=== PATIENT | female | born 1945 | race African-American/Black ===

== ENCOUNTER 2019-06-15 08:09 | Inpatient (IN) | payer OTHER, MEDICARE, MEDICAID ==
[~2019-06-15] VITALS: Ht 165.1 cm; Wt 87.6 kg
[2019-06-15] VITALS (27 sets, daily range): BP systolic 70–144; BP diastolic 47–104
[2019-06-15] MEDS ORDERED: Cefepime HCl 2 GM in NS 110 ML IV ONE (08:15)
[2019-06-15] MEDS ORDERED: LISINOPRIL20 MG ORAL (08:17)
[2019-06-15] MEDS ORDERED: ACETAMINOPHEN325 M1 ORAL (08:22)
--- NOTE | 2019-06-15 08:43 | Emergency Room Report ---
History of Present Illness General Chief Complaint: Upper Respiratory Illness Source: Patient, Medical Record, EMS Present Illness HPI Patient is a 73-year-old female who presents after decreased oxygen saturation at nursing facility. Prior history of interstitial lung disease as well as CHF. Had noticed increased patient had been sent in from facility due to decreased oxygen level. She was noted to have some increased work of breathing. Patient was brought in by EMS. No recent fever was noted. She was noted to be somewhat low temperature by EMS. COVID-19 risk:Contact w/high r: No COVID-19 risk:Travel to affect: No Has patient experienced liu: No Allergies: Coded Allergies: MORPHINE (Unverified Allergy, Unknown, 06/15/19) Patient History Past Medical History: see triage record Now: No Reviewed Nursing Documentation: PMH: Agreed; PSxH: Agreed Nursing Documentation-PMH Past Medical History: No History, Except For Hx Cardiac Problems: Yes - cellulitis Hx Diabetes: Yes History Of Psychiatric Problem: Yes - anxiety Review of Systems All Other Systems: limited - Review of systems: Review systems is limited by patient's being a poor historian Physical Exam Vital Signs Date Time Temp Pulse Resp B/P (MAP) Pulse Ox O2 Delivery O2 Flow Rate FiO2 06/15/19 08:05 96.1 62 16 145/93 (110) 95 Nasal Cannula 2.0 Sp02 EP Interpretation: reviewed, normal General Appearance: normal inspection, alert, Chronically Ill Head: atraumatic ENT: normal ENT inspection, hearing grossly normal, normal voice Neck: normal inspection, full range of motion, supple, no bony tend Respiratory: normal inspection, lungs clear, normal breath sounds, no respiratory distress, no retraction, no wheezing Cardiovascular #1: regular rate, rhythm, no edema Gastrointestinal: normal inspection, normal bowel sounds, non tender, soft, no guarding, no hernia Genitourinary: normal inspection, no CVA tenderness Musculoskeletal: normal inspection, back normal, normal range of motion Neurologic: alert, motor strength/tone normal, dean of graduate studies III-XII nml as tested, responsive, speech normal, normal inspection Psychiatric: normal inspection, judgement/insight normal, mood/affect normal Medical Decision Making Diagnostic Impression: Primary Impression: Pneumonia Additional Impressions: Leukopenia Hypoglycemia ER Course Patient presented for shortness of breath. Differential included but was not limited to anemia, pneumonia, pneumothorax, myocardial infarction, pericardial effusion, congestive heart failure, acidosis. Because of complexity of patient' s case laboratory tests and imaging studies were ordered. Chest x-ray 1 view showed bilateral infiltrates with normal cardiac size. Patient started on IV fluids as well as IV antibiotics.Patient was given breathing treatments. Blood cultures were obtained. Dr. Jayjay Cuenca was contacted for inpatient management Labs Test 06/15/19 08:43 White Blood Count 3.7 K/UL (4.8-10.8) Red Blood Count 4.18 M/UL (4.20-5.40) Hemoglobin 12.5 G/DL (12.0-16.0) Hematocrit 37.6 % (37.0-47.0) Mean Corpuscular Volume 90 FL (80-99) Mean Corpuscular Hemoglobin 29.9 PG (27.0-31.0) Mean Corpuscular Hemoglobin Concent 33.3 G/DL (32.0-36.0) Red Cell Distribution Width 14.3 % (11.6-14.8) Platelet Count 62 K/UL (150-450) Mean Platelet Volume 11.3 FL (6.5-10.1) Neutrophils (%) (Auto) % (45.0-75.0) Lymphocytes (%) (Auto) % (20.0-45.0) Monocytes (%) (Auto) % (1.0-10.0) Eosinophils (%) (Auto) % (0.0-3.0) Basophils (%) (Auto) % (0.0-2.0) EKG Diagnostic Results Rate: normal Rhythm: NSR ST Segments: no acute changes Last Vital Signs Date Time Temp Pulse Resp B/P (MAP) Pulse Ox O2 Delivery O2 Flow Rate FiO2 06/15/19 08:05 96.1 62 16 145/93 (110) 95 Nasal Cannula 2.0 Status: unchanged Disposition: ADMITTED INPATIENT Condition: Stable Referrals: Jayjay Chandler MD (PCP) Jayce Kamara MD Jun 15, 2019 08:43
[2019-06-15] MEDS ORDERED: Albuterol/Ipratropium 3ml neb HHN ONE ×3 (09:00→12:45)
[2019-06-15] MEDS ORDERED: D5 1/2NS 1,000 ML IV SCH (09:00)
[2019-06-15 09:03] LABS: HEMATOCRIT 37.6 % (37.0-47.0); HEMOGLOBIN 12.5 G/DL (12.0-16.0); MEAN CORPUSCULAR VOLUME 90 FL (80-99); PLATELET COUNT 62 K/UL (150-450); RED BLOOD COUNT 4.18 M/UL (4.20-5.40); RED CELL DISTRIBUTION WIDTH 14.3 % (11.6-14.8); WHITE BLOOD COUNT 3.7 K/UL (4.8-10.8)
[2019-06-15 09:28] LABS: ALANINE AMINOTRANSFERASE 55 U/L (12-78); ALBUMIN 2.4 G/DL (3.4-5.0); ALBUMIN/GLOBULIN RATIO 0.5 (1.0-2.7); ALKALINE PHOSPHATASE 120 U/L (46-116); ANION GAP 11 mmol/L (5-15); ASPARTATE AMINO TRANSFERASE 61 U/L (15-37); BILIRUBIN,TOTAL 0.7 MG/DL (0.2-1.0); CALCIUM 9.2 MG/DL (8.5-10.1); CARBON DIOXIDE 20 MMOL/L (21-32); CHLORIDE 106 MMOL/L (98-107); CKMB 21.7 NG/ML (0.0-3.6); CREATINE KINASE 193 U/L (26-308); CREATININE 0.5 MG/DL (0.55-1.30); POTASSIUM 4.8 MMOL/L (3.5-5.1); SODIUM 137 MMOL/L (136-145)
[2019-06-15 09:40] LABS: BLOOD UREA NITROGEN 10 mg/dL (7-18)
--- NOTE | 2019-06-15 10:04 | Diagnostic Imaging Report ---
Indication: Dyspnea Comparison: None A single view chest radiograph was obtained. Findings: Patchy areas of airspace consolidation demonstrated an fairly extensive within both lungs. Heart size is borderline. Pulmonary vascularity appears mildly prominent. There are no pleural effusions. Bones are osteopenic. IMPRESSION: Fairly extensive patchy airspace disease demonstrated bilaterally. Findings could be due to pneumonia. Differential includes CHF.
[2019-06-15 10:57] LABS: APPEARANCE,URINE CLEAR; BILIRUBIN, URINE NEGATIVE (NEGATIVE); COLOR,URINE PALE YELLOW; GLUCOSE, URINE (UA) NEGATIVE (NEGATIVE); KETONES,URINE NEGATIVE (NEGATIVE); LEUKOCYTE ESTERASE ,URINE NEGATIVE (NEGATIVE); NITRITE,URINE NEGATIVE (NEGATIVE); PH,URINE 6 (4.5-8.0); PROTEIN,URINE NEGATIVE (NEGATIVE); UROBILINOGEN,URINE NORMAL MG/DL (0.0-1.0)
[2019-06-15] MEDS ORDERED: Azithromycin 500 MG in NS 275 ML IV SCH ×2 (12:51→15:00)
--- NOTE | 2019-06-15 14:12 | Cardiac Electrophysiology PN ---
Subjective Subjective [id number] Objective Last 24 Hour Vital Signs Date Time Temp Pulse Resp B/P (MAP) Pulse Ox O2 Delivery O2 Flow Rate FiO2 06/15/19 13:30 78 29 126/87 96 Nasal Cannula 3.0 06/15/19 12:47 62 22 100 Nasal Cannula 3.0 32 57 24 98 06/15/19 12:40 89.9 61 28 130/82 94 Nasal Cannula 3.0 06/15/19 10:30 89.9 60 27 126/81 96 Nasal Cannula 3.0 06/15/19 09:18 59 26 Nasal Cannula 3.0 32 06/15/19 09:17 62 22 100 Nasal Cannula 3.0 32 59 26 99 06/15/19 08:25 89.9 62 25 135/84 98 Nasal Cannula 3.0 06/15/19 08:05 96.1 62 16 145/93 (110) 95 Nasal Cannula 2.0 Laboratory Tests Test 06/15/19 08:43 06/15/19 10:10 White Blood Count 3.7 K/UL (4.8-10.8) L Red Blood Count 4.18 M/UL (4.20-5.40) L Hemoglobin 12.5 G/DL (12.0-16.0) Hematocrit 37.6 % (37.0-47.0) Mean Corpuscular Volume 90 FL (80-99) Mean Corpuscular Hemoglobin 29.9 PG (27.0-31.0) Mean Corpuscular Hemoglobin Concent 33.3 G/DL (32.0-36.0) Red Cell Distribution Width 14.3 % (11.6-14.8) Platelet Count 62 K/UL (150-450) L Mean Platelet Volume 11.3 FL (6.5-10.1) H Neutrophils (%) (Auto) % (45.0-75.0) Lymphocytes (%) (Auto) % (20.0-45.0) Monocytes (%) (Auto) % (1.0-10.0) Eosinophils (%) (Auto) % (0.0-3.0) Basophils (%) (Auto) % (0.0-2.0) Differential Total Cells Counted 100 Neutrophils % (Manual) 78 % (45-75) H Lymphocytes % (Manual) 15 % (20-45) L Monocytes % (Manual) 6 % (1-10) Eosinophils % (Manual) 0 % (0-3) Basophils % (Manual) 1 % (0-2) Band Neutrophils 0 % (0-8) Platelet Estimate Decreased L Platelet Morphology Normal Red Blood Cell Morphology Normal Sodium Level 137 MMOL/L (136-145) Potassium Level 4.8 MMOL/L (3.5-5.1) Chloride Level 106 MMOL/L (98-107) Carbon Dioxide Level 20 MMOL/L (21-32) L Anion Gap 11 mmol/L (5-15) Blood Urea Nitrogen 10 mg/dL (7-18) Creatinine 0.5 MG/DL (0.55-1.30) L Estimat Glomerular Filtration Rate > 60 mL/min (>60) Glucose Level 85 MG/DL (74-106) Lactic Acid Level 1.10 mmol/L (0.4-2.0) Calcium Level 9.2 MG/DL (8.5-10.1) Total Bilirubin 0.7 MG/DL (0.2-1.0) Aspartate Amino Transf (AST/SGOT) 61 U/L (15-37) H Alanine Aminotransferase (ALT/SGPT) 55 U/L (12-78) Alkaline Phosphatase 120 U/L (46-116) H Total Creatine Kinase 193 U/L (26-308) Creatine Kinase MB 21.7 NG/ML (0.0-3.6) H Creatine Kinase MB Relative Index 11.2 Troponin I 0.012 ng/mL (0.000-0.056) Pro-B-Type Natriuretic Peptide 788 pg/mL (0-125) H Total Protein 7.7 G/DL (6.4-8.2) Albumin 2.4 G/DL (3.4-5.0) L Globulin 5.3 g/dL Albumin/Globulin Ratio 0.5 (1.0-2.7) L Urine Color Pale yellow Urine Appearance Clear Urine pH 6 (4.5-8.0) Urine Specific [place] 1.015 (1.005-1.035) Urine Protein Negative (NEGATIVE) Urine Glucose (UA) Negative (NEGATIVE) Urine Ketones Negative (NEGATIVE) Urine Blood Negative (NEGATIVE) Urine Nitrite Negative (NEGATIVE) Urine Bilirubin Negative (NEGATIVE) Urine Urobilinogen Normal MG/DL (0.0-1.0) Urine Leukocyte Esterase Negative (NEGATIVE) Microbiology Date/Time Source Procedure Growth Status 06/15/19 08:55 Nasal Nares - Final Complete 06/15/19 08:55 Nasal Nares - Final Complete Ruben Grissom MD Jun 15, 2019 14:12
--- NOTE | 2019-06-15 16:15 | Consultation ---
DATE OF CONSULTATION: 06/15/2019 CARDIOLOGY CONSULTATION CONSULTING PHYSICIAN: Ruben Grissom M.D. REFERRING PHYSICIAN: Jayjay Chandler M.D. REASON FOR CONSULTATION: Shortness of breath, decreased oxygen saturation, and atrial fibrillation. HISTORY OF PRESENT ILLNESS: The patient is a 73-year-old lady with history of psychiatric disorder and dementia who was brought in from long term for decreased oxygen saturation. The patient has apparent history of lung disease as well as congestive heart failure. The patient was evaluated in the ER and chest x-ray showed bilateral infiltrate. Blood pressure was 145/93, history of atrial fibrillation, rate of 62. The patient was admitted to step-down unit. However, here the heart rate went down as low as 30s. Cardiology consultation was obtained for further evaluation. REVIEW OF SYSTEMS: Limited to her mental status. PAST MEDICAL HISTORY: As mentioned above. FAMILY HISTORY: Noncontributory. SOCIAL HISTORY: detention resident. Does not smoke or drink alcohol. PHYSICAL EXAMINATION: VITAL SIGNS: Blood pressure 126/87, pulse is between 30s to 70s, respirations 29, temperature is 89.9. HEAD AND NECK: Showed no JVD. LUNGS: Bilateral rhonchi. CARDIOVASCULAR: Irregular. S1 and S2 with no gallop. ABDOMEN: Soft. EXTREMITIES: No pitting edema. LABORATORY AND DIAGNOSTIC DATA: Labs show white count of 3.7, hemoglobin 12.5, hematocrit 37.6, and platelet count of 62. Sodium 137, potassium 4.8, BUN of 10, creatinine 0.7, and glucose of 85. First troponin is negative. ASSESSMENT AND PLAN: 1. Shortness of breath, likely due to bilateral pneumonia, but also could be some component of congestive heart failure as well as the BNP is 788. First troponin is negative. Completely rule out [place] protocol. Get an echocardiogram for evaluation of ejection fraction and wall motion abnormality. I will start the patient on Lasix 40 mg IV daily as well. 2. Bilateral lung infiltrate and leukopenia. The patient was already started on Plaquenil 600 b.i.d. as well as azithromycin. Further evaluation by Dr. Pinto and Dr. Blue. 3. History of psychiatric history. 4. History of . 5. History of cellulitis. Thank you very much for allowing me to participate in the care of this patient. Please do not hesitate to contact me for any questions regarding my evaluation. Ruben Grissom M.D. DR: KEVIN JOB#: [id number] CC:
--- NOTE | 2019-06-15 16:30 | Consultation ---
DATE OF CONSULTATION: 06/15/2019 INFECTIOUS DISEASE CONSULTATION CONSULTING PHYSICIAN: Edin Blue M.D. PRIMARY ATTENDING PHYSICIAN: Jayjay Chandler M.D. REASON FOR CONSULT: Sepsis and pneumonia. HISTORY OF PRESENT ILLNESS: This is a 73-year-old female admitted today from a alf complaining of shortness of breath, decrease in O2 saturation. She has hypothermia with temperature of 89.9, tachypnea with respiratory rate of 26. The patient also has pneumonia, that seems to be bilateral. PAST MEDICAL HISTORY: Significant for dementia with behavioral problem, hyperglycemia, diabetes mellitus, hypertension, interstitial lung disease, and CHF. SOCIAL HISTORY: Single, alf resident. No other information can be obtained by the patient. PHYSICAL EXAMINATION: VITAL SIGNS: Temperature 89.9, pulse 62, blood pressure 135/84. GENERAL APPEARANCE: Seems to be well developed. HEAD AND NECK: Getting oxygen by nasal cannula. Slightly dry tongue. HEART: Normal rate. LUNGS: Bilateral rales. ABDOMEN: Soft and nontender. EXTREMITIES: Has some edema in the lower extremity, likely 1+. LABORATORY AND DIAGNOSTIC DATA: WBC 3.7, hemoglobin 12.5, hematocrit 37.6, and platelets 62,000. Sodium 137, potassium 4.8, chloride 106, bicarb 20, BUN 10, creatinine 0.5, glucose 85. Troponin was 0.012. BNP is 388. UA was negative. Chest x-ray showed bilateral patchy airspace disease likely pneumonia. Differential diagnosis include CHF. IMPRESSION: Sepsis with hypothermia, tachypnea, and decrease in white count. The patient has bilateral pneumonia that seems to be atypical. We will try to rule out COVID-19. She has interstitial lung disease, thrombocytopenia, and congestive heart failure. RECOMMENDATION: We will follow up the cultures. We will ask for sputum culture. We will follow up the COVID-19 test. The patient is started on Zithromax and hydroxychloroquine. We will continue with cefepime. At the end of my exam, I thank Dr. Chandler for involving me in the care of this patient. Edin Blue M.D. DR: BEV JOB#: [id number] CC:
--- NOTE | 2019-06-15 16:30 | Consultation ---
DATE OF CONSULTATION: 06/15/2019 PULMONARY CONSULTATION HISTORY OF PRESENT ILLNESS: This is a 73-year-old jail resident, was brought to the hospital with hypoxemia. The patient has a history of interstitial lung disease as well as congestive heart failure. She was found to be desaturating and was transferred to this hospital. There was no cough or fever. The patient was admitted to the hospital for subsequent management and care. PAST MEDICAL HISTORY: Notable for cellulitis, CHF, interstitial lung disease. ALLERGIES: To morphine. HOME MEDICATIONS: Reviewed and reconciled in the chart. SOCIAL HISTORY: halfway resident. REVIEW OF SYSTEMS: Unreliable. PHYSICAL EXAMINATION: GENERAL: Reveals elderly female. VITAL SIGNS: Blood pressure is 120/80, heart rate 74, respirations 24, afebrile, O2 saturation 93% on room air and 96% . HEENT: Unremarkable. CHEST: Decreased breath sounds bilaterally with few basilar crackles. HEART: Normal heart sounds. ABDOMEN: Soft. EXTREMITIES: There is 1+ edema. LABORATORY AND DIAGNOSTIC DATA: White count 3.7. Chemistries normal, alkaline phosphatase 120, otherwise normal CBC and BMP. Urinalysis negative. X-ray chest shows extensive bilateral airspace disease. IMPRESSION: 1. Bilateral pneumonia, high suspicion for COVID-19. 2. History of CHF. DISCUSSION: The patient presents from nursing facility with hypoxemia, abnormal chest x-ray, and . I suspect that she may have COVID-19. It is prudent to isolate her and obtain testing for COVID-19. We will initiate empiric antibiotics. Her influenza A and B are negative. We will follow carefully. Aly Pinto M.D. DR: Fabian JOB#: [id number] CC:
[2019-06-15] MEDS: Eliquis 5mg tablet ORAL SCH (17:34)
[2019-06-15] MEDS: DOPamine 400mg/250ml 250 ML IV SCH (21:43)
[2019-06-15] MEDS: Cefepime HCl 1 GM in D5W 55 ML IVPB SCH (21:51)
--- NOTE | 2019-06-15 23:45 | History and Physical Report ---
DATE OF ADMISSION: 06/15/2019 HISTORY OF PRESENT ILLNESS: The patient was admitted to step-down status. The patient is a poor historian. The patient came in with hypoxia. Chest x-ray showed bilateral infiltrates and pulmonary congestion, afebrile, hypothermic, and admitted to step-down status. The patient reports shortness of breath. Denies cough. Denies wheezing. Denies headache. Denies myalgia. However, the patient's is a very poor historian. PAST MEDICAL HISTORY: Organic brain syndrome, hypertension, NIDDM, anxiety, history of cellulitis in the past. MEDICATIONS: Lisinopril 20 mg daily. PAST SURGICAL HISTORY: None. ALLERGIES: To morphine. FAMILY HISTORY: Noncontributory. SOCIAL HISTORY: Denies history of smoking. Denies history of alcohol or illicit drugs. Comes from a detention. REVIEW OF SYSTEMS: HEENT: Denies headaches. RESPIRATORY: Reports shortness of breath. Denies cough. Denies wheezing. CARDIOVASCULAR: Denies chest pain. GASTROINTESTINAL: Denies nausea, vomiting, or diarrhea. EXTREMITIES: Denies pain. CENTRAL NERVOUS SYSTEM: Denies changes in speech pattern, feels weak. PHYSICAL EXAMINATION: VITAL SIGNS: Temperature not recorded, pulse is 68, blood pressure 92/57. HEENT: PERRLA. NECK: Supple. No lymphadenopathy. CHEST: Clear to auscultation. CARDIOVASCULAR: Regular rate and rhythm. No murmurs or extra sounds. GASTROINTESTINAL: Soft, nontender, nondistended. No organomegaly. EXTREMITIES: He moves all four extremities. NEUROLOGIC: Oriented x1. Has generalized weakness. Dorsalis pedis pulses present. LABORATORY DATA: WBC of 2.7, hemoglobin 12.5, and platelets of 62. Sodium of 137, potassium 4.8, BUN of 10, creatinine of 0.5, glucose of 65. Chest x-ray bilateral infiltrate. EKG shows atrial fibrillation. ASSESSMENT/PLAN: Bilateral pneumonia, hypoxia, hypothermia, , atrial fibrillation rate controlled, thrombocytopenia. I have asked Dr. Sanchez, Dr. Aly Pinto, and Dr. Edin Blue, Dr. Grissom see the patient to help with the management of this complex patient with the above mentioned abnormalities and diagnoses from the laboratory abnormalities as well as imaging abnormalities as well as aforementioned diagnoses. Antibiotics per Dr. Edin Blue. Jayjay Chandler M.D. DR: Ivelisse JOB#: [id number] CC:
[2019-06-16] VITALS (59 sets, daily range): BP systolic 47–146; BP diastolic 32–93
--- NOTE | 2019-06-16 01:59 | Diagnostic Imaging Report ---
Indication: Dyspnea Comparison: 06/15/2019 A single view chest radiograph was obtained. Findings: Patchy airspace opacities are noted within the lungs bilaterally. The heart is mildly enlarged but stable. Endotracheal tube is oriented toward the right mainstem bronchus and may be pulled up slightly. A right jugular central line and NG tube are in good position. IMPRESSION: Endotracheal tube is low and should be pulled up. Bilateral airspace opacities. Preliminary results conveyed to the ICU by statrad 01:58 06/16/2019
--- NOTE | 2019-06-16 02:01 | Diagnostic Imaging Report ---
Indication: Abdominal pain Comparison: None Single view of the abdomen obtained Findings: Bowel gas pattern is nonspecific. Surgical clips noted in the abdomen. There is a curvilinear calcification projected over the left-sided abdomen consistent with a tortuous and calcified aorta. No mass, ectopic calcifications, or abnormal gas collections are identified. The bones are osteopenic. There are multiple endplate osteophytes in the lumbar spine. Impression: No acute findings
--- NOTE | 2019-06-16 02:34 | Emergency Room Report ---
Physical Exam Vital Signs Date Time Temp Pulse Resp B/P (MAP) Pulse Ox O2 Delivery O2 Flow Rate FiO2 06/15/19 08:05 96.1 62 16 145/93 (110) 95 Nasal Cannula 2.0 06/15/19 09:17 32 Medical Decision Making Diagnostic Impression: Primary Impression: Pneumonia Additional Impressions: Hypoglycemia Leukopenia ER Course Called to the ICU for emergency intubation and central line placement. Patient admitted for respiratory failure with bilateral infiltrates. A right internal jugular triple-lumen was placed under ultrasound guidance without complications. Chest x-ray shows appropriate position without a pneumothorax. Patient was intubated under glide scope first attempt without complications. Chest x-ray showed endotracheal tube was at the tip of the nolan. Instructed ICU staff to retract 2 cm. Remainder of care per ICU team. Recall as needed. Last Vital Signs Date Time Temp Pulse Resp B/P (MAP) Pulse Ox O2 Delivery O2 Flow Rate FiO2 06/16/19 00:47 142 16 97 Mechanical Ventilator 100 06/16/19 00:00 111/61 (78) 06/15/19 20:00 3.0 06/15/19 20:00 97.2 Disposition: ADMITTED INPATIENT Condition: Stable Referrals: Jayjay Chandler MD (PCP) Procedures Central Line Central Line : Consent: Emergent Central Line Lumen: triple Maximal Sterile Barrier Tech: yes cap, yes mask, yes sterile gown, yes sterile gloves, yes large sterile sheet, yes hand hygiene, yes chlorhexidine prep No Max Barrier Tech Because: emergency insertion Central Line Postion: internal jugular (R) Complications: none Central Line Post Position: sutured, good blood return, position confirmed w / CXR Attempts: One Patient Tolerated: Well Complications: None Intubation Intubation : Consent: Emergent Intubation Method: orotracheal Tube Size (cm): 7.5 Medications: Etomidate - 20 mg, Ketamine - 100 mg Breath Sounds after Intubation: equal Intubation Complications: no complications Post Intubation Xray: Yes Progress/Xray Impression: Endotracheal tube tip at the nolan Attempts: One Patient Tolerated: Well Complications: None Rodrigo Lopez MD Jun 16, 2019 02:34
[2019-06-16] MEDS: Cefepime HCl 1 GM in D5W 55 ML IVPB SCH ×2 (05:41→18:16)
--- NOTE | 2019-06-16 06:57 | Consultation ---
History of Present Illness General Chief Complaint: Upper Respiratory Illness Present Illness Allergies: Coded Allergies: MORPHINE (Unverified Allergy, Unknown, 06/15/19) Medication History Scheduled Lisinopril (Lisinopril*), 20 MG ORAL DAILY, (Reported) Scheduled PRN Acetaminophen* (Acetaminophen 325MG Tablet*), 650 MG ORAL Q4H PRN for , ( Reported) Patient History Healthcare decision maker Patient is self responsible Resuscitation status Full Code Advanced Directive on File Physical Exam Last 24 Hour Vital Signs Date Time Temp Pulse Resp B/P (MAP) Pulse Ox O2 Delivery O2 Flow Rate FiO2 06/16/19 06:30 97 16 111/59 (76) 98 06/16/19 06:15 96 16 110/60 (77) 98 06/16/19 06:00 98 16 111/59 (76) 98 06/16/19 06:00 111/59 06/16/19 06:00 111/59 06/16/19 05:45 106 16 122/56 (78) 97 06/16/19 05:32 103 19 128/81 (97) 97 06/16/19 05:15 88 17 90/60 (70) 97 06/16/19 05:00 100 16 100 06/16/19 05:00 86 16 81/52 (62) 97 06/16/19 04:45 91 16 98/56 (70) 97 06/16/19 04:30 92 16 94/46 (62) 95 06/16/19 04:15 89 16 96/40 (58) 96 06/16/19 04:15 92 16 90/47 (61) 06/16/19 04:00 85 06/16/19 04:00 100 06/16/19 04:00 Mechanical Ventilator 100.0 06/16/19 04:00 86/56 06/16/19 04:00 86/45 06/16/19 04:00 97.6 92 16 86/47 (60) 06/16/19 04:00 92 16 86/47 (60) 06/16/19 03:45 87 16 06/16/19 03:35 93 14 87/54 (65) 06/16/19 03:30 93 16 06/16/19 03:15 89 15 06/16/19 03:00 92 11 83/55 (64) 100 3/24/20 02:59 104/79 06/16/19 02:45 95 16 100 06/16/19 02:45 95 10 112/70 (84) 100 06/16/19 02:30 97 1 109/55 (73) 100 06/16/19 02:15 104 20 110/60 (77) 99 06/16/19 02:00 132 10 104/79 (87) 93 06/16/19 02:00 114/80 06/16/19 01:45 139 6 111/60 (77) 94 06/16/19 01:30 134 10 112/70 (84) 96 06/16/19 01:15 130 11 106/60 (75) 98 06/16/19 01:00 138 17 110/93 (99) 97 06/16/19 01:00 110/56 06/16/19 00:47 142 16 97 Mechanical Ventilator 100 06/16/19 00:47 142 16 100 06/16/19 00:39 140 11 96/67 (77) 96 06/16/19 00:15 97.8 128 30 98/65 (76) 89 06/16/19 00:00 137 27 111/61 (78) 93 06/16/19 00:00 98/60 06/16/19 00:00 100 06/16/19 00:00 137 06/16/19 00:00 Venturi Mask 15.0 06/15/19 23:45 140 28 139/104 (116) 91 06/15/19 23:30 143 30 132/67 (88) 92 06/15/19 23:15 137 33 137/64 (88) 06/15/19 23:00 134 28 142/94 (110) 06/15/19 23:00 96/50 06/15/19 22:45 100 31 80/47 (58) 94 06/15/19 22:30 95 28 70/47 (55) 94 06/15/19 22:15 101 30 92/53 (66) 94 06/15/19 22:00 106 20 134/79 (97) 93 06/15/19 22:00 86/40 06/15/19 21:45 118 26 122/75 (91) 98 06/15/19 21:30 93 25 93/50 (64) 100 06/15/19 21:15 92 26 89/56 (67) 100 06/15/19 21:00 89 26 89/57 (68) 100 06/15/19 20:00 Nasal Cannula 3.0 06/15/19 20:00 97.2 79 27 95/61 (72) 100 06/15/19 20:00 15.0 06/15/19 20:00 87 06/15/19 19:45 81 25 106/62 (77) 100 06/15/19 19:30 72 26 102/58 (73) 100 06/15/19 19:15 75 30 86/54 (65) 97 06/15/19 19:00 58 21 75/53 (60) 98 06/15/19 17:51 68 27 92/57 (69) 95 06/15/19 17:48 74 23 97/61 (73) 91 06/15/19 17:00 93.8 65 29 89/51 (64) 92 06/15/19 16:00 Nasal Cannula 3.0 06/15/19 16:00 3.0 06/15/19 16:00 98.8 53 19 94/54 (67) 97 06/15/19 15:35 63 06/15/19 15:00 63 28 95/61 (72) 97 06/15/19 14:00 64 31 118/62 (80) 100 06/15/19 13:54 Nasal Cannula 3.0 06/15/19 13:46 88.9 67 24 144/78 (100) 96 06/15/19 13:32 69 06/15/19 13:30 78 29 126/87 96 Nasal Cannula 3.0 06/15/19 12:47 62 22 100 Nasal Cannula 3.0 32 57 24 98 06/15/19 12:40 89.9 61 28 130/82 94 Nasal Cannula 3.0 06/15/19 10:30 89.9 60 27 126/81 96 Nasal Cannula 3.0 06/15/19 09:18 59 26 Nasal Cannula 3.0 32 06/15/19 09:17 62 22 100 Nasal Cannula 3.0 32 59 26 99 06/15/19 08:25 89.9 62 25 135/84 98 Nasal Cannula 3.0 06/15/19 08:05 96.1 62 16 145/93 (110) 95 Nasal Cannula 2.0 Intake and Output 06/15/19 06/16/19 19:00 07:00 Intake Total 1500 ml 248.573 ml Output Total 830 ml Balance 1500 ml -581.427 ml Intake IV Total 1500 ml 248.573 ml Output Urine Total 830 ml # Voids 2 200 # Bowel Movements 5 4 Laboratory Tests Test 06/15/19 08:43 06/15/19 10:10 06/15/19 17:00 06/15/19 23:15 White Blood Count 3.7 K/UL (4.8-10.8) L Red Blood Count 4.18 M/UL (4.20-5.40) L Hemoglobin 12.5 G/DL (12.0-16.0) Hematocrit 37.6 % (37.0-47.0) Mean Corpuscular Volume 90 FL (80-99) Mean Corpuscular Hemoglobin 29.9 PG (27.0-31.0) Mean Corpuscular Hemoglobin Concent 33.3 G/DL (32.0-36.0) Red Cell Distribution Width 14.3 % (11.6-14.8) Platelet Count 62 K/UL (150-450) L Mean Platelet Volume 11.3 FL (6.5-10.1) H Neutrophils (%) (Auto) % (45.0-75.0) Lymphocytes (%) (Auto) % (20.0-45.0) Monocytes (%) (Auto) % (1.0-10.0) Eosinophils (%) (Auto) % (0.0-3.0) Basophils (%) (Auto) % (0.0-2.0) Differential Total Cells Counted 100 Neutrophils % (Manual) 78 % (45-75) H Lymphocytes % (Manual) 15 % (20-45) L Monocytes % (Manual) 6 % (1-10) Eosinophils % (Manual) 0 % (0-3) Basophils % (Manual) 1 % (0-2) Band Neutrophils 0 % (0-8) Platelet Estimate Decreased L Platelet Morphology Normal Red Blood Cell Morphology Normal Sodium Level 137 MMOL/L (136-145) Potassium Level 4.8 MMOL/L (3.5-5.1) Chloride Level 106 MMOL/L (98-107) Carbon Dioxide Level 20 MMOL/L (21-32) L Anion Gap 11 mmol/L (5-15) Blood Urea Nitrogen 10 mg/dL (7-18) Creatinine 0.5 MG/DL (0.55-1.30) L Estimat Glomerular Filtration Rate > 60 mL/min (>60) Glucose Level 85 MG/DL (74-106) Lactic Acid Level 1.10 mmol/L (0.4-2.0) Calcium Level 9.2 MG/DL (8.5-10.1) Total Bilirubin 0.7 MG/DL (0.2-1.0) Aspartate Amino Transf (AST/SGOT) 61 U/L (15-37) H Alanine Aminotransferase (ALT/SGPT) 55 U/L (12-78) Alkaline Phosphatase 120 U/L (46-116) H Total Creatine Kinase 193 U/L (26-308) Creatine Kinase MB 21.7 NG/ML (0.0-3.6) H Creatine Kinase MB Relative Index 11.2 Troponin I 0.012 ng/mL (0.000-0.056) 0.039 ng/mL (0.000-0.056) Pro-B-Type Natriuretic Peptide 788 pg/mL (0-125) H Total Protein 7.7 G/DL (6.4-8.2) Albumin 2.4 G/DL (3.4-5.0) L Globulin 5.3 g/dL Albumin/Globulin Ratio 0.5 (1.0-2.7) L Urine Color Pale yellow Urine Appearance Clear Urine pH 6 (4.5-8.0) Urine Specific [place] 1.015 (1.005-1.035) Urine Protein Negative (NEGATIVE) Urine Glucose (UA) Negative (NEGATIVE) Urine Ketones Negative (NEGATIVE) Urine Blood Negative (NEGATIVE) Urine Nitrite Negative (NEGATIVE) Urine Bilirubin Negative (NEGATIVE) Urine Urobilinogen Normal MG/DL (0.0-1.0) Urine Leukocyte Esterase Negative (NEGATIVE) Arterial Blood pH 7.360 (7.350-7.450) Arterial Blood Partial Pressure CO2 40.7 mmHg (35.0-45.0) Arterial Blood Partial Pressure O2 49.2 mmHg (75.0-100.0) Arterial Blood HCO3 22.5 mmol/L (22.0-26.0) Arterial Blood Oxygen Saturation 82.7 % (95-100) *L Arterial Blood Base Excess -2.8 (-2-2) L Julius Test Positive Test 06/16/19 05:30 White Blood Count Pending Red Blood Count Pending Hemoglobin Pending Hematocrit Pending Mean Corpuscular Volume Pending Mean Corpuscular Hemoglobin Pending Mean Corpuscular Hemoglobin Concent Pending Red Cell Distribution Width Pending Platelet Count Pending Mean Platelet Volume Pending Neutrophils (%) (Auto) Pending Lymphocytes (%) (Auto) Pending Monocytes (%) (Auto) Pending Eosinophils (%) (Auto) Pending Basophils (%) (Auto) Pending Sodium Level Pending Potassium Level Pending Chloride Level Pending Carbon Dioxide Level Pending Blood Urea Nitrogen Pending Creatinine Pending Estimat Glomerular Filtration Rate Pending Glucose Level Pending Calcium Level Pending Total Bilirubin Pending Aspartate Amino Transf (AST/SGOT) Pending Alanine Aminotransferase (ALT/SGPT) Pending Alkaline Phosphatase Pending Troponin I 0.181 ng/mL (0.000-0.056) Pro-B-Type Natriuretic Peptide 2741 pg/mL (0-125) H Total Protein Pending Albumin Pending Globulin Pending Thyroid Stimulating Hormone (TSH) 1.272 uiU/mL (0.358-3.740) Free Thyroxine 0.86 NG/DL (0.76-1.46) Digoxin Level < 0.2 NG/ML (0.9-2.0) L Microbiology Date/Time Source Procedure Growth Status 06/15/19 08:55 Nasal Nares - Final Complete 06/15/19 08:55 Nasal Nares - Final Complete 06/15/19 11:15 Rectum Received Height (Feet): 5 Height (Inches): 5.00 Weight (Pounds): 180 Medications Current Medications Medications (Trade) Dose Ordered Sig/Emil Route PRN Reason Start Time Stop Time Status Last Admin Dose Admin Acetaminophen (Tylenol) 650 mg Q4H PRN ORAL Mild Pain/Temp > 100.5 06/15/19 14:30 07/15/19 14:29 Apixaban (Eliquis) 5 mg BID ORAL 06/15/19 18:00 09/13/19 17:59 Cefepime HCl 1 gm/ Dextrose 55 ml @ 110 mls/hr Q8H IVPB 06/15/19 22:00 06/22/19 21:59 06/16/19 05:41 Dextrose (Dextrose 50%) 50 ml Q30M PRN IV Hypoglycemia 06/15/19 14:45 09/13/19 14:44 Dopamine HCl/ Dextrose 250 ml @ 0 mls/hr Q24H IV 06/15/19 20:45 09/13/19 20:44 06/15/19 21:43 Furosemide (Lasix) 40 mg EVERY 12 HOURS IV 06/15/19 21:00 07/15/19 20:59 06/15/19 21:44 Hydroxychloroquine Sulfate (Plaquenil) 200 mg BID ORAL 06/16/19 18:00 06/20/19 09:01 Hydroxychloroquine Sulfate (Plaquenil) 400 mg BID ORAL 06/15/19 18:00 06/16/19 09:01 Norepinephrine Bitartrate 4 mg/ Dextrose 250 ml @ 0 mls/hr Q24H IV 06/16/19 00:00 07/16/19 00:00 06/16/19 02:59 Pantoprazole (Protonix) 40 mg DAILY IVP 06/16/19 09:00 07/16/19 08:59 Assessment/Plan Assessment/Plan: Hematology Consultation REQ MD: Jayjay Cuenca RFC: pancytopenia DOS: 06/16/2019 HPI Patient is a 73-year-old female who presents after decreased oxygen saturation at nursing facility. Prior history of interstitial lung disease as well as CHF. Had noticed increased patient had been sent in from facility due to decreased oxygen level. She was noted to have some increased work of breathing. Patient was brought in by EMS. No recent fever was noted. She was noted to be somewhat low temperature by EMS. Now is intubated in the icu, intubated yesterday, highly suspicious for covid and heme was consulted. COVID-19 risk:Contact w/high r: No COVID-19 risk:Travel to affect: No Has patient experienced liu: No Allergies: Coded Allergies: MORPHINE (Unverified Allergy, Unknown, 06/15/19) Patient History Past Medical History: see triage record Now: No Reviewed Nursing Documentation: PMH: Agreed; PSxH: Agreed Nursing Documentation-PMH Past Medical History: No History, Except For Hx Cardiac Problems: Yes - cellulitis Hx Diabetes: Yes History Of Psychiatric Problem: Yes - anxiety ROS intubated PE General: normal inspection, alert, Chronically Ill HEENT: nc, at Respiratory: normal inspection, lungs clear, intubated ++ on vent Cardiovascular: regular rate, rhythm, no edema Gastrointestinal: normal inspection, normal bowel sounds, non tender, soft, no guarding, no hernia Genitourinary: normal inspection, no CVA tenderness Musculoskeletal: normal inspection, back normal Neurologic: alert, motor strength/tone normal, naturopathic physician III-XII nml as tested Psychiatric: normal inspection, judgement/insight normal Labs: noted Imaging: reviewed Assessment and Recs: # Pancytopenia with a decreased wbc and plt, likely related to pna v other cause , meds ntoed --> hepatitis and hiv ordered --> smear ordered at this time --> us of the abdomen --> transfuse on prn basis --> neupogen if anc drops to below 1500 # Pneumonia on admission --> now intubated --> on abx --> per id and pulm # Hypoglycemia --> d5w given earlier --> now improved # Shortness of breath, likely due to bilateral pneumonia --> echo per cards --> may need diuresis # Respiratory failure with Bilateral lung infiltrate and leukopenia. The patient was already started on Plaquenil 600 b.i.d. as well as azithromycin. F --> dr. Pinto on board --> NOW INTUBATED # History of psychiatric history. # History of cellulitis. Thank you very, appreciate consultation and dw James Dean MD Jun 16, 2019 06:57
[2019-06-16 07:08] LABS: ALANINE AMINOTRANSFERASE 40 U/L (12-78); ALBUMIN/GLOBULIN RATIO 0.4 (1.0-2.7); ALKALINE PHOSPHATASE 103 U/L (46-116); ANION GAP 7 mmol/L (5-15); ASPARTATE AMINO TRANSFERASE 36 U/L (15-37); BILIRUBIN,TOTAL 0.8 MG/DL (0.2-1.0); BLOOD UREA NITROGEN 12 mg/dL (7-18); CALCIUM 8.4 MG/DL (8.5-10.1); CARBON DIOXIDE 25 MMOL/L (21-32); CHLORIDE 107 MMOL/L (98-107); CREATININE 0.9 MG/DL (0.55-1.30); POTASSIUM 3.4 MMOL/L (3.5-5.1); SODIUM 139 MMOL/L (136-145)
[2019-06-16 07:28] LABS: HEMOGLOBIN 11.3 G/DL (12.0-16.0); MEAN CORPUSCULAR VOLUME 90 FL (80-99); PLATELET COUNT 63 K/UL (150-450); RED BLOOD COUNT 3.69 M/UL (4.20-5.40); RED CELL DISTRIBUTION WIDTH 14.2 % (11.6-14.8); WHITE BLOOD COUNT 19.2 K/UL (4.8-10.8)
[2019-06-16] MEDS ORDERED: Levophed 4mg/4mL Inj IV ONE (07:30)
[2019-06-16] MEDS: Eliquis 5mg tablet ORAL SCH ×2 (09:00→17:54)
--- NOTE | 2019-06-16 09:13 | Pulmonology Progress Note ---
Assessment/Plan Assessment/Plan IMPRESSION: 1. Bilateral pneumonia, high suspicion for COVID-19. 2. History of CHF. DISCUSSION: Intubated overnight On pressors The patient presents from nursing facility with hypoxemia and abnormal chest x- ray, and leukopenia. I suspect that she may have COVID-19. It is prudent to isolate her and obtain testing for COVID-19. I will initiate empiric antibiotics. Her influenza A and B are negative. I will follow carefully. Aly Pinto M.D. Subjective Interval Events: Intubated overnight; now on pressors Constitutional: Reports: no symptoms HEENT: Repors: no symptoms Respiratory: Reports: no symptoms Cardiovascular: Reports: no symptoms Gastrointestinal/Abdominal: Reports: no symptoms Allergies: Coded Allergies: MORPHINE (Unverified Allergy, Unknown, 06/15/19) Objective Last 24 Hour Vital Signs Date Time Temp Pulse Resp B/P (MAP) Pulse Ox O2 Delivery O2 Flow Rate FiO2 06/16/19 08:30 102 15 83/51 (62) 100 06/16/19 08:00 100 06/16/19 08:00 Mechanical Ventilator 100.0 06/16/19 08:00 101 16 117/67 (84) 100 06/16/19 07:30 97.1 67 21 47/32 (37) 99 06/16/19 07:00 93 17 72/44 (53) 100 06/16/19 07:00 97 16 100 06/16/19 06:30 97 16 111/59 (76) 98 06/16/19 06:15 96 16 110/60 (77) 98 06/16/19 06:00 98 16 111/59 (76) 98 06/16/19 06:00 111/59 06/16/19 06:00 111/59 06/16/19 05:45 106 16 122/56 (78) 97 06/16/19 05:32 103 19 128/81 (97) 97 06/16/19 05:15 88 17 90/60 (70) 97 06/16/19 05:00 100 16 100 06/16/19 05:00 86 16 81/52 (62) 97 06/16/19 04:45 91 16 98/56 (70) 97 06/16/19 04:30 92 16 94/46 (62) 95 06/16/19 04:15 89 16 96/40 (58) 96 06/16/19 04:15 92 16 90/47 (61) 06/16/19 04:00 85 06/16/19 04:00 100 06/16/19 04:00 Mechanical Ventilator 100.0 06/16/19 04:00 86/56 06/16/19 04:00 86/45 06/16/19 04:00 97.6 92 16 86/47 (60) 06/16/19 04:00 92 16 86/47 (60) 06/16/19 03:45 87 16 06/16/19 03:35 93 14 87/54 (65) 06/16/19 03:30 93 16 06/16/19 03:15 89 15 06/16/19 03:00 92 11 83/55 (64) 100 06/16/19 02:59 104/79 06/16/19 02:45 95 16 100 06/16/19 02:45 95 10 112/70 (84) 100 06/16/19 02:30 97 1 109/55 (73) 100 06/16/19 02:15 104 20 110/60 (77) 99 06/16/19 02:00 132 10 104/79 (87) 93 06/16/19 02:00 114/80 06/16/19 01:45 139 6 111/60 (77) 94 06/16/19 01:30 134 10 112/70 (84) 96 06/16/19 01:15 130 11 106/60 (75) 98 06/16/19 01:00 138 17 110/93 (99) 97 06/16/19 01:00 110/56 06/16/19 00:47 142 16 97 Mechanical Ventilator 100 06/16/19 00:47 142 16 100 06/16/19 00:39 140 11 96/67 (77) 96 06/16/19 00:15 97.8 128 30 98/65 (76) 89 06/16/19 00:00 137 27 111/61 (78) 93 06/16/19 00:00 98/60 06/16/19 00:00 100 06/16/19 00:00 137 06/16/19 00:00 Venturi Mask 15.0 06/15/19 23:45 140 28 139/104 (116) 91 06/15/19 23:30 143 30 132/67 (88) 92 06/15/19 23:15 137 33 137/64 (88) 06/15/19 23:00 134 28 142/94 (110) 06/15/19 23:00 96/50 06/15/19 22:45 100 31 80/47 (58) 94 06/15/19 22:30 95 28 70/47 (55) 94 06/15/19 22:15 101 30 92/53 (66) 94 06/15/19 22:00 106 20 134/79 (97) 93 06/15/19 22:00 86/40 06/15/19 21:45 118 26 122/75 (91) 98 06/15/19 21:30 93 25 93/50 (64) 100 06/15/19 21:15 92 26 89/56 (67) 100 06/15/19 21:00 89 26 89/57 (68) 100 06/15/19 20:00 Nasal Cannula 3.0 06/15/19 20:00 97.2 79 27 95/61 (72) 100 06/15/19 20:00 15.0 06/15/19 20:00 87 06/15/19 19:45 81 25 106/62 (77) 100 06/15/19 19:30 72 26 102/58 (73) 100 06/15/19 19:15 75 30 86/54 (65) 97 06/15/19 19:00 58 21 75/53 (60) 98 06/15/19 17:51 68 27 92/57 (69) 95 06/15/19 17:48 74 23 97/61 (73) 91 06/15/19 17:00 93.8 65 29 89/51 (64) 92 06/15/19 16:00 Nasal Cannula 3.0 06/15/19 16:00 3.0 06/15/19 16:00 98.8 53 19 94/54 (67) 97 06/15/19 15:35 63 06/15/19 15:00 63 28 95/61 (72) 97 06/15/19 14:00 64 31 118/62 (80) 100 06/15/19 13:54 Nasal Cannula 3.0 06/15/19 13:46 88.9 67 24 144/78 (100) 96 06/15/19 13:32 69 06/15/19 13:30 78 29 126/87 96 Nasal Cannula 3.0 06/15/19 12:47 62 22 100 Nasal Cannula 3.0 32 57 24 98 06/15/19 12:40 89.9 61 28 130/82 94 Nasal Cannula 3.0 06/15/19 10:30 89.9 60 27 126/81 96 Nasal Cannula 3.0 06/15/19 09:18 59 26 Nasal Cannula 3.0 32 06/15/19 09:17 62 22 100 Nasal Cannula 3.0 32 59 26 99 Intake and Output 06/15/19 06/16/19 19:00 07:00 Intake Total 1500 ml 248.573 ml Output Total 860 ml Balance 1500 ml -611.427 ml Intake IV Total 1500 ml 248.573 ml Output Urine Total 860 ml # Voids 2 200 # Bowel Movements 5 4 General Appearance: no acute distress HEENT: normocephalic Respiratory/Chest: chest wall non-tender, normal breath sounds Microbiology Date/Time Source Procedure Growth Status 06/15/19 08:55 Nasal Nares - Final Complete 06/15/19 08:55 Nasal Nares - Final Complete 06/15/19 11:15 Rectum Received Laboratory Tests 06/15/19 10:10: Urine Color Pale yellow, Urine Appearance Clear, Urine pH 6, Urine Specific [place] 1.015, Urine Protein Negative, Urine Glucose (UA) Negative, Urine Ketones Negative, Urine Blood Negative, Urine Nitrite Negative, Urine Bilirubin Negative, Urine Urobilinogen Normal, Urine Leukocyte Esterase Negative 06/15/19 17:00: Troponin I 0.039 06/15/19 23:15: Arterial Blood pH 7.360, Arterial Blood Partial Pressure CO2 40.7, Arterial Blood Partial Pressure O2 49.2*L, Arterial Blood HCO3 22.5, Arterial Blood Oxygen Saturation 82.7*L, Arterial Blood Base Excess -2.8L, Julius Test Positive 06/16/19 05:30: Troponin I 0.181H, White Blood Count 19.2#H, Red Blood Count 3.69L, Hemoglobin 11.3L, Hematocrit 33.0L, Mean Corpuscular Volume 90, Mean Corpuscular Hemoglobin 30.7, Mean Corpuscular Hemoglobin Concent 34.3, Red Cell Distribution Width 14.2, Platelet Count 63L, Mean Platelet Volume 12.2H, Neutrophils (%) (Auto) , Lymphocytes (%) (Auto) , Monocytes (%) (Auto) , Eosinophils (%) (Auto) , Basophils (%) (Auto) , Differential Total Cells Counted 100, Neutrophils % (Manual) 94H, Lymphocytes % (Manual) 3L, Monocytes % (Manual) 2, Eosinophils % (Manual) 1, Basophils % (Manual) 0, Band Neutrophils 0 , Platelet Estimate DecreasedL, Platelet Morphology Normal, Hypochromasia 1+, Sodium Level 139, Potassium Level 3.4L, Chloride Level 107, Carbon Dioxide Level 25, Anion Gap 7, Blood Urea Nitrogen 12, Creatinine 0.9#, Estimat Glomerular Filtration Rate > 60, Glucose Level 97, Calcium Level 8.4L, Total Bilirubin 0.8, Aspartate Amino Transf (AST/SGOT) 36, Alanine Aminotransferase ( ALT/SGPT) 40, Alkaline Phosphatase 103, Pro-B-Type Natriuretic Peptide 2741H, Total Protein 6.5, Albumin 2.0L, Globulin 4.5, Albumin/Globulin Ratio 0.4L, Thyroid Stimulating Hormone (TSH) 1.272, Free Thyroxine 0.86, Digoxin Level < 0.2L Current Medications Medications (Trade) Dose Ordered Sig/Emil Route PRN Reason Start Time Stop Time Status Last Admin Dose Admin Acetaminophen (Tylenol) 650 mg Q4H PRN ORAL Mild Pain/Temp > 100.5 06/15/19 14:30 07/15/19 14:29 Apixaban (Eliquis) 5 mg BID ORAL 06/15/19 18:00 09/13/19 17:59 Cefepime HCl 1 gm/ Dextrose 55 ml @ 110 mls/hr Q8H IVPB 06/15/19 22:00 06/22/19 21:59 06/16/19 05:41 Dextrose (Dextrose 50%) 50 ml Q30M PRN IV Hypoglycemia 06/15/19 14:45 09/13/19 14:44 Dopamine HCl/ Dextrose 250 ml @ 0 mls/hr Q24H IV 06/15/19 20:45 09/13/19 20:44 06/15/19 21:43 Furosemide (Lasix) 40 mg EVERY 12 HOURS IV 06/15/19 21:00 07/15/19 20:59 06/15/19 21:44 Hydroxychloroquine Sulfate (Plaquenil) 200 mg BID ORAL 06/16/19 18:00 06/20/19 09:01 Norepinephrine Bitartrate 8 mg/ Dextrose 558 ml @ 0 mls/hr Q24H IV 06/16/19 09:00 07/16/19 08:59 Pantoprazole (Protonix) 40 mg DAILY IVP 06/16/19 09:00 07/16/19 08:59 Aly Pinto MD Jun 16, 2019 09:13
--- NOTE | 2019-06-16 10:04 | Infectious Diseases Prog Note ---
Assessment/Plan Assessment/Plan IMPRESSION: Sepsis with Septic shock Bilateral pneumonia, try to rule out COVID-19. Hypoxic respiratory failure Interstitial lung disease, Thrombocytopenia, Congestive heart failure. RECOMMENDATION: We will follow up the cultures. We will follow up the COVID-19 test. Continue Zithromax ,hydroxychloroquine &cefepime. Poor prognosis Subjective ROS Limited/Unobtainable: Yes Constitutional: Reports: other - in critical condition in ICU Respiratory: Reports: other - intubated Cardiovascular: Reports: other - on Levophed, had IJ line placemet Allergies: Coded Allergies: MORPHINE (Unverified Allergy, Unknown, 06/15/19) Objective Vital Signs Last 24 Hour Vital Signs Date Time Temp Pulse Resp B/P (MAP) Pulse Ox O2 Delivery O2 Flow Rate FiO2 06/16/19 09:30 103 17 102/60 (74) 06/16/19 09:00 99 15 89/50 (63) 100 06/16/19 08:30 102 15 83/51 (62) 100 06/16/19 08:00 100 06/16/19 08:00 Mechanical Ventilator 100.0 06/16/19 08:00 101 06/16/19 08:00 101 16 117/67 (84) 100 06/16/19 07:30 97.1 67 21 47/32 (37) 99 06/16/19 07:00 93 17 72/44 (53) 100 06/16/19 07:00 97 16 100 06/16/19 06:30 97 16 111/59 (76) 98 06/16/19 06:15 96 16 110/60 (77) 98 06/16/19 06:00 98 16 111/59 (76) 98 06/16/19 06:00 111/59 06/16/19 06:00 111/59 06/16/19 05:45 106 16 122/56 (78) 97 06/16/19 05:32 103 19 128/81 (97) 97 06/16/19 05:15 88 17 90/60 (70) 97 06/16/19 05:00 100 16 100 06/16/19 05:00 86 16 81/52 (62) 97 06/16/19 04:45 91 16 98/56 (70) 97 06/16/19 04:30 92 16 94/46 (62) 95 06/16/19 04:15 89 16 96/40 (58) 96 06/16/19 04:15 92 16 90/47 (61) 06/16/19 04:00 85 06/16/19 04:00 100 06/16/19 04:00 Mechanical Ventilator 100.0 06/16/19 04:00 86/56 06/16/19 04:00 86/45 06/16/19 04:00 97.6 92 16 86/47 (60) 06/16/19 04:00 92 16 86/47 (60) 06/16/19 03:45 87 16 06/16/19 03:35 93 14 87/54 (65) 06/16/19 03:30 93 16 06/16/19 03:15 89 15 06/16/19 03:00 92 11 83/55 (64) 100 06/16/19 02:59 104/79 06/16/19 02:45 95 16 100 06/16/19 02:45 95 10 112/70 (84) 100 06/16/19 02:30 97 1 109/55 (73) 100 06/16/19 02:15 104 20 110/60 (77) 99 06/16/19 02:00 132 10 104/79 (87) 93 06/16/19 02:00 114/80 06/16/19 01:45 139 6 111/60 (77) 94 06/16/19 01:30 134 10 112/70 (84) 96 06/16/19 01:15 130 11 106/60 (75) 98 06/16/19 01:00 138 17 110/93 (99) 97 06/16/19 01:00 110/56 06/16/19 00:47 142 16 97 Mechanical Ventilator 100 06/16/19 00:47 142 16 100 06/16/19 00:39 140 11 96/67 (77) 96 06/16/19 00:15 97.8 128 30 98/65 (76) 89 06/16/19 00:00 137 27 111/61 (78) 93 06/16/19 00:00 98/60 06/16/19 00:00 100 06/16/19 00:00 137 06/16/19 00:00 Venturi Mask 15.0 06/15/19 23:45 140 28 139/104 (116) 91 06/15/19 23:30 143 30 132/67 (88) 92 06/15/19 23:15 137 33 137/64 (88) 06/15/19 23:00 134 28 142/94 (110) 06/15/19 23:00 96/50 06/15/19 22:45 100 31 80/47 (58) 94 06/15/19 22:30 95 28 70/47 (55) 94 06/15/19 22:15 101 30 92/53 (66) 94 06/15/19 22:00 106 20 134/79 (97) 93 06/15/19 22:00 86/40 06/15/19 21:45 118 26 122/75 (91) 98 06/15/19 21:30 93 25 93/50 (64) 100 06/15/19 21:15 92 26 89/56 (67) 100 06/15/19 21:00 89 26 89/57 (68) 100 06/15/19 20:00 Nasal Cannula 3.0 06/15/19 20:00 97.2 79 27 95/61 (72) 100 06/15/19 20:00 15.0 06/15/19 20:00 87 06/15/19 19:45 81 25 106/62 (77) 100 06/15/19 19:30 72 26 102/58 (73) 100 06/15/19 19:15 75 30 86/54 (65) 97 06/15/19 19:00 58 21 75/53 (60) 98 06/15/19 17:51 68 27 92/57 (69) 95 06/15/19 17:48 74 23 97/61 (73) 91 06/15/19 17:00 93.8 65 29 89/51 (64) 92 06/15/19 16:00 Nasal Cannula 3.0 06/15/19 16:00 3.0 06/15/19 16:00 98.8 53 19 94/54 (67) 97 06/15/19 15:35 63 06/15/19 15:00 63 28 95/61 (72) 97 06/15/19 14:00 64 31 118/62 (80) 100 06/15/19 13:54 Nasal Cannula 3.0 06/15/19 13:46 88.9 67 24 144/78 (100) 96 06/15/19 13:32 69 06/15/19 13:30 78 29 126/87 96 Nasal Cannula 3.0 06/15/19 12:47 62 22 100 Nasal Cannula 3.0 32 57 24 98 06/15/19 12:40 89.9 61 28 130/82 94 Nasal Cannula 3.0 06/15/19 10:30 89.9 60 27 126/81 96 Nasal Cannula 3.0 Height (Feet): 5 Height (Inches): 5.00 Weight (Pounds): 180 HEENT: mucous membranes moist, other - orally intubated Respiratory/Chest: decreased breath sounds, other - on ventilator Cardiovascular: tachycardia, other - RIJ central line Abdomen: soft, non tender, other - GT in place Extremities: no edema Neurologic/Psychiatric: unresponsiveness Microbiology Date/Time Source Procedure Growth Status 06/15/19 08:55 Nasal Nares - Final Complete 06/15/19 08:55 Nasal Nares - Final Complete 06/15/19 11:15 Rectum Received Laboratory Tests Test 06/15/19 10:10 06/15/19 17:00 06/15/19 23:15 06/16/19 05:30 Urine Color Pale yellow Urine Appearance Clear Urine pH 6 (4.5-8.0) Urine Specific [place] 1.015 (1.005-1.035) Urine Protein Negative (NEGATIVE) Urine Glucose (UA) Negative (NEGATIVE) Urine Ketones Negative (NEGATIVE) Urine Blood Negative (NEGATIVE) Urine Nitrite Negative (NEGATIVE) Urine Bilirubin Negative (NEGATIVE) Urine Urobilinogen Normal MG/DL (0.0-1.0) Urine Leukocyte Esterase Negative (NEGATIVE) Troponin I 0.039 ng/mL (0.000-0.056) 0.181 ng/mL (0.000-0.056) Arterial Blood pH 7.360 (7.350-7.450) Arterial Blood Partial Pressure CO2 40.7 mmHg (35.0-45.0) Arterial Blood Partial Pressure O2 49.2 mmHg (75.0-100.0) Arterial Blood HCO3 22.5 mmol/L (22.0-26.0) Arterial Blood Oxygen Saturation 82.7 % (95-100) *L Arterial Blood Base Excess -2.8 (-2-2) L Julius Test Positive White Blood Count 19.2 K/UL (4.8-10.8) #H Red Blood Count 3.69 M/UL (4.20-5.40) L Hemoglobin 11.3 G/DL (12.0-16.0) L Hematocrit 33.0 % (37.0-47.0) L Mean Corpuscular Volume 90 FL (80-99) Mean Corpuscular Hemoglobin 30.7 PG (27.0-31.0) Mean Corpuscular Hemoglobin Concent 34.3 G/DL (32.0-36.0) Red Cell Distribution Width 14.2 % (11.6-14.8) Platelet Count 63 K/UL (150-450) L Mean Platelet Volume 12.2 FL (6.5-10.1) H Neutrophils (%) (Auto) % (45.0-75.0) Lymphocytes (%) (Auto) % (20.0-45.0) Monocytes (%) (Auto) % (1.0-10.0) Eosinophils (%) (Auto) % (0.0-3.0) Basophils (%) (Auto) % (0.0-2.0) Differential Total Cells Counted 100 Neutrophils % (Manual) 94 % (45-75) H Lymphocytes % (Manual) 3 % (20-45) L Monocytes % (Manual) 2 % (1-10) Eosinophils % (Manual) 1 % (0-3) Basophils % (Manual) 0 % (0-2) Band Neutrophils 0 % (0-8) Platelet Estimate Decreased L Platelet Morphology Normal Hypochromasia 1+ Sodium Level 139 MMOL/L (136-145) Potassium Level 3.4 MMOL/L (3.5-5.1) L Chloride Level 107 MMOL/L (98-107) Carbon Dioxide Level 25 MMOL/L (21-32) Anion Gap 7 mmol/L (5-15) Blood Urea Nitrogen 12 mg/dL (7-18) Creatinine 0.9 MG/DL (0.55-1.30) # Estimat Glomerular Filtration Rate > 60 mL/min (>60) Glucose Level 97 MG/DL (74-106) Calcium Level 8.4 MG/DL (8.5-10.1) L Total Bilirubin 0.8 MG/DL (0.2-1.0) Aspartate Amino Transf (AST/SGOT) 36 U/L (15-37) Alanine Aminotransferase (ALT/SGPT) 40 U/L (12-78) Alkaline Phosphatase 103 U/L (46-116) Pro-B-Type Natriuretic Peptide 2741 pg/mL (0-125) H Total Protein 6.5 G/DL (6.4-8.2) Albumin 2.0 G/DL (3.4-5.0) L Globulin 4.5 g/dL Albumin/Globulin Ratio 0.4 (1.0-2.7) L Thyroid Stimulating Hormone (TSH) 1.272 uiU/mL (0.358-3.740) Free Thyroxine 0.86 NG/DL (0.76-1.46) Digoxin Level < 0.2 NG/ML (0.9-2.0) L Test 06/16/19 09:04 Arterial Blood pH 7.382 (7.350-7.450) Arterial Blood Partial Pressure CO2 37.4 mmHg (35.0-45.0) Arterial Blood Partial Pressure O2 183.2 mmHg (75.0-100.0) H Arterial Blood HCO3 21.7 mmol/L (22.0-26.0) L Arterial Blood Oxygen Saturation 97.4 % (95-100) Arterial Blood Base Excess -2.9 (-2-2) L Julius Test Positive Current Medications Medications (Trade) Dose Ordered Sig/Emil Route PRN Reason Start Time Stop Time Status Last Admin Dose Admin Acetaminophen (Tylenol) 650 mg Q4H PRN ORAL Mild Pain/Temp > 100.5 06/15/19 14:30 07/15/19 14:29 Apixaban (Eliquis) 5 mg BID ORAL 06/15/19 18:00 09/13/19 17:59 Cefepime HCl 1 gm/ Dextrose 55 ml @ 110 mls/hr Q12H IVPB 06/16/19 18:00 06/23/19 17:59 Dextrose (Dextrose 50%) 50 ml Q30M PRN IV Hypoglycemia 06/15/19 14:45 09/13/19 14:44 Dopamine HCl/ Dextrose 250 ml @ 0 mls/hr Q24H IV 06/15/19 20:45 09/13/19 20:44 06/15/19 21:43 Furosemide (Lasix) 40 mg EVERY 12 HOURS IV 06/15/19 21:00 07/15/19 20:59 06/15/19 21:44 Hydroxychloroquine Sulfate (Plaquenil) 200 mg BID ORAL 06/16/19 18:00 06/20/19 09:01 Norepinephrine Bitartrate 8 mg/ Dextrose 558 ml @ 0 mls/hr Q24H IV 06/16/19 09:00 07/16/19 08:59 Pantoprazole (Protonix) 40 mg DAILY IVP 06/16/19 09:00 07/16/19 08:59 Edin Blue MD Jun 16, 2019 10:04
[2019-06-16] MEDS: Norepinephrine Bitartrate 8 MG in D5W 500ml 550 ML IV SCH ×3 (10:36→21:39)
[2019-06-16] MEDS: Azithromycin 250mg tab ORAL SCH (10:37)
[2019-06-16] MEDS: Pantoprazole Inj IVP SCH (10:38)
--- NOTE | 2019-06-16 12:18 | Cardiac Electrophysiology PN ---
Assessment/Plan Assessment/Plan 1. Respiratory failure due to bilateral pneumonia and CHF as well as the BNP is 788. Echocardiogram EF 60%. Intubated on the Vent Off Lasix for hypotension. 2. Troponin leak. No acute ECG findings. Likely due to septic shock and demand ischemia 3. Atrial fib off anticoagulation for Severe thrombocytopenia. Off AVN violette for hypotension. If develops atrial fib with RVR will load with digoxin. 4. Bilateral lung infiltrate and sepsis. The patient was already started on Plaquenil 400 b.i.d. as well as cefepime and azithromycin. Further evaluation by Dr. Pinto and Dr. Blue.In isolation for COVID 19. 5. History of psychiatric history. 6. History of cellulitis. RYANN RN Subjective Subjective Intubated at 2 am in ICU on the Vent and Dopamine 2 and Levophed 18. In atrial fib with rate 100s Objective Last 24 Hour Vital Signs Date Time Temp Pulse Resp B/P (MAP) Pulse Ox O2 Delivery O2 Flow Rate FiO2 06/16/19 12:00 97.5 99 15 96/51 (66) 100 06/16/19 12:00 Mechanical Ventilator 70.0 06/16/19 12:00 70 06/16/19 11:30 102 18 138/50 (79) 100 06/16/19 11:00 100 16 100 06/16/19 11:00 102 15 100 06/16/19 10:36 100/49 06/16/19 10:30 106 11 101/58 (72) 100 06/16/19 10:00 102 12 100/49 (66) 100 06/16/19 10:00 100/49 06/16/19 10:00 100/49 06/16/19 09:30 103 17 102/60 (74) 100 06/16/19 09:00 99 15 89/50 (63) 100 06/16/19 09:00 102/60 06/16/19 09:00 102/60 06/16/19 09:00 102 17 100 06/16/19 08:30 102 15 83/51 (62) 100 06/16/19 08:00 100 06/16/19 08:00 Mechanical Ventilator 100.0 06/16/19 08:00 83/51 06/16/19 08:00 83/51 06/16/19 08:00 101 06/16/19 08:00 101 16 117/67 (84) 100 06/16/19 07:30 97.1 67 21 47/32 (37) 99 06/16/19 07:00 93 17 72/44 (53) 100 06/16/19 07:00 52/33 06/16/19 07:00 52/33 06/16/19 07:00 97 16 100 06/16/19 06:30 97 16 111/59 (76) 98 06/16/19 06:15 96 16 110/60 (77) 98 06/16/19 06:00 98 16 111/59 (76) 98 06/16/19 06:00 111/59 06/16/19 06:00 111/59 06/16/19 05:45 106 16 122/56 (78) 97 06/16/19 05:32 103 19 128/81 (97) 97 06/16/19 05:15 88 17 90/60 (70) 97 06/16/19 05:00 100 16 100 06/16/19 05:00 86 16 81/52 (62) 97 06/16/19 04:45 91 16 98/56 (70) 97 06/16/19 04:30 92 16 94/46 (62) 95 06/16/19 04:15 89 16 96/40 (58) 96 06/16/19 04:15 92 16 90/47 (61) 06/16/19 04:00 85 06/16/19 04:00 100 06/16/19 04:00 Mechanical Ventilator 100.0 06/16/19 04:00 86/56 06/16/19 04:00 86/45 06/16/19 04:00 97.6 92 16 86/47 (60) 06/16/19 04:00 92 16 86/47 (60) 06/16/19 03:45 87 16 06/16/19 03:35 93 14 87/54 (65) 06/16/19 03:30 93 16 06/16/19 03:15 89 15 06/16/19 03:00 92 11 83/55 (64) 100 06/16/19 02:59 104/79 06/16/19 02:45 95 16 100 06/16/19 02:45 95 10 112/70 (84) 100 3/24/20 02:30 97 1 109/55 (73) 100 06/16/19 02:15 104 20 110/60 (77) 99 06/16/19 02:00 132 10 104/79 (87) 93 06/16/19 02:00 114/80 06/16/19 01:45 139 6 111/60 (77) 94 06/16/19 01:30 134 10 112/70 (84) 96 06/16/19 01:15 130 11 106/60 (75) 98 06/16/19 01:00 138 17 110/93 (99) 97 06/16/19 01:00 110/56 06/16/19 00:47 142 16 97 Mechanical Ventilator 100 06/16/19 00:47 142 16 100 06/16/19 00:39 140 11 96/67 (77) 96 06/16/19 00:15 97.8 128 30 98/65 (76) 89 06/16/19 00:00 137 27 111/61 (78) 93 06/16/19 00:00 98/60 06/16/19 00:00 100 06/16/19 00:00 137 06/16/19 00:00 Venturi Mask 15.0 06/15/19 23:45 140 28 139/104 (116) 91 06/15/19 23:30 143 30 132/67 (88) 92 06/15/19 23:15 137 33 137/64 (88) 06/15/19 23:00 134 28 142/94 (110) 06/15/19 23:00 96/50 06/15/19 22:45 100 31 80/47 (58) 94 06/15/19 22:30 95 28 70/47 (55) 94 06/15/19 22:15 101 30 92/53 (66) 94 06/15/19 22:00 106 20 134/79 (97) 93 06/15/19 22:00 86/40 06/15/19 21:45 118 26 122/75 (91) 98 06/15/19 21:30 93 25 93/50 (64) 100 06/15/19 21:15 92 26 89/56 (67) 100 06/15/19 21:00 89 26 89/57 (68) 100 06/15/19 20:00 Nasal Cannula 3.0 3/23/20 20:00 97.2 79 27 95/61 (72) 100 06/15/19 20:00 15.0 06/15/19 20:00 87 06/15/19 19:45 81 25 106/62 (77) 100 06/15/19 19:30 72 26 102/58 (73) 100 06/15/19 19:15 75 30 86/54 (65) 97 06/15/19 19:00 58 21 75/53 (60) 98 06/15/19 17:51 68 27 92/57 (69) 95 06/15/19 17:48 74 23 97/61 (73) 91 06/15/19 17:00 93.8 65 29 89/51 (64) 92 06/15/19 16:00 Nasal Cannula 3.0 06/15/19 16:00 3.0 06/15/19 16:00 98.8 53 19 94/54 (67) 97 06/15/19 15:35 63 06/15/19 15:00 63 28 95/61 (72) 97 06/15/19 14:00 64 31 118/62 (80) 100 06/15/19 13:54 Nasal Cannula 3.0 06/15/19 13:46 88.9 67 24 144/78 (100) 96 06/15/19 13:32 69 06/15/19 13:30 78 29 126/87 96 Nasal Cannula 3.0 06/15/19 12:47 62 22 100 Nasal Cannula 3.0 32 57 24 98 06/15/19 12:40 89.9 61 28 130/82 94 Nasal Cannula 3.0 Intake and Output 06/15/19 06/16/19 19:00 07:00 Intake Total 1500 ml 314.697 ml Output Total 860 ml Balance 1500 ml -545.303 ml Intake IV Total 1500 ml 314.697 ml Output Urine Total 860 ml # Voids 2 200 # Bowel Movements 5 4 Laboratory Tests Test 06/15/19 17:00 06/15/19 23:15 06/16/19 05:30 06/16/19 09:04 Troponin I 0.039 ng/mL (0.000-0.056) 0.181 ng/mL (0.000-0.056) Arterial Blood pH 7.360 (7.350-7.450) 7.382 (7.350-7.450) Arterial Blood Partial Pressure CO2 40.7 mmHg (35.0-45.0) 37.4 mmHg (35.0-45.0) Arterial Blood Partial Pressure O2 49.2 mmHg (75.0-100.0) 183.2 mmHg (75.0-100.0) H Arterial Blood HCO3 22.5 mmol/L (22.0-26.0) 21.7 mmol/L (22.0-26.0) L Arterial Blood Oxygen Saturation 82.7 % (95-100) *L 97.4 % (95-100) Arterial Blood Base Excess -2.8 (-2-2) L -2.9 (-2-2) L Julius Test Positive Positive White Blood Count 19.2 K/UL (4.8-10.8) #H Red Blood Count 3.69 M/UL (4.20-5.40) L Hemoglobin 11.3 G/DL (12.0-16.0) L Hematocrit 33.0 % (37.0-47.0) L Mean Corpuscular Volume 90 FL (80-99) Mean Corpuscular Hemoglobin 30.7 PG (27.0-31.0) Mean Corpuscular Hemoglobin Concent 34.3 G/DL (32.0-36.0) Red Cell Distribution Width 14.2 % (11.6-14.8) Platelet Count 63 K/UL (150-450) L Mean Platelet Volume 12.2 FL (6.5-10.1) H Neutrophils (%) (Auto) % (45.0-75.0) Lymphocytes (%) (Auto) % (20.0-45.0) Monocytes (%) (Auto) % (1.0-10.0) Eosinophils (%) (Auto) % (0.0-3.0) Basophils (%) (Auto) % (0.0-2.0) Differential Total Cells Counted 100 Neutrophils % (Manual) 94 % (45-75) H Lymphocytes % (Manual) 3 % (20-45) L Monocytes % (Manual) 2 % (1-10) Eosinophils % (Manual) 1 % (0-3) Basophils % (Manual) 0 % (0-2) Band Neutrophils 0 % (0-8) Platelet Estimate Decreased L Platelet Morphology Normal Hypochromasia 1+ Sodium Level 139 MMOL/L (136-145) Potassium Level 3.4 MMOL/L (3.5-5.1) L Chloride Level 107 MMOL/L (98-107) Carbon Dioxide Level 25 MMOL/L (21-32) Anion Gap 7 mmol/L (5-15) Blood Urea Nitrogen 12 mg/dL (7-18) Creatinine 0.9 MG/DL (0.55-1.30) # Estimat Glomerular Filtration Rate > 60 mL/min (>60) Glucose Level 97 MG/DL (74-106) Calcium Level 8.4 MG/DL (8.5-10.1) L Total Bilirubin 0.8 MG/DL (0.2-1.0) Aspartate Amino Transf (AST/SGOT) 36 U/L (15-37) Alanine Aminotransferase (ALT/SGPT) 40 U/L (12-78) Alkaline Phosphatase 103 U/L (46-116) Pro-B-Type Natriuretic Peptide 2741 pg/mL (0-125) H Total Protein 6.5 G/DL (6.4-8.2) Albumin 2.0 G/DL (3.4-5.0) L Globulin 4.5 g/dL Albumin/Globulin Ratio 0.4 (1.0-2.7) L Thyroid Stimulating Hormone (TSH) 1.272 uiU/mL (0.358-3.740) Free Thyroxine 0.86 NG/DL (0.76-1.46) Digoxin Level < 0.2 NG/ML (0.9-2.0) L HIV (1&2) Antibody Rapid Pending Microbiology Date/Time Source Procedure Growth Status 06/15/19 08:55 Nasal Nares - Final Complete 06/15/19 08:55 Nasal Nares - Final Complete 06/15/19 11:15 Rectum Received Objective HEAD AND NECK: No JVD. Orally intubated with NG tube in LUNGS: Bilateral rhonchi. CARDIOVASCULAR: Tachy S1 and S2 with no gallop. ABDOMEN: Soft. EXTREMITIES: No pitting edema. Ruben Grissom MD Jun 16, 2019 12:18
[2019-06-16 12:44] LABS: INR 1.5 (0.9-1.1)
[2019-06-16] MEDS ORDERED: Etomidate 40mg/20ml Inj IV ONE (14:15)
[2019-06-16] MEDS ORDERED: Rocuronium Bromide 50mg/5ml Inj IV ONE (14:15)
[2019-06-16] MEDS: DOPamine 400mg/250ml 250 ML IV SCH (20:45)
[2019-06-16] MEDS: Dyna-Hex 2% Top Sol 2oz TOPIC SCH (20:52)
--- NOTE | 2019-06-16 21:08 | General Progress Note ---
Assessment/Plan Problem List: (1) Hypoglycemia ICD Codes: E16.2 - Hypoglycemia, unspecified SNOMED: 135450278 (2) Leukopenia ICD Codes: D72.819 - Decreased white blood cell count, unspecified SNOMED: 07412030, 232419356 (3) Pneumonia ICD Codes: J18.9 - Pneumonia, unspecified organism SNOMED: 657932857, 796508458 Status: deteriorating Assessment/Plan: resp failure intubated dpoa wanted everything to be done abx per id swabs sent critical condition pna poor prognosis Subjective Allergies: Coded Allergies: MORPHINE (Unverified Allergy, Unknown, 06/15/19) Objective Last 24 Hour Vital Signs Date Time Temp Pulse Resp B/P (MAP) Pulse Ox O2 Delivery O2 Flow Rate FiO2 06/16/19 20:45 89/52 06/16/19 20:00 99.7 100 18 89/52 (64) 100 06/16/19 20:00 60 06/16/19 19:30 99 18 95/54 (68) 100 06/16/19 19:25 100 17 100 06/16/19 19:03 99 16 88/53 (65) 100 06/16/19 19:00 88/53 06/16/19 19:00 99 15 88/50 (63) 100 06/16/19 18:30 99.3 108 18 88/56 (67) 100 06/16/19 18:00 88/56 06/16/19 18:00 104 19 90/50 (63) 100 06/16/19 17:18 102 18 100 06/16/19 17:00 103 19 90/49 (63) 100 06/16/19 17:00 90/49 06/16/19 16:30 102 18 92/52 (65) 100 06/16/19 16:00 97.3 101 18 88/53 (65) 100 06/16/19 16:00 Mechanical Ventilator 70.0 06/16/19 16:00 104 06/16/19 16:00 83/53 06/16/19 16:00 70 06/16/19 15:30 101 17 90/54 (66) 100 06/16/19 15:28 100 18 100 06/16/19 15:00 100 16 92/52 (65) 100 06/16/19 15:00 92/52 06/16/19 15:00 92/52 06/16/19 14:43 80/42 06/16/19 14:30 101 22 52/33 (39) 100 06/16/19 14:00 103 18 104/54 (71) 100 06/16/19 14:00 104/54 06/16/19 14:00 104/54 06/16/19 13:30 101 18 103/54 (70) 100 06/16/19 13:05 103 16 100 06/16/19 13:00 100 18 99/47 (64) 100 06/16/19 13:00 99/47 06/16/19 13:00 99/47 06/16/19 12:30 100 18 97/56 (70) 100 06/16/19 12:00 97.5 99 15 96/51 (66) 100 06/16/19 12:00 Mechanical Ventilator 70.0 06/16/19 12:00 70 06/16/19 12:00 96/51 06/16/19 12:00 96/51 06/16/19 12:00 102 06/16/19 11:30 102 18 138/50 (79) 100 06/16/19 11:00 100 16 100 06/16/19 11:00 101/58 06/16/19 11:00 101/58 06/16/19 11:00 102 15 100 06/16/19 10:36 100/49 06/16/19 10:30 106 11 101/58 (72) 100 06/16/19 10:00 102 12 100/49 (66) 100 06/16/19 10:00 100/49 06/16/19 10:00 100/49 06/16/19 09:30 103 17 102/60 (74) 100 06/16/19 09:00 99 15 89/50 (63) 100 06/16/19 09:00 102/60 06/16/19 09:00 102/60 06/16/19 09:00 102 17 100 06/16/19 08:30 102 15 83/51 (62) 100 06/16/19 08:00 100 06/16/19 08:00 Mechanical Ventilator 100.0 06/16/19 08:00 83/51 06/16/19 08:00 83/51 06/16/19 08:00 101 06/16/19 08:00 101 16 117/67 (84) 100 06/16/19 07:30 97.1 67 21 47/32 (37) 99 06/16/19 07:00 93 17 72/44 (53) 100 06/16/19 07:00 52/33 06/16/19 07:00 52/33 06/16/19 07:00 97 16 100 06/16/19 06:30 97 16 111/59 (76) 98 06/16/19 06:15 96 16 110/60 (77) 98 06/16/19 06:00 98 16 111/59 (76) 98 06/16/19 06:00 111/59 06/16/19 06:00 111/59 06/16/19 05:45 106 16 122/56 (78) 97 06/16/19 05:32 103 19 128/81 (97) 97 06/16/19 05:15 88 17 90/60 (70) 97 06/16/19 05:00 100 16 100 06/16/19 05:00 86 16 81/52 (62) 97 06/16/19 04:45 91 16 98/56 (70) 97 06/16/19 04:30 92 16 94/46 (62) 95 06/16/19 04:15 89 16 96/40 (58) 96 06/16/19 04:15 92 16 90/47 (61) 06/16/19 04:00 85 06/16/19 04:00 100 06/16/19 04:00 Mechanical Ventilator 100.0 06/16/19 04:00 86/56 06/16/19 04:00 86/45 06/16/19 04:00 97.6 92 16 86/47 (60) 06/16/19 04:00 92 16 86/47 (60) 06/16/19 03:45 87 16 06/16/19 03:35 93 14 87/54 (65) 06/16/19 03:30 93 16 06/16/19 03:15 89 15 06/16/19 03:00 92 11 83/55 (64) 100 06/16/19 02:59 104/79 06/16/19 02:45 95 16 100 06/16/19 02:45 95 10 112/70 (84) 100 06/16/19 02:30 97 1 109/55 (73) 100 06/16/19 02:15 104 20 110/60 (77) 99 06/16/19 02:00 132 10 104/79 (87) 93 06/16/19 02:00 114/80 06/16/19 01:45 139 6 111/60 (77) 94 06/16/19 01:30 134 10 112/70 (84) 96 06/16/19 01:15 130 11 106/60 (75) 98 06/16/19 01:00 138 17 110/93 (99) 97 06/16/19 01:00 110/56 06/16/19 00:47 142 16 97 Mechanical Ventilator 100 06/16/19 00:47 142 16 100 06/16/19 00:39 140 11 96/67 (77) 96 06/16/19 00:15 97.8 128 30 98/65 (76) 89 06/16/19 00:00 137 27 111/61 (78) 93 06/16/19 00:00 98/60 06/16/19 00:00 100 06/16/19 00:00 137 06/16/19 00:00 Venturi Mask 15.0 06/15/19 23:45 140 28 139/104 (116) 91 06/15/19 23:30 143 30 132/67 (88) 92 06/15/19 23:15 137 33 137/64 (88) 06/15/19 23:00 134 28 142/94 (110) 06/15/19 23:00 96/50 06/15/19 22:45 100 31 80/47 (58) 94 06/15/19 22:30 95 28 70/47 (55) 94 06/15/19 22:15 101 30 92/53 (66) 94 06/15/19 22:00 106 20 134/79 (97) 93 06/15/19 22:00 86/40 06/15/19 21:45 118 26 122/75 (91) 98 06/15/19 21:30 93 25 93/50 (64) 100 06/15/19 21:15 92 26 89/56 (67) 100 Intake and Output 06/15/19 06/16/19 19:00 07:00 Intake Total 1500 ml 314.697 ml Output Total 860 ml Balance 1500 ml -545.303 ml Intake IV Total 1500 ml 314.697 ml Output Urine Total 860 ml # Voids 2 200 # Bowel Movements 5 4 Laboratory Tests 06/15/19 23:15: Arterial Blood pH 7.360, Arterial Blood Partial Pressure CO2 40.7, Arterial Blood Partial Pressure O2 49.2*L, Arterial Blood HCO3 22.5, Arterial Blood Oxygen Saturation 82.7*L, Arterial Blood Base Excess -2.8L, Julius Test Positive 06/16/19 05:30: White Blood Count 19.2#H, Red Blood Count 3.69L, Hemoglobin 11.3L, Hematocrit 33.0L, Mean Corpuscular Volume 90, Mean Corpuscular Hemoglobin 30.7, Mean Corpuscular Hemoglobin Concent 34.3, Red Cell Distribution Width 14.2, Platelet Count 63L, Mean Platelet Volume 12.2H, Neutrophils (%) (Auto) , Lymphocytes (%) (Auto) , Monocytes (%) (Auto) , Eosinophils (%) (Auto) , Basophils (%) (Auto) , Differential Total Cells Counted 100, Neutrophils % (Manual) 94H, Lymphocytes % (Manual) 3L, Monocytes % (Manual) 2, Eosinophils % (Manual) 1, Basophils % ( Manual) 0, Band Neutrophils 0, Platelet Estimate DecreasedL, Platelet Morphology Normal, Hypochromasia 1+, Sodium Level 139, Potassium Level 3.4L, Chloride Level 107, Carbon Dioxide Level 25, Anion Gap 7, Blood Urea Nitrogen 12 , Creatinine 0.9#, Estimat Glomerular Filtration Rate > 60, Glucose Level 97, Calcium Level 8.4L, Total Bilirubin 0.8, Aspartate Amino Transf (AST/SGOT) 36, Alanine Aminotransferase (ALT/SGPT) 40, Alkaline Phosphatase 103, Troponin I 0.181H, Pro-B-Type Natriuretic Peptide 2741H, Total Protein 6.5, Albumin 2.0L, Globulin 4.5, Albumin/Globulin Ratio 0.4L, Thyroid Stimulating Hormone (TSH) 1.272, Free Thyroxine 0.86, Digoxin Level < 0.2L, HIV (1&2) Antibody Rapid Negative 06/16/19 09:04: Arterial Blood pH 7.382, Arterial Blood Partial Pressure CO2 37.4, Arterial Blood Partial Pressure O2 183.2H, Arterial Blood HCO3 21.7L, Arterial Blood Oxygen Saturation 97.4, Arterial Blood Base Excess -2.9L, Julius Test Positive 06/16/19 10:30: Prothrombin Time 15.8H, Prothromb Time International Ratio 1.5H, Hepatitis A IgM Antibody [Pending], Hepatitis B Surface Antigen [Pending], Hepatitis B Core IgM Antibody [Pending], Hepatitis C Antibody [Pending] Height (Feet): 5 Height (Inches): 5.00 Weight (Pounds): 180 General Appearance: lethargic Jayjay Chandler MD Jun 16, 2019 21:08
[2019-06-17] VITALS (51 sets, daily range): BP systolic 77–177; BP diastolic 35–88
[2019-06-17] MEDS: Norepinephrine Bitartrate 8 MG in D5W 500ml 550 ML IV SCH ×4 (02:01→16:56)
[2019-06-17 05:17] LABS: HEMATOCRIT 33.9 % (37.0-47.0); HEMOGLOBIN 11.5 G/DL (12.0-16.0); MEAN CORPUSCULAR VOLUME 90 FL (80-99); PLATELET COUNT 57 K/UL (150-450); RED BLOOD COUNT 3.77 M/UL (4.20-5.40); RED CELL DISTRIBUTION WIDTH 14.2 % (11.6-14.8); WHITE BLOOD COUNT 12.8 K/UL (4.8-10.8)
[2019-06-17] MEDS: Cefepime HCl 1 GM in D5W 55 ML IVPB SCH ×2 (05:54→17:28)
--- NOTE | 2019-06-17 08:37 | Hematology/Onc Progress Note ---
Assessment/Plan Assessment/Plan Assessment and Recs: # Pancytopenia with a decreased wbc and plt, likely related to pna v other cause , meds ntoed --> hepatitis and hiv NEgative --> smear ordered at this time --> us of the abdomen--> pending after covid rule out --> plt 62-->57k --> transfuse on prn basis --> neupogen if anc drops to below 1500 # Hypercoagulable disorder with afib --> HOLDING off anticoag --> per cards # Pneumonia on admission --> now intubated --> on abx --> per id and pulm # Hypoglycemia --> d5w given earlier --> now improved # Shortness of breath, likely due to bilateral pneumonia --> echo per cards --> may need diuresis # Respiratory failure with Bilateral lung infiltrate and leukopenia. The patient was already started on Plaquenil 600, azithromycin. --> dr. Pinto on board --> NOW INTUBATED --> covid rule out # History of psychiatric history. # History of cellulitis. Thank you very, appreciate consultation and dw Rn Subjective Cardiovascular: Denies: no symptoms, chest pain, edema, irregular heart rate, lightheadedness, palpitations, syncope, other Respiratory: Denies: no symptoms, cough, shortness of breath, SOB with excertion, SOB at rest, sputum, wheezing, other Gastrointestinal/Abdominal: Denies: no symptoms, abdomen distended, abdominal pain, black stools, tarry stools, blood in stool, constipated, diarrhea, difficulty swallowing, nausea, poor appetite, poor fluid intake, rectal bleeding , vomiting, other Genitourinary: Denies: no symptoms, burning, discharge, frequency, flank pain, hematuria, incontinence, pain, urgency, other Neurologic/Psychiatric: Denies: no symptoms, anxiety, depressed, emotional problems, headache, numbness, paresthesia, pre-existing deficit, seizure, tingling, tremors, weakness, other Endocrine: Denies: no symptoms, excessive sweating, flushing, intolerance to cold, intolerance to heat, increased hunger, increased thirst, increased urine, unexplained weight gain, unexplained weight loss, other Hematologic/Lymphatic: Denies: no symptoms, anemia, easy bleeding, easy bruising, adenopathy, other Allergies: Coded Allergies: MORPHINE (Unverified Allergy, Unknown, 06/15/19) Subjective 06/16 remains intubated on a vent, on lveophed, with ng, draining, covid rule out , dw nurse discharge 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 Objective Objective Current Medications Medications (Trade) Dose Ordered Sig/Emil Route PRN Reason Start Time Stop Time Status Last Admin Dose Admin Acetaminophen (Tylenol) 650 mg Q4H PRN ORAL Mild Pain/Temp > 100.5 06/15/19 14:30 07/15/19 14:29 Apixaban (Eliquis) 5 mg BID ORAL 06/15/19 18:00 09/13/19 17:59 Azithromycin (Zithromax) 500 mg DAILY ORAL 06/16/19 11:00 06/23/19 10:59 06/16/19 10:37 Cefepime HCl 1 gm/ Dextrose 55 ml @ 110 mls/hr Q12H IVPB 06/16/19 18:00 06/23/19 17:59 06/17/19 05:54 Chlorhexidine Gluconate (Susie-Hex 2%) 1 applic DAILY@2000 TOPIC 06/16/19 20:00 09/14/19 19:59 06/16/19 20:52 Dextrose (Dextrose 50%) 50 ml Q30M PRN IV Hypoglycemia 06/15/19 14:45 09/13/19 14:44 Dopamine HCl/ Dextrose 250 ml @ 0 mls/hr Q24H IV 06/15/19 20:45 09/13/19 20:44 06/15/19 21:43 Hydroxychloroquine Sulfate (Plaquenil) 200 mg BID ORAL 06/17/19 09:00 06/20/19 18:01 Norepinephrine Bitartrate 8 mg/ Dextrose 558 ml @ 0 mls/hr Q24H IV 06/16/19 09:00 07/16/19 08:59 06/17/19 07:21 Pantoprazole (Protonix) 40 mg DAILY IVP 06/16/19 09:00 07/16/19 08:59 06/16/19 10:38 Last 24 Hour Vital Signs Date Time Temp Pulse Resp B/P (MAP) Pulse Ox O2 Delivery O2 Flow Rate FiO2 06/17/19 08:00 60 06/17/19 08:00 98.5 89 18 120/65 (83) 100 06/17/19 08:00 91/53 06/17/19 08:00 Mechanical Ventilator 06/17/19 07:21 125/54 06/17/19 07:02 96 17 60 06/17/19 07:00 94 18 125/54 (77) 100 06/17/19 07:00 125/54 06/17/19 06:30 99 19 118/71 (87) 100 06/17/19 06:00 96 17 118/63 (81) 100 06/17/19 06:00 118/63 06/17/19 05:30 93 20 124/65 (84) 100 06/17/19 05:03 98 17 60 06/17/19 05:00 92 19 129/60 (83) 100 06/17/19 05:00 129/60 06/17/19 04:30 101 18 116/67 (83) 100 06/17/19 04:00 105 06/17/19 04:00 60 06/17/19 04:00 97.3 103 18 119/76 (90) 100 06/17/19 04:00 Mechanical Ventilator 60.0 06/17/19 04:00 116/67 06/17/19 03:30 95 20 113/62 (79) 100 06/17/19 03:00 100 22 128/70 (89) 100 06/17/19 03:00 113/62 06/17/19 02:46 100 19 125/68 (87) 100 06/17/19 02:38 102 18 60 06/17/19 02:07 91 21 161/79 (106) 100 06/17/19 02:01 122/67 06/17/19 02:00 101 19 77/35 (49) 100 06/17/19 02:00 77/35 06/17/19 01:30 104 19 132/59 (83) 100 06/17/19 01:00 105 18 126/62 (83) 100 06/17/19 01:00 132/59 06/17/19 00:43 99 18 60 06/17/19 00:30 99 18 130/62 (84) 100 06/17/19 00:00 Mechanical Ventilator 60.0 06/17/19 00:00 122/67 06/17/19 00:00 100 18 122/67 (85) 100 06/17/19 00:00 98 06/16/19 23:30 101 16 121/72 (88) 100 06/16/19 23:04 101 20 100 06/16/19 23:00 99 19 120/69 (86) 100 06/16/19 23:00 121/72 06/16/19 22:30 102 18 121/65 (83) 100 06/16/19 22:00 103 18 120/64 (82) 100 06/16/19 22:00 121/65 06/16/19 21:48 113 18 146/66 (92) 100 06/16/19 21:39 54/35 06/16/19 21:38 54/35 06/16/19 21:35 102 29 54/35 (41) 100 06/16/19 21:30 98 18 61/36 (44) 100 06/16/19 21:10 100 19 100 06/16/19 21:00 95/67 06/16/19 21:00 99 19 95/67 (76) 100 06/16/19 20:45 89/52 06/16/19 20:30 99 19 105/56 (72) 100 06/16/19 20:00 99.7 100 18 89/52 (64) 100 06/16/19 20:00 99 06/16/19 20:00 60 06/16/19 20:00 89/52 06/16/19 20:00 Mechanical Ventilator 60.0 06/16/19 19:30 99 18 95/54 (68) 100 06/16/19 19:25 100 17 100 06/16/19 19:03 99 16 88/53 (65) 100 06/16/19 19:00 88/53 06/16/19 19:00 99 15 88/50 (63) 100 06/16/19 18:30 99.3 108 18 88/56 (67) 100 06/16/19 18:00 88/56 06/16/19 18:00 104 19 90/50 (63) 100 06/16/19 17:18 102 18 100 06/16/19 17:00 103 19 90/49 (63) 100 06/16/19 17:00 90/49 06/16/19 16:30 102 18 92/52 (65) 100 06/16/19 16:00 97.3 101 18 88/53 (65) 100 06/16/19 16:00 Mechanical Ventilator 70.0 06/16/19 16:00 104 06/16/19 16:00 83/53 06/16/19 16:00 70 06/16/19 15:30 101 17 90/54 (66) 100 06/16/19 15:28 100 18 100 06/16/19 15:00 100 16 92/52 (65) 100 06/16/19 15:00 92/52 06/16/19 15:00 92/52 06/16/19 14:43 80/42 06/16/19 14:30 101 22 52/33 (39) 100 06/16/19 14:00 103 18 104/54 (71) 100 06/16/19 14:00 104/54 06/16/19 14:00 104/54 06/16/19 13:30 101 18 103/54 (70) 100 06/16/19 13:05 103 16 100 06/16/19 13:00 100 18 99/47 (64) 100 06/16/19 13:00 99/47 06/16/19 13:00 99/47 06/16/19 12:30 100 18 97/56 (70) 100 06/16/19 12:00 97.5 99 15 96/51 (66) 100 06/16/19 12:00 Mechanical Ventilator 70.0 06/16/19 12:00 70 06/16/19 12:00 96/51 06/16/19 12:00 96/51 06/16/19 12:00 102 06/16/19 11:30 102 18 138/50 (79) 100 06/16/19 11:00 100 16 100 06/16/19 11:00 101/58 06/16/19 11:00 101/58 06/16/19 11:00 102 15 100 06/16/19 10:36 100/49 06/16/19 10:30 106 11 101/58 (72) 100 06/16/19 10:00 102 12 100/49 (66) 100 06/16/19 10:00 100/49 06/16/19 10:00 100/49 06/16/19 09:30 103 17 102/60 (74) 100 06/16/19 09:00 99 15 89/50 (63) 100 06/16/19 09:00 102/60 06/16/19 09:00 102/60 06/16/19 09:00 102 17 100 06/16/19 08:30 102 15 83/51 (62) 100 06/16/19 08:00 100 06/16/19 08:00 Mechanical Ventilator 100.0 06/16/19 08:00 83/51 20 08:00 83/51 06/16/19 08:00 101 06/16/19 08:00 101 16 117/67 (84) 100 06/16/19 07:30 97.1 67 21 47/32 (37) 99 06/16/19 07:00 93 17 72/44 (53) 100 06/16/19 07:00 52/33 06/16/19 07:00 52/33 06/16/19 07:00 97 16 100 06/16/19 06:30 97 16 111/59 (76) 98 06/16/19 06:15 96 16 110/60 (77) 98 06/16/19 06:00 98 16 111/59 (76) 98 06/16/19 06:00 111/59 06/16/19 06:00 111/59 06/16/19 05:45 106 16 122/56 (78) 97 06/16/19 05:32 103 19 128/81 (97) 97 06/16/19 05:15 88 17 90/60 (70) 97 06/16/19 05:00 100 16 100 06/16/19 05:00 86 16 81/52 (62) 97 06/16/19 04:45 91 16 98/56 (70) 97 06/16/19 04:30 92 16 94/46 (62) 95 06/16/19 04:15 89 16 96/40 (58) 96 06/16/19 04:15 92 16 90/47 (61) 06/16/19 04:00 85 06/16/19 04:00 100 06/16/19 04:00 Mechanical Ventilator 100.0 06/16/19 04:00 86/56 06/16/19 04:00 86/45 06/16/19 04:00 97.6 92 16 86/47 (60) 06/16/19 04:00 92 16 86/47 (60) 06/16/19 03:45 87 16 3/24/20 03:35 93 14 87/54 (65) 06/16/19 03:30 93 16 06/16/19 03:15 89 15 06/16/19 03:00 92 11 83/55 (64) 100 06/16/19 02:59 104/79 06/16/19 02:45 95 16 100 06/16/19 02:45 95 10 112/70 (84) 100 06/16/19 02:30 97 1 109/55 (73) 100 06/16/19 02:15 104 20 110/60 (77) 99 06/16/19 02:00 132 10 104/79 (87) 93 06/16/19 02:00 114/80 06/16/19 01:45 139 6 111/60 (77) 94 06/16/19 01:30 134 10 112/70 (84) 96 06/16/19 01:15 130 11 106/60 (75) 98 06/16/19 01:00 138 17 110/93 (99) 97 06/16/19 01:00 110/56 06/16/19 00:47 142 16 97 Mechanical Ventilator 100 06/16/19 00:47 142 16 100 06/16/19 00:39 140 11 96/67 (77) 96 06/16/19 00:15 97.8 128 30 98/65 (76) 89 06/16/19 00:00 137 27 111/61 (78) 93 06/16/19 00:00 98/60 06/16/19 00:00 100 06/16/19 00:00 137 06/16/19 00:00 Venturi Mask 15.0 06/15/19 23:45 140 28 139/104 (116) 91 06/15/19 23:30 143 30 132/67 (88) 92 06/15/19 23:15 137 33 137/64 (88) 06/15/19 23:00 134 28 142/94 (110) 06/15/19 23:00 96/50 06/15/19 22:45 100 31 80/47 (58) 94 06/15/19 22:30 95 28 70/47 (55) 94 06/15/19 22:15 101 30 92/53 (66) 94 06/15/19 22:00 106 20 134/79 (97) 93 3/23/20 22:00 86/40 06/15/19 21:45 118 26 122/75 (91) 98 06/15/19 21:30 93 25 93/50 (64) 100 06/15/19 21:15 92 26 89/56 (67) 100 06/15/19 21:00 89 26 89/57 (68) 100 06/15/19 20:00 Nasal Cannula 3.0 06/15/19 20:00 97.2 79 27 95/61 (72) 100 06/15/19 20:00 15.0 06/15/19 20:00 87 06/15/19 19:45 81 25 106/62 (77) 100 06/15/19 19:30 72 26 102/58 (73) 100 06/15/19 19:15 75 30 86/54 (65) 97 06/15/19 19:00 58 21 75/53 (60) 98 06/15/19 17:51 68 27 92/57 (69) 95 06/15/19 17:48 74 23 97/61 (73) 91 06/15/19 17:00 93.8 65 29 89/51 (64) 92 06/15/19 16:00 Nasal Cannula 3.0 06/15/19 16:00 3.0 06/15/19 16:00 98.8 53 19 94/54 (67) 97 06/15/19 15:35 63 06/15/19 15:00 63 28 95/61 (72) 97 06/15/19 14:00 64 31 118/62 (80) 100 06/15/19 13:54 Nasal Cannula 3.0 06/15/19 13:46 88.9 67 24 144/78 (100) 96 06/15/19 13:32 69 06/15/19 13:30 78 29 126/87 96 Nasal Cannula 3.0 06/15/19 12:47 62 22 100 Nasal Cannula 3.0 32 57 24 98 06/15/19 12:40 89.9 61 28 130/82 94 Nasal Cannula 3.0 06/15/19 10:30 89.9 60 27 126/81 96 Nasal Cannula 3.0 06/15/19 09:18 59 26 Nasal Cannula 3.0 32 06/15/19 09:17 62 22 100 Nasal Cannula 3.0 32 59 26 99 Intake and Output 06/16/19 06/17/19 19:00 07:00 Intake Total 980.244 ml 1319.77 ml Output Total 230 ml 590 ml Balance 750.244 ml 729.77 ml Intake IV Total 980.244 ml 1319.77 ml Output Urine Total 230 ml 390 ml Gastric Drainage Total 200 ml Labs Test 06/15/19 08:43 06/15/19 10:10 06/15/19 17:00 06/15/19 23:15 White Blood Count 3.7 K/UL (4.8-10.8) Red Blood Count 4.18 M/UL (4.20-5.40) Hemoglobin 12.5 G/DL (12.0-16.0) Hematocrit 37.6 % (37.0-47.0) Mean Corpuscular Volume 90 FL (80-99) Mean Corpuscular Hemoglobin 29.9 PG (27.0-31.0) Mean Corpuscular Hemoglobin Concent 33.3 G/DL (32.0-36.0) Red Cell Distribution Width 14.3 % (11.6-14.8) Platelet Count 62 K/UL (150-450) Mean Platelet Volume 11.3 FL (6.5-10.1) Neutrophils (%) (Auto) % (45.0-75.0) Lymphocytes (%) (Auto) % (20.0-45.0) Monocytes (%) (Auto) % (1.0-10.0) Eosinophils (%) (Auto) % (0.0-3.0) Basophils (%) (Auto) % (0.0-2.0) Differential Total Cells Counted 100 Neutrophils % (Manual) 78 % (45-75) Lymphocytes % (Manual) 15 % (20-45) Monocytes % (Manual) 6 % (1-10) Eosinophils % (Manual) 0 % (0-3) Basophils % (Manual) 1 % (0-2) Band Neutrophils 0 % (0-8) Platelet Estimate Decreased Platelet Morphology Normal Red Blood Cell Morphology Normal Sodium Level 137 MMOL/L (136-145) Potassium Level 4.8 MMOL/L (3.5-5.1) Chloride Level 106 MMOL/L (98-107) Carbon Dioxide Level 20 MMOL/L (21-32) Anion Gap 11 mmol/L (5-15) Blood Urea Nitrogen 10 mg/dL (7-18) Creatinine 0.5 MG/DL (0.55-1.30) Estimat Glomerular Filtration Rate > 60 mL/min (>60) Glucose Level 85 MG/DL (74-106) Lactic Acid Level 1.10 mmol/L (0.4-2.0) Calcium Level 9.2 MG/DL (8.5-10.1) Total Bilirubin 0.7 MG/DL (0.2-1.0) Aspartate Amino Transf (AST/SGOT) 61 U/L (15-37) Alanine Aminotransferase (ALT/SGPT) 55 U/L (12-78) Alkaline Phosphatase 120 U/L (46-116) Total Creatine Kinase 193 U/L (26-308) Creatine Kinase MB 21.7 NG/ML (0.0-3.6) Creatine Kinase MB Relative Index 11.2 Troponin I 0.012 ng/mL (0.000-0.056) 0.039 ng/mL (0.000-0.056) Pro-B-Type Natriuretic Peptide 788 pg/mL (0-125) Total Protein 7.7 G/DL (6.4-8.2) Albumin 2.4 G/DL (3.4-5.0) Globulin 5.3 g/dL Albumin/Globulin Ratio 0.5 (1.0-2.7) Urine Color Pale yellow Urine Appearance Clear Urine pH 6 (4.5-8.0) Urine Specific [place] 1.015 (1.005-1.035) Urine Protein Negative (NEGATIVE) Urine Glucose (UA) Negative (NEGATIVE) Urine Ketones Negative (NEGATIVE) Urine Blood Negative (NEGATIVE) Urine Nitrite Negative (NEGATIVE) Urine Bilirubin Negative (NEGATIVE) Urine Urobilinogen Normal MG/DL (0.0-1.0) Urine Leukocyte Esterase Negative (NEGATIVE) Arterial Blood pH 7.360 (7.350-7.450) Arterial Blood Partial Pressure CO2 40.7 mmHg (35.0-45.0) Arterial Blood Partial Pressure O2 49.2 mmHg (75.0-100.0) Arterial Blood HCO3 22.5 mmol/L (22.0-26.0) Arterial Blood Oxygen Saturation 82.7 % (95-100) Arterial Blood Base Excess -2.8 (-2-2) Julius Test Positive Test 06/16/19 05:30 06/16/19 09:04 06/16/19 10:30 06/17/19 04:00 White Blood Count 19.2 K/UL (4.8-10.8) 12.8 K/UL (4.8-10.8) Red Blood Count 3.69 M/UL (4.20-5.40) 3.77 M/UL (4.20-5.40) Hemoglobin 11.3 G/DL (12.0-16.0) 11.5 G/DL (12.0-16.0) Hematocrit 33.0 % (37.0-47.0) 33.9 % (37.0-47.0) Mean Corpuscular Volume 90 FL (80-99) 90 FL (80-99) Mean Corpuscular Hemoglobin 30.7 PG (27.0-31.0) 30.5 PG (27.0-31.0) Mean Corpuscular Hemoglobin Concent 34.3 G/DL (32.0-36.0) 34.0 G/DL (32.0-36.0) Red Cell Distribution Width 14.2 % (11.6-14.8) 14.2 % (11.6-14.8) Platelet Count 63 K/UL (150-450) 57 K/UL (150-450) Mean Platelet Volume 12.2 FL (6.5-10.1) 9.5 FL (6.5-10.1) Neutrophils (%) (Auto) % (45.0-75.0) % (45.0-75.0) Lymphocytes (%) (Auto) % (20.0-45.0) % (20.0-45.0) Monocytes (%) (Auto) % (1.0-10.0) % (1.0-10.0) Eosinophils (%) (Auto) % (0.0-3.0) % (0.0-3.0) Basophils (%) (Auto) % (0.0-2.0) % (0.0-2.0) Differential Total Cells Counted 100 100 Neutrophils % (Manual) 94 % (45-75) 78 % (45-75) Lymphocytes % (Manual) 3 % (20-45) 16 % (20-45) Monocytes % (Manual) 2 % (1-10) 6 % (1-10) Eosinophils % (Manual) 1 % (0-3) 0 % (0-3) Basophils % (Manual) 0 % (0-2) 0 % (0-2) Band Neutrophils 0 % (0-8) 0 % (0-8) Platelet Estimate Decreased Decreased Platelet Morphology Normal Normal Hypochromasia 1+ Sodium Level 139 MMOL/L (136-145) Potassium Level 3.4 MMOL/L (3.5-5.1) Chloride Level 107 MMOL/L (98-107) Carbon Dioxide Level 25 MMOL/L (21-32) Anion Gap 7 mmol/L (5-15) Blood Urea Nitrogen 12 mg/dL (7-18) Creatinine 0.9 MG/DL (0.55-1.30) Estimat Glomerular Filtration Rate > 60 mL/min (>60) Glucose Level 97 MG/DL (74-106) Calcium Level 8.4 MG/DL (8.5-10.1) Total Bilirubin 0.8 MG/DL (0.2-1.0) Aspartate Amino Transf (AST/SGOT) 36 U/L (15-37) Alanine Aminotransferase (ALT/SGPT) 40 U/L (12-78) Alkaline Phosphatase 103 U/L (46-116) Troponin I 0.181 ng/mL (0.000-0.056) Pro-B-Type Natriuretic Peptide 2741 pg/mL (0-125) Total Protein 6.5 G/DL (6.4-8.2) Albumin 2.0 G/DL (3.4-5.0) Globulin 4.5 g/dL Albumin/Globulin Ratio 0.4 (1.0-2.7) Thyroid Stimulating Hormone (TSH) 1.272 uiU/mL (0.358-3.740) Free Thyroxine 0.86 NG/DL (0.76-1.46) Digoxin Level < 0.2 NG/ML (0.9-2.0) HIV (1&2) Antibody Rapid Negative (NEGATIVE) Arterial Blood pH 7.382 (7.350-7.450) Arterial Blood Partial Pressure CO2 37.4 mmHg (35.0-45.0) Arterial Blood Partial Pressure O2 183.2 mmHg (75.0-100.0) Arterial Blood HCO3 21.7 mmol/L (22.0-26.0) Arterial Blood Oxygen Saturation 97.4 % (95-100) Arterial Blood Base Excess -2.9 (-2-2) Julius Test Positive Prothrombin Time 15.8 SEC (9.30-11.50) Prothromb Time International Ratio 1.5 (0.9-1.1) Hepatitis A IgM Antibody Negative (Negative) Hepatitis B Surface Antigen Negative (Negative) Hepatitis B Core IgM Antibody Negative (Negative) Hepatitis C Antibody <0.1 s/co ratio Red Blood Cell Morphology Normal Height (Feet): 5 Height (Inches): 5.00 Weight (Pounds): 180 Objective PE General: normal inspection, alert, Chronically Ill HEENT: nc, at ++ ng Respiratory: normal inspection, lungs clear, intubated ++ on vent Cardiovascular: regular rate, rhythm, no edema Gastrointestinal: normal inspection, normal bowel sounds, non tender, soft, no guarding, no hernia Genitourinary: normal inspection, no CVA tenderness Musculoskeletal: normal inspection, back normal Neurologic: alert, motor strength/tone normal, gyro compass tester III-XII nml as tested Psychiatric: normal inspection, judgement/insight normal James Sanchez MD Jun 17, 2019 08:37
[2019-06-17] MEDS: Pantoprazole Inj IVP SCH (08:54)
[2019-06-17] MEDS: Azithromycin 250mg tab ORAL SCH (08:54)
[2019-06-17] MEDS: Eliquis 5mg tablet ORAL SCH ×2 (08:55→17:29)
[2019-06-17] MEDS ORDERED: Phytonadione 10 mg/mL 1ml amp SUBQ SCH (09:00)
--- NOTE | 2019-06-17 10:22 | Pulmonology Progress Note ---
Assessment/Plan Assessment/Plan IMPRESSION: 1. Bilateral pneumonia, high suspicion for COVID-19. 2. History of CHF. 3. shock DISCUSSION: Intubated remains on assist-control mechanical ventilation. FiO2 now 50% On pressors The patient presents from nursing facility with hypoxemia and abnormal chest x- ray, and leukopenia. I suspect that she may have COVID-19. It is prudent to isolate her and obtain testing for COVID-19. I will continue empiric antibiotics. Her influenza A and B are negative. I will follow carefully. Aly Pinto M.D. Subjective Interval Events: remains intubated, off dopamine Constitutional: Reports: no symptoms HEENT: Repors: no symptoms Respiratory: Reports: no symptoms Cardiovascular: Reports: no symptoms Allergies: Coded Allergies: MORPHINE (Unverified Allergy, Unknown, 06/15/19) Objective Last 24 Hour Vital Signs Date Time Temp Pulse Resp B/P (MAP) Pulse Ox O2 Delivery O2 Flow Rate FiO2 06/17/19 10:00 96 18 129/73 (91) 100 06/17/19 10:00 129/73 06/17/19 09:25 40 06/17/19 09:15 91 18 40 06/17/19 09:00 135/70 06/17/19 09:00 94 18 135/70 (91) 100 06/17/19 08:41 92 06/17/19 08:00 60 06/17/19 08:00 98.5 89 18 120/65 (83) 100 06/17/19 08:00 91/53 06/17/19 08:00 Mechanical Ventilator 06/17/19 07:21 125/54 06/17/19 07:02 96 17 60 06/17/19 07:00 94 18 125/54 (77) 100 06/17/19 07:00 125/54 06/17/19 06:30 99 19 118/71 (87) 100 06/17/19 06:00 96 17 118/63 (81) 100 06/17/19 06:00 118/63 06/17/19 05:30 93 20 124/65 (84) 100 06/17/19 05:03 98 17 60 06/17/19 05:00 92 19 129/60 (83) 100 06/17/19 05:00 129/60 06/17/19 04:30 101 18 116/67 (83) 100 06/17/19 04:00 105 06/17/19 04:00 60 06/17/19 04:00 97.3 103 18 119/76 (90) 100 06/17/19 04:00 Mechanical Ventilator 60.0 06/17/19 04:00 116/67 06/17/19 03:30 95 20 113/62 (79) 100 06/17/19 03:00 100 22 128/70 (89) 100 06/17/19 03:00 113/62 06/17/19 02:46 100 19 125/68 (87) 100 06/17/19 02:38 102 18 60 06/17/19 02:07 91 21 161/79 (106) 100 06/17/19 02:01 122/67 06/17/19 02:00 101 19 77/35 (49) 100 06/17/19 02:00 77/35 06/17/19 01:30 104 19 132/59 (83) 100 06/17/19 01:00 105 18 126/62 (83) 100 06/17/19 01:00 132/59 06/17/19 00:43 99 18 60 06/17/19 00:30 99 18 130/62 (84) 100 06/17/19 00:00 Mechanical Ventilator 60.0 06/17/19 00:00 122/67 06/17/19 00:00 100 18 122/67 (85) 100 06/17/19 00:00 98 06/16/19 23:30 101 16 121/72 (88) 100 06/16/19 23:04 101 20 100 06/16/19 23:00 99 19 120/69 (86) 100 06/16/19 23:00 121/72 06/16/19 22:30 102 18 121/65 (83) 100 06/16/19 22:00 103 18 120/64 (82) 100 06/16/19 22:00 121/65 06/16/19 21:48 113 18 146/66 (92) 100 06/16/19 21:39 54/35 06/16/19 21:38 54/35 06/16/19 21:35 102 29 54/35 (41) 100 06/16/19 21:30 98 18 61/36 (44) 100 06/16/19 21:10 100 19 100 06/16/19 21:00 95/67 06/16/19 21:00 99 19 95/67 (76) 100 06/16/19 20:45 89/52 06/16/19 20:30 99 19 105/56 (72) 100 06/16/19 20:00 99.7 100 18 89/52 (64) 100 06/16/19 20:00 99 06/16/19 20:00 60 06/16/19 20:00 89/52 06/16/19 20:00 Mechanical Ventilator 60.0 06/16/19 19:30 99 18 95/54 (68) 100 06/16/19 19:25 100 17 100 06/16/19 19:03 99 16 88/53 (65) 100 06/16/19 19:00 88/53 06/16/19 19:00 99 15 88/50 (63) 100 06/16/19 18:30 99.3 108 18 88/56 (67) 100 06/16/19 18:00 88/56 06/16/19 18:00 104 19 90/50 (63) 100 06/16/19 17:18 102 18 100 06/16/19 17:00 103 19 90/49 (63) 100 06/16/19 17:00 90/49 06/16/19 16:30 102 18 92/52 (65) 100 06/16/19 16:00 97.3 101 18 88/53 (65) 100 06/16/19 16:00 Mechanical Ventilator 70.0 06/16/19 16:00 104 06/16/19 16:00 83/53 06/16/19 16:00 70 06/16/19 15:30 101 17 90/54 (66) 100 06/16/19 15:28 100 18 100 06/16/19 15:00 100 16 92/52 (65) 100 06/16/19 15:00 92/52 06/16/19 15:00 92/52 06/16/19 14:43 80/42 06/16/19 14:30 101 22 52/33 (39) 100 06/16/19 14:00 103 18 104/54 (71) 100 06/16/19 14:00 104/54 06/16/19 14:00 104/54 06/16/19 13:30 101 18 103/54 (70) 100 06/16/19 13:05 103 16 100 06/16/19 13:00 100 18 99/47 (64) 100 06/16/19 13:00 99/47 06/16/19 13:00 99/47 06/16/19 12:30 100 18 97/56 (70) 100 06/16/19 12:00 97.5 99 15 96/51 (66) 100 06/16/19 12:00 Mechanical Ventilator 70.0 06/16/19 12:00 70 06/16/19 12:00 96/51 06/16/19 12:00 96/51 06/16/19 12:00 102 06/16/19 11:30 102 18 138/50 (79) 100 06/16/19 11:00 100 16 100 06/16/19 11:00 101/58 06/16/19 11:00 101/58 06/16/19 11:00 102 15 100 06/16/19 10:36 100/49 06/16/19 10:30 106 11 101/58 (72) 100 Intake and Output 06/16/19 06/17/19 19:00 07:00 Intake Total 980.244 ml 1319.77 ml Output Total 230 ml 590 ml Balance 750.244 ml 729.77 ml Intake IV Total 980.244 ml 1319.77 ml Output Urine Total 230 ml 390 ml Gastric Drainage Total 200 ml General Appearance: no acute distress HEENT: normocephalic Respiratory/Chest: chest wall non-tender Cardiovascular: normal peripheral pulses Abdomen: normal bowel sounds Microbiology Date/Time Source Procedure Growth Status 06/15/19 08:43 Blood Blood Culture - Preliminary NO GROWTH AFTER 24 HOURS Resulted 06/15/19 08:43 Blood Blood Culture - Preliminary NO GROWTH AFTER 24 HOURS Resulted 06/15/19 21:00 Sputum Gram Stain - Final Resulted 06/15/19 21:00 Sputum Culture - Preliminary Staphylococcus Aureus Resulted 06/15/19 11:15 Nasal Nares MRSA Culture - Final Staphylococcus Aureus - Mrsa Complete 06/15/19 08:55 Nasal Nares - Final Complete 06/15/19 08:55 Nasal Nares - Final Complete 06/15/19 12:18 Rectum VRE Culture - Final NO VANCOMYCIN RESISTANT ENTEROCOCCUS ... Complete 06/15/19 11:15 Rectum - Final NO CARBAPENEM-RESISTANT ENTEROBACTERI... Complete Laboratory Tests 06/16/19 10:30: Prothrombin Time 15.8H, Prothromb Time International Ratio 1.5H, Hepatitis A IgM Antibody Negative, Hepatitis B Surface Antigen Negative, Hepatitis B Core IgM Antibody Negative, Hepatitis C Antibody <0.1 06/17/19 04:00: White Blood Count 12.8H, Red Blood Count 3.77L, Hemoglobin 11.5L, Hematocrit 33.9L, Mean Corpuscular Volume 90, Mean Corpuscular Hemoglobin 30.5, Mean Corpuscular Hemoglobin Concent 34.0, Red Cell Distribution Width 14.2, Platelet Count 57L, Mean Platelet Volume 9.5, Neutrophils (%) (Auto) , Lymphocytes (%) ( Auto) , Monocytes (%) (Auto) , Eosinophils (%) (Auto) , Basophils (%) (Auto) , Differential Total Cells Counted 100, Neutrophils % (Manual) 78H, Lymphocytes % (Manual) 16L, Monocytes % (Manual) 6, Eosinophils % (Manual) 0, Basophils % ( Manual) 0, Band Neutrophils 0, Platelet Estimate DecreasedL, Platelet Morphology Normal, Red Blood Cell Morphology Normal Current Medications Medications (Trade) Dose Ordered Sig/Emil Route PRN Reason Start Time Stop Time Status Last Admin Dose Admin Acetaminophen (Tylenol) 650 mg Q4H PRN ORAL Mild Pain/Temp > 100.5 06/15/19 14:30 07/15/19 14:29 Apixaban (Eliquis) 5 mg BID ORAL 06/15/19 18:00 09/13/19 17:59 Azithromycin (Zithromax) 500 mg DAILY ORAL 06/16/19 11:00 06/23/19 10:59 06/17/19 08:54 Cefepime HCl 1 gm/ Dextrose 55 ml @ 110 mls/hr Q12H IVPB 06/16/19 18:00 06/23/19 17:59 06/17/19 05:54 Chlorhexidine Gluconate (Susie-Hex 2%) 1 applic DAILY@2000 TOPIC 06/16/19 20:00 09/14/19 19:59 06/16/19 20:52 Dextrose (Dextrose 50%) 50 ml Q30M PRN IV Hypoglycemia 06/15/19 14:45 09/13/19 14:44 Dopamine HCl/ Dextrose 250 ml @ 0 mls/hr Q24H IV 06/15/19 20:45 09/13/19 20:44 06/15/19 21:43 Hydroxychloroquine Sulfate (Plaquenil) 200 mg BID ORAL 06/17/19 09:00 06/20/19 18:01 06/17/19 08:54 Norepinephrine Bitartrate 8 mg/ Dextrose 558 ml @ 0 mls/hr Q24H IV 06/16/19 09:00 07/16/19 08:59 06/17/19 07:21 Pantoprazole (Protonix) 40 mg DAILY IVP 06/16/19 09:00 07/16/19 08:59 06/17/19 08:54 Phytonadione 1 mg/ Dextrose 55.5 ml @ 222 mls/hr ONCE ONCE IVPB 06/17/19 11:00 06/17/19 11:14 Aly Pinto MD Jun 17, 2019 10:22
--- NOTE | 2019-06-17 10:30 | Consultation ---
DATE OF CONSULTATION: 06/17/2019 CONSULTING PHYSICIAN: Aman Wheat M.D. REFERRING PHYSICIAN: Jayjay Chandler M.D. CHIEF COMPLAINT: Dysphagia. HISTORY OF PRESENT ILLNESS: Most of history is per chart. This is a unfortunate 73-year-old female, long term patient with psychiatric disorder, dementia, and multiple other medical problems, which I will dictate in a second. The patient was admitted with shortness of breath from a long term. The patient actually went to respiratory failure, requiring intubation, now currently in ICU, on Levophed. The patient also has seen by scalping machine operator, Dr. Grissom because the patient become bradycardic, heart rate went down to 30s and GI consultation was evaluated for possible nutrition and feeding. Also, there was a concern about possible GI bleeding, given the patient had some blood-tinged oral discharges. PAST MEDICAL HISTORY: Significant for: 1. History of psychiatric disorder. 2. Dementia. 3. Congestive heart failure. 4. Atrial fibrillation. 5. Hypertension. 6. COPD. 7. Diabetes. 8. Anxiety. PAST SURGICAL HISTORY: Unknown. ALLERGIES: To morphine. MEDICATIONS: Please see medication reconciliation list. FAMILY HISTORY: Unknown. SOCIAL HISTORY: Currently lives in a long term. No recent history of tobacco, alcohol, or drug abuse. PHYSICAL EXAMINATION: VITAL SIGNS: The patient in ICU, intubated on pressors. Temperature is 98.5, pulse is 91, respirations 18, blood pressure 135/70. HEENT: Normocephalic, atraumatic. Mild pale conjunctivae. NECK: Supple. No evidence of obvious lymphadenopathy. CARDIOVASCULAR: Irregular. Plus S1, S2. LUNGS: Decreased breath sounds bilaterally and diffuse. ABDOMEN: Soft. Mildly distended. Mildly tympanic. Hypoactive bowel sounds. No rebound. No guarding. No peritoneal sign. EXTREMITIES: No cyanosis. No clubbing. No edema. LABORATORY DATA: White count is 12.8, hemoglobin 11.5, hematocrit 33, and platelet count is 57,000. Chem-7, sodium 139, potassium 3.4, BUN is 12, creatinine is 0.9. Troponin mildly elevated at 0.18. ASSESSMENT AND PLAN: Problem list: 1. Mild anemia. 2. Thrombocytopenia. 3. Coagulopathy, mild. 4. Elevated troponins. 5. Hypoalbuminemia. 6. Respiratory failure. 7. Diabetes per chart. PLAN: Keep the patient NPO at this time. Put the NG-tube to low intermittent suction. Hold of tube feeding given the patient is on pressors and not stable. Repeat labs for tomorrow including CBC, CMP, amylase, lipase, INR, lactic acid. Follow Cardiology recommendation. I agree with holding Eliquis for now. A dose of vitamin K 1.1 mg IV, Protonix daily. We will re-evaluate the patient tomorrow and start tube feeding if the patient is stable. I want to thank, Dr. Jayjay Chandler, for this kind referral. Aman Wheat M.D. DR: NICOLAS JOB#: [id number] CC: Jayjay Chandler M.D.; Fax#: [phone]
[2019-06-17] MEDS ORDERED: Phytonadione 1 MG in D5W 55 ML IVPB ONE (11:00)
--- NOTE | 2019-06-17 11:18 | Infectious Diseases Prog Note ---
Assessment/Plan Assessment/Plan IMPRESSION: Sepsis with Septic shock Staph aureus pneumonia Bilateral pneumonia, try to rule out COVID-19. Hypoxic respiratory failure Interstitial lung disease, Thrombocytopenia, Congestive heart failure. MRSA carrier RECOMMENDATION: We will follow up the cultures. We will follow up the COVID-19 test. Continue Zithromax ,hydroxychloroquine &cefepime. Add IV Vancomycin Poor prognosis Subjective ROS Limited/Unobtainable: Yes Cardiovascular: Reports: other - on Levophed Allergies: Coded Allergies: MORPHINE (Unverified Allergy, Unknown, 06/15/19) Objective Vital Signs Last 24 Hour Vital Signs Date Time Temp Pulse Resp B/P (MAP) Pulse Ox O2 Delivery O2 Flow Rate FiO2 06/17/19 11:00 103 19 124/69 (87) 100 06/17/19 11:00 129/73 06/17/19 10:00 96 18 129/73 (91) 100 06/17/19 10:00 129/73 06/17/19 09:25 40 06/17/19 09:15 91 18 40 06/17/19 09:00 135/70 06/17/19 09:00 94 18 135/70 (91) 100 06/17/19 08:41 92 06/17/19 08:00 60 06/17/19 08:00 98.5 89 18 120/65 (83) 100 06/17/19 08:00 91/53 06/17/19 08:00 Mechanical Ventilator 06/17/19 07:21 125/54 06/17/19 07:02 96 17 60 06/17/19 07:00 94 18 125/54 (77) 100 06/17/19 07:00 125/54 06/17/19 06:30 99 19 118/71 (87) 100 06/17/19 06:00 96 17 118/63 (81) 100 06/17/19 06:00 118/63 06/17/19 05:30 93 20 124/65 (84) 100 06/17/19 05:03 98 17 60 06/17/19 05:00 92 19 129/60 (83) 100 06/17/19 05:00 129/60 06/17/19 04:30 101 18 116/67 (83) 100 06/17/19 04:00 105 06/17/19 04:00 60 06/17/19 04:00 97.3 103 18 119/76 (90) 100 06/17/19 04:00 Mechanical Ventilator 60.0 06/17/19 04:00 116/67 06/17/19 03:30 95 20 113/62 (79) 100 06/17/19 03:00 100 22 128/70 (89) 100 06/17/19 03:00 113/62 06/17/19 02:46 100 19 125/68 (87) 100 06/17/19 02:38 102 18 60 06/17/19 02:07 91 21 161/79 (106) 100 06/17/19 02:01 122/67 06/17/19 02:00 101 19 77/35 (49) 100 06/17/19 02:00 77/35 06/17/19 01:30 104 19 132/59 (83) 100 06/17/19 01:00 105 18 126/62 (83) 100 06/17/19 01:00 132/59 06/17/19 00:43 99 18 60 06/17/19 00:30 99 18 130/62 (84) 100 06/17/19 00:00 Mechanical Ventilator 60.0 06/17/19 00:00 122/67 06/17/19 00:00 100 18 122/67 (85) 100 06/17/19 00:00 98 06/16/19 23:30 101 16 121/72 (88) 100 06/16/19 23:04 101 20 100 06/16/19 23:00 99 19 120/69 (86) 100 06/16/19 23:00 121/72 06/16/19 22:30 102 18 121/65 (83) 100 06/16/19 22:00 103 18 120/64 (82) 100 06/16/19 22:00 121/65 06/16/19 21:48 113 18 146/66 (92) 100 06/16/19 21:39 54/35 06/16/19 21:38 54/35 06/16/19 21:35 102 29 54/35 (41) 100 06/16/19 21:30 98 18 61/36 (44) 100 06/16/19 21:10 100 19 100 06/16/19 21:00 95/67 06/16/19 21:00 99 19 95/67 (76) 100 3/24/20 20:45 89/52 06/16/19 20:30 99 19 105/56 (72) 100 06/16/19 20:00 99.7 100 18 89/52 (64) 100 06/16/19 20:00 99 06/16/19 20:00 60 06/16/19 20:00 89/52 06/16/19 20:00 Mechanical Ventilator 60.0 06/16/19 19:30 99 18 95/54 (68) 100 06/16/19 19:25 100 17 100 06/16/19 19:03 99 16 88/53 (65) 100 06/16/19 19:00 88/53 06/16/19 19:00 99 15 88/50 (63) 100 06/16/19 18:30 99.3 108 18 88/56 (67) 100 06/16/19 18:00 88/56 06/16/19 18:00 104 19 90/50 (63) 100 06/16/19 17:18 102 18 100 06/16/19 17:00 103 19 90/49 (63) 100 06/16/19 17:00 90/49 06/16/19 16:30 102 18 92/52 (65) 100 06/16/19 16:00 97.3 101 18 88/53 (65) 100 06/16/19 16:00 Mechanical Ventilator 70.0 06/16/19 16:00 104 06/16/19 16:00 83/53 06/16/19 16:00 70 06/16/19 15:30 101 17 90/54 (66) 100 06/16/19 15:28 100 18 100 06/16/19 15:00 100 16 92/52 (65) 100 06/16/19 15:00 92/52 06/16/19 15:00 92/52 06/16/19 14:43 80/42 06/16/19 14:30 101 22 52/33 (39) 100 06/16/19 14:00 103 18 104/54 (71) 100 06/16/19 14:00 104/54 06/16/19 14:00 104/54 06/16/19 13:30 101 18 103/54 (70) 100 06/16/19 13:05 103 16 100 06/16/19 13:00 100 18 99/47 (64) 100 06/16/19 13:00 99/47 06/16/19 13:00 99/47 06/16/19 12:30 100 18 97/56 (70) 100 06/16/19 12:00 97.5 99 15 96/51 (66) 100 06/16/19 12:00 Mechanical Ventilator 70.0 06/16/19 12:00 70 06/16/19 12:00 96/51 06/16/19 12:00 96/51 06/16/19 12:00 102 06/16/19 11:30 102 18 138/50 (79) 100 Height (Feet): 5 Height (Inches): 5.00 Weight (Pounds): 180 HEENT: other - orally intubated Respiratory/Chest: other - on ventilator Cardiovascular: tachycardia, other - RIJ central line Abdomen: soft, non tender Extremities: other - legs edema Neurologic/Psychiatric: unresponsiveness Microbiology Date/Time Source Procedure Growth Status 06/15/19 08:43 Blood Blood Culture - Preliminary NO GROWTH AFTER 24 HOURS Resulted 06/15/19 08:43 Blood Blood Culture - Preliminary NO GROWTH AFTER 24 HOURS Resulted 06/15/19 21:00 Sputum Gram Stain - Final Resulted 06/15/19 21:00 Sputum Culture - Preliminary Staphylococcus Aureus Resulted 06/15/19 11:15 Nasal Nares MRSA Culture - Final Staphylococcus Aureus - Mrsa Complete 06/15/19 08:55 Nasal Nares - Final Complete 06/15/19 08:55 Nasal Nares - Final Complete 06/15/19 12:18 Rectum VRE Culture - Final NO VANCOMYCIN RESISTANT ENTEROCOCCUS ... Complete 06/15/19 11:15 Rectum - Final NO CARBAPENEM-RESISTANT ENTEROBACTERI... Complete Laboratory Tests Test 06/17/19 04:00 White Blood Count 12.8 K/UL (4.8-10.8) H Red Blood Count 3.77 M/UL (4.20-5.40) L Hemoglobin 11.5 G/DL (12.0-16.0) L Hematocrit 33.9 % (37.0-47.0) L Mean Corpuscular Volume 90 FL (80-99) Mean Corpuscular Hemoglobin 30.5 PG (27.0-31.0) Mean Corpuscular Hemoglobin Concent 34.0 G/DL (32.0-36.0) Red Cell Distribution Width 14.2 % (11.6-14.8) Platelet Count 57 K/UL (150-450) L Mean Platelet Volume 9.5 FL (6.5-10.1) Neutrophils (%) (Auto) % (45.0-75.0) Lymphocytes (%) (Auto) % (20.0-45.0) Monocytes (%) (Auto) % (1.0-10.0) Eosinophils (%) (Auto) % (0.0-3.0) Basophils (%) (Auto) % (0.0-2.0) Differential Total Cells Counted 100 Neutrophils % (Manual) 78 % (45-75) H Lymphocytes % (Manual) 16 % (20-45) L Monocytes % (Manual) 6 % (1-10) Eosinophils % (Manual) 0 % (0-3) Basophils % (Manual) 0 % (0-2) Band Neutrophils 0 % (0-8) Platelet Estimate Decreased L Platelet Morphology Normal Red Blood Cell Morphology Normal Current Medications Medications (Trade) Dose Ordered Sig/Emil Route PRN Reason Start Time Stop Time Status Last Admin Dose Admin Acetaminophen (Tylenol) 650 mg Q4H PRN ORAL Mild Pain/Temp > 100.5 06/15/19 14:30 07/15/19 14:29 Apixaban (Eliquis) 5 mg BID ORAL 06/15/19 18:00 09/13/19 17:59 Azithromycin (Zithromax) 500 mg DAILY ORAL 06/16/19 11:00 06/23/19 10:59 06/17/19 08:54 Cefepime HCl 1 gm/ Dextrose 55 ml @ 110 mls/hr Q12H IVPB 06/16/19 18:00 06/23/19 17:59 06/17/19 05:54 Chlorhexidine Gluconate (Susie-Hex 2%) 1 applic DAILY@2000 TOPIC 06/16/19 20:00 09/14/19 19:59 06/16/19 20:52 Dextrose (Dextrose 50%) 50 ml Q30M PRN IV Hypoglycemia 06/15/19 14:45 09/13/19 14:44 Dopamine HCl/ Dextrose 250 ml @ 0 mls/hr Q24H IV 06/15/19 20:45 09/13/19 20:44 06/15/19 21:43 Hydroxychloroquine Sulfate (Plaquenil) 200 mg BID ORAL 06/17/19 09:00 06/20/19 18:01 06/17/19 08:54 Norepinephrine Bitartrate 8 mg/ Dextrose 558 ml @ 0 mls/hr Q24H IV 06/16/19 09:00 07/16/19 08:59 06/17/19 07:21 Pantoprazole (Protonix) 40 mg DAILY IVP 06/16/19 09:00 07/16/19 08:59 06/17/19 08:54 Vancomycin HCl (Vanco rx to dose) 1 ea DAILY PRN MISC Per rx protocol 06/17/19 11:15 07/17/19 11:14 Edin Fierro MD Jun 17, 2019 11:18
--- NOTE | 2019-06-17 12:59 | Cardiac Electrophysiology PN ---
Assessment/Plan Assessment/Plan 1. Respiratory failure due to bilateral pneumonia and CHF as well as the BNP is 788. Echocardiogram EF 60%. Intubated on the Vent. COVID 19 results pending Off Lasix for hypotension. 2. Troponin leak. No acute ECG findings. Likely due to septic shock and demand ischemia 3. Atrial fib off anticoagulation for Severe thrombocytopenia. Off AVN violette for hypotension. If develops atrial fib with RVR will load with digoxin. 4. Septic shock on Levophed and off Dopamine, Plaquenil 400 b.i.d. cefepime and azithromycin. Further evaluation by Dr. Pinto and Dr. Blue. In isolation for COVID 19. 5. History of psychiatric history. 6. History of cellulitis. RYANN RN Subjective Subjective Intubated in ICU on the Vent and Levophed 30Mc/mi.. In atrial fib with rate 100s Objective Last 24 Hour Vital Signs Date Time Temp Pulse Resp B/P (MAP) Pulse Ox O2 Delivery O2 Flow Rate FiO2 06/17/19 12:38 101 17 40 06/17/19 12:00 99.2 103 19 123/75 (91) 100 06/17/19 12:00 133/69 06/17/19 12:00 Mechanical Ventilator 06/17/19 11:35 129/73 06/17/19 11:19 98 17 40 06/17/19 11:19 102 06/17/19 11:00 103 19 124/69 (87) 100 06/17/19 11:00 129/73 06/17/19 10:00 96 18 129/73 (91) 100 06/17/19 10:00 129/73 06/17/19 09:25 40 06/17/19 09:15 91 18 40 06/17/19 09:00 135/70 06/17/19 09:00 94 18 135/70 (91) 100 06/17/19 08:41 92 06/17/19 08:00 60 06/17/19 08:00 98.5 89 18 120/65 (83) 100 06/17/19 08:00 91/53 06/17/19 08:00 Mechanical Ventilator 06/17/19 07:21 125/54 06/17/19 07:02 96 17 60 06/17/19 07:00 94 18 125/54 (77) 100 06/17/19 07:00 125/54 06/17/19 06:30 99 19 118/71 (87) 100 06/17/19 06:00 96 17 118/63 (81) 100 06/17/19 06:00 118/63 06/17/19 05:30 93 20 124/65 (84) 100 06/17/19 05:03 98 17 60 06/17/19 05:00 92 19 129/60 (83) 100 06/17/19 05:00 129/60 06/17/19 04:30 101 18 116/67 (83) 100 06/17/19 04:00 105 06/17/19 04:00 60 06/17/19 04:00 97.3 103 18 119/76 (90) 100 06/17/19 04:00 Mechanical Ventilator 60.0 06/17/19 04:00 116/67 06/17/19 03:30 95 20 113/62 (79) 100 06/17/19 03:00 100 22 128/70 (89) 100 06/17/19 03:00 113/62 06/17/19 02:46 100 19 125/68 (87) 100 06/17/19 02:38 102 18 60 06/17/19 02:07 91 21 161/79 (106) 100 06/17/19 02:01 122/67 06/17/19 02:00 101 19 77/35 (49) 100 06/17/19 02:00 77/35 06/17/19 01:30 104 19 132/59 (83) 100 06/17/19 01:00 105 18 126/62 (83) 100 06/17/19 01:00 132/59 06/17/19 00:43 99 18 60 06/17/19 00:30 99 18 130/62 (84) 100 06/17/19 00:00 Mechanical Ventilator 60.0 06/17/19 00:00 122/67 06/17/19 00:00 100 18 122/67 (85) 100 06/17/19 00:00 98 06/16/19 23:30 101 16 121/72 (88) 100 06/16/19 23:04 101 20 100 06/16/19 23:00 99 19 120/69 (86) 100 06/16/19 23:00 121/72 06/16/19 22:30 102 18 121/65 (83) 100 06/16/19 22:00 103 18 120/64 (82) 100 06/16/19 22:00 121/65 06/16/19 21:48 113 18 146/66 (92) 100 06/16/19 21:39 54/35 06/16/19 21:38 54/35 06/16/19 21:35 102 29 54/35 (41) 100 06/16/19 21:30 98 18 61/36 (44) 100 06/16/19 21:10 100 19 100 06/16/19 21:00 95/67 06/16/19 21:00 99 19 95/67 (76) 100 06/16/19 20:45 89/52 06/16/19 20:30 99 19 105/56 (72) 100 06/16/19 20:00 99.7 100 18 89/52 (64) 100 06/16/19 20:00 99 06/16/19 20:00 60 06/16/19 20:00 89/52 06/16/19 20:00 Mechanical Ventilator 60.0 06/16/19 19:30 99 18 95/54 (68) 100 06/16/19 19:25 100 17 100 06/16/19 19:03 99 16 88/53 (65) 100 06/16/19 19:00 88/53 06/16/19 19:00 99 15 88/50 (63) 100 06/16/19 18:30 99.3 108 18 88/56 (67) 100 06/16/19 18:00 88/56 06/16/19 18:00 104 19 90/50 (63) 100 06/16/19 17:18 102 18 100 06/16/19 17:00 103 19 90/49 (63) 100 06/16/19 17:00 90/49 06/16/19 16:30 102 18 92/52 (65) 100 06/16/19 16:00 97.3 101 18 88/53 (65) 100 06/16/19 16:00 Mechanical Ventilator 70.0 06/16/19 16:00 104 06/16/19 16:00 83/53 06/16/19 16:00 70 06/16/19 15:30 101 17 90/54 (66) 100 06/16/19 15:28 100 18 100 06/16/19 15:00 100 16 92/52 (65) 100 06/16/19 15:00 92/52 06/16/19 15:00 92/52 06/16/19 14:43 80/42 06/16/19 14:30 101 22 52/33 (39) 100 06/16/19 14:00 103 18 104/54 (71) 100 06/16/19 14:00 104/54 06/16/19 14:00 104/54 06/16/19 13:30 101 18 103/54 (70) 100 06/16/19 13:05 103 16 100 06/16/19 13:00 100 18 99/47 (64) 100 06/16/19 13:00 99/47 06/16/19 13:00 99/47 Intake and Output 06/16/19 06/17/19 19:00 07:00 Intake Total 980.244 ml 1319.77 ml Output Total 230 ml 590 ml Balance 750.244 ml 729.77 ml Intake IV Total 980.244 ml 1319.77 ml Output Urine Total 230 ml 390 ml Gastric Drainage Total 200 ml Laboratory Tests Test 06/17/19 04:00 White Blood Count 12.8 K/UL (4.8-10.8) H Red Blood Count 3.77 M/UL (4.20-5.40) L Hemoglobin 11.5 G/DL (12.0-16.0) L Hematocrit 33.9 % (37.0-47.0) L Mean Corpuscular Volume 90 FL (80-99) Mean Corpuscular Hemoglobin 30.5 PG (27.0-31.0) Mean Corpuscular Hemoglobin Concent 34.0 G/DL (32.0-36.0) Red Cell Distribution Width 14.2 % (11.6-14.8) Platelet Count 57 K/UL (150-450) L Mean Platelet Volume 9.5 FL (6.5-10.1) Neutrophils (%) (Auto) % (45.0-75.0) Lymphocytes (%) (Auto) % (20.0-45.0) Monocytes (%) (Auto) % (1.0-10.0) Eosinophils (%) (Auto) % (0.0-3.0) Basophils (%) (Auto) % (0.0-2.0) Differential Total Cells Counted 100 Neutrophils % (Manual) 78 % (45-75) H Lymphocytes % (Manual) 16 % (20-45) L Monocytes % (Manual) 6 % (1-10) Eosinophils % (Manual) 0 % (0-3) Basophils % (Manual) 0 % (0-2) Band Neutrophils 0 % (0-8) Platelet Estimate Decreased L Platelet Morphology Normal Red Blood Cell Morphology Normal Microbiology Date/Time Source Procedure Growth Status 06/15/19 08:43 Blood Blood Culture - Preliminary NO GROWTH AFTER 24 HOURS Resulted 06/15/19 08:43 Blood Blood Culture - Preliminary NO GROWTH AFTER 24 HOURS Resulted 06/15/19 21:00 Sputum Gram Stain - Final Resulted 06/15/19 21:00 Sputum Culture - Preliminary Staphylococcus Aureus Resulted 06/15/19 11:15 Nasal Nares MRSA Culture - Final Staphylococcus Aureus - Mrsa Complete 06/15/19 08:55 Nasal Nares - Final Complete 06/15/19 08:55 Nasal Nares - Final Complete 06/15/19 12:18 Rectum VRE Culture - Final NO VANCOMYCIN RESISTANT ENTEROCOCCUS ... Complete 06/15/19 11:15 Rectum - Final NO CARBAPENEM-RESISTANT ENTEROBACTERI... Complete Objective HEAD AND NECK: No JVD. Orally intubated with NG tube in LUNGS: Bilateral rhonchi. CARDIOVASCULAR: Tachy S1 and S2 with no gallop. ABDOMEN: Soft. EXTREMITIES: No pitting edema. Ruben Grissom MD Jun 17, 2019 12:59
[2019-06-17] MEDS ORDERED: Vancomycin 1750mg/D5W 550ml IVPB SCH ×2 (17:00)
[2019-06-17] MEDS: Dyna-Hex 2% Top Sol 2oz TOPIC SCH (20:08)
[2019-06-17] MEDS: DOPamine 400mg/250ml 250 ML IV SCH (20:22)
[2019-06-18] VITALS (38 sets, daily range): BP systolic 95–128; BP diastolic 37–98
--- NOTE | 2019-06-18 00:30 | Progress Note ---
DATE: 06/17/2019 SUBJECTIVE: The patient is in critical condition, respiratory failure, status post intubation, septic shock, status post Staph aureus pneumonia, bilateral pneumonia, we are trying to rule out COVID-19, hypoxic interstitial lung disease, thrombocytopenia, congestive heart failure, to continue the antibiotics. The patient has a very poor prognosis everything at this point. We will monitor the vent settings per Dr. Pinto. The patient's vital signs are stable at this point. Status post septic shock. We will monitor the patient very closely, very poor prognosis. Jayjay Chandler M.D. DR: AROLDO JOB#: [id number] CC:
[2019-06-18] MEDS: Norepinephrine Bitartrate 8 MG in D5W 500ml 550 ML IV SCH ×2 (01:50→12:22)
[2019-06-18 04:36] LABS: HEMATOCRIT 30.8 % (37.0-47.0); HEMOGLOBIN 10.5 G/DL (12.0-16.0); MEAN CORPUSCULAR VOLUME 89 FL (80-99); PLATELET COUNT 50 K/UL (150-450); RED BLOOD COUNT 3.47 M/UL (4.20-5.40); RED CELL DISTRIBUTION WIDTH 14.2 % (11.6-14.8); WHITE BLOOD COUNT 11.3 K/UL (4.8-10.8)
[2019-06-18 04:38] LABS: INR 1.4 (0.9-1.1)
[2019-06-18 05:19] LABS: ALANINE AMINOTRANSFERASE 23 U/L (12-78); ALBUMIN 1.5 G/DL (3.4-5.0); ALBUMIN/GLOBULIN RATIO 0.3 (1.0-2.7); ALKALINE PHOSPHATASE 87 U/L (46-116); AMYLASE 30 U/L (25-115); ANION GAP 8 mmol/L (5-15); ASPARTATE AMINO TRANSFERASE 25 U/L (15-37); BILIRUBIN,TOTAL 1.3 MG/DL (0.2-1.0); BLOOD UREA NITROGEN 18 mg/dL (7-18); CALCIUM 8.8 MG/DL (8.5-10.1); CARBON DIOXIDE 25 MMOL/L (21-32); CHLORIDE 103 MMOL/L (98-107); CREATININE 1.1 MG/DL (0.55-1.30); POTASSIUM 3.4 MMOL/L (3.5-5.1); SODIUM 136 MMOL/L (136-145)
[2019-06-18 05:26] LABS: BILIRUBIN,DIRECT 0.3 MG/DL (0.0-0.3)
[2019-06-18] MEDS: Cefepime HCl 1 GM in D5W 55 ML IVPB SCH ×2 (05:38→17:58)
[2019-06-18 05:44] LABS: % IRON SATURATION 28 % (15-50); IRON 40 ug/dL (50-175); TOTAL IRON BINDING CAPACITY 145 ug/dL (250-450)
[2019-06-18] MEDS: Azithromycin 250mg tab ORAL SCH (08:21)
[2019-06-18] MEDS: Pantoprazole Inj IVP SCH (08:21)
[2019-06-18] MEDS: Eliquis 5mg tablet ORAL SCH ×2 (08:22→18:00)
--- NOTE | 2019-06-18 09:49 | Infectious Diseases Prog Note ---
Assessment/Plan Assessment/Plan IMPRESSION: Sepsis with Septic shock Staph aureus pneumonia, MRSA Bilateral pneumonia, try to rule out COVID-19. Hypoxic respiratory failure Interstitial lung disease, Thrombocytopenia, Congestive heart failure. MRSA carrier RECOMMENDATION: COVID-19 test: Negative Discontinue Zithromax ,hydroxychloroquine Continue cefepime & IV Vancomycin Discontinue Droplet isolation Subjective ROS Limited/Unobtainable: Yes Constitutional: Denies: fever Allergies: Coded Allergies: MORPHINE (Unverified Allergy, Unknown, 06/15/19) Objective Vital Signs Last 24 Hour Vital Signs Date Time Temp Pulse Resp B/P (MAP) Pulse Ox O2 Delivery O2 Flow Rate FiO2 06/18/19 09:30 75 16 120/71 (87) 98 06/18/19 09:00 75 16 124/64 (84) 99 06/18/19 08:53 88 22 40 06/18/19 08:00 40 06/18/19 08:00 Mechanical Ventilator 06/18/19 08:00 127/76 06/18/19 08:00 98.9 74 16 127/76 (93) 99 06/18/19 07:30 74 16 123/73 (90) 99 06/18/19 07:21 77 18 40 06/18/19 07:00 74 16 120/63 (82) 98 06/18/19 07:00 120/63 06/18/19 06:00 71 16 127/64 (85) 100 06/18/19 06:00 127/68 06/18/19 05:20 73 16 40 06/18/19 05:00 74 16 120/68 (85) 98 06/18/19 05:00 121/64 06/18/19 04:30 75 17 105/61 (76) 98 06/18/19 04:00 40 06/18/19 04:00 85 06/18/19 04:00 122/60 06/18/19 04:00 98.0 79 25 122/65 (84) 97 06/18/19 04:00 Mechanical Ventilator 06/18/19 03:30 79 16 128/68 (88) 100 06/18/19 03:20 78 16 40 06/18/19 03:00 108/58 06/18/19 03:00 84 16 110/59 (76) 100 06/18/19 02:30 75 16 106/54 (71) 100 06/18/19 02:00 81 16 103/60 (74) 100 06/18/19 01:50 85/39 06/18/19 01:00 100/50 06/18/19 01:00 74 16 98/50 (66) 99 06/18/19 00:30 77 16 95/53 (67) 100 06/18/19 00:29 82 23 40 06/18/19 00:00 40 06/18/19 00:00 97.8 76 16 116/61 (79) 99 06/18/19 00:00 Mechanical Ventilator 06/18/19 00:00 91 06/18/19 00:00 129/63 06/17/19 23:30 75 16 116/67 (83) 100 06/17/19 23:23 75 16 40 06/17/19 23:00 71 16 112/70 (84) 99 06/17/19 23:00 122/66 06/17/19 22:30 79 13 112/63 (79) 99 06/17/19 22:00 78 16 108/61 (77) 98 06/17/19 22:00 109/61 06/17/19 21:30 83 19 121/56 (77) 100 06/17/19 21:28 97 17 40 06/17/19 21:00 89 19 135/76 (95) 100 06/17/19 21:00 149/80 06/17/19 20:30 80 18 122/55 (77) 100 06/17/19 20:22 137/58 06/17/19 20:00 82 06/17/19 20:00 Mechanical Ventilator 06/17/19 20:00 137/58 06/17/19 20:00 40 06/17/19 20:00 98.0 82 20 122/82 (95) 100 06/17/19 19:30 80 17 128/61 (83) 100 06/17/19 19:16 96 16 40 06/17/19 19:00 123/68 06/17/19 19:00 79 16 123/68 (86) 99 06/17/19 18:30 88 16 130/72 (91) 100 06/17/19 18:00 92 17 105/63 (77) 100 06/17/19 18:00 103/65 3/25/20 17:30 90 17 108/55 (72) 99 06/17/19 17:25 94 22 40 06/17/19 17:00 103 18 114/51 (72) 99 06/17/19 17:00 117/72 06/17/19 16:56 115/88 06/17/19 16:30 103 18 115/88 (97) 99 06/17/19 16:24 115 19 132/71 (91) 99 06/17/19 16:15 140 18 177/80 (112) 99 06/17/19 16:00 Mechanical Ventilator 06/17/19 16:00 40 06/17/19 16:00 142/88 06/17/19 16:00 99.0 94 17 142/88 (106) 100 06/17/19 15:32 98 06/17/19 15:30 98 18 115/61 (79) 99 06/17/19 15:21 102 19 40 06/17/19 15:15 103 19 147/74 (98) 100 06/17/19 15:00 98 18 132/67 (88) 100 06/17/19 15:00 132/67 06/17/19 14:30 97 18 130/72 (91) 100 06/17/19 14:00 120/75 06/17/19 14:00 96 16 131/66 (87) 100 06/17/19 13:45 97 19 120/75 (90) 100 06/17/19 13:30 96 17 123/66 (85) 100 06/17/19 13:15 99 18 141/68 (92) 100 06/17/19 13:00 99 19 134/67 (89) 100 06/17/19 13:00 123/66 06/17/19 12:45 104 20 127/65 (85) 100 06/17/19 12:38 101 17 40 06/17/19 12:30 98 17 120/63 (82) 100 06/17/19 12:15 102 17 133/69 (90) 99 06/17/19 12:00 99.2 103 19 123/75 (91) 100 06/17/19 12:00 133/69 06/17/19 12:00 Mechanical Ventilator 06/17/19 11:35 129/73 06/17/19 11:19 98 17 40 06/17/19 11:19 102 06/17/19 11:00 103 19 124/69 (87) 100 06/17/19 11:00 129/73 06/17/19 10:00 96 18 129/73 (91) 100 06/17/19 10:00 129/73 Height (Feet): 5 Height (Inches): 5.00 Weight (Pounds): 180 HEENT: other - orally intubated Respiratory/Chest: rhonchi - bilaterally, other - on ventilator Cardiovascular: normal rate, other - RIJ central line Abdomen: soft, non tender, other - orogastric tube Extremities: other - generalized edema Neurologic/Psychiatric: unresponsiveness Microbiology Date/Time Source Procedure Growth Status 06/15/19 21:00 Sputum Gram Stain - Final Complete 06/15/19 21:00 Sputum Culture - Final Staphylococcus Aureus - Mrsa Usual Respiratory Luli Complete 06/15/19 11:15 Nasal Nares MRSA Culture - Final Staphylococcus Aureus - Mrsa Complete 06/15/19 12:18 Rectum VRE Culture - Final NO VANCOMYCIN RESISTANT ENTEROCOCCUS ... Complete 06/15/19 11:15 Rectum - Final NO CARBAPENEM-RESISTANT ENTEROBACTERI... Complete Laboratory Tests Test 06/18/19 03:40 White Blood Count 11.3 K/UL (4.8-10.8) H Red Blood Count 3.47 M/UL (4.20-5.40) L Hemoglobin 10.5 G/DL (12.0-16.0) L Hematocrit 30.8 % (37.0-47.0) L Mean Corpuscular Volume 89 FL (80-99) Mean Corpuscular Hemoglobin 30.3 PG (27.0-31.0) Mean Corpuscular Hemoglobin Concent 34.1 G/DL (32.0-36.0) Red Cell Distribution Width 14.2 % (11.6-14.8) Platelet Count 50 K/UL (150-450) L Mean Platelet Volume 9.6 FL (6.5-10.1) Neutrophils (%) (Auto) % (45.0-75.0) Lymphocytes (%) (Auto) % (20.0-45.0) Monocytes (%) (Auto) % (1.0-10.0) Eosinophils (%) (Auto) % (0.0-3.0) Basophils (%) (Auto) % (0.0-2.0) Differential Total Cells Counted 100 Neutrophils % (Manual) 87 % (45-75) H Lymphocytes % (Manual) 10 % (20-45) L Monocytes % (Manual) 2 % (1-10) Eosinophils % (Manual) 1 % (0-3) Basophils % (Manual) 0 % (0-2) Band Neutrophils 0 % (0-8) Platelet Estimate Decreased L Platelet Morphology Normal Red Blood Cell Morphology Normal Prothrombin Time 14.4 SEC (9.30-11.50) H Prothromb Time International Ratio 1.4 (0.9-1.1) H Sodium Level 136 MMOL/L (136-145) Potassium Level 3.4 MMOL/L (3.5-5.1) L Chloride Level 103 MMOL/L (98-107) Carbon Dioxide Level 25 MMOL/L (21-32) Anion Gap 8 mmol/L (5-15) Blood Urea Nitrogen 18 mg/dL (7-18) Creatinine 1.1 MG/DL (0.55-1.30) Estimat Glomerular Filtration Rate 58.8 mL/min (>60) Glucose Level 163 MG/DL (74-106) H Lactic Acid Level 1.30 mmol/L (0.4-2.0) Calcium Level 8.8 MG/DL (8.5-10.1) Magnesium Level 1.4 MG/DL (1.8-2.4) L Iron Level 40 ug/dL (50-175) L Total Iron Binding Capacity 145 ug/dL (250-450) L Percent Iron Saturation 28 % (15-50) Unsaturated Iron Binding 105 ug/dL (112-346) L Total Bilirubin 1.3 MG/DL (0.2-1.0) H Direct Bilirubin 0.3 MG/DL (0.0-0.3) Aspartate Amino Transf (AST/SGOT) 25 U/L (15-37) Alanine Aminotransferase (ALT/SGPT) 23 U/L (12-78) Alkaline Phosphatase 87 U/L (46-116) Total Protein 6.1 G/DL (6.4-8.2) L Albumin 1.5 G/DL (3.4-5.0) L Globulin 4.6 g/dL Albumin/Globulin Ratio 0.3 (1.0-2.7) L Amylase Level 30 U/L (25-115) Lipase 36 U/L (73-393) L Folate 8.2 NG/ML (8.6-58.9) L Current Medications Medications (Trade) Dose Ordered Sig/Emil Route PRN Reason Start Time Stop Time Status Last Admin Dose Admin Acetaminophen (Tylenol) 650 mg Q4H PRN ORAL Mild Pain/Temp > 100.5 06/15/19 14:30 07/15/19 14:29 Apixaban (Eliquis) 5 mg BID ORAL 06/17/19 18:00 09/15/19 17:59 Azithromycin (Zithromax) 500 mg DAILY ORAL 06/16/19 11:00 06/23/19 10:59 06/18/19 08:21 Cefepime HCl 1 gm/ Dextrose 55 ml @ 110 mls/hr Q12H IVPB 06/16/19 18:00 06/23/19 17:59 06/18/19 05:38 Chlorhexidine Gluconate (Susie-Hex 2%) 1 applic DAILY@2000 TOPIC 06/16/19 20:00 09/14/19 19:59 06/17/19 20:08 Dextrose (Dextrose 50%) 50 ml Q30M PRN IV Hypoglycemia 06/15/19 14:45 09/13/19 14:44 Dopamine HCl/ Dextrose 250 ml @ 0 mls/hr Q24H IV 06/15/19 20:45 09/13/19 20:44 06/15/19 21:43 Hydroxychloroquine Sulfate (Plaquenil) 200 mg BID ORAL 06/17/19 09:00 06/20/19 18:01 06/18/19 08:22 Norepinephrine Bitartrate 8 mg/ Dextrose 558 ml @ 0 mls/hr Q24H IV 06/16/19 09:00 07/16/19 08:59 06/18/19 01:50 Pantoprazole (Protonix) 40 mg DAILY IVP 06/16/19 09:00 07/16/19 08:59 06/18/19 08:21 Vancomycin HCl (Vanco rx to dose) 1 ea DAILY PRN MISC Per rx protocol 06/17/19 11:15 07/17/19 11:14 Vancomycin HCl 1 gm/Dextrose 275 ml @ 183.708 mls/hr Q24H IVPB 06/18/19 17:00 06/23/19 16:59 Edin Blue MD Jun 18, 2019 09:49
--- NOTE | 2019-06-18 10:03 | Pulmonology Progress Note ---
Assessment/Plan Assessment/Plan IMPRESSION: 1. Bilateral pneumonia, high suspicion for COVID-19 but results negative. 2. History of CHF. 3. Shock; on 14mch Levophed DISCUSSION: Intubated remains on assist-control mechanical ventilation. FiO2 now 50% On pressors The patient presents from nursing facility with hypoxemia and abnormal chest x- ray, and leukopenia. I suspect that she may have COVID-19 however results are negative Will obtain CXR Decrease AC to 10 I will continue empiric antibiotics. Her influenza A and B are negative. I will follow carefully. Aly Pinto M.D. Subjective Interval Events: None new; failed wean Constitutional: Reports: no symptoms HEENT: Repors: no symptoms Respiratory: Reports: no symptoms Cardiovascular: Reports: no symptoms Gastrointestinal/Abdominal: Reports: no symptoms Allergies: Coded Allergies: MORPHINE (Unverified Allergy, Unknown, 06/15/19) Objective Last 24 Hour Vital Signs Date Time Temp Pulse Resp B/P (MAP) Pulse Ox O2 Delivery O2 Flow Rate FiO2 06/18/19 09:30 75 16 120/71 (87) 98 06/18/19 09:00 75 16 124/64 (84) 99 06/18/19 08:53 88 22 40 06/18/19 08:00 40 06/18/19 08:00 Mechanical Ventilator 06/18/19 08:00 127/76 06/18/19 08:00 98.9 74 16 127/76 (93) 99 06/18/19 07:30 74 16 123/73 (90) 99 06/18/19 07:21 77 18 40 06/18/19 07:00 74 16 120/63 (82) 98 06/18/19 07:00 120/63 06/18/19 06:00 71 16 127/64 (85) 100 06/18/19 06:00 127/68 06/18/19 05:20 73 16 40 06/18/19 05:00 74 16 120/68 (85) 98 06/18/19 05:00 121/64 06/18/19 04:30 75 17 105/61 (76) 98 06/18/19 04:00 40 06/18/19 04:00 85 06/18/19 04:00 122/60 06/18/19 04:00 98.0 79 25 122/65 (84) 97 06/18/19 04:00 Mechanical Ventilator 06/18/19 03:30 79 16 128/68 (88) 100 06/18/19 03:20 78 16 40 06/18/19 03:00 108/58 06/18/19 03:00 84 16 110/59 (76) 100 06/18/19 02:30 75 16 106/54 (71) 100 06/18/19 02:00 81 16 103/60 (74) 100 06/18/19 01:50 85/39 06/18/19 01:00 100/50 06/18/19 01:00 74 16 98/50 (66) 99 06/18/19 00:30 77 16 95/53 (67) 100 06/18/19 00:29 82 23 40 06/18/19 00:00 40 06/18/19 00:00 97.8 76 16 116/61 (79) 99 06/18/19 00:00 Mechanical Ventilator 06/18/19 00:00 91 06/18/19 00:00 129/63 06/17/19 23:30 75 16 116/67 (83) 100 06/17/19 23:23 75 16 40 06/17/19 23:00 71 16 112/70 (84) 99 06/17/19 23:00 122/66 06/17/19 22:30 79 13 112/63 (79) 99 06/17/19 22:00 78 16 108/61 (77) 98 06/17/19 22:00 109/61 06/17/19 21:30 83 19 121/56 (77) 100 06/17/19 21:28 97 17 40 06/17/19 21:00 89 19 135/76 (95) 100 06/17/19 21:00 149/80 06/17/19 20:30 80 18 122/55 (77) 100 06/17/19 20:22 137/58 06/17/19 20:00 82 06/17/19 20:00 Mechanical Ventilator 06/17/19 20:00 137/58 06/17/19 20:00 40 06/17/19 20:00 98.0 82 20 122/82 (95) 100 06/17/19 19:30 80 17 128/61 (83) 100 06/17/19 19:16 96 16 40 06/17/19 19:00 123/68 06/17/19 19:00 79 16 123/68 (86) 99 06/17/19 18:30 88 16 130/72 (91) 100 06/17/19 18:00 92 17 105/63 (77) 100 06/17/19 18:00 103/65 06/17/19 17:30 90 17 108/55 (72) 99 06/17/19 17:25 94 22 40 06/17/19 17:00 103 18 114/51 (72) 99 06/17/19 17:00 117/72 06/17/19 16:56 115/88 06/17/19 16:30 103 18 115/88 (97) 99 06/17/19 16:24 115 19 132/71 (91) 99 06/17/19 16:15 140 18 177/80 (112) 99 06/17/19 16:00 Mechanical Ventilator 06/17/19 16:00 40 06/17/19 16:00 142/88 06/17/19 16:00 99.0 94 17 142/88 (106) 100 06/17/19 15:32 98 06/17/19 15:30 98 18 115/61 (79) 99 06/17/19 15:21 102 19 40 06/17/19 15:15 103 19 147/74 (98) 100 06/17/19 15:00 98 18 132/67 (88) 100 06/17/19 15:00 132/67 06/17/19 14:30 97 18 130/72 (91) 100 06/17/19 14:00 120/75 06/17/19 14:00 96 16 131/66 (87) 100 06/17/19 13:45 97 19 120/75 (90) 100 06/17/19 13:30 96 17 123/66 (85) 100 06/17/19 13:15 99 18 141/68 (92) 100 06/17/19 13:00 99 19 134/67 (89) 100 06/17/19 13:00 123/66 06/17/19 12:45 104 20 127/65 (85) 100 06/17/19 12:38 101 17 40 06/17/19 12:30 98 17 120/63 (82) 100 06/17/19 12:15 102 17 133/69 (90) 99 06/17/19 12:00 99.2 103 19 123/75 (91) 100 06/17/19 12:00 133/69 06/17/19 12:00 Mechanical Ventilator 06/17/19 11:35 129/73 06/17/19 11:19 98 17 40 06/17/19 11:19 102 06/17/19 11:00 103 19 124/69 (87) 100 06/17/19 11:00 129/73 Intake and Output 06/17/19 06/18/19 19:00 07:00 Intake Total 2041.11 ml 649.25 ml Output Total 1190 ml 1660 ml Balance 851.11 ml -1010.75 ml Intake IV Total 1941.11 ml 649.25 ml Other 100 ml Output Urine Total 1170 ml 1600 ml Gastric Drainage Total 60 ml Emesis 20 ml General Appearance: no acute distress HEENT: normocephalic Respiratory/Chest: chest wall non-tender, lungs clear Cardiovascular: normal rate Microbiology Date/Time Source Procedure Growth Status 06/15/19 21:00 Sputum Gram Stain - Final Complete 06/15/19 21:00 Sputum Culture - Final Staphylococcus Aureus - Mrsa Usual Respiratory Luli Complete 06/15/19 11:15 Nasal Nares MRSA Culture - Final Staphylococcus Aureus - Mrsa Complete 06/15/19 12:18 Rectum VRE Culture - Final NO VANCOMYCIN RESISTANT ENTEROCOCCUS ... Complete 06/15/19 11:15 Rectum - Final NO CARBAPENEM-RESISTANT ENTEROBACTERI... Complete Laboratory Tests 06/18/19 03:40: White Blood Count 11.3H, Red Blood Count 3.47L, Hemoglobin 10.5L, Hematocrit 30.8L, Mean Corpuscular Volume 89, Mean Corpuscular Hemoglobin 30.3, Mean Corpuscular Hemoglobin Concent 34.1, Red Cell Distribution Width 14.2, Platelet Count 50L, Mean Platelet Volume 9.6, Neutrophils (%) (Auto) , Lymphocytes (%) ( Auto) , Monocytes (%) (Auto) , Eosinophils (%) (Auto) , Basophils (%) (Auto) , Differential Total Cells Counted 100, Neutrophils % (Manual) 87H, Lymphocytes % (Manual) 10L, Monocytes % (Manual) 2, Eosinophils % (Manual) 1, Basophils % ( Manual) 0, Band Neutrophils 0, Platelet Estimate DecreasedL, Platelet Morphology Normal, Red Blood Cell Morphology Normal, Prothrombin Time 14.4H, Prothromb Time International Ratio 1.4H, Sodium Level 136, Potassium Level 3.4L , Chloride Level 103, Carbon Dioxide Level 25, Anion Gap 8, Blood Urea Nitrogen 18, Creatinine 1.1, Estimat Glomerular Filtration Rate 58.8, Glucose Level 163H , Lactic Acid Level 1.30, Calcium Level 8.8, Magnesium Level 1.4L, Iron Level 40L, Total Iron Binding Capacity 145L, Percent Iron Saturation 28, Unsaturated Iron Binding 105L, Total Bilirubin 1.3H, Direct Bilirubin 0.3, Aspartate Amino Transf (AST/SGOT) 25, Alanine Aminotransferase (ALT/SGPT) 23, Alkaline Phosphatase 87, Total Protein 6.1L, Albumin 1.5L, Globulin 4.6, Albumin/ Globulin Ratio 0.3L, Amylase Level 30, Lipase 36L, Folate 8.2L Current Medications Medications (Trade) Dose Ordered Sig/Emil Route PRN Reason Start Time Stop Time Status Last Admin Dose Admin Acetaminophen (Tylenol) 650 mg Q4H PRN ORAL Mild Pain/Temp > 100.5 06/15/19 14:30 07/15/19 14:29 Apixaban (Eliquis) 5 mg BID ORAL 06/17/19 18:00 09/15/19 17:59 Cefepime HCl 1 gm/ Dextrose 55 ml @ 110 mls/hr Q12H IVPB 06/16/19 18:00 06/23/19 17:59 06/18/19 05:38 Chlorhexidine Gluconate (Susie-Hex 2%) 1 applic DAILY@2000 TOPIC 06/16/19 20:00 09/14/19 19:59 06/17/19 20:08 Dextrose (Dextrose 50%) 50 ml Q30M PRN IV Hypoglycemia 06/15/19 14:45 09/13/19 14:44 Dopamine HCl/ Dextrose 250 ml @ 0 mls/hr Q24H IV 06/15/19 20:45 09/13/19 20:44 06/15/19 21:43 Norepinephrine Bitartrate 8 mg/ Dextrose 558 ml @ 0 mls/hr Q24H IV 06/16/19 09:00 07/16/19 08:59 06/18/19 01:50 Pantoprazole (Protonix) 40 mg DAILY IVP 06/16/19 09:00 07/16/19 08:59 06/18/19 08:21 Vancomycin HCl (Vanco rx to dose) 1 ea DAILY PRN MISC Per rx protocol 06/17/19 11:15 07/17/19 11:14 Vancomycin HCl 1 gm/Dextrose 275 ml @ 183.708 mls/hr Q24H IVPB 06/18/19 17:00 06/23/19 16:59 Aly Pinto MD Jun 18, 2019 10:03
--- NOTE | 2019-06-18 12:01 | Diagnostic Imaging Report ---
Indication: Dyspnea Comparison: 06/16/2019 A single view chest radiograph was obtained. Findings: There are patchy airspace opacities present bilaterally. The focus in the right perihilar/upper lobe appears largely resolved. The focus in the left perihilar region persists. Basilar infiltrates/edema persist. Heart size is stable. Tubes and lines are stable. IMPRESSION: Improved right upper lobe/perihilar consolidation. Given the improvement, the focus is likely edema. Left perihilar consolidation persists and could be edema or inflammatory/infectious infiltrate. No change otherwise.
--- NOTE | 2019-06-18 12:32 | General Progress Note ---
Assessment/Plan Problem List: (1) Hypoglycemia ICD Codes: E16.2 - Hypoglycemia, unspecified SNOMED: 993337529 (2) Leukopenia ICD Codes: D72.819 - Decreased white blood cell count, unspecified SNOMED: 33084082, 358849263 (3) Pneumonia ICD Codes: J18.9 - Pneumonia, unspecified organism SNOMED: 498509088, 763905807 Status: deteriorating Assessment/Plan: resp failure intubated dpoa wanted everything to be done abx per id pna low k.consulted renal s/p pressor septic shock platlet is going down will discuss w dr fu Subjective ROS Limited/Unobtainable: Yes Allergies: Coded Allergies: MORPHINE (Unverified Allergy, Unknown, 06/15/19) Objective Last 24 Hour Vital Signs Date Time Temp Pulse Resp B/P (MAP) Pulse Ox O2 Delivery O2 Flow Rate FiO2 06/18/19 12:00 40 06/18/19 12:00 Mechanical Ventilator 06/18/19 11:26 71 06/18/19 11:07 75 14 40 06/18/19 11:00 111/78 06/18/19 11:00 75 16 111/78 (89) 98 06/18/19 10:30 77 16 125/98 (107) 99 06/18/19 10:06 99 06/18/19 10:00 129/62 06/18/19 10:00 76 16 117/65 (82) 99 06/18/19 09:30 75 16 120/71 (87) 98 06/18/19 09:00 124/64 06/18/19 09:00 75 16 124/64 (84) 99 06/18/19 08:53 88 22 40 06/18/19 08:27 74 06/18/19 08:00 40 06/18/19 08:00 Mechanical Ventilator 06/18/19 08:00 127/76 06/18/19 08:00 98.9 74 16 127/76 (93) 99 06/18/19 07:30 74 16 123/73 (90) 99 06/18/19 07:21 77 18 40 06/18/19 07:00 74 16 120/63 (82) 98 06/18/19 07:00 120/63 06/18/19 06:00 71 16 127/64 (85) 100 06/18/19 06:00 127/68 06/18/19 05:20 73 16 40 06/18/19 05:00 74 16 120/68 (85) 98 06/18/19 05:00 121/64 06/18/19 04:30 75 17 105/61 (76) 98 06/18/19 04:00 40 06/18/19 04:00 85 06/18/19 04:00 122/60 06/18/19 04:00 98.0 79 25 122/65 (84) 97 06/18/19 04:00 Mechanical Ventilator 06/18/19 03:30 79 16 128/68 (88) 100 06/18/19 03:20 78 16 40 06/18/19 03:00 108/58 06/18/19 03:00 84 16 110/59 (76) 100 06/18/19 02:30 75 16 106/54 (71) 100 06/18/19 02:00 81 16 103/60 (74) 100 06/18/19 01:50 85/39 06/18/19 01:00 100/50 06/18/19 01:00 74 16 98/50 (66) 99 06/18/19 00:30 77 16 95/53 (67) 100 06/18/19 00:29 82 23 40 06/18/19 00:00 40 06/18/19 00:00 97.8 76 16 116/61 (79) 99 06/18/19 00:00 Mechanical Ventilator 06/18/19 00:00 91 06/18/19 00:00 129/63 06/17/19 23:30 75 16 116/67 (83) 100 06/17/19 23:23 75 16 40 06/17/19 23:00 71 16 112/70 (84) 99 06/17/19 23:00 122/66 06/17/19 22:30 79 13 112/63 (79) 99 06/17/19 22:00 78 16 108/61 (77) 98 06/17/19 22:00 109/61 06/17/19 21:30 83 19 121/56 (77) 100 06/17/19 21:28 97 17 40 06/17/19 21:00 89 19 135/76 (95) 100 06/17/19 21:00 149/80 06/17/19 20:30 80 18 122/55 (77) 100 06/17/19 20:22 137/58 06/17/19 20:00 82 06/17/19 20:00 Mechanical Ventilator 06/17/19 20:00 137/58 06/17/19 20:00 40 06/17/19 20:00 98.0 82 20 122/82 (95) 100 06/17/19 19:30 80 17 128/61 (83) 100 06/17/19 19:16 96 16 40 06/17/19 19:00 123/68 06/17/19 19:00 79 16 123/68 (86) 99 06/17/19 18:30 88 16 130/72 (91) 100 06/17/19 18:00 92 17 105/63 (77) 100 06/17/19 18:00 103/65 06/17/19 17:30 90 17 108/55 (72) 99 06/17/19 17:25 94 22 40 06/17/19 17:00 103 18 114/51 (72) 99 06/17/19 17:00 117/72 06/17/19 16:56 115/88 06/17/19 16:30 103 18 115/88 (97) 99 06/17/19 16:24 115 19 132/71 (91) 99 06/17/19 16:15 140 18 177/80 (112) 99 06/17/19 16:00 Mechanical Ventilator 06/17/19 16:00 40 06/17/19 16:00 142/88 06/17/19 16:00 99.0 94 17 142/88 (106) 100 06/17/19 15:32 98 06/17/19 15:30 98 18 115/61 (79) 99 06/17/19 15:21 102 19 40 06/17/19 15:15 103 19 147/74 (98) 100 06/17/19 15:00 98 18 132/67 (88) 100 06/17/19 15:00 132/67 06/17/19 14:30 97 18 130/72 (91) 100 06/17/19 14:00 120/75 06/17/19 14:00 96 16 131/66 (87) 100 06/17/19 13:45 97 19 120/75 (90) 100 06/17/19 13:30 96 17 123/66 (85) 100 06/17/19 13:15 99 18 141/68 (92) 100 06/17/19 13:00 99 19 134/67 (89) 100 06/17/19 13:00 123/66 06/17/19 12:45 104 20 127/65 (85) 100 06/17/19 12:38 101 17 40 06/17/19 12:30 98 17 120/63 (82) 100 Intake and Output 06/17/19 06/18/19 19:00 07:00 Intake Total 2041.11 ml 649.25 ml Output Total 1190 ml 1660 ml Balance 851.11 ml -1010.75 ml Intake IV Total 1941.11 ml 649.25 ml Other 100 ml Output Urine Total 1170 ml 1600 ml Gastric Drainage Total 60 ml Emesis 20 ml Laboratory Tests 06/18/19 03:40: White Blood Count 11.3H, Red Blood Count 3.47L, Hemoglobin 10.5L, Hematocrit 30.8L, Mean Corpuscular Volume 89, Mean Corpuscular Hemoglobin 30.3, Mean Corpuscular Hemoglobin Concent 34.1, Red Cell Distribution Width 14.2, Platelet Count 50L, Mean Platelet Volume 9.6, Neutrophils (%) (Auto) , Lymphocytes (%) ( Auto) , Monocytes (%) (Auto) , Eosinophils (%) (Auto) , Basophils (%) (Auto) , Differential Total Cells Counted 100, Neutrophils % (Manual) 87H, Lymphocytes % (Manual) 10L, Monocytes % (Manual) 2, Eosinophils % (Manual) 1, Basophils % ( Manual) 0, Band Neutrophils 0, Platelet Estimate DecreasedL, Platelet Morphology Normal, Red Blood Cell Morphology Normal, Prothrombin Time 14.4H, Prothromb Time International Ratio 1.4H, Sodium Level 136, Potassium Level 3.4L , Chloride Level 103, Carbon Dioxide Level 25, Anion Gap 8, Blood Urea Nitrogen 18, Creatinine 1.1, Estimat Glomerular Filtration Rate 58.8, Glucose Level 163H , Lactic Acid Level 1.30, Calcium Level 8.8, Magnesium Level 1.4L, Iron Level 40L, Total Iron Binding Capacity 145L, Percent Iron Saturation 28, Unsaturated Iron Binding 105L, Total Bilirubin 1.3H, Direct Bilirubin 0.3, Aspartate Amino Transf (AST/SGOT) 25, Alanine Aminotransferase (ALT/SGPT) 23, Alkaline Phosphatase 87, Total Protein 6.1L, Albumin 1.5L, Globulin 4.6, Albumin/ Globulin Ratio 0.3L, Amylase Level 30, Lipase 36L, Folate 8.2L Height (Feet): 5 Height (Inches): 5.00 Weight (Pounds): 180 General Appearance: lethargic, confused Jayjay Chandler MD Jun 18, 2019 12:32
--- NOTE | 2019-06-18 12:33 | Hematology/Onc Progress Note ---
Assessment/Plan Assessment/Plan Assessment and Recs: # Pancytopenia with a decreased wbc and plt, likely related to pna v other cause , meds ntoed --> hepatitis and hiv NEgative --> smear ordered at this time, no blasts noted, wbc are stable --> us of the abdomen--> pending after covid rule out --> plt 62-->57k-->50k --> transfuse on prn basis --> neupogen if anc drops to below 1500 # Hypercoagulable disorder with afib --> HOLDING off anticoag --> per cards # Pneumonia on admission --> now intubated --> on abx, cefepime and vanc --> per id and pulm # Hypoglycemia --> d5w given earlier --> now improved # Shortness of breath, likely due to bilateral pneumonia --> echo per cards --> may need diuresis # Respiratory failure with Bilateral lung infiltrate and leukopenia. The patient was already started on Plaquenil 600, azithromycin. --> dr. Pinto on board --> NOW INTUBATED --> covid rule out # History of psychiatric history. # History of cellulitis. # Dvt ppx apixaban Thank you very, appreciate consultation and abhishek Rn Subjective Constitutional: Denies: no symptoms, chills, fever, malaise, weakness, other HEENT: Denies: no symptoms, eye pain, blurred vision, tearing, double vision, ear pain, ear discharge, nose pain, nose congestion, throat pain, throat swelling, mouth pain, mouth swelling, other Cardiovascular: Denies: no symptoms, chest pain, edema, irregular heart rate, lightheadedness, palpitations, syncope, other Respiratory: Denies: no symptoms, cough, shortness of breath, SOB with excertion, SOB at rest, sputum, wheezing, other Gastrointestinal/Abdominal: Denies: no symptoms, abdomen distended, abdominal pain, black stools, tarry stools, blood in stool, constipated, diarrhea, difficulty swallowing, nausea, poor appetite, poor fluid intake, rectal bleeding , vomiting, other Genitourinary: Denies: no symptoms, burning, discharge, frequency, flank pain, hematuria, incontinence, pain, urgency, other Neurologic/Psychiatric: Denies: no symptoms, anxiety, depressed, emotional problems, headache, numbness, paresthesia, pre-existing deficit, seizure, tingling, tremors, weakness, other Endocrine: Denies: no symptoms, excessive sweating, flushing, intolerance to cold, intolerance to heat, increased hunger, increased thirst, increased urine, unexplained weight gain, unexplained weight loss, other Hematologic/Lymphatic: Denies: no symptoms, anemia, easy bleeding, easy bruising, adenopathy, other Allergies: Coded Allergies: MORPHINE (Unverified Allergy, Unknown, 06/15/19) Subjective 06/16 remains intubated on a vent, on lveophed, with ng, draining, covid rule out , 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 06/17 labs reviewed, no bleeding or night sweats, no major meds noted Objective Objective Current Medications Medications (Trade) Dose Ordered Sig/Emil Route PRN Reason Start Time Stop Time Status Last Admin Dose Admin Acetaminophen (Tylenol) 650 mg Q4H PRN ORAL Mild Pain/Temp > 100.5 06/15/19 14:30 07/15/19 14:29 Apixaban (Eliquis) 5 mg BID ORAL 06/17/19 18:00 09/15/19 17:59 Cefepime HCl 1 gm/ Dextrose 55 ml @ 110 mls/hr Q12H IVPB 06/16/19 18:00 06/23/19 17:59 06/18/19 05:38 Chlorhexidine Gluconate (Susie-Hex 2%) 1 applic DAILY@2000 TOPIC 06/16/19 20:00 09/14/19 19:59 06/17/19 20:08 Dextrose (Dextrose 50%) 50 ml Q30M PRN IV Hypoglycemia 06/15/19 14:45 09/13/19 14:44 Dopamine HCl/ Dextrose 250 ml @ 0 mls/hr Q24H IV 06/15/19 20:45 09/13/19 20:44 06/15/19 21:43 Norepinephrine Bitartrate 8 mg/ Dextrose 558 ml @ 0 mls/hr Q24H IV 06/16/19 09:00 07/16/19 08:59 06/18/19 12:22 Pantoprazole (Protonix) 40 mg DAILY IVP 06/16/19 09:00 07/16/19 08:59 06/18/19 08:21 Vancomycin HCl (Vanco rx to dose) 1 ea DAILY PRN MISC Per rx protocol 06/17/19 11:15 07/17/19 11:14 Vancomycin HCl 1 gm/Dextrose 275 ml @ 183.708 mls/hr Q24H IVPB 06/18/19 17:00 06/23/19 16:59 Last 24 Hour Vital Signs Date Time Temp Pulse Resp B/P (MAP) Pulse Ox O2 Delivery O2 Flow Rate FiO2 06/18/19 12:22 103/56 06/18/19 12:00 98.9 75 16 98/50 (66) 100 06/18/19 12:00 40 06/18/19 12:00 98/50 06/18/19 12:00 Mechanical Ventilator 06/18/19 11:30 72 15 107/65 (79) 99 06/18/19 11:26 71 06/18/19 11:07 75 14 40 06/18/19 11:00 111/78 06/18/19 11:00 75 16 111/78 (89) 98 06/18/19 10:30 77 16 125/98 (107) 99 06/18/19 10:06 99 06/18/19 10:00 129/62 06/18/19 10:00 76 16 117/65 (82) 99 06/18/19 09:30 75 16 120/71 (87) 98 06/18/19 09:00 124/64 06/18/19 09:00 75 16 124/64 (84) 99 06/18/19 08:53 88 22 40 06/18/19 08:27 74 06/18/19 08:00 40 06/18/19 08:00 Mechanical Ventilator 06/18/19 08:00 127/76 06/18/19 08:00 98.9 74 16 127/76 (93) 99 06/18/19 07:30 74 16 123/73 (90) 99 06/18/19 07:21 77 18 40 06/18/19 07:00 74 16 120/63 (82) 98 06/18/19 07:00 120/63 06/18/19 06:00 71 16 127/64 (85) 100 06/18/19 06:00 127/68 06/18/19 05:20 73 16 40 06/18/19 05:00 74 16 120/68 (85) 98 06/18/19 05:00 121/64 06/18/19 04:30 75 17 105/61 (76) 98 06/18/19 04:00 40 06/18/19 04:00 85 06/18/19 04:00 122/60 06/18/19 04:00 98.0 79 25 122/65 (84) 97 06/18/19 04:00 Mechanical Ventilator 06/18/19 03:30 79 16 128/68 (88) 100 06/18/19 03:20 78 16 40 06/18/19 03:00 108/58 06/18/19 03:00 84 16 110/59 (76) 100 06/18/19 02:30 75 16 106/54 (71) 100 06/18/19 02:00 81 16 103/60 (74) 100 06/18/19 01:50 85/39 06/18/19 01:00 100/50 06/18/19 01:00 74 16 98/50 (66) 99 06/18/19 00:30 77 16 95/53 (67) 100 06/18/19 00:29 82 23 40 06/18/19 00:00 40 06/18/19 00:00 97.8 76 16 116/61 (79) 99 06/18/19 00:00 Mechanical Ventilator 06/18/19 00:00 91 06/18/19 00:00 129/63 06/17/19 23:30 75 16 116/67 (83) 100 06/17/19 23:23 75 16 40 06/17/19 23:00 71 16 112/70 (84) 99 06/17/19 23:00 122/66 06/17/19 22:30 79 13 112/63 (79) 99 06/17/19 22:00 78 16 108/61 (77) 98 06/17/19 22:00 109/61 06/17/19 21:30 83 19 121/56 (77) 100 06/17/19 21:28 97 17 40 06/17/19 21:00 89 19 135/76 (95) 100 06/17/19 21:00 149/80 06/17/19 20:30 80 18 122/55 (77) 100 06/17/19 20:22 137/58 06/17/19 20:00 82 06/17/19 20:00 Mechanical Ventilator 06/17/19 20:00 137/58 06/17/19 20:00 40 06/17/19 20:00 98.0 82 20 122/82 (95) 100 06/17/19 19:30 80 17 128/61 (83) 100 06/17/19 19:16 96 16 40 06/17/19 19:00 123/68 06/17/19 19:00 79 16 123/68 (86) 99 06/17/19 18:30 88 16 130/72 (91) 100 06/17/19 18:00 92 17 105/63 (77) 100 06/17/19 18:00 103/65 06/17/19 17:30 90 17 108/55 (72) 99 06/17/19 17:25 94 22 40 06/17/19 17:00 103 18 114/51 (72) 99 06/17/19 17:00 117/72 06/17/19 16:56 115/88 06/17/19 16:30 103 18 115/88 (97) 99 06/17/19 16:24 115 19 132/71 (91) 99 06/17/19 16:15 140 18 177/80 (112) 99 06/17/19 16:00 Mechanical Ventilator 06/17/19 16:00 40 06/17/19 16:00 142/88 06/17/19 16:00 99.0 94 17 142/88 (106) 100 06/17/19 15:32 98 06/17/19 15:30 98 18 115/61 (79) 99 06/17/19 15:21 102 19 40 06/17/19 15:15 103 19 147/74 (98) 100 06/17/19 15:00 98 18 132/67 (88) 100 06/17/19 15:00 132/67 06/17/19 14:30 97 18 130/72 (91) 100 06/17/19 14:00 120/75 06/17/19 14:00 96 16 131/66 (87) 100 06/17/19 13:45 97 19 120/75 (90) 100 06/17/19 13:30 96 17 123/66 (85) 100 06/17/19 13:15 99 18 141/68 (92) 100 06/17/19 13:00 99 19 134/67 (89) 100 06/17/19 13:00 123/66 06/17/19 12:45 104 20 127/65 (85) 100 06/17/19 12:38 101 17 40 06/17/19 12:30 98 17 120/63 (82) 100 06/17/19 12:15 102 17 133/69 (90) 99 06/17/19 12:00 99.2 103 19 123/75 (91) 100 06/17/19 12:00 133/69 06/17/19 12:00 Mechanical Ventilator 06/17/19 11:35 129/73 06/17/19 11:19 98 17 40 06/17/19 11:19 102 06/17/19 11:00 103 19 124/69 (87) 100 06/17/19 11:00 129/73 06/17/19 10:00 96 18 129/73 (91) 100 06/17/19 10:00 129/73 06/17/19 09:25 40 06/17/19 09:15 91 18 40 06/17/19 09:00 135/70 06/17/19 09:00 94 18 135/70 (91) 100 06/17/19 08:41 92 06/17/19 08:00 60 06/17/19 08:00 98.5 89 18 120/65 (83) 100 06/17/19 08:00 91/53 06/17/19 08:00 Mechanical Ventilator 06/17/19 07:21 125/54 06/17/19 07:02 96 17 60 06/17/19 07:00 94 18 125/54 (77) 100 06/17/19 07:00 125/54 06/17/19 06:30 99 19 118/71 (87) 100 06/17/19 06:00 96 17 118/63 (81) 100 06/17/19 06:00 118/63 06/17/19 05:30 93 20 124/65 (84) 100 06/17/19 05:03 98 17 60 06/17/19 05:00 92 19 129/60 (83) 100 06/17/19 05:00 129/60 06/17/19 04:30 101 18 116/67 (83) 100 06/17/19 04:00 105 06/17/19 04:00 60 06/17/19 04:00 97.3 103 18 119/76 (90) 100 06/17/19 04:00 Mechanical Ventilator 60.0 06/17/19 04:00 116/67 06/17/19 03:30 95 20 113/62 (79) 100 06/17/19 03:00 100 22 128/70 (89) 100 06/17/19 03:00 113/62 06/17/19 02:46 100 19 125/68 (87) 100 06/17/19 02:38 102 18 60 06/17/19 02:07 91 21 161/79 (106) 100 06/17/19 02:01 122/67 06/17/19 02:00 101 19 77/35 (49) 100 06/17/19 02:00 77/35 06/17/19 01:30 104 19 132/59 (83) 100 06/17/19 01:00 105 18 126/62 (83) 100 06/17/19 01:00 132/59 06/17/19 00:43 99 18 60 06/17/19 00:30 99 18 130/62 (84) 100 06/17/19 00:00 Mechanical Ventilator 60.0 06/17/19 00:00 122/67 06/17/19 00:00 100 18 122/67 (85) 100 06/17/19 00:00 98 06/16/19 23:30 101 16 121/72 (88) 100 06/16/19 23:04 101 20 100 06/16/19 23:00 99 19 120/69 (86) 100 06/16/19 23:00 121/72 06/16/19 22:30 102 18 121/65 (83) 100 06/16/19 22:00 103 18 120/64 (82) 100 06/16/19 22:00 121/65 06/16/19 21:48 113 18 146/66 (92) 100 06/16/19 21:39 54/35 06/16/19 21:38 54/35 06/16/19 21:35 102 29 54/35 (41) 100 06/16/19 21:30 98 18 61/36 (44) 100 06/16/19 21:10 100 19 100 06/16/19 21:00 95/67 06/16/19 21:00 99 19 95/67 (76) 100 06/16/19 20:45 89/52 06/16/19 20:30 99 19 105/56 (72) 100 06/16/19 20:00 99.7 100 18 89/52 (64) 100 06/16/19 20:00 99 06/16/19 20:00 60 06/16/19 20:00 89/52 06/16/19 20:00 Mechanical Ventilator 60.0 06/16/19 19:30 99 18 95/54 (68) 100 06/16/19 19:25 100 17 100 06/16/19 19:03 99 16 88/53 (65) 100 06/16/19 19:00 88/53 06/16/19 19:00 99 15 88/50 (63) 100 06/16/19 18:30 99.3 108 18 88/56 (67) 100 06/16/19 18:00 88/56 06/16/19 18:00 104 19 90/50 (63) 100 06/16/19 17:18 102 18 100 06/16/19 17:00 103 19 90/49 (63) 100 06/16/19 17:00 90/49 06/16/19 16:30 102 18 92/52 (65) 100 06/16/19 16:00 97.3 101 18 88/53 (65) 100 06/16/19 16:00 Mechanical Ventilator 70.0 06/16/19 16:00 104 06/16/19 16:00 83/53 06/16/19 16:00 70 06/16/19 15:30 101 17 90/54 (66) 100 06/16/19 15:28 100 18 100 06/16/19 15:00 100 16 92/52 (65) 100 06/16/19 15:00 92/52 06/16/19 15:00 92/52 06/16/19 14:43 80/42 06/16/19 14:30 101 22 52/33 (39) 100 06/16/19 14:00 103 18 104/54 (71) 100 06/16/19 14:00 104/54 06/16/19 14:00 104/54 06/16/19 13:30 101 18 103/54 (70) 100 06/16/19 13:05 103 16 100 06/16/19 13:00 100 18 99/47 (64) 100 06/16/19 13:00 99/47 06/16/19 13:00 9947 Intake and Output 06/17/19 06/18/19 19:00 07:00 Intake Total 2041.11 ml 649.25 ml Output Total 1190 ml 1660 ml Balance 851.11 ml -1010.75 ml Intake IV Total 1941.11 ml 649.25 ml Other 100 ml Output Urine Total 1170 ml 1600 ml Gastric Drainage Total 60 ml Emesis 20 ml Labs Test 06/15/19 17:00 06/15/19 23:15 06/16/19 05:30 06/16/19 09:04 Troponin I 0.039 ng/mL (0.000-0.056) 0.181 ng/mL (0.000-0.056) Arterial Blood pH 7.360 (7.350-7.450) 7.382 (7.350-7.450) Arterial Blood Partial Pressure CO2 40.7 mmHg (35.0-45.0) 37.4 mmHg (35.0-45.0) Arterial Blood Partial Pressure O2 49.2 mmHg (75.0-100.0) 183.2 mmHg (75.0-100.0) Arterial Blood HCO3 22.5 mmol/L (22.0-26.0) 21.7 mmol/L (22.0-26.0) Arterial Blood Oxygen Saturation 82.7 % (95-100) 97.4 % (95-100) Arterial Blood Base Excess -2.8 (-2-2) -2.9 (-2-2) Julius Test Positive Positive White Blood Count 19.2 K/UL (4.8-10.8) Red Blood Count 3.69 M/UL (4.20-5.40) Hemoglobin 11.3 G/DL (12.0-16.0) Hematocrit 33.0 % (37.0-47.0) Mean Corpuscular Volume 90 FL (80-99) Mean Corpuscular Hemoglobin 30.7 PG (27.0-31.0) Mean Corpuscular Hemoglobin Concent 34.3 G/DL (32.0-36.0) Red Cell Distribution Width 14.2 % (11.6-14.8) Platelet Count 63 K/UL (150-450) Mean Platelet Volume 12.2 FL (6.5-10.1) Neutrophils (%) (Auto) % (45.0-75.0) Lymphocytes (%) (Auto) % (20.0-45.0) Monocytes (%) (Auto) % (1.0-10.0) Eosinophils (%) (Auto) % (0.0-3.0) Basophils (%) (Auto) % (0.0-2.0) Differential Total Cells Counted 100 Neutrophils % (Manual) 94 % (45-75) Lymphocytes % (Manual) 3 % (20-45) Monocytes % (Manual) 2 % (1-10) Eosinophils % (Manual) 1 % (0-3) Basophils % (Manual) 0 % (0-2) Band Neutrophils 0 % (0-8) Platelet Estimate Decreased Platelet Morphology Normal Hypochromasia 1+ Sodium Level 139 MMOL/L (136-145) Potassium Level 3.4 MMOL/L (3.5-5.1) Chloride Level 107 MMOL/L (98-107) Carbon Dioxide Level 25 MMOL/L (21-32) Anion Gap 7 mmol/L (5-15) Blood Urea Nitrogen 12 mg/dL (7-18) Creatinine 0.9 MG/DL (0.55-1.30) Estimat Glomerular Filtration Rate > 60 mL/min (>60) Glucose Level 97 MG/DL (74-106) Calcium Level 8.4 MG/DL (8.5-10.1) Total Bilirubin 0.8 MG/DL (0.2-1.0) Aspartate Amino Transf (AST/SGOT) 36 U/L (15-37) Alanine Aminotransferase (ALT/SGPT) 40 U/L (12-78) Alkaline Phosphatase 103 U/L (46-116) Pro-B-Type Natriuretic Peptide 2741 pg/mL (0-125) Total Protein 6.5 G/DL (6.4-8.2) Albumin 2.0 G/DL (3.4-5.0) Globulin 4.5 g/dL Albumin/Globulin Ratio 0.4 (1.0-2.7) Thyroid Stimulating Hormone (TSH) 1.272 uiU/mL (0.358-3.740) Free Thyroxine 0.86 NG/DL (0.76-1.46) Digoxin Level < 0.2 NG/ML (0.9-2.0) HIV (1&2) Antibody Rapid Negative (NEGATIVE) Test 06/16/19 10:30 06/17/19 04:00 06/18/19 03:40 Prothrombin Time 15.8 SEC (9.30-11.50) 14.4 SEC (9.30-11.50) Prothromb Time International Ratio 1.5 (0.9-1.1) 1.4 (0.9-1.1) Hepatitis A IgM Antibody Negative (Negative) Hepatitis B Surface Antigen Negative (Negative) Hepatitis B Core IgM Antibody Negative (Negative) Hepatitis C Antibody <0.1 s/co ratio White Blood Count 12.8 K/UL (4.8-10.8) 11.3 K/UL (4.8-10.8) Red Blood Count 3.77 M/UL (4.20-5.40) 3.47 M/UL (4.20-5.40) Hemoglobin 11.5 G/DL (12.0-16.0) 10.5 G/DL (12.0-16.0) Hematocrit 33.9 % (37.0-47.0) 30.8 % (37.0-47.0) Mean Corpuscular Volume 90 FL (80-99) 89 FL (80-99) Mean Corpuscular Hemoglobin 30.5 PG (27.0-31.0) 30.3 PG (27.0-31.0) Mean Corpuscular Hemoglobin Concent 34.0 G/DL (32.0-36.0) 34.1 G/DL (32.0-36.0) Red Cell Distribution Width 14.2 % (11.6-14.8) 14.2 % (11.6-14.8) Platelet Count 57 K/UL (150-450) 50 K/UL (150-450) Mean Platelet Volume 9.5 FL (6.5-10.1) 9.6 FL (6.5-10.1) Neutrophils (%) (Auto) % (45.0-75.0) % (45.0-75.0) Lymphocytes (%) (Auto) % (20.0-45.0) % (20.0-45.0) Monocytes (%) (Auto) % (1.0-10.0) % (1.0-10.0) Eosinophils (%) (Auto) % (0.0-3.0) % (0.0-3.0) Basophils (%) (Auto) % (0.0-2.0) % (0.0-2.0) Differential Total Cells Counted 100 100 Neutrophils % (Manual) 78 % (45-75) 87 % (45-75) Lymphocytes % (Manual) 16 % (20-45) 10 % (20-45) Monocytes % (Manual) 6 % (1-10) 2 % (1-10) Eosinophils % (Manual) 0 % (0-3) 1 % (0-3) Basophils % (Manual) 0 % (0-2) 0 % (0-2) Band Neutrophils 0 % (0-8) 0 % (0-8) Platelet Estimate Decreased Decreased Platelet Morphology Normal Normal Red Blood Cell Morphology Normal Normal Sodium Level 136 MMOL/L (136-145) Potassium Level 3.4 MMOL/L (3.5-5.1) Chloride Level 103 MMOL/L (98-107) Carbon Dioxide Level 25 MMOL/L (21-32) Anion Gap 8 mmol/L (5-15) Blood Urea Nitrogen 18 mg/dL (7-18) Creatinine 1.1 MG/DL (0.55-1.30) Estimat Glomerular Filtration Rate 58.8 mL/min (>60) Glucose Level 163 MG/DL (74-106) Lactic Acid Level 1.30 mmol/L (0.4-2.0) Calcium Level 8.8 MG/DL (8.5-10.1) Magnesium Level 1.4 MG/DL (1.8-2.4) Iron Level 40 ug/dL (50-175) Total Iron Binding Capacity 145 ug/dL (250-450) Percent Iron Saturation 28 % (15-50) Unsaturated Iron Binding 105 ug/dL (112-346) Total Bilirubin 1.3 MG/DL (0.2-1.0) Direct Bilirubin 0.3 MG/DL (0.0-0.3) Aspartate Amino Transf (AST/SGOT) 25 U/L (15-37) Alanine Aminotransferase (ALT/SGPT) 23 U/L (12-78) Alkaline Phosphatase 87 U/L (46-116) Total Protein 6.1 G/DL (6.4-8.2) Albumin 1.5 G/DL (3.4-5.0) Globulin 4.6 g/dL Albumin/Globulin Ratio 0.3 (1.0-2.7) Amylase Level 30 U/L (25-115) Lipase 36 U/L (73-393) Folate 8.2 NG/ML (8.6-58.9) Height (Feet): 5 Height (Inches): 5.00 Weight (Pounds): 180 Objective PE General: normal inspection, alert, Chronically Ill HEENT: nc, at ++ ng Respiratory: normal inspection, lungs clear, intubated ++ on vent Cardiovascular: regular rate, rhythm, no edema Gastrointestinal: normal inspection, normal bowel sounds, non tender, soft, no guarding, no hernia Genitourinary: normal inspection, no CVA tenderness Musculoskeletal: normal inspection, back normal Neurologic: alert, motor strength/tone normal, compliance and control analyst III-XII nml as tested Psychiatric: normal inspection, judgement/insight normal James Sanchez MD Jun 18, 2019 12:33
--- NOTE | 2019-06-18 12:33 | Cardiac Electrophysiology PN ---
Assessment/Plan Assessment/Plan 1. Respiratory failure due to bilateral MRSA pneumonia and CHF as well as the BNP is 788. Echocardiogram EF 60%. Intubated on the Vent. COVID 19 result negative 2. Troponin leak. No acute ECG findings. Likely due to septic shock and demand ischemia 3. Atrial fib off anticoagulation for Severe thrombocytopenia. Off AVN violette for hypotension. If develops atrial fib with RVR will load with digoxin. 4. Septic shock on Levophed, cefepime and azithromycin by Dr. Pinto and Dr. Blue. 5. History of psychiatric history. 6. History of cellulitis. DW RN Subjective Subjective Intubated in ICU on the Vent 40% fio2 and Levophed now decreased to 10Mc/mi. In atrial fib with rate 100s. COVID 19 test is negative Objective Last 24 Hour Vital Signs Date Time Temp Pulse Resp B/P (MAP) Pulse Ox O2 Delivery O2 Flow Rate FiO2 06/18/19 12:22 103/56 06/18/19 12:00 98.9 75 16 98/50 (66) 100 06/18/19 12:00 40 06/18/19 12:00 Mechanical Ventilator 06/18/19 11:30 72 15 107/65 (79) 99 06/18/19 11:26 71 06/18/19 11:07 75 14 40 06/18/19 11:00 111/78 06/18/19 11:00 75 16 111/78 (89) 98 06/18/19 10:30 77 16 125/98 (107) 99 06/18/19 10:06 99 06/18/19 10:00 129/62 06/18/19 10:00 76 16 117/65 (82) 99 06/18/19 09:30 75 16 120/71 (87) 98 06/18/19 09:00 124/64 06/18/19 09:00 75 16 124/64 (84) 99 06/18/19 08:53 88 22 40 06/18/19 08:27 74 06/18/19 08:00 40 06/18/19 08:00 Mechanical Ventilator 06/18/19 08:00 127/76 06/18/19 08:00 98.9 74 16 127/76 (93) 99 06/18/19 07:30 74 16 123/73 (90) 99 06/18/19 07:21 77 18 40 06/18/19 07:00 74 16 120/63 (82) 98 06/18/19 07:00 120/63 06/18/19 06:00 71 16 127/64 (85) 100 06/18/19 06:00 127/68 06/18/19 05:20 73 16 40 06/18/19 05:00 74 16 120/68 (85) 98 06/18/19 05:00 121/64 06/18/19 04:30 75 17 105/61 (76) 98 06/18/19 04:00 40 06/18/19 04:00 85 06/18/19 04:00 122/60 06/18/19 04:00 98.0 79 25 122/65 (84) 97 06/18/19 04:00 Mechanical Ventilator 06/18/19 03:30 79 16 128/68 (88) 100 06/18/19 03:20 78 16 40 06/18/19 03:00 108/58 06/18/19 03:00 84 16 110/59 (76) 100 06/18/19 02:30 75 16 106/54 (71) 100 06/18/19 02:00 81 16 103/60 (74) 100 06/18/19 01:50 85/39 06/18/19 01:00 100/50 06/18/19 01:00 74 16 98/50 (66) 99 06/18/19 00:30 77 16 95/53 (67) 100 06/18/19 00:29 82 23 40 06/18/19 00:00 40 06/18/19 00:00 97.8 76 16 116/61 (79) 99 06/18/19 00:00 Mechanical Ventilator 06/18/19 00:00 91 06/18/19 00:00 129/63 06/17/19 23:30 75 16 116/67 (83) 100 06/17/19 23:23 75 16 40 06/17/19 23:00 71 16 112/70 (84) 99 06/17/19 23:00 122/66 06/17/19 22:30 79 13 112/63 (79) 99 06/17/19 22:00 78 16 108/61 (77) 98 06/17/19 22:00 109/61 06/17/19 21:30 83 19 121/56 (77) 100 06/17/19 21:28 97 17 40 06/17/19 21:00 89 19 135/76 (95) 100 06/17/19 21:00 149/80 06/17/19 20:30 80 18 122/55 (77) 100 06/17/19 20:22 137/58 06/17/19 20:00 82 06/17/19 20:00 Mechanical Ventilator 06/17/19 20:00 137/58 06/17/19 20:00 40 06/17/19 20:00 98.0 82 20 122/82 (95) 100 06/17/19 19:30 80 17 128/61 (83) 100 06/17/19 19:16 96 16 40 06/17/19 19:00 123/68 06/17/19 19:00 79 16 123/68 (86) 99 06/17/19 18:30 88 16 130/72 (91) 100 06/17/19 18:00 92 17 105/63 (77) 100 06/17/19 18:00 103/65 06/17/19 17:30 90 17 108/55 (72) 99 06/17/19 17:25 94 22 40 06/17/19 17:00 103 18 114/51 (72) 99 06/17/19 17:00 117/72 06/17/19 16:56 115/88 06/17/19 16:30 103 18 115/88 (97) 99 06/17/19 16:24 115 19 132/71 (91) 99 06/17/19 16:15 140 18 177/80 (112) 99 06/17/19 16:00 Mechanical Ventilator 06/17/19 16:00 40 06/17/19 16:00 142/88 06/17/19 16:00 99.0 94 17 142/88 (106) 100 06/17/19 15:32 98 06/17/19 15:30 98 18 115/61 (79) 99 06/17/19 15:21 102 19 40 06/17/19 15:15 103 19 147/74 (98) 100 06/17/19 15:00 98 18 132/67 (88) 100 06/17/19 15:00 132/67 06/17/19 14:30 97 18 130/72 (91) 100 3/25/20 14:00 120/75 06/17/19 14:00 96 16 131/66 (87) 100 06/17/19 13:45 97 19 120/75 (90) 100 06/17/19 13:30 96 17 123/66 (85) 100 06/17/19 13:15 99 18 141/68 (92) 100 06/17/19 13:00 99 19 134/67 (89) 100 06/17/19 13:00 123/66 06/17/19 12:45 104 20 127/65 (85) 100 06/17/19 12:38 101 17 40 06/17/19 12:30 98 17 120/63 (82) 100 Intake and Output 06/17/19 06/18/19 19:00 07:00 Intake Total 2041.11 ml 649.25 ml Output Total 1190 ml 1660 ml Balance 851.11 ml -1010.75 ml Intake IV Total 1941.11 ml 649.25 ml Other 100 ml Output Urine Total 1170 ml 1600 ml Gastric Drainage Total 60 ml Emesis 20 ml Laboratory Tests Test 06/18/19 03:40 White Blood Count 11.3 K/UL (4.8-10.8) H Red Blood Count 3.47 M/UL (4.20-5.40) L Hemoglobin 10.5 G/DL (12.0-16.0) L Hematocrit 30.8 % (37.0-47.0) L Mean Corpuscular Volume 89 FL (80-99) Mean Corpuscular Hemoglobin 30.3 PG (27.0-31.0) Mean Corpuscular Hemoglobin Concent 34.1 G/DL (32.0-36.0) Red Cell Distribution Width 14.2 % (11.6-14.8) Platelet Count 50 K/UL (150-450) L Mean Platelet Volume 9.6 FL (6.5-10.1) Neutrophils (%) (Auto) % (45.0-75.0) Lymphocytes (%) (Auto) % (20.0-45.0) Monocytes (%) (Auto) % (1.0-10.0) Eosinophils (%) (Auto) % (0.0-3.0) Basophils (%) (Auto) % (0.0-2.0) Differential Total Cells Counted 100 Neutrophils % (Manual) 87 % (45-75) H Lymphocytes % (Manual) 10 % (20-45) L Monocytes % (Manual) 2 % (1-10) Eosinophils % (Manual) 1 % (0-3) Basophils % (Manual) 0 % (0-2) Band Neutrophils 0 % (0-8) Platelet Estimate Decreased L Platelet Morphology Normal Red Blood Cell Morphology Normal Prothrombin Time 14.4 SEC (9.30-11.50) H Prothromb Time International Ratio 1.4 (0.9-1.1) H Sodium Level 136 MMOL/L (136-145) Potassium Level 3.4 MMOL/L (3.5-5.1) L Chloride Level 103 MMOL/L (98-107) Carbon Dioxide Level 25 MMOL/L (21-32) Anion Gap 8 mmol/L (5-15) Blood Urea Nitrogen 18 mg/dL (7-18) Creatinine 1.1 MG/DL (0.55-1.30) Estimat Glomerular Filtration Rate 58.8 mL/min (>60) Glucose Level 163 MG/DL (74-106) H Lactic Acid Level 1.30 mmol/L (0.4-2.0) Calcium Level 8.8 MG/DL (8.5-10.1) Magnesium Level 1.4 MG/DL (1.8-2.4) L Iron Level 40 ug/dL (50-175) L Total Iron Binding Capacity 145 ug/dL (250-450) L Percent Iron Saturation 28 % (15-50) Unsaturated Iron Binding 105 ug/dL (112-346) L Total Bilirubin 1.3 MG/DL (0.2-1.0) H Direct Bilirubin 0.3 MG/DL (0.0-0.3) Aspartate Amino Transf (AST/SGOT) 25 U/L (15-37) Alanine Aminotransferase (ALT/SGPT) 23 U/L (12-78) Alkaline Phosphatase 87 U/L (46-116) Total Protein 6.1 G/DL (6.4-8.2) L Albumin 1.5 G/DL (3.4-5.0) L Globulin 4.6 g/dL Albumin/Globulin Ratio 0.3 (1.0-2.7) L Amylase Level 30 U/L (25-115) Lipase 36 U/L (73-393) L Folate 8.2 NG/ML (8.6-58.9) L Microbiology Date/Time Source Procedure Growth Status 06/15/19 21:00 Sputum Gram Stain - Final Complete 06/15/19 21:00 Sputum Culture - Final Staphylococcus Aureus - Mrsa Usual Respiratory Luli Complete Objective HEAD AND NECK: No JVD. Orally intubated with NG tube in LUNGS: Bilateral rhonchi. CARDIOVASCULAR: Tachy S1 and S2 with no gallop. ABDOMEN: Soft. EXTREMITIES: No pitting edema. Ruben Grissom MD Jun 18, 2019 12:33
[2019-06-18] MEDS ORDERED: Vancomycin 1gm/D5W 275ml IVPB SCH ×2 (17:00)
[2019-06-18] MEDS: Dyna-Hex 2% Top Sol 2oz TOPIC SCH (19:53)
[2019-06-18] MEDS ORDERED: NS 275ml ONE (20:43)
[2019-06-18] MEDS ORDERED: Tubing IV Secondary IV ONE (20:43)
[2019-06-18] MEDS ORDERED: Sterile Water Irrig 1000ml IRRIG ONE (20:43)
[2019-06-18] MEDS ORDERED: D5W 275ml ONE (20:43)
[2019-06-18] MEDS: DOPamine 400mg/250ml 250 ML IV SCH (20:45)
[2019-06-19] VITALS (48 sets, daily range): BP systolic 82–132; BP diastolic 45–95
[2019-06-19] MEDS: Cefepime HCl 1 GM in D5W 55 ML IVPB SCH ×2 (06:11→18:09)
[2019-06-19] MEDS: Norepinephrine Bitartrate 8 MG in D5W 500ml 550 ML IV SCH ×2 (06:23→20:16)
[2019-06-19 06:33] LABS: HEMATOCRIT 28.9 % (37.0-47.0); HEMOGLOBIN 9.7 G/DL (12.0-16.0); MEAN CORPUSCULAR VOLUME 90 FL (80-99); PLATELET COUNT 51 K/UL (150-450); RED BLOOD COUNT 3.22 M/UL (4.20-5.40); RED CELL DISTRIBUTION WIDTH 14.2 % (11.6-14.8); WHITE BLOOD COUNT 9.9 K/UL (4.8-10.8)
[2019-06-19 06:51] LABS: ANION GAP 5 mmol/L (5-15); BLOOD UREA NITROGEN 18 mg/dL (7-18); CALCIUM 8.2 MG/DL (8.5-10.1); CARBON DIOXIDE 27 MMOL/L (21-32); CHLORIDE 103 MMOL/L (98-107); PHOSPHORUS 1.9 MG/DL (2.5-4.9); POTASSIUM 3.4 MMOL/L (3.5-5.1); SODIUM 135 MMOL/L (136-145)
--- NOTE | 2019-06-19 06:55 | Hematology/Onc Progress Note ---
Assessment/Plan Assessment/Plan Assessment and Recs: # Pancytopenia with a decreased wbc and plt, likely related to pna v other cause , meds ntoed --> hepatitis and hiv NEgative --> smear ordered at this time, no blasts noted, wbc are stable --> us of the abdomen--> pending after covid rule out --> plt 62-->57k-->50k-->51k --> transfuse on prn basis --> neupogen if anc drops to below 1500 # Hypercoagulable disorder with afib --> HOLDING off anticoag --> per cards # Pneumonia on admission --> now intubated --> on abx, cefepime and vanc --> per id and pulm # Hypoglycemia --> d5w given earlier --> now improved # Shortness of breath, likely due to bilateral pneumonia --> echo per cards --> may need diuresis # Respiratory failure with Bilateral lung infiltrate and leukopenia. The patient was already started on Plaquenil 600, azithromycin. --> dr. Pinto on board --> NOW INTUBATED --> covid ruled out # History of psychiatric history. # History of cellulitis. # Dvt ppx apixaban Thank you very, appreciate consultation and abhishek Rn Subjective Constitutional: Denies: no symptoms, chills, fever, malaise, weakness, other HEENT: Denies: no symptoms, eye pain, blurred vision, tearing, double vision, ear pain, ear discharge, nose pain, nose congestion, throat pain, throat swelling, mouth pain, mouth swelling, other Cardiovascular: Denies: no symptoms, chest pain, edema, irregular heart rate, lightheadedness, palpitations, syncope, other Respiratory: Denies: no symptoms, cough, shortness of breath, SOB with excertion, SOB at rest, sputum, wheezing, other Genitourinary: Denies: no symptoms, burning, discharge, frequency, flank pain, hematuria, incontinence, pain, urgency, other Neurologic/Psychiatric: Denies: no symptoms, anxiety, depressed, emotional problems, headache, numbness, paresthesia, pre-existing deficit, seizure, tingling, tremors, weakness, other Endocrine: Denies: no symptoms, excessive sweating, flushing, intolerance to cold, intolerance to heat, increased hunger, increased thirst, increased urine, unexplained weight gain, unexplained weight loss, other Hematologic/Lymphatic: Denies: no symptoms, anemia, easy bleeding, easy bruising, adenopathy, other Allergies: Coded Allergies: MORPHINE (Unverified Allergy, Unknown, 06/15/19) Subjective 06/16 remains intubated on a vent, on lveophed, with ng, draining, covid rule out , 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 06/17 labs reviewed, no bleeding or night sweats, no major meds noted 06/18 remains on levo gtt, with tube feeds, plt 51k.no overt bleeding Objective Objective Current Medications Medications (Trade) Dose Ordered Sig/Emil Route PRN Reason Start Time Stop Time Status Last Admin Dose Admin Acetaminophen (Tylenol) 650 mg Q4H PRN ORAL Mild Pain/Temp > 100.5 06/15/19 14:30 07/15/19 14:29 Apixaban (Eliquis) 5 mg BID ORAL 06/17/19 18:00 09/15/19 17:59 Cefepime HCl 1 gm/ Dextrose 55 ml @ 110 mls/hr Q12H IVPB 06/16/19 18:00 06/23/19 17:59 06/19/19 06:11 Chlorhexidine Gluconate (Susie-Hex 2%) 1 applic DAILY@2000 TOPIC 06/16/19 20:00 09/14/19 19:59 06/18/19 19:53 Dextrose (Dextrose 50%) 50 ml Q30M PRN IV Hypoglycemia 06/15/19 14:45 09/13/19 14:44 Dopamine HCl/ Dextrose 250 ml @ 0 mls/hr Q24H IV 06/15/19 20:45 09/13/19 20:44 06/15/19 21:43 Norepinephrine Bitartrate 8 mg/ Dextrose 558 ml @ 0 mls/hr Q24H IV 06/16/19 09:00 07/16/19 08:59 06/19/19 06:23 Pantoprazole (Protonix) 40 mg DAILY IVP 06/16/19 09:00 07/16/19 08:59 06/18/19 08:21 Vancomycin HCl (Vanco rx to dose) 1 ea DAILY PRN MISC Per rx protocol 06/17/19 11:15 4/24/20 11:14 Vancomycin HCl 1 gm/Dextrose 275 ml @ 183.708 mls/hr Q24H IVPB 06/18/19 17:00 06/23/19 16:59 06/18/19 16:19 Last 24 Hour Vital Signs Date Time Temp Pulse Resp B/P (MAP) Pulse Ox O2 Delivery O2 Flow Rate FiO2 06/19/19 06:30 68 19 120/56 (77) 100 06/19/19 06:23 123/56 06/19/19 06:00 65 19 123/56 (78) 100 06/19/19 05:30 67 19 100/50 (67) 100 06/19/19 05:13 67 18 40 06/19/19 05:00 66 19 85/45 (58) 100 06/19/19 04:30 72 19 92/45 (61) 100 06/19/19 04:00 Mechanical Ventilator 06/19/19 04:00 69 06/19/19 04:00 40 06/19/19 04:00 40 06/19/19 04:00 98.2 74 19 88/50 (63) 100 06/19/19 03:30 70 15 120/71 (87) 100 06/19/19 03:20 73 20 40 06/19/19 03:00 68 20 132/71 (91) 100 06/19/19 02:30 74 20 82/60 (67) 100 06/19/19 02:00 75 20 130/62 (84) 100 06/19/19 01:30 72 20 121/60 (80) 100 06/19/19 01:00 73 20 127/62 (83) 100 06/19/19 00:40 76 21 40 06/19/19 00:30 70 20 113/60 (77) 100 06/19/19 00:00 40 06/19/19 00:00 98.0 72 20 114/57 (76) 100 06/19/19 00:00 70 06/19/19 00:00 Mechanical Ventilator 06/18/19 23:30 76 22 101/37 (58) 99 06/18/19 23:19 71 18 40 06/18/19 23:00 73 16 113/63 (80) 100 06/18/19 22:00 121/64 06/18/19 22:00 72 23 121/84 (96) 97 06/18/19 21:52 73 18 40 06/18/19 21:30 82 23 115/66 (82) 97 06/18/19 21:00 74 21 113/60 (77) 98 06/18/19 21:00 100/49 06/18/19 20:45 115/68 06/18/19 20:30 75 18 119/72 (88) 99 06/18/19 20:00 98.2 72 16 119/63 (81) 100 06/18/19 20:00 121/56 06/18/19 20:00 69 06/18/19 20:00 40 06/18/19 20:00 Mechanical Ventilator 06/18/19 19:32 68 17 40 06/18/19 19:30 70 16 121/57 (78) 100 06/18/19 19:00 70 17 119/56 (77) 100 06/18/19 19:00 119/56 06/18/19 18:00 118/70 06/18/19 18:00 73 17 116/54 (74) 100 06/18/19 17:30 73 15 119/56 (77) 100 06/18/19 17:00 82 17 40 06/18/19 17:00 74 17 119/54 (75) 100 06/18/19 17:00 118/58 06/18/19 16:30 75 15 122/56 (78) 100 06/18/19 16:00 Mechanical Ventilator 06/18/19 16:00 109/51 06/18/19 16:00 72 06/18/19 16:00 98.2 74 18 109/51 (70) 99 06/18/19 16:00 40 06/18/19 15:15 73 22 40 06/18/19 15:00 114/54 06/18/19 15:00 76 17 114/54 (74) 100 06/18/19 14:00 72 15 119/60 (79) 99 06/18/19 14:00 119/60 06/18/19 13:20 72 18 40 06/18/19 13:00 79 15 120/57 (78) 99 06/18/19 13:00 120/57 06/18/19 12:22 103/56 06/18/19 12:00 98.9 75 16 98/50 (66) 100 06/18/19 12:00 40 06/18/19 12:00 98/50 06/18/19 12:00 Mechanical Ventilator 06/18/19 11:30 72 15 107/65 (79) 99 06/18/19 11:26 71 06/18/19 11:07 75 14 40 06/18/19 11:00 111/78 06/18/19 11:00 75 16 111/78 (89) 98 06/18/19 10:30 77 16 125/98 (107) 99 06/18/19 10:06 99 06/18/19 10:00 129/62 06/18/19 10:00 76 16 117/65 (82) 99 06/18/19 09:30 75 16 120/71 (87) 98 06/18/19 09:00 124/64 06/18/19 09:00 75 16 124/64 (84) 99 06/18/19 08:53 88 22 40 06/18/19 08:27 74 06/18/19 08:00 40 06/18/19 08:00 Mechanical Ventilator 06/18/19 08:00 127/76 06/18/19 08:00 98.9 74 16 127/76 (93) 99 06/18/19 07:30 74 16 123/73 (90) 99 06/18/19 07:21 77 18 40 06/18/19 07:00 74 16 120/63 (82) 98 06/18/19 07:00 120/63 06/18/19 06:00 71 16 127/64 (85) 100 06/18/19 06:00 127/68 06/18/19 05:20 73 16 40 06/18/19 05:00 74 16 120/68 (85) 98 06/18/19 05:00 121/64 06/18/19 04:30 75 17 105/61 (76) 98 06/18/19 04:00 40 06/18/19 04:00 85 06/18/19 04:00 122/60 06/18/19 04:00 98.0 79 25 122/65 (84) 97 06/18/19 04:00 Mechanical Ventilator 06/18/19 03:30 79 16 128/68 (88) 100 06/18/19 03:20 78 16 40 06/18/19 03:00 108/58 06/18/19 03:00 84 16 110/59 (76) 100 06/18/19 02:30 75 16 106/54 (71) 100 06/18/19 02:00 81 16 103/60 (74) 100 06/18/19 01:50 85/39 06/18/19 01:00 100/50 06/18/19 01:00 74 16 98/50 (66) 99 06/18/19 00:30 77 16 95/53 (67) 100 06/18/19 00:29 82 23 40 06/18/19 00:00 40 06/18/19 00:00 97.8 76 16 116/61 (79) 99 06/18/19 00:00 Mechanical Ventilator 06/18/19 00:00 91 06/18/19 00:00 129/63 06/17/19 23:30 75 16 116/67 (83) 100 06/17/19 23:23 75 16 40 06/17/19 23:00 71 16 112/70 (84) 99 06/17/19 23:00 122/66 06/17/19 22:30 79 13 112/63 (79) 99 06/17/19 22:00 78 16 108/61 (77) 98 06/17/19 22:00 109/61 06/17/19 21:30 83 19 121/56 (77) 100 06/17/19 21:28 97 17 40 06/17/19 21:00 89 19 135/76 (95) 100 06/17/19 21:00 149/80 06/17/19 20:30 80 18 122/55 (77) 100 06/17/19 20:22 137/58 06/17/19 20:00 82 06/17/19 20:00 Mechanical Ventilator 06/17/19 20:00 137/58 06/17/19 20:00 40 06/17/19 20:00 98.0 82 20 122/82 (95) 100 06/17/19 19:30 80 17 128/61 (83) 100 06/17/19 19:16 96 16 40 06/17/19 19:00 123/68 06/17/19 19:00 79 16 123/68 (86) 99 06/17/19 18:30 88 16 130/72 (91) 100 06/17/19 18:00 92 17 105/63 (77) 100 06/17/19 18:00 103/65 06/17/19 17:30 90 17 108/55 (72) 99 06/17/19 17:25 94 22 40 06/17/19 17:00 103 18 114/51 (72) 99 06/17/19 17:00 117/72 06/17/19 16:56 115/88 06/17/19 16:30 103 18 115/88 (97) 99 06/17/19 16:24 115 19 132/71 (91) 99 06/17/19 16:15 140 18 177/80 (112) 99 06/17/19 16:00 Mechanical Ventilator 06/17/19 16:00 40 06/17/19 16:00 142/88 06/17/19 16:00 99.0 94 17 142/88 (106) 100 06/17/19 15:32 98 06/17/19 15:30 98 18 115/61 (79) 99 06/17/19 15:21 102 19 40 06/17/19 15:15 103 19 147/74 (98) 100 06/17/19 15:00 98 18 132/67 (88) 100 06/17/19 15:00 132/67 06/17/19 14:30 97 18 130/72 (91) 100 06/17/19 14:00 120/75 06/17/19 14:00 96 16 131/66 (87) 100 06/17/19 13:45 97 19 120/75 (90) 100 06/17/19 13:30 96 17 123/66 (85) 100 06/17/19 13:15 99 18 141/68 (92) 100 06/17/19 13:00 99 19 134/67 (89) 100 06/17/19 13:00 123/66 06/17/19 12:45 104 20 127/65 (85) 100 06/17/19 12:38 101 17 40 06/17/19 12:30 98 17 120/63 (82) 100 06/17/19 12:15 102 17 133/69 (90) 99 06/17/19 12:00 99.2 103 19 123/75 (91) 100 06/17/19 12:00 133/69 06/17/19 12:00 Mechanical Ventilator 06/17/19 11:35 129/73 3/25/20 11:19 98 17 40 06/17/19 11:19 102 06/17/19 11:00 103 19 124/69 (87) 100 06/17/19 11:00 129/73 06/17/19 10:00 96 18 129/73 (91) 100 06/17/19 10:00 129/73 06/17/19 09:25 40 06/17/19 09:15 91 18 40 06/17/19 09:00 135/70 06/17/19 09:00 94 18 135/70 (91) 100 06/17/19 08:41 92 06/17/19 08:00 60 06/17/19 08:00 98.5 89 18 120/65 (83) 100 06/17/19 08:00 91/53 06/17/19 08:00 Mechanical Ventilator 06/17/19 07:21 125/54 06/17/19 07:02 96 17 60 06/17/19 07:00 94 18 125/54 (77) 100 06/17/19 07:00 125/54 Intake and Output 06/18/19 06/19/19 19:02 07:02 Intake Total 1161.965 ml 168.81 ml Output Total 385 ml 350 ml Balance 776.965 ml -181.19 ml Intake IV Total 841.965 ml 108.81 ml Tube Feeding 260 ml 60 ml Other 60 ml Output Urine Total 385 ml 350 ml # Bowel Movements 1 3 Labs Test 06/16/19 09:04 06/16/19 10:30 06/17/19 04:00 06/18/19 03:40 Arterial Blood pH 7.382 (7.350-7.450) Arterial Blood Partial Pressure CO2 37.4 mmHg (35.0-45.0) Arterial Blood Partial Pressure O2 183.2 mmHg (75.0-100.0) Arterial Blood HCO3 21.7 mmol/L (22.0-26.0) Arterial Blood Oxygen Saturation 97.4 % (95-100) Arterial Blood Base Excess -2.9 (-2-2) Julius Test Positive Prothrombin Time 15.8 SEC (9.30-11.50) 14.4 SEC (9.30-11.50) Prothromb Time International Ratio 1.5 (0.9-1.1) 1.4 (0.9-1.1) Hepatitis A IgM Antibody Negative (Negative) Hepatitis B Surface Antigen Negative (Negative) Hepatitis B Core IgM Antibody Negative (Negative) Hepatitis C Antibody <0.1 s/co ratio White Blood Count 12.8 K/UL (4.8-10.8) 11.3 K/UL (4.8-10.8) Red Blood Count 3.77 M/UL (4.20-5.40) 3.47 M/UL (4.20-5.40) Hemoglobin 11.5 G/DL (12.0-16.0) 10.5 G/DL (12.0-16.0) Hematocrit 33.9 % (37.0-47.0) 30.8 % (37.0-47.0) Mean Corpuscular Volume 90 FL (80-99) 89 FL (80-99) Mean Corpuscular Hemoglobin 30.5 PG (27.0-31.0) 30.3 PG (27.0-31.0) Mean Corpuscular Hemoglobin Concent 34.0 G/DL (32.0-36.0) 34.1 G/DL (32.0-36.0) Red Cell Distribution Width 14.2 % (11.6-14.8) 14.2 % (11.6-14.8) Platelet Count 57 K/UL (150-450) 50 K/UL (150-450) Mean Platelet Volume 9.5 FL (6.5-10.1) 9.6 FL (6.5-10.1) Neutrophils (%) (Auto) % (45.0-75.0) % (45.0-75.0) Lymphocytes (%) (Auto) % (20.0-45.0) % (20.0-45.0) Monocytes (%) (Auto) % (1.0-10.0) % (1.0-10.0) Eosinophils (%) (Auto) % (0.0-3.0) % (0.0-3.0) Basophils (%) (Auto) % (0.0-2.0) % (0.0-2.0) Differential Total Cells Counted 100 100 Neutrophils % (Manual) 78 % (45-75) 87 % (45-75) Lymphocytes % (Manual) 16 % (20-45) 10 % (20-45) Monocytes % (Manual) 6 % (1-10) 2 % (1-10) Eosinophils % (Manual) 0 % (0-3) 1 % (0-3) Basophils % (Manual) 0 % (0-2) 0 % (0-2) Band Neutrophils 0 % (0-8) 0 % (0-8) Platelet Estimate Decreased Decreased Platelet Morphology Normal Normal Red Blood Cell Morphology Normal Normal Sodium Level 136 MMOL/L (136-145) Potassium Level 3.4 MMOL/L (3.5-5.1) Chloride Level 103 MMOL/L (98-107) Carbon Dioxide Level 25 MMOL/L (21-32) Anion Gap 8 mmol/L (5-15) Blood Urea Nitrogen 18 mg/dL (7-18) Creatinine 1.1 MG/DL (0.55-1.30) Estimat Glomerular Filtration Rate 58.8 mL/min (>60) Glucose Level 163 MG/DL (74-106) Lactic Acid Level 1.30 mmol/L (0.4-2.0) Calcium Level 8.8 MG/DL (8.5-10.1) Magnesium Level 1.4 MG/DL (1.8-2.4) Iron Level 40 ug/dL (50-175) Total Iron Binding Capacity 145 ug/dL (250-450) Percent Iron Saturation 28 % (15-50) Unsaturated Iron Binding 105 ug/dL (112-346) Total Bilirubin 1.3 MG/DL (0.2-1.0) Direct Bilirubin 0.3 MG/DL (0.0-0.3) Aspartate Amino Transf (AST/SGOT) 25 U/L (15-37) Alanine Aminotransferase (ALT/SGPT) 23 U/L (12-78) Alkaline Phosphatase 87 U/L (46-116) Total Protein 6.1 G/DL (6.4-8.2) Albumin 1.5 G/DL (3.4-5.0) Globulin 4.6 g/dL Albumin/Globulin Ratio 0.3 (1.0-2.7) Amylase Level 30 U/L (25-115) Lipase 36 U/L (73-393) Folate 8.2 NG/ML (8.6-58.9) Test 06/18/19 17:50 06/19/19 04:00 White Blood Count 9.9 K/UL (4.8-10.8) Red Blood Count 3.22 M/UL (4.20-5.40) Hemoglobin 9.7 G/DL (12.0-16.0) Hematocrit 28.9 % (37.0-47.0) Mean Corpuscular Volume 90 FL (80-99) Mean Corpuscular Hemoglobin 30.2 PG (27.0-31.0) Mean Corpuscular Hemoglobin Concent 33.6 G/DL (32.0-36.0) Red Cell Distribution Width 14.2 % (11.6-14.8) Platelet Count 51 K/UL (150-450) Mean Platelet Volume 9.9 FL (6.5-10.1) Neutrophils (%) (Auto) % (45.0-75.0) Lymphocytes (%) (Auto) % (20.0-45.0) Monocytes (%) (Auto) % (1.0-10.0) Eosinophils (%) (Auto) % (0.0-3.0) Basophils (%) (Auto) % (0.0-2.0) Sodium Level 135 MMOL/L (136-145) Potassium Level 3.4 MMOL/L (3.5-5.1) Chloride Level 103 MMOL/L (98-107) Carbon Dioxide Level 27 MMOL/L (21-32) Anion Gap 5 mmol/L (5-15) Blood Urea Nitrogen 18 mg/dL (7-18) Creatinine 1.0 MG/DL (0.55-1.30) Estimat Glomerular Filtration Rate > 60 mL/min (>60) Glucose Level 182 MG/DL (74-106) Calcium Level 8.2 MG/DL (8.5-10.1) Phosphorus Level 1.9 MG/DL (2.5-4.9) Magnesium Level 1.4 MG/DL (1.8-2.4) Height (Feet): 5 Height (Inches): 5.00 Weight (Pounds): 180 Objective PE General: normal inspection, alert, Chronically Ill HEENT: nc, at ++ ng Respiratory: normal inspection, lungs clear, intubated ++ on vent Cardiovascular: regular rate, rhythm, no edema Gastrointestinal: normal inspection, normal bowel sounds, non tender, soft, no guarding, no hernia Genitourinary: normal inspection, no CVA tenderness Musculoskeletal: normal inspection, back normal Neurologic: alert, motor strength/tone normal, 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
[2019-06-19] MEDS: Pantoprazole Inj IVP SCH (08:38)
[2019-06-19] MEDS: Eliquis 5mg tablet ORAL SCH ×2 (08:39→18:00)
--- NOTE | 2019-06-19 09:26 | General Progress Note ---
Assessment/Plan Status: deteriorating Assessment/Plan: 1. Mild anemia. 2. Thrombocytopenia. 3. Coagulopathy, mild. 4. Elevated troponin. 5. Hypoalbuminemia. 6. Respiratory failure. 7. Diabetes per chart. start low dose reglan for elevated residuals replace mag, phos and K fu abd us fu stool ob fu labs pulm care repeat labs in am Subjective ROS Limited/Unobtainable: No Allergies: Coded Allergies: MORPHINE (Unverified Allergy, Unknown, 06/15/19) Objective Last 24 Hour Vital Signs Date Time Temp Pulse Resp B/P (MAP) Pulse Ox O2 Delivery O2 Flow Rate FiO2 06/19/19 08:00 Mechanical Ventilator 06/19/19 08:00 98.0 69 21 111/62 (78) 100 06/19/19 08:00 40 06/19/19 08:00 73 06/19/19 07:30 70 19 107/69 (82) 100 06/19/19 07:00 67 18 107/51 (69) 100 06/19/19 06:30 68 19 120/56 (77) 100 06/19/19 06:30 74 25 40 06/19/19 06:23 123/56 06/19/19 06:00 65 19 123/56 (78) 100 06/19/19 06:00 123/55 06/19/19 05:30 67 19 100/50 (67) 100 06/19/19 05:13 67 18 40 06/19/19 05:00 66 19 85/45 (58) 100 06/19/19 05:00 85/45 06/19/19 04:30 72 19 92/45 (61) 100 06/19/19 04:00 Mechanical Ventilator 06/19/19 04:00 69 06/19/19 04:00 40 06/19/19 04:00 40 06/19/19 04:00 88/50 06/19/19 04:00 98.2 74 19 88/50 (63) 100 06/19/19 03:30 70 15 120/71 (87) 100 06/19/19 03:20 73 20 40 06/19/19 03:00 132/71 06/19/19 03:00 68 20 132/71 (91) 100 06/19/19 02:30 74 20 82/60 (67) 100 06/19/19 02:00 75 20 130/62 (84) 100 06/19/19 02:00 130/62 06/19/19 01:30 72 20 121/60 (80) 100 06/19/19 01:00 127/62 06/19/19 01:00 73 20 127/62 (83) 100 06/19/19 00:40 76 21 40 06/19/19 00:30 70 20 113/60 (77) 100 06/19/19 00:00 40 06/19/19 00:00 98.0 72 20 114/57 (76) 100 06/19/19 00:00 114/57 06/19/19 00:00 70 06/19/19 00:00 Mechanical Ventilator 06/18/19 23:30 76 22 101/37 (58) 99 06/18/19 23:19 71 18 40 06/18/19 23:00 113/63 06/18/19 23:00 73 16 113/63 (80) 100 06/18/19 22:00 121/64 06/18/19 22:00 72 23 121/84 (96) 97 06/18/19 21:52 73 18 40 06/18/19 21:30 82 23 115/66 (82) 97 06/18/19 21:00 74 21 113/60 (77) 98 06/18/19 21:00 100/49 06/18/19 20:45 115/68 06/18/19 20:30 75 18 119/72 (88) 99 06/18/19 20:00 98.2 72 16 119/63 (81) 100 06/18/19 20:00 121/56 06/18/19 20:00 69 06/18/19 20:00 40 06/18/19 20:00 Mechanical Ventilator 06/18/19 19:32 68 17 40 06/18/19 19:30 70 16 121/57 (78) 100 06/18/19 19:00 70 17 119/56 (77) 100 06/18/19 19:00 119/56 06/18/19 18:00 118/70 06/18/19 18:00 73 17 116/54 (74) 100 06/18/19 17:30 73 15 119/56 (77) 100 06/18/19 17:00 82 17 40 06/18/19 17:00 74 17 119/54 (75) 100 06/18/19 17:00 118/58 06/18/19 16:30 75 15 122/56 (78) 100 06/18/19 16:00 Mechanical Ventilator 06/18/19 16:00 109/51 06/18/19 16:00 72 06/18/19 16:00 98.2 74 18 109/51 (70) 99 06/18/19 16:00 40 06/18/19 15:15 73 22 40 06/18/19 15:00 114/54 06/18/19 15:00 76 17 114/54 (74) 100 06/18/19 14:00 72 15 119/60 (79) 99 06/18/19 14:00 119/60 06/18/19 13:20 72 18 40 06/18/19 13:00 79 15 120/57 (78) 99 06/18/19 13:00 120/57 06/18/19 12:22 103/56 06/18/19 12:00 98.9 75 16 98/50 (66) 100 06/18/19 12:00 40 06/18/19 12:00 98/50 06/18/19 12:00 Mechanical Ventilator 06/18/19 11:30 72 15 107/65 (79) 99 06/18/19 11:26 71 06/18/19 11:07 75 14 40 06/18/19 11:00 111/78 06/18/19 11:00 75 16 111/78 (89) 98 06/18/19 10:30 77 16 125/98 (107) 99 06/18/19 10:06 99 06/18/19 10:00 129/62 06/18/19 10:00 76 16 117/65 (82) 99 06/18/19 09:30 75 16 120/71 (87) 98 Intake and Output 06/18/19 06/19/19 19:00 07:00 Intake Total 1161.965 ml 441.43 ml Output Total 385 ml 390 ml Balance 776.965 ml 51.43 ml Intake IV Total 841.965 ml 381.43 ml Tube Feeding 260 ml 60 ml Other 60 ml Output Urine Total 385 ml 390 ml # Bowel Movements 1 4 Laboratory Tests 06/18/19 17:50: Stool Occult Blood [Pending] 06/19/19 04:00: White Blood Count 9.9, Red Blood Count 3.22L, Hemoglobin 9.7L, Hematocrit 28.9L , Mean Corpuscular Volume 90, Mean Corpuscular Hemoglobin 30.2, Mean Corpuscular Hemoglobin Concent 33.6, Red Cell Distribution Width 14.2, Platelet Count 51L, Mean Platelet Volume 9.9, Neutrophils (%) (Auto) , Lymphocytes (%) ( Auto) , Monocytes (%) (Auto) , Eosinophils (%) (Auto) , Basophils (%) (Auto) , Neutrophils % (Manual) [Pending], Lymphocytes % (Manual) [Pending], Platelet Estimate [Pending], Platelet Morphology [Pending], Sodium Level 135L, Potassium Level 3.4L, Chloride Level 103, Carbon Dioxide Level 27, Anion Gap 5, Blood Urea Nitrogen 18, Creatinine 1.0, Estimat Glomerular Filtration Rate > 60, Glucose Level 182H, Calcium Level 8.2L, Phosphorus Level 1.9L, Magnesium Level 1.4L Height (Feet): 5 Height (Inches): 5.00 Weight (Pounds): 180 General Appearance: lethargic EENT: normal ENT inspection Neck: supple Cardiovascular: normal rate Respiratory/Chest: decreased breath sounds Abdomen: normal bowel sounds, non tender, soft Extremities: non-tender Aman Wheat MD Jun 19, 2019 09:26
[2019-06-19] MEDS ORDERED: Metoclopramide 10mg/2ml Inj IVP PRN (09:30)
--- NOTE | 2019-06-19 10:14 | Infectious Diseases Prog Note ---
Assessment/Plan Assessment/Plan IMPRESSION: Sepsis with Septic shock improving Staph aureus pneumonia, MRSA Bilateral pneumonia,CXR improving Hypoxic respiratory failure Interstitial lung disease, Thrombocytopenia, Congestive heart failure. 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 Subjective ROS Limited/Unobtainable: Yes Respiratory: Reports: other - thick respiratory secretions Cardiovascular: Reports: other - dose of levohed is decreasing Neurologic: Reports: confusion, other - on restraint Allergies: Coded Allergies: MORPHINE (Unverified Allergy, Unknown, 06/15/19) Objective Vital Signs Last 24 Hour Vital Signs Date Time Temp Pulse Resp B/P (MAP) Pulse Ox O2 Delivery O2 Flow Rate FiO2 06/19/19 09:30 74 18 111/54 (73) 100 06/19/19 09:17 100 06/19/19 09:17 71 22 40 40 06/19/19 09:00 68 20 114/67 (83) 100 06/19/19 08:30 67 26 114/67 (83) 100 06/19/19 08:00 Mechanical Ventilator 06/19/19 08:00 98.0 69 21 111/62 (78) 100 06/19/19 08:00 40 06/19/19 08:00 73 06/19/19 07:30 70 19 107/69 (82) 100 06/19/19 07:00 67 18 107/51 (69) 100 06/19/19 06:30 68 19 120/56 (77) 100 06/19/19 06:30 74 25 40 06/19/19 06:23 123/56 06/19/19 06:00 65 19 123/56 (78) 100 06/19/19 06:00 123/55 06/19/19 05:30 67 19 100/50 (67) 100 06/19/19 05:13 67 18 40 06/19/19 05:00 66 19 85/45 (58) 100 06/19/19 05:00 85/45 06/19/19 04:30 72 19 92/45 (61) 100 06/19/19 04:00 Mechanical Ventilator 06/19/19 04:00 69 06/19/19 04:00 40 06/19/19 04:00 40 06/19/19 04:00 88/50 06/19/19 04:00 98.2 74 19 88/50 (63) 100 06/19/19 03:30 70 15 120/71 (87) 100 06/19/19 03:20 73 20 40 06/19/19 03:00 132/71 06/19/19 03:00 68 20 132/71 (91) 100 06/19/19 02:30 74 20 82/60 (67) 100 06/19/19 02:00 75 20 130/62 (84) 100 06/19/19 02:00 130/62 06/19/19 01:30 72 20 121/60 (80) 100 06/19/19 01:00 127/62 06/19/19 01:00 73 20 127/62 (83) 100 06/19/19 00:40 76 21 40 06/19/19 00:30 70 20 113/60 (77) 100 06/19/19 00:00 40 06/19/19 00:00 98.0 72 20 114/57 (76) 100 06/19/19 00:00 114/57 06/19/19 00:00 70 06/19/19 00:00 Mechanical Ventilator 06/18/19 23:30 76 22 101/37 (58) 99 06/18/19 23:19 71 18 40 06/18/19 23:00 113/63 06/18/19 23:00 73 16 113/63 (80) 100 06/18/19 22:00 121/64 06/18/19 22:00 72 23 121/84 (96) 97 06/18/19 21:52 73 18 40 06/18/19 21:30 82 23 115/66 (82) 97 06/18/19 21:00 74 21 113/60 (77) 98 06/18/19 21:00 100/49 06/18/19 20:45 115/68 06/18/19 20:30 75 18 119/72 (88) 99 06/18/19 20:00 98.2 72 16 119/63 (81) 100 06/18/19 20:00 121/56 06/18/19 20:00 69 06/18/19 20:00 40 06/18/19 20:00 Mechanical Ventilator 06/18/19 19:32 68 17 40 06/18/19 19:30 70 16 121/57 (78) 100 06/18/19 19:00 70 17 119/56 (77) 100 06/18/19 19:00 119/56 06/18/19 18:00 118/70 06/18/19 18:00 73 17 116/54 (74) 100 06/18/19 17:30 73 15 119/56 (77) 100 06/18/19 17:00 82 17 40 06/18/19 17:00 74 17 119/54 (75) 100 06/18/19 17:00 118/58 06/18/19 16:30 75 15 122/56 (78) 100 06/18/19 16:00 Mechanical Ventilator 06/18/19 16:00 109/51 06/18/19 16:00 72 06/18/19 16:00 98.2 74 18 109/51 (70) 99 06/18/19 16:00 40 06/18/19 15:15 73 22 40 06/18/19 15:00 114/54 06/18/19 15:00 76 17 114/54 (74) 100 06/18/19 14:00 72 15 119/60 (79) 99 06/18/19 14:00 119/60 06/18/19 13:20 72 18 40 06/18/19 13:00 79 15 120/57 (78) 99 06/18/19 13:00 120/57 06/18/19 12:22 103/56 06/18/19 12:00 98.9 75 16 98/50 (66) 100 06/18/19 12:00 40 06/18/19 12:00 98/50 06/18/19 12:00 Mechanical Ventilator 06/18/19 11:30 72 15 107/65 (79) 99 06/18/19 11:26 71 06/18/19 11:07 75 14 40 06/18/19 11:00 111/78 06/18/19 11:00 75 16 111/78 (89) 98 06/18/19 10:30 77 16 125/98 (107) 99 Height (Feet): 5 Height (Inches): 5.00 Weight (Pounds): 180 HEENT: other - orally intubated Respiratory/Chest: other - bilateral rhonchi, on ventilator Abdomen: soft, non tender, other - NG tube Extremities: no edema Neurologic/Psychiatric: unresponsiveness Laboratory Tests Test 06/18/19 17:50 06/19/19 04:00 Stool Occult Blood Pending White Blood Count 9.9 K/UL (4.8-10.8) Red Blood Count 3.22 M/UL (4.20-5.40) L Hemoglobin 9.7 G/DL (12.0-16.0) L Hematocrit 28.9 % (37.0-47.0) L Mean Corpuscular Volume 90 FL (80-99) Mean Corpuscular Hemoglobin 30.2 PG (27.0-31.0) Mean Corpuscular Hemoglobin Concent 33.6 G/DL (32.0-36.0) Red Cell Distribution Width 14.2 % (11.6-14.8) Platelet Count 51 K/UL (150-450) L Mean Platelet Volume 9.9 FL (6.5-10.1) Neutrophils (%) (Auto) % (45.0-75.0) Lymphocytes (%) (Auto) % (20.0-45.0) Monocytes (%) (Auto) % (1.0-10.0) Eosinophils (%) (Auto) % (0.0-3.0) Basophils (%) (Auto) % (0.0-2.0) Neutrophils % (Manual) Pending Lymphocytes % (Manual) Pending Platelet Estimate Pending Platelet Morphology Pending Sodium Level 135 MMOL/L (136-145) L Potassium Level 3.4 MMOL/L (3.5-5.1) L Chloride Level 103 MMOL/L (98-107) Carbon Dioxide Level 27 MMOL/L (21-32) Anion Gap 5 mmol/L (5-15) Blood Urea Nitrogen 18 mg/dL (7-18) Creatinine 1.0 MG/DL (0.55-1.30) Estimat Glomerular Filtration Rate > 60 mL/min (>60) Glucose Level 182 MG/DL (74-106) H Calcium Level 8.2 MG/DL (8.5-10.1) L Phosphorus Level 1.9 MG/DL (2.5-4.9) L Magnesium Level 1.4 MG/DL (1.8-2.4) L Current Medications Medications (Trade) Dose Ordered Sig/Emil Route PRN Reason Start Time Stop Time Status Last Admin Dose Admin Acetaminophen (Tylenol) 650 mg Q4H PRN ORAL Mild Pain/Temp > 100.5 06/15/19 14:30 07/15/19 14:29 Apixaban (Eliquis) 5 mg BID ORAL 06/17/19 18:00 09/15/19 17:59 Cefepime HCl 1 gm/ Dextrose 55 ml @ 110 mls/hr Q12H IVPB 06/16/19 18:00 06/23/19 17:59 06/19/19 06:11 Chlorhexidine Gluconate (Susie-Hex 2%) 1 applic DAILY@2000 TOPIC 06/16/19 20:00 09/14/19 19:59 06/18/19 19:53 Dextrose (Dextrose 50%) 50 ml Q30M PRN IV Hypoglycemia 06/15/19 14:45 09/13/19 14:44 Dopamine HCl/ Dextrose 250 ml @ 0 mls/hr Q24H IV 06/15/19 20:45 09/13/19 20:44 06/15/19 21:43 Magnesium Sulfate 100 ml @ 100 mls/hr Q1H IVPB 06/19/19 10:30 06/19/19 12:29 Metoclopramide HCl (Reglan) 5 mg Q8H PRN IVP Nausea & Vomiting 06/19/19 09:30 07/19/19 09:29 Norepinephrine Bitartrate 8 mg/ Dextrose 558 ml @ 0 mls/hr Q24H IV 06/16/19 09:00 07/16/19 08:59 06/19/19 06:23 Pantoprazole (Protonix) 40 mg DAILY IVP 06/16/19 09:00 07/16/19 08:59 06/19/19 08:38 Potassium Chloride (K-Dur) 20 meq ONCE ONCE ORAL 06/19/19 10:30 06/19/19 10:31 Sodium Phosphate 15 mm/Sodium Chloride 280 ml @ 70.273 mls/ hr ONCE ONCE IVPB 06/19/19 11:00 06/19/19 14:59 Vancomycin HCl (Vanco rx to dose) 1 ea DAILY PRN MISC Per rx protocol 06/17/19 11:15 07/17/19 11:14 Vancomycin HCl 1 gm/Dextrose 275 ml @ 183.708 mls/hr Q24H IVPB 06/18/19 17:00 06/23/19 16:59 06/18/19 16:19 Edin Blue MD Jun 19, 2019 10:14
--- NOTE | 2019-06-19 10:30 | Pulmonology Progress Note ---
Assessment/Plan Assessment/Plan IMPRESSION: 1. Bilateral pneumonia, high suspicion for COVID-19 but results negative. 2. History of CHF. 3. Shock; on 14mch Levophed DISCUSSION: Intubated remains on assist-control mechanical ventilation. FiO2 now 50% On pressors The patient presents from nursing facility with hypoxemia and abnormal chest x- ray, and leukopenia. I suspect that she may have COVID-19 however results are negative Will obtain CXR Decrease AC to 10 I will continue empiric antibiotics. Her influenza A and B are negative. I will follow carefully. Aly Pinto M.D. Subjective Interval Events: remains on the respirator Constitutional: Reports: no symptoms HEENT: Repors: no symptoms Respiratory: Reports: no symptoms Cardiovascular: Reports: no symptoms Gastrointestinal/Abdominal: Reports: no symptoms Genitourinary: Reports: no symptoms Allergies: Coded Allergies: MORPHINE (Unverified Allergy, Unknown, 06/15/19) Objective Last 24 Hour Vital Signs Date Time Temp Pulse Resp B/P (MAP) Pulse Ox O2 Delivery O2 Flow Rate FiO2 06/19/19 10:25 80 20 40 06/19/19 10:00 109/56 06/19/19 09:30 74 18 111/54 (73) 100 06/19/19 09:17 100 06/19/19 09:17 71 22 40 40 06/19/19 09:00 108/55 06/19/19 09:00 68 20 114/67 (83) 100 06/19/19 08:30 67 26 114/67 (83) 100 06/19/19 08:00 Mechanical Ventilator 06/19/19 08:00 98.0 69 21 111/62 (78) 100 06/19/19 08:00 40 06/19/19 08:00 111/54 06/19/19 08:00 73 06/19/19 07:30 70 19 107/69 (82) 100 06/19/19 07:00 67 18 107/51 (69) 100 06/19/19 07:00 123/56 06/19/19 06:30 68 19 120/56 (77) 100 06/19/19 06:30 74 25 40 06/19/19 06:23 123/56 06/19/19 06:00 65 19 123/56 (78) 100 06/19/19 06:00 123/55 06/19/19 05:30 67 19 100/50 (67) 100 06/19/19 05:13 67 18 40 06/19/19 05:00 66 19 85/45 (58) 100 06/19/19 05:00 85/45 06/19/19 04:30 72 19 92/45 (61) 100 06/19/19 04:00 Mechanical Ventilator 06/19/19 04:00 69 06/19/19 04:00 40 06/19/19 04:00 40 06/19/19 04:00 88/50 06/19/19 04:00 98.2 74 19 88/50 (63) 100 06/19/19 03:30 70 15 120/71 (87) 100 06/19/19 03:20 73 20 40 06/19/19 03:00 132/71 06/19/19 03:00 68 20 132/71 (91) 100 06/19/19 02:30 74 20 82/60 (67) 100 06/19/19 02:00 75 20 130/62 (84) 100 06/19/19 02:00 130/62 06/19/19 01:30 72 20 121/60 (80) 100 06/19/19 01:00 127/62 06/19/19 01:00 73 20 127/62 (83) 100 06/19/19 00:40 76 21 40 06/19/19 00:30 70 20 113/60 (77) 100 06/19/19 00:00 40 06/19/19 00:00 98.0 72 20 114/57 (76) 100 06/19/19 00:00 114/57 06/19/19 00:00 70 06/19/19 00:00 Mechanical Ventilator 06/18/19 23:30 76 22 101/37 (58) 99 06/18/19 23:19 71 18 40 06/18/19 23:00 113/63 06/18/19 23:00 73 16 113/63 (80) 100 06/18/19 22:00 121/64 06/18/19 22:00 72 23 121/84 (96) 97 06/18/19 21:52 73 18 40 06/18/19 21:30 82 23 115/66 (82) 97 06/18/19 21:00 74 21 113/60 (77) 98 06/18/19 21:00 100/49 06/18/19 20:45 115/68 06/18/19 20:30 75 18 119/72 (88) 99 06/18/19 20:00 98.2 72 16 119/63 (81) 100 06/18/19 20:00 121/56 06/18/19 20:00 69 06/18/19 20:00 40 06/18/19 20:00 Mechanical Ventilator 06/18/19 19:32 68 17 40 06/18/19 19:30 70 16 121/57 (78) 100 06/18/19 19:00 70 17 119/56 (77) 100 06/18/19 19:00 119/56 06/18/19 18:00 118/70 06/18/19 18:00 73 17 116/54 (74) 100 06/18/19 17:30 73 15 119/56 (77) 100 06/18/19 17:00 82 17 40 06/18/19 17:00 74 17 119/54 (75) 100 06/18/19 17:00 118/58 06/18/19 16:30 75 15 122/56 (78) 100 06/18/19 16:00 Mechanical Ventilator 06/18/19 16:00 109/51 06/18/19 16:00 72 06/18/19 16:00 98.2 74 18 109/51 (70) 99 06/18/19 16:00 40 06/18/19 15:15 73 22 40 06/18/19 15:00 114/54 06/18/19 15:00 76 17 114/54 (74) 100 06/18/19 14:00 72 15 119/60 (79) 99 06/18/19 14:00 119/60 06/18/19 13:20 72 18 40 06/18/19 13:00 79 15 120/57 (78) 99 06/18/19 13:00 120/57 06/18/19 12:22 103/56 06/18/19 12:00 98.9 75 16 98/50 (66) 100 06/18/19 12:00 40 06/18/19 12:00 98/50 06/18/19 12:00 Mechanical Ventilator 06/18/19 11:30 72 15 107/65 (79) 99 06/18/19 11:26 71 06/18/19 11:07 75 14 40 06/18/19 11:00 111/78 06/18/19 11:00 75 16 111/78 (89) 98 Intake and Output 06/18/19 06/19/19 19:00 07:00 Intake Total 1161.965 ml 474.91 ml Output Total 385 ml 390 ml Balance 776.965 ml 84.91 ml Intake IV Total 841.965 ml 414.91 ml Tube Feeding 260 ml 60 ml Other 60 ml Output Urine Total 385 ml 390 ml # Bowel Movements 1 4 General Appearance: no acute distress HEENT: normocephalic Respiratory/Chest: chest wall non-tender Cardiovascular: normal peripheral pulses Abdomen: normal bowel sounds Laboratory Tests 06/18/19 17:50: Stool Occult Blood [Pending] 06/19/19 04:00: White Blood Count 9.9, Red Blood Count 3.22L, Hemoglobin 9.7L, Hematocrit 28.9L , Mean Corpuscular Volume 90, Mean Corpuscular Hemoglobin 30.2, Mean Corpuscular Hemoglobin Concent 33.6, Red Cell Distribution Width 14.2, Platelet Count 51L, Mean Platelet Volume 9.9, Neutrophils (%) (Auto) , Lymphocytes (%) ( Auto) , Monocytes (%) (Auto) , Eosinophils (%) (Auto) , Basophils (%) (Auto) , Neutrophils % (Manual) [Pending], Lymphocytes % (Manual) [Pending], Platelet Estimate [Pending], Platelet Morphology [Pending], Sodium Level 135L, Potassium Level 3.4L, Chloride Level 103, Carbon Dioxide Level 27, Anion Gap 5, Blood Urea Nitrogen 18, Creatinine 1.0, Estimat Glomerular Filtration Rate > 60, Glucose Level 182H, Calcium Level 8.2L, Phosphorus Level 1.9L, Magnesium Level 1.4L Current Medications Medications (Trade) Dose Ordered Sig/Emil Route PRN Reason Start Time Stop Time Status Last Admin Dose Admin Acetaminophen (Tylenol) 650 mg Q4H PRN ORAL Mild Pain/Temp > 100.5 06/15/19 14:30 07/15/19 14:29 Apixaban (Eliquis) 5 mg BID ORAL 06/17/19 18:00 09/15/19 17:59 Cefepime HCl 1 gm/ Dextrose 55 ml @ 110 mls/hr Q12H IVPB 06/16/19 18:00 06/23/19 17:59 06/19/19 06:11 Chlorhexidine Gluconate (Susie-Hex 2%) 1 applic DAILY@2000 TOPIC 06/16/19 20:00 09/14/19 19:59 06/18/19 19:53 Dextrose (Dextrose 50%) 50 ml Q30M PRN IV Hypoglycemia 06/15/19 14:45 09/13/19 14:44 Dopamine HCl/ Dextrose 250 ml @ 0 mls/hr Q24H IV 06/15/19 20:45 09/13/19 20:44 06/15/19 21:43 Magnesium Sulfate 100 ml @ 100 mls/hr Q1H IVPB 06/19/19 10:30 06/19/19 12:29 06/19/19 10:28 Metoclopramide HCl (Reglan) 5 mg Q8H PRN IVP Nausea & Vomiting 06/19/19 09:30 07/19/19 09:29 Norepinephrine Bitartrate 8 mg/ Dextrose 558 ml @ 0 mls/hr Q24H IV 06/16/19 09:00 07/16/19 08:59 06/19/19 06:23 Pantoprazole (Protonix) 40 mg DAILY IVP 06/16/19 09:00 07/16/19 08:59 06/19/19 08:38 Potassium Chloride (K-Dur) 20 meq ONCE ONCE ORAL 06/19/19 10:30 06/19/19 10:31 06/19/19 10:28 Sodium Phosphate 15 mm/Sodium Chloride 280 ml @ 70.273 mls/ hr ONCE ONCE IVPB 06/19/19 11:00 06/19/19 14:59 Vancomycin HCl (Vanco rx to dose) 1 ea DAILY PRN MISC Per rx protocol 06/17/19 11:15 07/17/19 11:14 Vancomycin HCl 1 gm/Dextrose 275 ml @ 183.708 mls/hr Q24H IVPB 06/18/19 17:00 06/23/19 16:59 06/18/19 16:19 Aly Pinto MD Jun 19, 2019 10:30
[2019-06-19] MEDS ORDERED: Sodium Phosphate 15 MM in NS 275 ML IVPB ONE (11:00)
--- NOTE | 2019-06-19 15:44 | Cardiac Electrophysiology PN ---
Assessment/Plan Assessment/Plan 1. Respiratory failure due to bilateral MRSA pneumonia and CHF Echocardiogram EF 60%. Intubated on the Vent. COVID 19 result negative 2. Troponin leak. No acute ECG findings. Likely due to septic shock and demand ischemia 3. Atrial fib off anticoagulation for Severe thrombocytopenia. Off AVN violette for hypotension. If develops atrial fib with RVR will load with digoxin. 4. Septic shock on Levophed and abx by Dr. Pinto and Dr. Blue. 5. History of psychiatric history. 6. History of cellulitis. RYANN RN Subjective Subjective Intubated in ICU on the Vent 40% fio2 and Levophed now decreased to 8 Mc/mi. In atrial fib with rate 100s. COVID 19 test is negative Objective Last 24 Hour Vital Signs Date Time Temp Pulse Resp B/P (MAP) Pulse Ox O2 Delivery O2 Flow Rate FiO2 06/19/19 14:56 73 21 40 06/19/19 14:00 115/63 06/19/19 14:00 71 16 108/59 (75) 100 06/19/19 13:30 72 16 115/58 (77) 100 06/19/19 13:04 64 19 40 06/19/19 13:00 117/58 06/19/19 13:00 71 16 117/58 (77) 100 06/19/19 12:30 70 20 116/62 (80) 100 06/19/19 12:00 98.9 71 20 117/61 (79) 100 06/19/19 12:00 40 06/19/19 12:00 67 06/19/19 12:00 117/61 06/19/19 12:00 Mechanical Ventilator 06/19/19 11:30 71 19 117/68 (84) 100 06/19/19 11:00 73 17 110/55 (73) 100 06/19/19 11:00 110/55 06/19/19 10:30 73 21 101/57 (72) 100 06/19/19 10:25 80 20 40 06/19/19 10:00 109/56 06/19/19 10:00 79 25 108/55 (72) 100 06/19/19 09:30 74 18 111/54 (73) 100 06/19/19 09:17 100 06/19/19 09:17 71 22 40 40 3/27/20 09:00 108/55 06/19/19 09:00 68 20 114/67 (83) 100 06/19/19 08:30 67 26 114/67 (83) 100 06/19/19 08:00 Mechanical Ventilator 06/19/19 08:00 98.0 69 21 111/62 (78) 100 06/19/19 08:00 40 06/19/19 08:00 111/54 06/19/19 08:00 73 06/19/19 07:30 70 19 107/69 (82) 100 06/19/19 07:00 67 18 107/51 (69) 100 06/19/19 07:00 123/56 06/19/19 06:30 68 19 120/56 (77) 100 06/19/19 06:30 74 25 40 06/19/19 06:23 123/56 06/19/19 06:00 65 19 123/56 (78) 100 06/19/19 06:00 123/55 06/19/19 05:30 67 19 100/50 (67) 100 06/19/19 05:13 67 18 40 06/19/19 05:00 66 19 85/45 (58) 100 06/19/19 05:00 85/45 06/19/19 04:30 72 19 92/45 (61) 100 06/19/19 04:00 Mechanical Ventilator 06/19/19 04:00 69 06/19/19 04:00 40 06/19/19 04:00 40 06/19/19 04:00 88/50 06/19/19 04:00 98.2 74 19 88/50 (63) 100 06/19/19 03:30 70 15 120/71 (87) 100 06/19/19 03:20 73 20 40 06/19/19 03:00 132/71 06/19/19 03:00 68 20 132/71 (91) 100 06/19/19 02:30 74 20 82/60 (67) 100 06/19/19 02:00 75 20 130/62 (84) 100 06/19/19 02:00 130/62 06/19/19 01:30 72 20 121/60 (80) 100 06/19/19 01:00 127/62 06/19/19 01:00 73 20 127/62 (83) 100 06/19/19 00:40 76 21 40 06/19/19 00:30 70 20 113/60 (77) 100 06/19/19 00:00 40 06/19/19 00:00 98.0 72 20 114/57 (76) 100 06/19/19 00:00 114/57 06/19/19 00:00 70 06/19/19 00:00 Mechanical Ventilator 06/18/19 23:30 76 22 101/37 (58) 99 06/18/19 23:19 71 18 40 06/18/19 23:00 113/63 06/18/19 23:00 73 16 113/63 (80) 100 06/18/19 22:00 121/64 06/18/19 22:00 72 23 121/84 (96) 97 06/18/19 21:52 73 18 40 06/18/19 21:30 82 23 115/66 (82) 97 06/18/19 21:00 74 21 113/60 (77) 98 06/18/19 21:00 100/49 06/18/19 20:45 115/68 06/18/19 20:30 75 18 119/72 (88) 99 06/18/19 20:00 98.2 72 16 119/63 (81) 100 06/18/19 20:00 121/56 06/18/19 20:00 69 06/18/19 20:00 40 06/18/19 20:00 Mechanical Ventilator 06/18/19 19:32 68 17 40 06/18/19 19:30 70 16 121/57 (78) 100 06/18/19 19:00 70 17 119/56 (77) 100 06/18/19 19:00 119/56 06/18/19 18:00 118/70 06/18/19 18:00 73 17 116/54 (74) 100 06/18/19 17:30 73 15 119/56 (77) 100 06/18/19 17:00 82 17 40 06/18/19 17:00 74 17 119/54 (75) 100 06/18/19 17:00 118/58 06/18/19 16:30 75 15 122/56 (78) 100 06/18/19 16:00 Mechanical Ventilator 06/18/19 16:00 109/51 06/18/19 16:00 72 06/18/19 16:00 98.2 74 18 109/51 (70) 99 06/18/19 16:00 40 Intake and Output 06/18/19 06/19/19 19:00 07:00 Intake Total 1161.965 ml 474.91 ml Output Total 385 ml 390 ml Balance 776.965 ml 84.91 ml Intake IV Total 841.965 ml 414.91 ml Tube Feeding 260 ml 60 ml Other 60 ml Output Urine Total 385 ml 390 ml # Bowel Movements 1 4 Laboratory Tests Test 06/18/19 17:50 06/19/19 04:00 Stool Occult Blood Negative (NEGATIVE) White Blood Count 9.9 K/UL (4.8-10.8) Red Blood Count 3.22 M/UL (4.20-5.40) L Hemoglobin 9.7 G/DL (12.0-16.0) L Hematocrit 28.9 % (37.0-47.0) L Mean Corpuscular Volume 90 FL (80-99) Mean Corpuscular Hemoglobin 30.2 PG (27.0-31.0) Mean Corpuscular Hemoglobin Concent 33.6 G/DL (32.0-36.0) Red Cell Distribution Width 14.2 % (11.6-14.8) Platelet Count 51 K/UL (150-450) L Mean Platelet Volume 9.9 FL (6.5-10.1) Neutrophils (%) (Auto) % (45.0-75.0) Lymphocytes (%) (Auto) % (20.0-45.0) Monocytes (%) (Auto) % (1.0-10.0) Eosinophils (%) (Auto) % (0.0-3.0) Basophils (%) (Auto) % (0.0-2.0) Differential Total Cells Counted 100 Neutrophils % (Manual) 84 % (45-75) H Lymphocytes % (Manual) 13 % (20-45) L Monocytes % (Manual) 3 % (1-10) Eosinophils % (Manual) 0 % (0-3) Basophils % (Manual) 0 % (0-2) Band Neutrophils 0 % (0-8) Platelet Estimate Decreased L Platelet Morphology Normal Red Blood Cell Morphology Normal Sodium Level 135 MMOL/L (136-145) L Potassium Level 3.4 MMOL/L (3.5-5.1) L Chloride Level 103 MMOL/L (98-107) Carbon Dioxide Level 27 MMOL/L (21-32) Anion Gap 5 mmol/L (5-15) Blood Urea Nitrogen 18 mg/dL (7-18) Creatinine 1.0 MG/DL (0.55-1.30) Estimat Glomerular Filtration Rate > 60 mL/min (>60) Glucose Level 182 MG/DL (74-106) H Calcium Level 8.2 MG/DL (8.5-10.1) L Phosphorus Level 1.9 MG/DL (2.5-4.9) L Magnesium Level 1.4 MG/DL (1.8-2.4) L Objective HEAD AND NECK: No JVD. Orally intubated with NG tube in LUNGS: Bilateral rhonchi. CARDIOVASCULAR: Tachy S1 and S2 with no gallop. ABDOMEN: Soft. EXTREMITIES: No pitting edema. Ruben Grissom MD Jun 19, 2019 15:44
--- NOTE | 2019-06-19 16:40 | Diagnostic Imaging Report ---
Indication: Abdominal pain Technique: Multiple tiny grayscale and duplex Doppler imaging of the abdomen Comparison: None Findings: Imaged portions of the pancreatic head grossly unremarkable. Multiple prominent vascular structures noted in the region of the kelly hepatis/pancreatic head. Liver is normal in size of the right hepatic lobe measuring 13 cm in length. Hepatic echotexture is coarsened. The hepatic contour is not definitely nodular. No focal hepatic mass lesion is appreciated sonographically. The portal vein is patent however there is variable flow in the portal vein, with to and fro flow as well as some observed reversal of portal venous flow. Grayscale images demonstrate no evidence of clot within the main portal vein. Gallbladder is not visualized. Correlate for history of cholecystectomy. No appreciable biliary ductal dilatation identified. Common bile duct measures 4 mm diameter. Kidneys demonstrate normal echogenicity. There is no hydronephrosis or sonographically appreciable renal stone. Spleen is normal in size measuring 10 cm in length. Trace ascites and bilateral pleural effusions are noted. Aorta is ectatic with calcifications but measures less than 3 cm in AP on all obtained images. IMPRESSION: * Coarsened hepatic echotexture and variable flow in the portal vein (to-and-fro flow as well as flow reversal demonstrated). Possibility of changes related to portal hypertension can be considered. * Grayscale images demonstrate no evidence of clot within the main portal vein. * Gallbladder not visualized. Correlate for history of cholecystectomy. * Trace ascites. * Bilateral pleural effusions. * Pulmonary vasculature in the kelly hepatis. Varices not excluded. Consider further evaluation with CT of the abdomen with IV contrast.
[2019-06-19] MEDS: Dyna-Hex 2% Top Sol 2oz TOPIC SCH (19:58)
[2019-06-19] MEDS: Vancomycin 1.5gm/NS Premix q24h IVPB SCH (20:08)
[2019-06-19] MEDS: DOPamine 400mg/250ml 250 ML IV SCH (20:17)
--- NOTE | 2019-06-19 21:53 | General Progress Note ---
Assessment/Plan Problem List: (1) Hypoglycemia ICD Codes: E16.2 - Hypoglycemia, unspecified SNOMED: 079844139 (2) Leukopenia ICD Codes: D72.819 - Decreased white blood cell count, unspecified SNOMED: 74093400, 163302741 (3) Pneumonia ICD Codes: J18.9 - Pneumonia, unspecified organism SNOMED: 301996022, 246566540 Status: unchanged, deteriorating Assessment/Plan: resp failure abx per id pna low k.improved s/p pressor septic shock thrombocytopenia moniter for bleeding very poor prognosis Subjective ROS Limited/Unobtainable: Yes Allergies: Coded Allergies: MORPHINE (Unverified Allergy, Unknown, 06/15/19) Objective Last 24 Hour Vital Signs Date Time Temp Pulse Resp B/P (MAP) Pulse Ox O2 Delivery O2 Flow Rate FiO2 06/19/19 21:45 69 23 40 06/19/19 21:00 69 16 100/59 (73) 100 06/19/19 21:00 107/95 06/19/19 20:30 73 18 103/48 (66) 100 06/19/19 20:17 107/95 06/19/19 20:16 107/95 06/19/19 20:00 98.0 71 17 107/95 (99) 100 06/19/19 20:00 74 06/19/19 20:00 40 06/19/19 20:00 107/95 06/19/19 20:00 Mechanical Ventilator 06/19/19 19:30 71 18 92/51 (65) 100 06/19/19 19:12 72 18 40 06/19/19 19:00 71 16 99/57 (71) 100 06/19/19 19:00 91/53 06/19/19 18:30 69 15 91/53 (66) 100 06/19/19 18:00 68 17 98/53 (68) 100 06/19/19 18:00 98/53 06/19/19 17:30 68 17 98/51 (67) 100 06/19/19 17:00 68 17 98/57 (71) 100 06/19/19 17:00 98/57 06/19/19 16:32 71 17 40 06/19/19 16:30 68 17 93/49 (64) 100 06/19/19 16:00 114/56 06/19/19 16:00 40 06/19/19 16:00 98.4 66 18 114/56 (75) 100 06/19/19 16:00 Mechanical Ventilator 06/19/19 16:00 70 06/19/19 15:30 73 16 114/61 (78) 100 06/19/19 15:00 71 16 113/61 (78) 100 06/19/19 15:00 113/61 06/19/19 14:56 73 21 40 06/19/19 14:30 70 18 113/57 (75) 100 06/19/19 14:00 115/63 06/19/19 14:00 71 16 108/59 (75) 100 06/19/19 13:30 72 16 115/58 (77) 100 06/19/19 13:04 64 19 40 06/19/19 13:00 117/58 06/19/19 13:00 71 16 117/58 (77) 100 06/19/19 12:30 70 20 116/62 (80) 100 06/19/19 12:00 98.9 71 20 117/61 (79) 100 06/19/19 12:00 40 06/19/19 12:00 67 06/19/19 12:00 117/61 06/19/19 12:00 Mechanical Ventilator 06/19/19 11:30 71 19 117/68 (84) 100 06/19/19 11:00 73 17 110/55 (73) 100 06/19/19 11:00 110/55 06/19/19 10:30 73 21 101/57 (72) 100 06/19/19 10:25 80 20 40 06/19/19 10:00 109/56 06/19/19 10:00 79 25 108/55 (72) 100 06/19/19 09:30 74 18 111/54 (73) 100 06/19/19 09:17 100 06/19/19 09:17 71 22 40 40 06/19/19 09:00 108/55 06/19/19 09:00 68 20 114/67 (83) 100 06/19/19 08:30 67 26 114/67 (83) 100 06/19/19 08:00 Mechanical Ventilator 06/19/19 08:00 98.0 69 21 111/62 (78) 100 06/19/19 08:00 40 06/19/19 08:00 111/54 06/19/19 08:00 73 06/19/19 07:30 70 19 107/69 (82) 100 06/19/19 07:00 67 18 107/51 (69) 100 06/19/19 07:00 123/56 06/19/19 06:30 68 19 120/56 (77) 100 06/19/19 06:30 74 25 40 06/19/19 06:23 123/56 06/19/19 06:00 65 19 123/56 (78) 100 06/19/19 06:00 123/55 06/19/19 05:30 67 19 100/50 (67) 100 06/19/19 05:13 67 18 40 06/19/19 05:00 66 19 85/45 (58) 100 06/19/19 05:00 85/45 06/19/19 04:30 72 19 92/45 (61) 100 06/19/19 04:00 Mechanical Ventilator 06/19/19 04:00 69 06/19/19 04:00 40 06/19/19 04:00 40 06/19/19 04:00 88/50 06/19/19 04:00 98.2 74 19 88/50 (63) 100 06/19/19 03:30 70 15 120/71 (87) 100 06/19/19 03:20 73 20 40 06/19/19 03:00 132/71 06/19/19 03:00 68 20 132/71 (91) 100 06/19/19 02:30 74 20 82/60 (67) 100 06/19/19 02:00 75 20 130/62 (84) 100 06/19/19 02:00 130/62 06/19/19 01:30 72 20 121/60 (80) 100 06/19/19 01:00 127/62 06/19/19 01:00 73 20 127/62 (83) 100 06/19/19 00:40 76 21 40 06/19/19 00:30 70 20 113/60 (77) 100 06/19/19 00:00 40 06/19/19 00:00 98.0 72 20 114/57 (76) 100 06/19/19 00:00 114/57 06/19/19 00:00 70 06/19/19 00:00 Mechanical Ventilator 06/18/19 23:30 76 22 101/37 (58) 99 06/18/19 23:19 71 18 40 06/18/19 23:00 113/63 06/18/19 23:00 73 16 113/63 (80) 100 06/18/19 22:00 121/64 06/18/19 22:00 72 23 121/84 (96) 97 06/18/19 21:52 73 18 40 Intake and Output 06/18/19 06/19/19 19:00 07:00 Intake Total 1161.965 ml 474.91 ml Output Total 385 ml 390 ml Balance 776.965 ml 84.91 ml Intake IV Total 841.965 ml 414.91 ml Tube Feeding 260 ml 60 ml Other 60 ml Output Urine Total 385 ml 390 ml # Bowel Movements 1 4 Laboratory Tests 06/19/19 04:00: White Blood Count 9.9, Red Blood Count 3.22L, Hemoglobin 9.7L, Hematocrit 28.9L , Mean Corpuscular Volume 90, Mean Corpuscular Hemoglobin 30.2, Mean Corpuscular Hemoglobin Concent 33.6, Red Cell Distribution Width 14.2, Platelet Count 51L, Mean Platelet Volume 9.9, Neutrophils (%) (Auto) , Lymphocytes (%) ( Auto) , Monocytes (%) (Auto) , Eosinophils (%) (Auto) , Basophils (%) (Auto) , Differential Total Cells Counted 100, Neutrophils % (Manual) 84H, Lymphocytes % (Manual) 13L, Monocytes % (Manual) 3, Eosinophils % (Manual) 0, Basophils % ( Manual) 0, Band Neutrophils 0, Platelet Estimate DecreasedL, Platelet Morphology Normal, Red Blood Cell Morphology Normal, Sodium Level 135L, Potassium Level 3.4L, Chloride Level 103, Carbon Dioxide Level 27, Anion Gap 5, Blood Urea Nitrogen 18, Creatinine 1.0, Estimat Glomerular Filtration Rate > 60 , Glucose Level 182H, Calcium Level 8.2L, Phosphorus Level 1.9L, Magnesium Level 1.4L 06/19/19 17:45: Vancomycin Level Trough 7.4 Height (Feet): 5 Height (Inches): 5.00 Weight (Pounds): 180 General Appearance: lethargic, confused Respiratory/Chest: rhonchi - bilaterally Jayjay Chandler MD Jun 19, 2019 21:53
[2019-06-20] VITALS (44 sets, daily range): BP systolic 85–108; BP diastolic 42–80
[2019-06-20 04:28] LABS: HEMOGLOBIN 9.1 G/DL (12.0-16.0); MEAN CORPUSCULAR VOLUME 89 FL (80-99); PLATELET COUNT 66 K/UL (150-450); RED BLOOD COUNT 3.03 M/UL (4.20-5.40); RED CELL DISTRIBUTION WIDTH 13.7 % (11.6-14.8); WHITE BLOOD COUNT 7.8 K/UL (4.8-10.8)
[2019-06-20 04:42] LABS: ANION GAP 3 mmol/L (5-15); BLOOD UREA NITROGEN 18 mg/dL (7-18); CALCIUM 8.1 MG/DL (8.5-10.1); CARBON DIOXIDE 27 MMOL/L (21-32); CHLORIDE 105 MMOL/L (98-107); CREATININE 0.9 MG/DL (0.55-1.30); PHOSPHORUS 2.2 MG/DL (2.5-4.9); POTASSIUM 3.6 MMOL/L (3.5-5.1); SODIUM 135 MMOL/L (136-145)
[2019-06-20] MEDS: Cefepime HCl 1 GM in D5W 55 ML IVPB SCH ×2 (05:49→18:32)
[2019-06-20] MEDS: Pantoprazole Inj IVP SCH (08:46)
[2019-06-20] MEDS: Eliquis 5mg tablet ORAL SCH ×2 (08:47→18:30)
--- NOTE | 2019-06-20 09:55 | Pulmonology Progress Note ---
Assessment/Plan Assessment/Plan IMPRESSION: 1. Bilateral pneumonia, high suspicion for COVID-19 but results negative. 2. History of CHF. 3. Shock; on 3mcg Levophed DISCUSSION: Intubated remains on assist-control mechanical ventilation. FiO2 now 50% ABG improved; on CPAP; will try and extubate Wean off Levophed On pressors I will continue empiric antibiotics. Her influenza A and B are negative. I will follow carefully. Aly Pinto M.D. Subjective Interval Events: Looking better Constitutional: Reports: no symptoms HEENT: Repors: no symptoms Respiratory: Reports: no symptoms Cardiovascular: Reports: no symptoms Gastrointestinal/Abdominal: Reports: no symptoms Allergies: Coded Allergies: MORPHINE (Unverified Allergy, Unknown, 06/15/19) Objective Last 24 Hour Vital Signs Date Time Temp Pulse Resp B/P (MAP) Pulse Ox O2 Delivery O2 Flow Rate FiO2 06/20/19 09:28 73 27 40 40 06/20/19 09:00 110 24 108/53 (71) 100 06/20/19 08:00 98.9 110 24 102/53 (69) 100 06/20/19 08:00 40 06/20/19 07:55 68 24 40 40 06/20/19 07:55 40 06/20/19 07:12 69 15 40 06/20/19 07:00 93/44 06/20/19 07:00 78 16 93/44 (60) 100 06/20/19 06:30 72 16 98/49 (65) 100 06/20/19 06:00 101/54 06/20/19 06:00 78 17 101/54 (70) 100 06/20/19 05:08 69 17 40 06/20/19 05:00 70 16 92/44 (60) 100 06/20/19 05:00 106/57 06/20/19 04:30 71 16 106/54 (71) 100 06/20/19 04:00 40 06/20/19 04:00 100/57 06/20/19 04:00 75 06/20/19 04:00 99.5 73 16 100/57 (71) 99 06/20/19 04:00 Mechanical Ventilator 06/20/19 03:35 74 18 40 06/20/19 03:30 72 16 93/47 (62) 99 06/20/19 03:00 70 13 95/47 (63) 100 06/20/19 03:00 95/47 06/20/19 02:30 70 15 108/50 (69) 100 06/20/19 02:00 103/51 06/20/19 02:00 69 15 103/51 (68) 100 06/20/19 01:30 71 18 101/47 (65) 100 06/20/19 01:19 76 19 40 06/20/19 01:00 72 18 106/55 (72) 100 06/20/19 01:00 105/57 06/20/19 00:30 70 17 105/57 (73) 100 06/20/19 00:00 99.0 69 16 105/80 (88) 100 06/20/19 00:00 105/50 06/20/19 00:00 Mechanical Ventilator 06/20/19 00:00 71 06/20/19 00:00 40 06/19/19 23:50 63 15 40 06/19/19 23:30 69 16 102/80 (87) 100 06/19/19 23:00 71 18 95/54 (68) 100 06/19/19 23:00 95/54 06/19/19 22:30 70 18 102/56 (71) 100 06/19/19 22:00 105/60 06/19/19 22:00 68 16 105/60 (75) 100 06/19/19 21:45 69 23 40 06/19/19 21:30 70 17 108/57 (74) 100 06/19/19 21:00 69 16 100/59 (73) 100 06/19/19 21:00 107/95 06/19/19 20:30 73 18 103/48 (66) 100 06/19/19 20:17 107/95 06/19/19 20:16 107/95 06/19/19 20:00 98.0 71 17 107/95 (99) 100 06/19/19 20:00 74 06/19/19 20:00 40 06/19/19 20:00 107/95 06/19/19 20:00 Mechanical Ventilator 06/19/19 19:30 71 18 92/51 (65) 100 06/19/19 19:12 72 18 40 06/19/19 19:00 71 16 99/57 (71) 100 06/19/19 19:00 91/53 06/19/19 18:30 69 15 91/53 (66) 100 06/19/19 18:00 68 17 98/53 (68) 100 06/19/19 18:00 98/53 06/19/19 17:30 68 17 98/51 (67) 100 06/19/19 17:00 68 17 98/57 (71) 100 06/19/19 17:00 98/57 06/19/19 16:32 71 17 40 06/19/19 16:30 68 17 93/49 (64) 100 06/19/19 16:00 114/56 06/19/19 16:00 40 06/19/19 16:00 98.4 66 18 114/56 (75) 100 06/19/19 16:00 Mechanical Ventilator 06/19/19 16:00 70 06/19/19 15:30 73 16 114/61 (78) 100 06/19/19 15:00 71 16 113/61 (78) 100 06/19/19 15:00 113/61 06/19/19 14:56 73 21 40 06/19/19 14:30 70 18 113/57 (75) 100 06/19/19 14:00 115/63 06/19/19 14:00 71 16 108/59 (75) 100 06/19/19 13:30 72 16 115/58 (77) 100 06/19/19 13:04 64 19 40 06/19/19 13:00 117/58 06/19/19 13:00 71 16 117/58 (77) 100 06/19/19 12:30 70 20 116/62 (80) 100 06/19/19 12:00 98.9 71 20 117/61 (79) 100 06/19/19 12:00 40 06/19/19 12:00 67 06/19/19 12:00 117/61 06/19/19 12:00 Mechanical Ventilator 06/19/19 11:30 71 19 117/68 (84) 100 06/19/19 11:00 73 17 110/55 (73) 100 06/19/19 11:00 110/55 06/19/19 10:30 73 21 101/57 (72) 100 06/19/19 10:25 80 20 40 06/19/19 10:00 109/56 06/19/19 10:00 79 25 108/55 (72) 100 Intake and Output 06/19/19 06/20/19 19:00 07:00 Intake Total 744.576 ml 1000.32 ml Output Total 517 ml 340 ml Balance 227.576 ml 660.32 ml Intake IV Total 714.576 ml 735.32 ml Tube Feeding 30 ml 265 ml Output Urine Total 517 ml 340 ml General Appearance: no acute distress HEENT: normocephalic Respiratory/Chest: chest wall non-tender, lungs clear Cardiovascular: normal peripheral pulses, normal rate Abdomen: normal bowel sounds Laboratory Tests 06/19/19 17:45: Vancomycin Level Trough 7.4 06/20/19 04:06: White Blood Count 7.8, Red Blood Count 3.03L, Hemoglobin 9.1L, Hematocrit 27.0L , Mean Corpuscular Volume 89, Mean Corpuscular Hemoglobin 30.0, Mean Corpuscular Hemoglobin Concent 33.7, Red Cell Distribution Width 13.7, Platelet Count 66L, Mean Platelet Volume 9.1, Neutrophils (%) (Auto) , Lymphocytes (%) ( Auto) , Monocytes (%) (Auto) , Eosinophils (%) (Auto) , Basophils (%) (Auto) , Differential Total Cells Counted 100, Neutrophils % (Manual) 70, Lymphocytes % ( Manual) 15L, Monocytes % (Manual) 13H, Eosinophils % (Manual) 2, Basophils % ( Manual) 0, Band Neutrophils 0, Platelet Estimate Adequate, Platelet Morphology Normal, Hypochromasia 2+, Anisocytosis 1+, Sodium Level 135L, Potassium Level 3.6, Chloride Level 105, Carbon Dioxide Level 27, Anion Gap 3L, Blood Urea Nitrogen 18, Creatinine 0.9, Estimat Glomerular Filtration Rate > 60, Glucose Level 166H, Calcium Level 8.1L, Phosphorus Level 2.2L, Magnesium Level 1.7L 06/20/19 09:36: Arterial Blood pH 7.392, Arterial Blood Partial Pressure CO2 41.5, Arterial Blood Partial Pressure O2 97.5, Arterial Blood HCO3 24.7, Arterial Blood Oxygen Saturation 94.7L, Arterial Blood Base Excess -0.3, Julius Test Positive Current Medications Medications (Trade) Dose Ordered Sig/Emil Route PRN Reason Start Time Stop Time Status Last Admin Dose Admin Acetaminophen (Tylenol) 650 mg Q4H PRN ORAL Mild Pain/Temp > 100.5 06/15/19 14:30 07/15/19 14:29 Apixaban (Eliquis) 5 mg BID ORAL 06/17/19 18:00 09/15/19 17:59 Cefepime HCl 1 gm/ Dextrose 55 ml @ 110 mls/hr Q12H IVPB 06/16/19 18:00 06/23/19 17:59 06/20/19 05:49 Chlorhexidine Gluconate (Susie-Hex 2%) 1 applic DAILY@2000 TOPIC 06/16/19 20:00 09/14/19 19:59 06/19/19 19:58 Dextrose (Dextrose 50%) 50 ml Q30M PRN IV Hypoglycemia 06/15/19 14:45 09/13/19 14:44 Dopamine HCl/ Dextrose 250 ml @ 0 mls/hr Q24H IV 06/15/19 20:45 09/13/19 20:44 06/15/19 21:43 Magnesium Sulfate 100 ml @ 100 mls/hr Q1H IVPB 06/20/19 10:30 06/20/19 12:29 Metoclopramide HCl (Reglan) 5 mg Q8H PRN IVP Nausea & Vomiting 06/19/19 09:30 07/19/19 09:29 Norepinephrine Bitartrate 8 mg/ Dextrose 558 ml @ 0 mls/hr Q24H IV 06/16/19 09:00 07/16/19 08:59 06/19/19 20:16 Pantoprazole (Protonix) 40 mg DAILY IVP 06/16/19 09:00 07/16/19 08:59 06/20/19 08:46 Vancomycin HCl (Vanco rx to dose) 1 ea DAILY PRN MISC Per rx protocol 06/17/19 11:15 07/17/19 11:14 Vancomycin/Sodium Chloride 275 ml @ 137.5 mls/ hr Q24H IVPB 06/19/19 20:00 06/24/19 19:59 06/19/19 20:08 Aly Pinto MD Jun 20, 2019 09:55
[2019-06-20] MEDS ORDERED: Albuterol/Ipratropium 3ml neb HHN PRN (11:30)
--- NOTE | 2019-06-20 12:55 | Cardiac Electrophysiology PN ---
Assessment/Plan Assessment/Plan 1. S/P Respiratory failure due to bilateral MRSA pneumonia and CHF Echo EF 60%. Extubated today. COVID 19 result negative 2. Troponin leak. No acute ECG findings. Likely due to septic shock and demand ischemia 3. Atrial fib off anticoagulation for Severe thrombocytopenia. Off AVN violette for hypotension. If develops atrial fib with RVR will load with digoxin.In SR 4. Septic shock on Levophed 2 mck and abx by Dr. Pinto and Dr. Blue. 5. History of psychiatric history. 6. History of cellulitis. RYANN RN Subjective Subjective Extubated today in ICU and Levophed now decreased to 2 Mc/mi. In SR Objective Last 24 Hour Vital Signs Date Time Temp Pulse Resp B/P (MAP) Pulse Ox O2 Delivery O2 Flow Rate FiO2 06/20/19 11:34 Venturi Mask 10.0 40 06/20/19 11:20 100 06/20/19 11:02 79 32 40 40 06/20/19 09:28 73 27 40 40 06/20/19 09:00 110 24 108/53 (71) 100 06/20/19 08:00 98.9 110 24 102/53 (69) 100 06/20/19 08:00 Mechanical Ventilator 06/20/19 08:00 40 06/20/19 08:00 72 06/20/19 07:55 68 24 40 40 06/20/19 07:55 40 06/20/19 07:12 69 15 40 06/20/19 07:00 93/44 06/20/19 07:00 78 16 93/44 (60) 100 06/20/19 06:30 72 16 98/49 (65) 100 06/20/19 06:00 101/54 06/20/19 06:00 78 17 101/54 (70) 100 06/20/19 05:08 69 17 40 06/20/19 05:00 70 16 92/44 (60) 100 06/20/19 05:00 106/57 06/20/19 04:30 71 16 106/54 (71) 100 06/20/19 04:00 40 06/20/19 04:00 100/57 06/20/19 04:00 75 06/20/19 04:00 99.5 73 16 100/57 (71) 99 3/28/20 04:00 Mechanical Ventilator 06/20/19 03:35 74 18 40 06/20/19 03:30 72 16 93/47 (62) 99 06/20/19 03:00 70 13 95/47 (63) 100 06/20/19 03:00 95/47 06/20/19 02:30 70 15 108/50 (69) 100 06/20/19 02:00 103/51 06/20/19 02:00 69 15 103/51 (68) 100 06/20/19 01:30 71 18 101/47 (65) 100 06/20/19 01:19 76 19 40 06/20/19 01:00 72 18 106/55 (72) 100 06/20/19 01:00 105/57 06/20/19 00:30 70 17 105/57 (73) 100 06/20/19 00:00 99.0 69 16 105/80 (88) 100 06/20/19 00:00 105/50 06/20/19 00:00 Mechanical Ventilator 06/20/19 00:00 71 06/20/19 00:00 40 06/19/19 23:50 63 15 40 06/19/19 23:30 69 16 102/80 (87) 100 06/19/19 23:00 71 18 95/54 (68) 100 06/19/19 23:00 95/54 06/19/19 22:30 70 18 102/56 (71) 100 06/19/19 22:00 105/60 06/19/19 22:00 68 16 105/60 (75) 100 06/19/19 21:45 69 23 40 06/19/19 21:30 70 17 108/57 (74) 100 06/19/19 21:00 69 16 100/59 (73) 100 06/19/19 21:00 107/95 06/19/19 20:30 73 18 103/48 (66) 100 06/19/19 20:17 107/95 06/19/19 20:16 107/95 06/19/19 20:00 98.0 71 17 107/95 (99) 100 06/19/19 20:00 74 06/19/19 20:00 40 06/19/19 20:00 107/95 06/19/19 20:00 Mechanical Ventilator 06/19/19 19:30 71 18 92/51 (65) 100 06/19/19 19:12 72 18 40 06/19/19 19:00 71 16 99/57 (71) 100 06/19/19 19:00 91/53 06/19/19 18:30 69 15 91/53 (66) 100 06/19/19 18:00 68 17 98/53 (68) 100 06/19/19 18:00 98/53 06/19/19 17:30 68 17 98/51 (67) 100 06/19/19 17:00 68 17 98/57 (71) 100 06/19/19 17:00 98/57 06/19/19 16:32 71 17 40 06/19/19 16:30 68 17 93/49 (64) 100 06/19/19 16:00 114/56 06/19/19 16:00 40 06/19/19 16:00 98.4 66 18 114/56 (75) 100 06/19/19 16:00 Mechanical Ventilator 06/19/19 16:00 70 06/19/19 15:30 73 16 114/61 (78) 100 06/19/19 15:00 71 16 113/61 (78) 100 06/19/19 15:00 113/61 06/19/19 14:56 73 21 40 06/19/19 14:30 70 18 113/57 (75) 100 06/19/19 14:00 115/63 06/19/19 14:00 71 16 108/59 (75) 100 06/19/19 13:30 72 16 115/58 (77) 100 06/19/19 13:04 64 19 40 06/19/19 13:00 117/58 06/19/19 13:00 71 16 117/58 (77) 100 Intake and Output 06/19/19 06/20/19 18:59 06:59 Intake Total 797.946 ml 967.88 ml Output Total 542 ml 355 ml Balance 255.946 ml 612.88 ml Intake IV Total 777.946 ml 692.88 ml Tube Feeding 20 ml 275 ml Output Urine Total 542 ml 355 ml Laboratory Tests Test 06/19/19 17:45 06/20/19 04:06 06/20/19 09:36 06/20/19 12:37 Vancomycin Level Trough 7.4 ug/mL (5.0-12.0) White Blood Count 7.8 K/UL (4.8-10.8) Red Blood Count 3.03 M/UL (4.20-5.40) L Hemoglobin 9.1 G/DL (12.0-16.0) L Hematocrit 27.0 % (37.0-47.0) L Mean Corpuscular Volume 89 FL (80-99) Mean Corpuscular Hemoglobin 30.0 PG (27.0-31.0) Mean Corpuscular Hemoglobin Concent 33.7 G/DL (32.0-36.0) Red Cell Distribution Width 13.7 % (11.6-14.8) Platelet Count 66 K/UL (150-450) L Mean Platelet Volume 9.1 FL (6.5-10.1) Neutrophils (%) (Auto) % (45.0-75.0) Lymphocytes (%) (Auto) % (20.0-45.0) Monocytes (%) (Auto) % (1.0-10.0) Eosinophils (%) (Auto) % (0.0-3.0) Basophils (%) (Auto) % (0.0-2.0) Differential Total Cells Counted 100 Neutrophils % (Manual) 70 % (45-75) Lymphocytes % (Manual) 15 % (20-45) L Monocytes % (Manual) 13 % (1-10) H Eosinophils % (Manual) 2 % (0-3) Basophils % (Manual) 0 % (0-2) Band Neutrophils 0 % (0-8) Platelet Estimate Adequate Platelet Morphology Normal Hypochromasia 2+ Anisocytosis 1+ Sodium Level 135 MMOL/L (136-145) L Potassium Level 3.6 MMOL/L (3.5-5.1) Chloride Level 105 MMOL/L (98-107) Carbon Dioxide Level 27 MMOL/L (21-32) Anion Gap 3 mmol/L (5-15) L Blood Urea Nitrogen 18 mg/dL (7-18) Creatinine 0.9 MG/DL (0.55-1.30) Estimat Glomerular Filtration Rate > 60 mL/min (>60) Glucose Level 166 MG/DL (74-106) H Calcium Level 8.1 MG/DL (8.5-10.1) L Phosphorus Level 2.2 MG/DL (2.5-4.9) L Magnesium Level 1.7 MG/DL (1.8-2.4) L Arterial Blood pH 7.392 (7.350-7.450) 7.326 (7.350-7.450) Arterial Blood Partial Pressure CO2 41.5 mmHg (35.0-45.0) 48.2 mmHg (35.0-45.0) H Arterial Blood Partial Pressure O2 97.5 mmHg (75.0-100.0) 62.6 mmHg (75.0-100.0) L Arterial Blood HCO3 24.7 mmol/L (22.0-26.0) 24.6 mmol/L (22.0-26.0) Arterial Blood Oxygen Saturation 94.7 % (95-100) L 89.6 % (95-100) *L Arterial Blood Base Excess -0.3 (-2-2) -1.5 (-2-2) Julius Test Positive Positive Objective HEAD AND NECK: No JVD. NG tube in LUNGS: Bilateral rhonchi. CARDIOVASCULAR: Regular S1 and S2 with no gallop. ABDOMEN: Soft. EXTREMITIES: No pitting edema. Ruben Grissom MD Jun 20, 2019 12:55
--- NOTE | 2019-06-20 18:20 | General Progress Note ---
Assessment/Plan Status: unchanged, deteriorating Assessment/Plan: Assessment/Plan 1. Mild anemia. 2. Thrombocytopenia. 3. Coagulopathy, mild. 4. Elevated troponin. 5. Hypoalbuminemia. 6. Respiratory failure. 7. Diabetes per chart. Recommendations start low dose reglan for elevated residuals replace mag, phos and K fu abd us fu stool ob fu labs pulm care repeat labs Subjective Allergies: Coded Allergies: MORPHINE (Unverified Allergy, Unknown, 06/15/19) Subjective Above noted seen in ICU d/w RN TF at 30 cc/hr Residual 50 cc Objective Last 24 Hour Vital Signs Date Time Temp Pulse Resp B/P (MAP) Pulse Ox O2 Delivery O2 Flow Rate FiO2 06/20/19 17:13 65 21 100 50 06/20/19 17:00 67 21 108/56 (73) 100 06/20/19 16:30 72 23 98/50 (66) 100 06/20/19 16:00 Bi-pap 06/20/19 16:00 98.9 69 23 105/51 (69) 100 06/20/19 16:00 69 06/20/19 15:30 69 24 106/51 (69) 100 06/20/19 15:00 69 24 104/60 (75) 100 06/20/19 14:50 71 26 100 50 06/20/19 14:30 69 25 103/51 (68) 100 06/20/19 14:00 69 25 96/48 (64) 100 06/20/19 13:30 70 25 87/44 (58) 100 06/20/19 13:00 50 06/20/19 13:00 78 29 92 Bi-Pap 50 06/20/19 13:00 75 27 86/46 (59) 98 06/20/19 13:00 74 28 95 50 06/20/19 12:30 82 28 85/42 (56) 96 06/20/19 12:06 82 22 100 Cool Aerosol 10.0 40 90 24 85 06/20/19 12:00 78 06/20/19 12:00 98.8 86 28 107/53 (71) 100 06/20/19 12:00 107/53 06/20/19 12:00 Simple Mask 8.0 06/20/19 12:00 8.0 40 06/20/19 11:34 Venturi Mask 10.0 40 06/20/19 11:30 78 28 89/45 (60) 95 06/20/19 11:25 8.0 40 06/20/19 11:20 100 06/20/19 11:02 79 32 40 40 06/20/19 11:00 74 29 97 06/20/19 11:00 83/45 06/20/19 10:30 75 28 98/47 (64) 98 06/20/19 10:00 74 27 92/50 (64) 98 06/20/19 10:00 92/50 06/20/19 09:30 73 29 108/55 (72) 100 06/20/19 09:28 73 27 40 40 06/20/19 09:00 110 24 108/53 (71) 100 06/20/19 09:00 98/52 06/20/19 08:30 98/49 (65) 06/20/19 08:00 98.9 110 24 102/53 (69) 100 06/20/19 08:00 Mechanical Ventilator 06/20/19 08:00 40 06/20/19 08:00 102/53 06/20/19 08:00 72 06/20/19 07:55 68 24 40 40 06/20/19 07:55 40 06/20/19 07:30 101/55 (70) 06/20/19 07:12 69 15 40 06/20/19 07:00 93/44 06/20/19 07:00 78 16 93/44 (60) 100 06/20/19 06:30 72 16 98/49 (65) 100 06/20/19 06:00 101/54 06/20/19 06:00 78 17 101/54 (70) 100 06/20/19 05:08 69 17 40 06/20/19 05:00 70 16 92/44 (60) 100 06/20/19 05:00 106/57 06/20/19 04:30 71 16 106/54 (71) 100 06/20/19 04:00 40 06/20/19 04:00 100/57 06/20/19 04:00 75 06/20/19 04:00 99.5 73 16 100/57 (71) 99 06/20/19 04:00 Mechanical Ventilator 06/20/19 03:35 74 18 40 06/20/19 03:30 72 16 93/47 (62) 99 06/20/19 03:00 70 13 95/47 (63) 100 06/20/19 03:00 95/47 06/20/19 02:30 70 15 108/50 (69) 100 06/20/19 02:00 103/51 06/20/19 02:00 69 15 103/51 (68) 100 06/20/19 01:30 71 18 101/47 (65) 100 06/20/19 01:19 76 19 40 06/20/19 01:00 72 18 106/55 (72) 100 06/20/19 01:00 105/57 06/20/19 00:30 70 17 105/57 (73) 100 06/20/19 00:00 99.0 69 16 105/80 (88) 100 06/20/19 00:00 105/50 06/20/19 00:00 Mechanical Ventilator 06/20/19 00:00 71 06/20/19 00:00 40 06/19/19 23:50 63 15 40 06/19/19 23:30 69 16 102/80 (87) 100 06/19/19 23:00 71 18 95/54 (68) 100 06/19/19 23:00 95/54 06/19/19 22:30 70 18 102/56 (71) 100 06/19/19 22:00 105/60 06/19/19 22:00 68 16 105/60 (75) 100 06/19/19 21:45 69 23 40 06/19/19 21:30 70 17 108/57 (74) 100 06/19/19 21:00 69 16 100/59 (73) 100 06/19/19 21:00 107/95 06/19/19 20:30 73 18 103/48 (66) 100 06/19/19 20:17 107/95 06/19/19 20:16 107/95 06/19/19 20:00 98.0 71 17 107/95 (99) 100 06/19/19 20:00 74 06/19/19 20:00 40 06/19/19 20:00 107/95 06/19/19 20:00 Mechanical Ventilator 06/19/19 19:30 71 18 92/51 (65) 100 06/19/19 19:12 72 18 40 06/19/19 19:00 71 16 99/57 (71) 100 06/19/19 19:00 91/53 06/19/19 18:30 69 15 91/53 (66) 100 Intake and Output 06/19/19 06/20/19 19:00 07:00 Intake Total 744.576 ml 1000.32 ml Output Total 517 ml 340 ml Balance 227.576 ml 660.32 ml IV Total 714.576 ml 735.32 ml Tube Feeding 30 ml 265 ml Output Urine Total 517 ml 340 ml Laboratory Tests 06/20/19 04:06: White Blood Count 7.8, Red Blood Count 3.03L, Hemoglobin 9.1L, Hematocrit 27.0L , Mean Corpuscular Volume 89, Mean Corpuscular Hemoglobin 30.0, Mean Corpuscular Hemoglobin Concent 33.7, Red Cell Distribution Width 13.7, Platelet Count 66L, Mean Platelet Volume 9.1, Neutrophils (%) (Auto) , Lymphocytes (%) ( Auto) , Monocytes (%) (Auto) , Eosinophils (%) (Auto) , Basophils (%) (Auto) , Differential Total Cells Counted 100, Neutrophils % (Manual) 70, Lymphocytes % ( Manual) 15L, Monocytes % (Manual) 13H, Eosinophils % (Manual) 2, Basophils % ( Manual) 0, Band Neutrophils 0, Platelet Estimate Adequate, Platelet Morphology Normal, Hypochromasia 2+, Anisocytosis 1+, Sodium Level 135L, Potassium Level 3.6, Chloride Level 105, Carbon Dioxide Level 27, Anion Gap 3L, Blood Urea Nitrogen 18, Creatinine 0.9, Estimat Glomerular Filtration Rate > 60, Glucose Level 166H, Calcium Level 8.1L, Phosphorus Level 2.2L, Magnesium Level 1.7L 06/20/19 09:36: Arterial Blood pH 7.392, Arterial Blood Partial Pressure CO2 41.5, Arterial Blood Partial Pressure O2 97.5, Arterial Blood HCO3 24.7, Arterial Blood Oxygen Saturation 94.7L, Arterial Blood Base Excess -0.3, Julius Test Positive 06/20/19 12:37: Arterial Blood pH 7.326L, Arterial Blood Partial Pressure CO2 48.2H, Arterial Blood Partial Pressure O2 62.6L, Arterial Blood HCO3 24.6, Arterial Blood Oxygen Saturation 89.6*L, Arterial Blood Base Excess -1.5, Julius Test Positive Height (Feet): 5 Height (Inches): 5.00 Weight (Pounds): 198 Objective Elderly AA woman (+) ETT, (+) NGT Paula BS RR abd soft no edema Jennyfer Coffman MD Jun 20, 2019 18:20
[2019-06-20] MEDS: Dyna-Hex 2% Top Sol 2oz TOPIC SCH (19:51)
[2019-06-20] MEDS: Vancomycin 1.5gm/NS Premix q24h IVPB SCH (19:52)
[2019-06-20] MEDS: DOPamine 400mg/250ml 250 ML IV SCH (20:45)
--- NOTE | 2019-06-20 21:30 | Progress Note ---
DATE: 06/20/2019 SUBJECTIVE: The patient is intubated, respiratory failure, poor prognosis. ASSESSMENT AND PLAN: Intubated, respiratory failure, pneumonia, sepsis, off and on. The patient is on pressors off and on, afebrile today. Monitor the patient very closely. Antibiotics per Dr. Edin Blue. Prognosis is poor. I have reviewed her laboratories and chart already. Continue medications ordered. Jayjay Chandler M.D. DR: DAVID JOB#: [id number] CC:
[2019-06-21] VITALS (54 sets, daily range): BP systolic 77–129; BP diastolic 42–84
[2019-06-21] MEDS: Cefepime HCl 1 GM in D5W 55 ML IVPB SCH ×2 (05:28→18:15)
[2019-06-21] MEDS: Norepinephrine Bitartrate 8 MG in D5W 500ml 550 ML IV SCH (08:50)
[2019-06-21] MEDS: Pantoprazole Inj IVP SCH (08:51)
[2019-06-21] MEDS: Eliquis 5mg tablet ORAL SCH ×2 (08:51→18:00)
--- NOTE | 2019-06-21 09:56 | Hematology/Onc Progress Note ---
Assessment/Plan Assessment/Plan Assessment and Recs: # Pancytopenia with a decreased wbc and plt, likely related to pna v other cause , meds ntoed --> hepatitis and hiv negative --> smear ordered at this time, no blasts noted, wbc are stable --> us of the abdomen negative for hsm and cirrhosis --> plt 62-->57k-->50k-->51k --> transfuse on prn basis --> neupogen if anc drops to below 1500 # Hypercoagulable disorder with afib --> HOLDING off anticoag --> per cards # Pneumonia on admission --> now intubated --> on abx, cefepime and vanc --> per id and pulm # Hypoglycemia --> d5w given earlier --> now improved # Shortness of breath, likely due to bilateral pneumonia --> echo per cards --> may need diuresis # Respiratory failure with Bilateral lung infiltrate and leukopenia. The patient was already started on Plaquenil 600, azithromycin. --> dr. Pinto on board --> NOW INTUBATED-->bipap --> covid ruled out # History of psychiatric history. # History of cellulitis. 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 06/17 labs reviewed, no bleeding or night sweats, no major meds noted 06/18 remains on levo gtt, with tube feeds, plt 51k.no overt bleeding 06/20 icu, no acute events, cbc pending, bipap, vanc/cefe Objective Objective Current Medications Medications (Trade) Dose Ordered Sig/Emil Route PRN Reason Start Time Stop Time Status Last Admin Dose Admin Acetaminophen (Tylenol) 650 mg Q4H PRN ORAL Mild Pain/Temp > 100.5 06/15/19 14:30 07/15/19 14:29 Albuterol/ Ipratropium (Albuterol/ Ipratropium) 3 ml Q4H PRN HHN Shortness of Breath 06/20/19 11:30 06/25/19 11:29 06/20/19 12:06 Apixaban (Eliquis) 5 mg BID ORAL 06/17/19 18:00 09/15/19 17:59 06/20/19 18:30 Cefepime HCl 1 gm/ Dextrose 55 ml @ 110 mls/hr Q12H IVPB 06/16/19 18:00 06/23/19 17:59 06/21/19 05:28 Chlorhexidine Gluconate (Susie-Hex 2%) 1 applic DAILY@2000 TOPIC 06/16/19 20:00 09/14/19 19:59 06/20/19 19:51 Dextrose (Dextrose 50%) 50 ml Q30M PRN IV Hypoglycemia 06/15/19 14:45 09/13/19 14:44 Dopamine HCl/ Dextrose 250 ml @ 0 mls/hr Q24H IV 06/15/19 20:45 09/13/19 20:44 06/15/19 21:43 Metoclopramide HCl (Reglan) 5 mg Q8H PRN IVP Nausea & Vomiting 06/19/19 09:30 07/19/19 09:29 Norepinephrine Bitartrate 8 mg/ Dextrose 558 ml @ 0 mls/hr Q24H IV 06/16/19 09:00 07/16/19 08:59 06/21/19 08:50 Pantoprazole (Protonix) 40 mg DAILY IVP 06/16/19 09:00 07/16/19 08:59 06/21/19 08:51 Vancomycin HCl (Vanco rx to dose) 1 ea DAILY PRN MISC Per rx protocol 06/17/19 11:15 07/17/19 11:14 Vancomycin/Sodium Chloride 275 ml @ 137.5 mls/ hr Q24H IVPB 06/19/19 20:00 06/24/19 19:59 06/20/19 19:52 Last 24 Hour Vital Signs Date Time Temp Pulse Resp B/P (MAP) Pulse Ox O2 Delivery O2 Flow Rate FiO2 06/21/19 09:00 62 17 105/52 (69) 100 06/21/19 09:00 58 21 100 50 06/21/19 08:50 89/42 06/21/19 08:30 62 17 110/58 (75) 100 06/21/19 08:00 50 06/21/19 08:00 Bi-pap 06/21/19 08:00 98.2 62 17 89/42 (58) 100 06/21/19 07:30 63 18 90/49 (63) 100 06/21/19 07:05 62 22 100 50 06/21/19 07:00 63 20 107/52 (70) 100 06/21/19 06:30 62 19 104/53 (70) 100 06/21/19 06:00 107/60 06/21/19 06:00 62 19 107/60 (76) 100 06/21/19 05:45 64 21 100 50 06/21/19 05:30 68 20 105/55 (72) 100 06/21/19 05:00 106/56 06/21/19 05:00 62 18 106/56 (73) 100 06/21/19 04:30 67 20 103/84 (90) 100 06/21/19 04:06 50 06/21/19 04:05 67 06/21/19 04:00 Bi-pap 06/21/19 04:00 103/72 06/21/19 04:00 65 22 104/58 (73) 100 06/21/19 03:39 71 20 100 Bi-Pap 50 06/21/19 03:30 98.4 67 22 103/72 (82) 100 06/21/19 03:24 68 22 100 50 06/21/19 03:00 64 22 108/58 (75) 100 06/21/19 03:00 108/58 06/21/19 02:30 65 21 95/62 (73) 100 06/21/19 02:00 67 23 105/57 (73) 100 06/21/19 02:00 105/57 06/21/19 01:30 67 22 102/57 (72) 100 06/21/19 01:00 66 23 105/56 (72) 100 06/21/19 01:00 105/56 06/21/19 00:30 67 22 104/55 (71) 100 06/21/19 00:00 98.7 67 21 99/55 (70) 100 06/21/19 00:00 99/55 06/21/19 00:00 Bi-pap 06/21/19 00:00 50 06/21/19 00:00 67 06/20/19 23:30 69 20 103/56 (72) 100 06/20/19 23:00 103/57 06/20/19 23:00 67 22 103/57 (72) 100 06/20/19 22:51 65 19 100 50 06/20/19 22:30 66 20 100/53 (69) 100 06/20/19 22:00 66 21 100/55 (70) 100 06/20/19 22:00 100/55 06/20/19 21:30 67 21 107/61 (76) 100 06/20/19 21:03 67 17 100 50 06/20/19 21:00 65 19 105/58 (74) 100 06/20/19 21:00 105/58 06/20/19 20:45 105/58 06/20/19 20:30 67 21 105/56 (72) 100 06/20/19 20:03 Bi-pap 06/20/19 20:02 50 06/20/19 20:01 66 06/20/19 20:00 68 22 104/55 (71) 100 06/20/19 20:00 105/56 06/20/19 19:30 98.5 66 19 108/57 (74) 100 06/20/19 19:07 74 25 100 50 06/20/19 19:00 106/52 06/20/19 19:00 66 21 106/52 (70) 100 06/20/19 18:00 76 97/54 (68) 06/20/19 17:13 65 21 100 50 06/20/19 17:00 67 21 108/56 (73) 100 06/20/19 16:30 72 23 98/50 (66) 100 06/20/19 16:00 Bi-pap 06/20/19 16:00 98.9 69 23 105/51 (69) 100 06/20/19 16:00 69 06/20/19 15:30 69 24 106/51 (69) 100 06/20/19 15:00 69 24 104/60 (75) 100 06/20/19 14:50 71 26 100 50 06/20/19 14:30 69 25 103/51 (68) 100 06/20/19 14:00 69 25 96/48 (64) 100 06/20/19 13:30 70 25 87/44 (58) 100 06/20/19 13:00 50 06/20/19 13:00 78 29 92 Bi-Pap 50 06/20/19 13:00 75 27 86/46 (59) 98 06/20/19 13:00 74 28 95 50 06/20/19 12:30 82 28 85/42 (56) 96 06/20/19 12:06 82 22 100 Cool Aerosol 10.0 40 90 24 85 06/20/19 12:00 78 06/20/19 12:00 98.8 86 28 107/53 (71) 100 06/20/19 12:00 107/53 06/20/19 12:00 Simple Mask 8.0 06/20/19 12:00 8.0 40 06/20/19 11:34 Venturi Mask 10.0 40 06/20/19 11:30 78 28 89/45 (60) 95 06/20/19 11:25 8.0 40 06/20/19 11:20 100 06/20/19 11:02 79 32 40 40 06/20/19 11:00 74 29 97 06/20/19 11:00 83/45 06/20/19 10:30 75 28 98/47 (64) 98 06/20/19 10:00 74 27 92/50 (64) 98 06/20/19 10:00 92/50 06/20/19 09:30 73 29 108/55 (72) 100 06/20/19 09:28 73 27 40 40 06/20/19 09:00 110 24 108/53 (71) 100 06/20/19 09:00 98/52 06/20/19 08:30 98/49 (65) 06/20/19 08:00 98.9 110 24 102/53 (69) 100 06/20/19 08:00 Mechanical Ventilator 06/20/19 08:00 40 06/20/19 08:00 102/53 06/20/19 08:00 72 06/20/19 07:55 68 24 40 40 06/20/19 07:55 40 06/20/19 07:30 101/55 (70) 06/20/19 07:12 69 15 40 06/20/19 07:00 93/44 06/20/19 07:00 78 16 93/44 (60) 100 06/20/19 06:30 72 16 98/49 (65) 100 06/20/19 06:00 101/54 06/20/19 06:00 78 17 101/54 (70) 100 06/20/19 05:08 69 17 40 06/20/19 05:00 70 16 92/44 (60) 100 06/20/19 05:00 106/57 06/20/19 04:30 71 16 106/54 (71) 100 06/20/19 04:00 40 06/20/19 04:00 100/57 06/20/19 04:00 75 06/20/19 04:00 99.5 73 16 100/57 (71) 99 06/20/19 04:00 Mechanical Ventilator 06/20/19 03:35 74 18 40 06/20/19 03:30 72 16 93/47 (62) 99 06/20/19 03:00 70 13 95/47 (63) 100 06/20/19 03:00 95/47 06/20/19 02:30 70 15 108/50 (69) 100 06/20/19 02:00 103/51 06/20/19 02:00 69 15 103/51 (68) 100 06/20/19 01:30 71 18 101/47 (65) 100 06/20/19 01:19 76 19 40 06/20/19 01:00 72 18 106/55 (72) 100 06/20/19 01:00 105/57 06/20/19 00:30 70 17 105/57 (73) 100 06/20/19 00:00 99.0 69 16 105/80 (88) 100 06/20/19 00:00 105/50 06/20/19 00:00 Mechanical Ventilator 06/20/19 00:00 71 06/20/19 00:00 40 06/19/19 23:50 63 15 40 06/19/19 23:30 69 16 102/80 (87) 100 06/19/19 23:00 71 18 95/54 (68) 100 06/19/19 23:00 95/54 06/19/19 22:30 70 18 102/56 (71) 100 06/19/19 22:00 105/60 06/19/19 22:00 68 16 105/60 (75) 100 06/19/19 21:45 69 23 40 06/19/19 21:30 70 17 108/57 (74) 100 06/19/19 21:00 69 16 100/59 (73) 100 06/19/19 21:00 107/95 06/19/19 20:30 73 18 103/48 (66) 100 06/19/19 20:17 107/95 06/19/19 20:16 107/95 06/19/19 20:00 98.0 71 17 107/95 (99) 100 06/19/19 20:00 74 06/19/19 20:00 40 06/19/19 20:00 107/95 06/19/19 20:00 Mechanical Ventilator 06/19/19 19:30 71 18 92/51 (65) 100 06/19/19 19:12 72 18 40 06/19/19 19:00 71 16 99/57 (71) 100 06/19/19 19:00 91/53 06/19/19 18:30 69 15 91/53 (66) 100 06/19/19 18:00 68 17 98/53 (68) 100 06/19/19 18:00 98/53 06/19/19 17:30 68 17 98/51 (67) 100 06/19/19 17:00 68 17 98/57 (71) 100 06/19/19 17:00 98/57 06/19/19 16:32 71 17 40 06/19/19 16:30 68 17 93/49 (64) 100 06/19/19 16:00 114/56 06/19/19 16:00 40 06/19/19 16:00 98.4 66 18 114/56 (75) 100 06/19/19 16:00 Mechanical Ventilator 06/19/19 16:00 70 06/19/19 15:30 73 16 114/61 (78) 100 06/19/19 15:00 71 16 113/61 (78) 100 06/19/19 15:00 113/61 06/19/19 14:56 73 21 40 06/19/19 14:30 70 18 113/57 (75) 100 06/19/19 14:00 115/63 06/19/19 14:00 71 16 108/59 (75) 100 06/19/19 13:30 72 16 115/58 (77) 100 06/19/19 13:04 64 19 40 06/19/19 13:00 117/58 06/19/19 13:00 71 16 117/58 (77) 100 06/19/19 12:30 70 20 116/62 (80) 100 06/19/19 12:00 98.9 71 20 117/61 (79) 100 06/19/19 12:00 40 06/19/19 12:00 67 06/19/19 12:00 117/61 06/19/19 12:00 Mechanical Ventilator 06/19/19 11:30 71 19 117/68 (84) 100 06/19/19 11:00 73 17 110/55 (73) 100 06/19/19 11:00 110/55 06/19/19 10:30 73 21 101/57 (72) 100 06/19/19 10:25 80 20 40 06/19/19 10:00 109/56 06/19/19 10:00 79 25 108/55 (72) 100 Intake and Output 06/20/19 06/21/19 19:00 07:00 Intake Total 1629.59 ml 690.43 ml Output Total 285 ml 285 ml Balance 1344.59 ml 405.43 ml Intake Free Water 50 ml IV Total 1304.59 ml 430.43 ml Tube Feeding 275 ml 260 ml Output Urine Total 285 ml 285 ml # Bowel Movements 2 Labs Test 06/18/19 17:50 06/19/19 04:00 06/19/19 17:45 06/20/19 04:06 Stool Occult Blood Negative (NEGATIVE) White Blood Count 9.9 K/UL (4.8-10.8) 7.8 K/UL (4.8-10.8) Red Blood Count 3.22 M/UL (4.20-5.40) 3.03 M/UL (4.20-5.40) Hemoglobin 9.7 G/DL (12.0-16.0) 9.1 G/DL (12.0-16.0) Hematocrit 28.9 % (37.0-47.0) 27.0 % (37.0-47.0) Mean Corpuscular Volume 90 FL (80-99) 89 FL (80-99) Mean Corpuscular Hemoglobin 30.2 PG (27.0-31.0) 30.0 PG (27.0-31.0) Mean Corpuscular Hemoglobin Concent 33.6 G/DL (32.0-36.0) 33.7 G/DL (32.0-36.0) Red Cell Distribution Width 14.2 % (11.6-14.8) 13.7 % (11.6-14.8) Platelet Count 51 K/UL (150-450) 66 K/UL (150-450) Mean Platelet Volume 9.9 FL (6.5-10.1) 9.1 FL (6.5-10.1) Neutrophils (%) (Auto) % (45.0-75.0) % (45.0-75.0) Lymphocytes (%) (Auto) % (20.0-45.0) % (20.0-45.0) Monocytes (%) (Auto) % (1.0-10.0) % (1.0-10.0) Eosinophils (%) (Auto) % (0.0-3.0) % (0.0-3.0) Basophils (%) (Auto) % (0.0-2.0) % (0.0-2.0) Differential Total Cells Counted 100 100 Neutrophils % (Manual) 84 % (45-75) 70 % (45-75) Lymphocytes % (Manual) 13 % (20-45) 15 % (20-45) Monocytes % (Manual) 3 % (1-10) 13 % (1-10) Eosinophils % (Manual) 0 % (0-3) 2 % (0-3) Basophils % (Manual) 0 % (0-2) 0 % (0-2) Band Neutrophils 0 % (0-8) 0 % (0-8) Platelet Estimate Decreased Adequate Platelet Morphology Normal Normal Red Blood Cell Morphology Normal Sodium Level 135 MMOL/L (136-145) 135 MMOL/L (136-145) Potassium Level 3.4 MMOL/L (3.5-5.1) 3.6 MMOL/L (3.5-5.1) Chloride Level 103 MMOL/L (98-107) 105 MMOL/L (98-107) Carbon Dioxide Level 27 MMOL/L (21-32) 27 MMOL/L (21-32) Anion Gap 5 mmol/L (5-15) 3 mmol/L (5-15) Blood Urea Nitrogen 18 mg/dL (7-18) 18 mg/dL (7-18) Creatinine 1.0 MG/DL (0.55-1.30) 0.9 MG/DL (0.55-1.30) Estimat Glomerular Filtration Rate > 60 mL/min (>60) > 60 mL/min (>60) Glucose Level 182 MG/DL (74-106) 166 MG/DL (74-106) Calcium Level 8.2 MG/DL (8.5-10.1) 8.1 MG/DL (8.5-10.1) Phosphorus Level 1.9 MG/DL (2.5-4.9) 2.2 MG/DL (2.5-4.9) Magnesium Level 1.4 MG/DL (1.8-2.4) 1.7 MG/DL (1.8-2.4) Vancomycin Level Trough 7.4 ug/mL (5.0-12.0) Hypochromasia 2+ Anisocytosis 1+ Test 06/20/19 09:36 06/20/19 12:37 Arterial Blood pH 7.392 (7.350-7.450) 7.326 (7.350-7.450) Arterial Blood Partial Pressure CO2 41.5 mmHg (35.0-45.0) 48.2 mmHg (35.0-45.0) Arterial Blood Partial Pressure O2 97.5 mmHg (75.0-100.0) 62.6 mmHg (75.0-100.0) Arterial Blood HCO3 24.7 mmol/L (22.0-26.0) 24.6 mmol/L (22.0-26.0) Arterial Blood Oxygen Saturation 94.7 % (95-100) 89.6 % (95-100) Arterial Blood Base Excess -0.3 (-2-2) -1.5 (-2-2) Julius Test Positive Positive Height (Feet): 5 Height (Inches): 5.00 Weight (Pounds): 200 Objective PE General: normal inspection, alert, Chronically Ill HEENT: nc, at ++ ng Respiratory: normal inspection, lungs clear, bipap++ Cardiovascular: regular rate, rhythm, no edema Gastrointestinal: normal inspection, normal bowel sounds, non tender, soft, no guarding, no hernia Genitourinary: normal inspection, no CVA tenderness Musculoskeletal: normal inspection, back normal Neurologic: alert, motor strength/tone normal, fingerprint technician III-XII nml as tested Psychiatric: normal inspection, judgement/insight normal James Sanchez MD Jun 21, 2019 09:55
--- NOTE | 2019-06-21 12:13 | Pulmonology Progress Note ---
Assessment/Plan Assessment/Plan IMPRESSION: 1. Bilateral pneumonia, high suspicion for COVID-19 but results negative. 2. History of CHF. 3. Shock; on 3mcg Levophed DISCUSSION: Extuabted; o BiPAP I will continue empiric antibiotics. Her influenza A and B are negative. I will follow carefully. Will diureses Aly Pinto M.D. Subjective Interval Events: Extubatd; on BiPAP Constitutional: Reports: no symptoms HEENT: Repors: no symptoms Respiratory: Reports: no symptoms Cardiovascular: Reports: no symptoms Gastrointestinal/Abdominal: Reports: no symptoms Allergies: Coded Allergies: MORPHINE (Unverified Allergy, Unknown, 06/15/19) Objective Last 24 Hour Vital Signs Date Time Temp Pulse Resp B/P (MAP) Pulse Ox O2 Delivery O2 Flow Rate FiO2 06/21/19 11:30 68 21 104/53 (70) 96 06/21/19 11:04 65 16 100 50 06/21/19 11:00 64 18 106/51 (69) 100 06/21/19 10:30 61 16 77/48 (58) 100 06/21/19 10:00 62 16 109/49 (69) 100 06/21/19 09:30 61 17 90/48 (62) 100 06/21/19 09:00 62 17 105/52 (69) 100 06/21/19 09:00 58 21 100 50 06/21/19 08:50 89/42 06/21/19 08:30 62 17 110/58 (75) 100 06/21/19 08:00 50 06/21/19 08:00 Bi-pap 06/21/19 08:00 98.2 62 17 89/42 (58) 100 06/21/19 07:30 63 18 90/49 (63) 100 06/21/19 07:05 62 22 100 50 06/21/19 07:00 63 20 107/52 (70) 100 06/21/19 06:30 62 19 104/53 (70) 100 06/21/19 06:00 107/60 06/21/19 06:00 62 19 107/60 (76) 100 3/29/20 05:45 64 21 100 50 06/21/19 05:30 68 20 105/55 (72) 100 06/21/19 05:00 106/56 06/21/19 05:00 62 18 106/56 (73) 100 06/21/19 04:30 67 20 103/84 (90) 100 06/21/19 04:06 50 06/21/19 04:05 67 06/21/19 04:00 Bi-pap 06/21/19 04:00 103/72 06/21/19 04:00 65 22 104/58 (73) 100 06/21/19 03:39 71 20 100 Bi-Pap 50 06/21/19 03:30 98.4 67 22 103/72 (82) 100 06/21/19 03:24 68 22 100 50 06/21/19 03:00 64 22 108/58 (75) 100 06/21/19 03:00 108/58 06/21/19 02:30 65 21 95/62 (73) 100 06/21/19 02:00 67 23 105/57 (73) 100 06/21/19 02:00 105/57 06/21/19 01:30 67 22 102/57 (72) 100 06/21/19 01:00 66 23 105/56 (72) 100 06/21/19 01:00 105/56 06/21/19 00:30 67 22 104/55 (71) 100 06/21/19 00:00 98.7 67 21 99/55 (70) 100 06/21/19 00:00 99/55 06/21/19 00:00 Bi-pap 06/21/19 00:00 50 06/21/19 00:00 67 06/20/19 23:30 69 20 103/56 (72) 100 06/20/19 23:00 103/57 06/20/19 23:00 67 22 103/57 (72) 100 06/20/19 22:51 65 19 100 50 06/20/19 22:30 66 20 100/53 (69) 100 06/20/19 22:00 66 21 100/55 (70) 100 06/20/19 22:00 100/55 06/20/19 21:30 67 21 107/61 (76) 100 06/20/19 21:03 67 17 100 50 06/20/19 21:00 65 19 105/58 (74) 100 06/20/19 21:00 105/58 06/20/19 20:45 105/58 06/20/19 20:30 67 21 105/56 (72) 100 06/20/19 20:03 Bi-pap 06/20/19 20:02 50 06/20/19 20:01 66 06/20/19 20:00 68 22 104/55 (71) 100 06/20/19 20:00 105/56 06/20/19 19:30 98.5 66 19 108/57 (74) 100 06/20/19 19:07 74 25 100 50 06/20/19 19:00 106/52 06/20/19 19:00 66 21 106/52 (70) 100 06/20/19 18:00 76 97/54 (68) 06/20/19 17:13 65 21 100 50 06/20/19 17:00 67 21 108/56 (73) 100 06/20/19 16:30 72 23 98/50 (66) 100 06/20/19 16:00 Bi-pap 06/20/19 16:00 98.9 69 23 105/51 (69) 100 06/20/19 16:00 69 06/20/19 15:30 69 24 106/51 (69) 100 06/20/19 15:00 69 24 104/60 (75) 100 06/20/19 14:50 71 26 100 50 06/20/19 14:30 69 25 103/51 (68) 100 06/20/19 14:00 69 25 96/48 (64) 100 06/20/19 13:30 70 25 87/44 (58) 100 06/20/19 13:00 50 06/20/19 13:00 78 29 92 Bi-Pap 50 06/20/19 13:00 75 27 86/46 (59) 98 06/20/19 13:00 74 28 95 50 06/20/19 12:30 82 28 85/42 (56) 96 Intake and Output 06/20/19 06/21/19 19:00 07:00 Intake Total 1629.59 ml 690.43 ml Output Total 285 ml 285 ml Balance 1344.59 ml 405.43 ml Intake Free Water 50 ml IV Total 1304.59 ml 430.43 ml Tube Feeding 275 ml 260 ml Output Urine Total 285 ml 285 ml # Bowel Movements 2 General Appearance: no acute distress HEENT: normocephalic Respiratory/Chest: chest wall non-tender Cardiovascular: normal peripheral pulses Abdomen: normal bowel sounds Laboratory Tests 06/20/19 12:37: Arterial Blood pH 7.326L, Arterial Blood Partial Pressure CO2 48.2H, Arterial Blood Partial Pressure O2 62.6L, Arterial Blood HCO3 24.6, Arterial Blood Oxygen Saturation 89.6*L, Arterial Blood Base Excess -1.5, Julius Test Positive Current Medications Medications (Trade) Dose Ordered Sig/Emil Route PRN Reason Start Time Stop Time Status Last Admin Dose Admin Acetaminophen (Tylenol) 650 mg Q4H PRN ORAL Mild Pain/Temp > 100.5 06/15/19 14:30 07/15/19 14:29 Albuterol/ Ipratropium (Albuterol/ Ipratropium) 3 ml Q4H PRN HHN Shortness of Breath 06/20/19 11:30 06/25/19 11:29 06/20/19 12:06 Apixaban (Eliquis) 5 mg BID ORAL 06/17/19 18:00 09/15/19 17:59 06/20/19 18:30 Cefepime HCl 1 gm/ Dextrose 55 ml @ 110 mls/hr Q12H IVPB 06/16/19 18:00 06/23/19 17:59 06/21/19 05:28 Chlorhexidine Gluconate (Susie-Hex 2%) 1 applic DAILY@2000 TOPIC 06/16/19 20:00 09/14/19 19:59 06/20/19 19:51 Dextrose (Dextrose 50%) 50 ml Q30M PRN IV Hypoglycemia 06/15/19 14:45 09/13/19 14:44 Dopamine HCl/ Dextrose 250 ml @ 0 mls/hr Q24H IV 06/15/19 20:45 09/13/19 20:44 06/15/19 21:43 Metoclopramide HCl (Reglan) 5 mg Q8H PRN IVP Nausea & Vomiting 06/19/19 09:30 07/19/19 09:29 Norepinephrine Bitartrate 8 mg/ Dextrose 558 ml @ 0 mls/hr Q24H IV 06/16/19 09:00 07/16/19 08:59 06/21/19 08:50 Pantoprazole (Protonix) 40 mg DAILY IVP 06/16/19 09:00 07/16/19 08:59 06/21/19 08:51 Vancomycin HCl (Vanco rx to dose) 1 ea DAILY PRN MISC Per rx protocol 06/17/19 11:15 07/17/19 11:14 Vancomycin/Sodium Chloride 275 ml @ 137.5 mls/ hr Q24H IVPB 06/19/19 20:00 06/24/19 19:59 06/20/19 19:52 Aly Pinto MD Jun 21, 2019 12:13
--- NOTE | 2019-06-21 12:36 | Infectious Diseases Prog Note ---
Assessment/Plan Assessment/Plan IMPRESSION: Sepsis with Septic shock improving Staph aureus pneumonia, MRSA Bilateral pneumonia,CXR improving Hypoxic respiratory failure Interstitial lung disease, Thrombocytopenia, Congestive heart failure. MRSA carrier RECOMMENDATION: COVID-19 test: Negative Continue cefepime & IV Vancomycin Subjective ROS Limited/Unobtainable: Yes Respiratory: Reports: other - extubated yesterday Cardiovascular: Reports: other - on low dose Levophed 2 micogram/kg/min Allergies: Coded Allergies: MORPHINE (Unverified Allergy, Unknown, 06/15/19) Objective Vital Signs Last 24 Hour Vital Signs Date Time Temp Pulse Resp B/P (MAP) Pulse Ox O2 Delivery O2 Flow Rate FiO2 06/21/19 11:30 68 21 104/53 (70) 96 06/21/19 11:04 65 16 100 50 06/21/19 11:00 64 18 106/51 (69) 100 06/21/19 10:30 61 16 77/48 (58) 100 06/21/19 10:00 62 16 109/49 (69) 100 06/21/19 09:30 61 17 90/48 (62) 100 06/21/19 09:00 62 17 105/52 (69) 100 06/21/19 09:00 58 21 100 50 06/21/19 08:50 89/42 06/21/19 08:30 62 17 110/58 (75) 100 06/21/19 08:00 50 06/21/19 08:00 Bi-pap 06/21/19 08:00 98.2 62 17 89/42 (58) 100 06/21/19 07:30 63 18 90/49 (63) 100 06/21/19 07:05 62 22 100 50 06/21/19 07:00 63 20 107/52 (70) 100 06/21/19 06:30 62 19 104/53 (70) 100 06/21/19 06:00 107/60 06/21/19 06:00 62 19 107/60 (76) 100 06/21/19 05:45 64 21 100 50 06/21/19 05:30 68 20 105/55 (72) 100 06/21/19 05:00 106/56 06/21/19 05:00 62 18 106/56 (73) 100 06/21/19 04:30 67 20 103/84 (90) 100 06/21/19 04:06 50 06/21/19 04:05 67 06/21/19 04:00 Bi-pap 06/21/19 04:00 103/72 06/21/19 04:00 65 22 104/58 (73) 100 06/21/19 03:39 71 20 100 Bi-Pap 50 06/21/19 03:30 98.4 67 22 103/72 (82) 100 06/21/19 03:24 68 22 100 50 06/21/19 03:00 64 22 108/58 (75) 100 06/21/19 03:00 108/58 06/21/19 02:30 65 21 95/62 (73) 100 06/21/19 02:00 67 23 105/57 (73) 100 06/21/19 02:00 105/57 06/21/19 01:30 67 22 102/57 (72) 100 06/21/19 01:00 66 23 105/56 (72) 100 06/21/19 01:00 105/56 06/21/19 00:30 67 22 104/55 (71) 100 06/21/19 00:00 98.7 67 21 99/55 (70) 100 06/21/19 00:00 99/55 06/21/19 00:00 Bi-pap 06/21/19 00:00 50 06/21/19 00:00 67 06/20/19 23:30 69 20 103/56 (72) 100 06/20/19 23:00 103/57 06/20/19 23:00 67 22 103/57 (72) 100 06/20/19 22:51 65 19 100 50 06/20/19 22:30 66 20 100/53 (69) 100 06/20/19 22:00 66 21 100/55 (70) 100 06/20/19 22:00 100/55 06/20/19 21:30 67 21 107/61 (76) 100 06/20/19 21:03 67 17 100 50 06/20/19 21:00 65 19 105/58 (74) 100 06/20/19 21:00 105/58 06/20/19 20:45 105/58 06/20/19 20:30 67 21 105/56 (72) 100 06/20/19 20:03 Bi-pap 06/20/19 20:02 50 06/20/19 20:01 66 06/20/19 20:00 68 22 104/55 (71) 100 06/20/19 20:00 105/56 06/20/19 19:30 98.5 66 19 108/57 (74) 100 06/20/19 19:07 74 25 100 50 06/20/19 19:00 106/52 06/20/19 19:00 66 21 106/52 (70) 100 06/20/19 18:00 76 97/54 (68) 06/20/19 17:13 65 21 100 50 06/20/19 17:00 67 21 108/56 (73) 100 06/20/19 16:30 72 23 98/50 (66) 100 06/20/19 16:00 Bi-pap 06/20/19 16:00 98.9 69 23 105/51 (69) 100 06/20/19 16:00 69 06/20/19 15:30 69 24 106/51 (69) 100 06/20/19 15:00 69 24 104/60 (75) 100 06/20/19 14:50 71 26 100 50 06/20/19 14:30 69 25 103/51 (68) 100 06/20/19 14:00 69 25 96/48 (64) 100 06/20/19 13:30 70 25 87/44 (58) 100 06/20/19 13:00 50 06/20/19 13:00 78 29 92 Bi-Pap 50 06/20/19 13:00 75 27 86/46 (59) 98 06/20/19 13:00 74 28 95 50 Height (Feet): 5 Height (Inches): 5.00 Weight (Pounds): 200 HEENT: mucous membranes moist Respiratory/Chest: decreased breath sounds, other - on BIPAP Cardiovascular: normal rate, other - RIJ central line Abdomen: soft, non tender, other - NG tube feeding Extremities: other - edema of legs Neurologic/Psychiatric: other - sleeping Laboratory Tests Test 06/20/19 12:37 Arterial Blood pH 7.326 (7.350-7.450) Arterial Blood Partial Pressure CO2 48.2 mmHg (35.0-45.0) H Arterial Blood Partial Pressure O2 62.6 mmHg (75.0-100.0) L Arterial Blood HCO3 24.6 mmol/L (22.0-26.0) Arterial Blood Oxygen Saturation 89.6 % (95-100) *L Arterial Blood Base Excess -1.5 (-2-2) Julius Test Positive Current Medications Medications (Trade) Dose Ordered Sig/Emil Route PRN Reason Start Time Stop Time Status Last Admin Dose Admin Acetaminophen (Tylenol) 650 mg Q4H PRN ORAL Mild Pain/Temp > 100.5 06/15/19 14:30 07/15/19 14:29 Albuterol/ Ipratropium (Albuterol/ Ipratropium) 3 ml Q4H PRN HHN Shortness of Breath 06/20/19 11:30 06/25/19 11:29 06/20/19 12:06 Apixaban (Eliquis) 5 mg BID ORAL 06/17/19 18:00 09/15/19 17:59 06/20/19 18:30 Cefepime HCl 1 gm/ Dextrose 55 ml @ 110 mls/hr Q12H IVPB 06/16/19 18:00 06/23/19 17:59 06/21/19 05:28 Chlorhexidine Gluconate (Susie-Hex 2%) 1 applic DAILY@2000 TOPIC 06/16/19 20:00 09/14/19 19:59 06/20/19 19:51 Dextrose (Dextrose 50%) 50 ml Q30M PRN IV Hypoglycemia 06/15/19 14:45 09/13/19 14:44 Dopamine HCl/ Dextrose 250 ml @ 0 mls/hr Q24H IV 06/15/19 20:45 09/13/19 20:44 06/15/19 21:43 Furosemide (Lasix) 20 mg EVERY 12 HOURS IV 06/21/19 12:15 07/21/19 12:14 Metoclopramide HCl (Reglan) 5 mg Q8H PRN IVP Nausea & Vomiting 06/19/19 09:30 07/19/19 09:29 Norepinephrine Bitartrate 8 mg/ Dextrose 558 ml @ 0 mls/hr Q24H IV 06/16/19 09:00 07/16/19 08:59 06/21/19 08:50 Pantoprazole (Protonix) 40 mg DAILY IVP 06/16/19 09:00 07/16/19 08:59 06/21/19 08:51 Vancomycin HCl (Vanco rx to dose) 1 ea DAILY PRN MISC Per rx protocol 06/17/19 11:15 07/17/19 11:14 Vancomycin/Sodium Chloride 275 ml @ 137.5 mls/ hr Q24H IVPB 06/19/19 20:00 06/24/19 19:59 06/20/19 19:52 Edin Blue MD Jun 21, 2019 12:36
--- NOTE | 2019-06-21 15:02 | General Progress Note ---
Assessment/Plan Status: unchanged, deteriorating Assessment/Plan: Assessment/Plan 1. Mild anemia. 2. Thrombocytopenia. 3. Coagulopathy, mild. 4. Elevated troponin. 5. Hypoalbuminemia. 6. Respiratory failure. 7. Diabetes per chart. Recommendations reglan for elevated residuals replace lytes PRN fu abd us fu stool ob fu labs pulm care repeat labs Subjective Allergies: Coded Allergies: MORPHINE (Unverified Allergy, Unknown, 06/15/19) Subjective Above noted seen in ICU d/w RN some residuals noted On BIPAP Objective Last 24 Hour Vital Signs Date Time Temp Pulse Resp B/P (MAP) Pulse Ox O2 Delivery O2 Flow Rate FiO2 06/21/19 14:00 112/61 06/21/19 13:45 63 17 111/58 (75) 100 06/21/19 13:30 63 18 128/62 (84) 100 06/21/19 13:15 63 18 117/63 (81) 100 06/21/19 13:10 73 27 100 50 06/21/19 13:00 64 17 117/64 (81) 100 06/21/19 13:00 117/64 06/21/19 12:45 63 18 122/59 (80) 100 06/21/19 12:30 88/51 06/21/19 12:30 63 17 88/51 (63) 100 06/21/19 12:00 98.3 64 18 96/50 (65) 100 06/21/19 12:00 Bi-pap 06/21/19 12:00 96/50 06/21/19 12:00 50 06/21/19 11:30 68 21 104/53 (70) 96 06/21/19 11:28 66 06/21/19 11:04 65 16 100 50 06/21/19 11:00 64 18 106/51 (69) 100 06/21/19 11:00 106/51 06/21/19 10:30 61 16 77/48 (58) 100 06/21/19 10:00 109/49 06/21/19 10:00 62 16 109/49 (69) 100 06/21/19 09:30 61 17 90/48 (62) 100 06/21/19 09:00 62 17 105/52 (69) 100 06/21/19 09:00 105/52 06/21/19 09:00 58 21 100 50 06/21/19 08:50 89/42 06/21/19 08:30 62 17 110/58 (75) 100 06/21/19 08:00 50 06/21/19 08:00 Bi-pap 06/21/19 08:00 90/49 06/21/19 08:00 98.2 62 17 89/42 (58) 100 06/21/19 07:39 66 06/21/19 07:30 63 18 90/49 (63) 100 06/21/19 07:05 62 22 100 50 06/21/19 07:00 106/54 06/21/19 07:00 63 20 107/52 (70) 100 06/21/19 06:30 62 19 104/53 (70) 100 06/21/19 06:00 107/60 06/21/19 06:00 62 19 107/60 (76) 100 06/21/19 05:45 64 21 100 50 06/21/19 05:30 68 20 105/55 (72) 100 06/21/19 05:00 106/56 06/21/19 05:00 62 18 106/56 (73) 100 06/21/19 04:30 67 20 103/84 (90) 100 06/21/19 04:06 50 06/21/19 04:05 67 06/21/19 04:00 Bi-pap 06/21/19 04:00 103/72 06/21/19 04:00 65 22 104/58 (73) 100 06/21/19 03:39 71 20 100 Bi-Pap 50 06/21/19 03:30 98.4 67 22 103/72 (82) 100 06/21/19 03:24 68 22 100 50 06/21/19 03:00 64 22 108/58 (75) 100 06/21/19 03:00 108/58 06/21/19 02:30 65 21 95/62 (73) 100 06/21/19 02:00 67 23 105/57 (73) 100 06/21/19 02:00 105/57 06/21/19 01:30 67 22 102/57 (72) 100 06/21/19 01:00 66 23 105/56 (72) 100 06/21/19 01:00 105/56 06/21/19 00:30 67 22 104/55 (71) 100 06/21/19 00:00 98.7 67 21 99/55 (70) 100 06/21/19 00:00 99/55 06/21/19 00:00 Bi-pap 06/21/19 00:00 50 06/21/19 00:00 67 06/20/19 23:30 69 20 103/56 (72) 100 06/20/19 23:00 103/57 06/20/19 23:00 67 22 103/57 (72) 100 06/20/19 22:51 65 19 100 50 06/20/19 22:30 66 20 100/53 (69) 100 06/20/19 22:00 66 21 100/55 (70) 100 06/20/19 22:00 100/55 06/20/19 21:30 67 21 107/61 (76) 100 06/20/19 21:03 67 17 100 50 06/20/19 21:00 65 19 105/58 (74) 100 06/20/19 21:00 105/58 06/20/19 20:45 105/58 06/20/19 20:30 67 21 105/56 (72) 100 06/20/19 20:03 Bi-pap 06/20/19 20:02 50 06/20/19 20:01 66 06/20/19 20:00 68 22 104/55 (71) 100 06/20/19 20:00 105/56 06/20/19 19:30 98.5 66 19 108/57 (74) 100 06/20/19 19:07 74 25 100 50 06/20/19 19:00 106/52 06/20/19 19:00 66 21 106/52 (70) 100 06/20/19 18:00 76 97/54 (68) 06/20/19 17:13 65 21 100 50 06/20/19 17:00 67 21 108/56 (73) 100 06/20/19 16:30 72 23 98/50 (66) 100 06/20/19 16:00 Bi-pap 06/20/19 16:00 98.9 69 23 105/51 (69) 100 06/20/19 16:00 69 06/20/19 15:30 69 24 106/51 (69) 100 Intake and Output 06/20/19 06/21/19 19:00 07:00 Intake Total 1629.59 ml 698.80 ml Output Total 285 ml 285 ml Balance 1344.59 ml 413.80 ml Intake Free Water 50 ml IV Total 1304.59 ml 438.80 ml Tube Feeding 275 ml 260 ml Output Urine Total 285 ml 285 ml # Bowel Movements 2 Height (Feet): 5 Height (Inches): 5.00 Weight (Pounds): 200 Objective Elderly AA woman (+) BIPAP Coarase BS RR abd soft no edema Jennyfer Coffman MD Jun 21, 2019 15:02
--- NOTE | 2019-06-21 15:29 | Cardiac Electrophysiology PN ---
Assessment/Plan Assessment/Plan 1. S/P Respiratory failure due to bilateral MRSA pneumonia and CHF Echo EF 60%. Extubated . COVID 19 result negative. On BIPAP 2. Troponin leak. No acute ECG findings. Likely due to septic shock and demand ischemia 3. Atrial fib off anticoagulation for Severe thrombocytopenia. Off AVN violette for hypotension. If develops atrial fib with RVR will load with digoxin.In SR 4. Septic shock on Levophed 2 mck and abx by Dr. Blue. 5. History of psychiatric history. 6. History of cellulitis. RYANN RN Subjective Subjective In ICU and still Levophed 2 Mc/mi. On BIPAP. In SR Objective Last 24 Hour Vital Signs Date Time Temp Pulse Resp B/P (MAP) Pulse Ox O2 Delivery O2 Flow Rate FiO2 06/21/19 14:00 112/61 06/21/19 13:45 63 17 111/58 (75) 100 06/21/19 13:30 63 18 128/62 (84) 100 06/21/19 13:15 63 18 117/63 (81) 100 06/21/19 13:10 73 27 100 50 06/21/19 13:00 64 17 117/64 (81) 100 06/21/19 13:00 117/64 06/21/19 12:45 63 18 122/59 (80) 100 06/21/19 12:30 88/51 06/21/19 12:30 63 17 88/51 (63) 100 06/21/19 12:00 98.3 64 18 96/50 (65) 100 06/21/19 12:00 Bi-pap 06/21/19 12:00 96/50 06/21/19 12:00 50 06/21/19 11:30 68 21 104/53 (70) 96 06/21/19 11:28 66 06/21/19 11:04 65 16 100 50 06/21/19 11:00 64 18 106/51 (69) 100 06/21/19 11:00 106/51 06/21/19 10:30 61 16 77/48 (58) 100 06/21/19 10:00 109/49 06/21/19 10:00 62 16 109/49 (69) 100 06/21/19 09:30 61 17 90/48 (62) 100 06/21/19 09:00 62 17 105/52 (69) 100 06/21/19 09:00 105/52 06/21/19 09:00 58 21 100 50 06/21/19 08:50 89/42 06/21/19 08:30 62 17 110/58 (75) 100 06/21/19 08:00 50 06/21/19 08:00 Bi-pap 06/21/19 08:00 90/49 06/21/19 08:00 98.2 62 17 89/42 (58) 100 06/21/19 07:39 66 06/21/19 07:30 63 18 90/49 (63) 100 06/21/19 07:05 62 22 100 50 06/21/19 07:00 106/54 06/21/19 07:00 63 20 107/52 (70) 100 06/21/19 06:30 62 19 104/53 (70) 100 06/21/19 06:00 107/60 06/21/19 06:00 62 19 107/60 (76) 100 06/21/19 05:45 64 21 100 50 06/21/19 05:30 68 20 105/55 (72) 100 06/21/19 05:00 106/56 06/21/19 05:00 62 18 106/56 (73) 100 06/21/19 04:30 67 20 103/84 (90) 100 06/21/19 04:06 50 06/21/19 04:05 67 06/21/19 04:00 Bi-pap 06/21/19 04:00 103/72 06/21/19 04:00 65 22 104/58 (73) 100 06/21/19 03:39 71 20 100 Bi-Pap 50 06/21/19 03:30 98.4 67 22 103/72 (82) 100 06/21/19 03:24 68 22 100 50 06/21/19 03:00 64 22 108/58 (75) 100 06/21/19 03:00 108/58 06/21/19 02:30 65 21 95/62 (73) 100 06/21/19 02:00 67 23 105/57 (73) 100 06/21/19 02:00 105/57 06/21/19 01:30 67 22 102/57 (72) 100 06/21/19 01:00 66 23 105/56 (72) 100 06/21/19 01:00 105/56 06/21/19 00:30 67 22 104/55 (71) 100 06/21/19 00:00 98.7 67 21 99/55 (70) 100 06/21/19 00:00 99/55 06/21/19 00:00 Bi-pap 06/21/19 00:00 50 06/21/19 00:00 67 06/20/19 23:30 69 20 103/56 (72) 100 06/20/19 23:00 103/57 06/20/19 23:00 67 22 103/57 (72) 100 06/20/19 22:51 65 19 100 50 06/20/19 22:30 66 20 100/53 (69) 100 06/20/19 22:00 66 21 100/55 (70) 100 06/20/19 22:00 100/55 06/20/19 21:30 67 21 107/61 (76) 100 06/20/19 21:03 67 17 100 50 06/20/19 21:00 65 19 105/58 (74) 100 06/20/19 21:00 105/58 06/20/19 20:45 105/58 06/20/19 20:30 67 21 105/56 (72) 100 06/20/19 20:03 Bi-pap 06/20/19 20:02 50 06/20/19 20:01 66 06/20/19 20:00 68 22 104/55 (71) 100 06/20/19 20:00 105/56 06/20/19 19:30 98.5 66 19 108/57 (74) 100 06/20/19 19:07 74 25 100 50 06/20/19 19:00 106/52 06/20/19 19:00 66 21 106/52 (70) 100 06/20/19 18:00 76 97/54 (68) 06/20/19 17:13 65 21 100 50 06/20/19 17:00 67 21 108/56 (73) 100 06/20/19 16:30 72 23 98/50 (66) 100 06/20/19 16:00 Bi-pap 06/20/19 16:00 98.9 69 23 105/51 (69) 100 06/20/19 16:00 69 06/20/19 15:30 69 24 106/51 (69) 100 Intake and Output 06/20/19 06/21/19 19:00 07:00 Intake Total 1629.59 ml 698.80 ml Output Total 285 ml 285 ml Balance 1344.59 ml 413.80 ml Intake Free Water 50 ml IV Total 1304.59 ml 438.80 ml Tube Feeding 275 ml 260 ml Output Urine Total 285 ml 285 ml # Bowel Movements 2 Objective HEAD AND NECK: No JVD. NG tube in. On BIPAP LUNGS: Bilateral rhonchi. CARDIOVASCULAR: Regular S1 and S2 with no gallop. ABDOMEN: Soft. EXTREMITIES: No pitting edema. Ruben Grissom MD Jun 21, 2019 15:28
[2019-06-21] MEDS: Vancomycin 1.5gm/NS Premix q24h IVPB SCH (19:59)
[2019-06-21] MEDS: Dyna-Hex 2% Top Sol 2oz TOPIC SCH (19:59)
[2019-06-21] MEDS: DOPamine 400mg/250ml 250 ML IV SCH (20:45)
--- NOTE | 2019-06-21 22:17 | General Progress Note ---
Assessment/Plan Problem List: (1) Hypoglycemia ICD Codes: E16.2 - Hypoglycemia, unspecified SNOMED: 968821479 (2) Leukopenia ICD Codes: D72.819 - Decreased white blood cell count, unspecified SNOMED: 00762934, 694077550 (3) Pneumonia ICD Codes: J18.9 - Pneumonia, unspecified organism SNOMED: 993709523, 917675790 Status: unchanged, deteriorating Assessment/Plan: s/p intubation reviewed chart and labs no changes pna low k.improved s/p pressor septic shock thrombocytopenia moniter for bleeding very poor prognosis Subjective ROS Limited/Unobtainable: Yes Allergies: Coded Allergies: MORPHINE (Unverified Allergy, Unknown, 06/15/19) Objective Last 24 Hour Vital Signs Date Time Temp Pulse Resp B/P (MAP) Pulse Ox O2 Delivery O2 Flow Rate FiO2 06/21/19 21:01 66 23 99 40 06/21/19 21:00 63 21 103/66 (78) 99 06/21/19 21:00 103/66 06/21/19 20:45 107/56 06/21/19 20:30 64 18 107/56 (73) 97 06/21/19 20:00 68 06/21/19 20:00 Bi-pap 06/21/19 20:00 105/51 06/21/19 20:00 50 06/21/19 20:00 68 22 105/51 (69) 97 06/21/19 19:30 98.4 67 18 104/57 (73) 100 06/21/19 19:13 71 21 100 50 06/21/19 19:00 67 18 114/60 (78) 100 06/21/19 19:00 114/60 06/21/19 18:30 60 15 101/53 (69) 100 06/21/19 18:15 61 15 107/54 (71) 100 06/21/19 18:00 100/52 06/21/19 18:00 63 15 100/52 (68) 100 06/21/19 17:45 63 15 103/51 (68) 100 06/21/19 17:30 65 20 100/52 (68) 100 06/21/19 17:15 66 19 116/60 (78) 99 06/21/19 17:00 66 18 129/64 (85) 99 06/21/19 17:00 129/64 06/21/19 16:30 64 17 119/58 (78) 97 06/21/19 16:00 50 06/21/19 16:00 Bi-pap 06/21/19 16:00 97.8 66 19 112/59 (76) 100 06/21/19 16:00 112/59 06/21/19 15:30 64 17 110/55 (73) 100 06/21/19 15:17 62 06/21/19 15:00 66 18 112/59 (76) 100 06/21/19 15:00 112/59 06/21/19 14:30 66 18 119/55 (76) 100 06/21/19 14:00 112/61 06/21/19 14:00 66 18 112/61 (78) 100 06/21/19 13:45 63 17 111/58 (75) 100 06/21/19 13:30 63 18 128/62 (84) 100 06/21/19 13:15 63 18 117/63 (81) 100 06/21/19 13:10 73 27 100 50 06/21/19 13:00 64 17 117/64 (81) 100 06/21/19 13:00 117/64 06/21/19 12:45 63 18 122/59 (80) 100 06/21/19 12:30 88/51 06/21/19 12:30 63 17 88/51 (63) 100 06/21/19 12:00 98.3 64 18 96/50 (65) 100 06/21/19 12:00 Bi-pap 06/21/19 12:00 96/50 06/21/19 12:00 50 06/21/19 11:30 68 21 104/53 (70) 96 06/21/19 11:28 66 06/21/19 11:04 65 16 100 50 06/21/19 11:00 64 18 106/51 (69) 100 06/21/19 11:00 106/51 06/21/19 10:30 61 16 77/48 (58) 100 06/21/19 10:00 109/49 06/21/19 10:00 62 16 109/49 (69) 100 06/21/19 09:30 61 17 90/48 (62) 100 06/21/19 09:00 62 17 105/52 (69) 100 06/21/19 09:00 105/52 06/21/19 09:00 58 21 100 50 06/21/19 08:50 89/42 06/21/19 08:30 62 17 110/58 (75) 100 06/21/19 08:00 50 06/21/19 08:00 Bi-pap 06/21/19 08:00 90/49 06/21/19 08:00 98.2 62 17 89/42 (58) 100 06/21/19 07:39 66 06/21/19 07:30 63 18 90/49 (63) 100 06/21/19 07:05 62 22 100 50 06/21/19 07:00 106/54 06/21/19 07:00 63 20 107/52 (70) 100 06/21/19 06:30 62 19 104/53 (70) 100 06/21/19 06:00 107/60 06/21/19 06:00 62 19 107/60 (76) 100 06/21/19 05:45 64 21 100 50 06/21/19 05:30 68 20 105/55 (72) 100 06/21/19 05:00 106/56 06/21/19 05:00 62 18 106/56 (73) 100 06/21/19 04:30 67 20 103/84 (90) 100 06/21/19 04:06 50 06/21/19 04:05 67 06/21/19 04:00 Bi-pap 06/21/19 04:00 103/72 06/21/19 04:00 65 22 104/58 (73) 100 06/21/19 03:39 71 20 100 Bi-Pap 50 06/21/19 03:30 98.4 67 22 103/72 (82) 100 06/21/19 03:24 68 22 100 50 06/21/19 03:00 64 22 108/58 (75) 100 06/21/19 03:00 108/58 06/21/19 02:30 65 21 95/62 (73) 100 06/21/19 02:00 67 23 105/57 (73) 100 06/21/19 02:00 105/57 06/21/19 01:30 67 22 102/57 (72) 100 06/21/19 01:00 66 23 105/56 (72) 100 06/21/19 01:00 105/56 06/21/19 00:30 67 22 104/55 (71) 100 06/21/19 00:00 98.7 67 21 99/55 (70) 100 06/21/19 00:00 99/55 06/21/19 00:00 Bi-pap 06/21/19 00:00 50 06/21/19 00:00 67 06/20/19 23:30 69 20 103/56 (72) 100 06/20/19 23:00 103/57 06/20/19 23:00 67 22 103/57 (72) 100 06/20/19 22:51 65 19 100 50 06/20/19 22:30 66 20 100/53 (69) 100 Intake and Output 06/20/19 06/21/19 19:00 07:00 Intake Total 1629.59 ml 698.80 ml Output Total 285 ml 285 ml Balance 1344.59 ml 413.80 ml Intake Free Water 50 ml IV Total 1304.59 ml 438.80 ml Tube Feeding 275 ml 260 ml Output Urine Total 285 ml 285 ml # Bowel Movements 2 Height (Feet): 5 Height (Inches): 5.00 Weight (Pounds): 200 General Appearance: confused Jayjay Chandler MD Jun 21, 2019 22:17
[2019-06-22] VITALS (24 sets, daily range): BP systolic 91–118; BP diastolic 43–67
[2019-06-22 06:03] LABS: BASOPHILS % (AUTO) 0.9 % (0.0-2.0); EOSINOPHILS % (AUTO) 2.4 % (0.0-3.0); HEMATOCRIT 28.9 % (37.0-47.0); HEMOGLOBIN 9.6 G/DL (12.0-16.0); LYMPHOCYTES % (AUTO) 13.8 % (20.0-45.0); MEAN CORPUSCULAR VOLUME 91 FL (80-99); MONOCYTES % (AUTO) 10.9 % (1.0-10.0); NEUTROPHILS % (AUTO) 72.2 % (45.0-75.0); PLATELET COUNT 128 K/UL (150-450); RED BLOOD COUNT 3.18 M/UL (4.20-5.40); RED CELL DISTRIBUTION WIDTH 14.3 % (11.6-14.8)
[2019-06-22] MEDS: Cefepime HCl 1 GM in D5W 55 ML IVPB SCH ×2 (06:32→18:22)
--- NOTE | 2019-06-22 06:41 | Hematology/Onc Progress Note ---
Assessment/Plan Assessment/Plan Assessment and Recs: # Pancytopenia with a decreased wbc and plt, likely related to pna v other cause , meds ntoed --> hepatitis and hiv negative --> smear ordered at this time, no blasts noted, wbc are stable --> us of the abdomen negative for hsm and cirrhosis --> plt 62-->57k-->50k-->51k-->128k --> transfuse on prn basis --> neupogen if anc drops to below 1500 --> hgb trend 8-->9.6 # Hypercoagulable disorder with afib --> ok for apixaban --> per cards # Pneumonia on admission --> now intubated --> on abx, cefepime and vanc --> per id and pulm # Hypoglycemia --> d5w given earlier --> now improved # Shortness of breath, likely due to bilateral pneumonia --> echo per cards --> may need diuresis # Respiratory failure with Bilateral lung infiltrate and leukopenia. The patient was already started on Plaquenil 600, azithromycin. --> dr. Pinto on board --> NOW INTUBATED-->bipap --> covid ruled out --> on abx vanc/cefe # History of psychiatric history. # History of cellulitis. # Dvt ppx apixaban Thank you very, appreciate consultation and abhishek Velazquez Subjective Constitutional: Denies: no symptoms, chills, fever, malaise, weakness, other HEENT: Denies: no symptoms, eye pain, blurred vision, tearing, double vision, ear pain, ear discharge, nose pain, nose congestion, throat pain, throat swelling, mouth pain, mouth swelling, other Cardiovascular: Denies: no symptoms, chest pain, edema, irregular heart rate, lightheadedness, palpitations, syncope, other Gastrointestinal/Abdominal: Denies: no symptoms, abdomen distended, abdominal pain, black stools, tarry stools, blood in stool, constipated, diarrhea, difficulty swallowing, nausea, poor appetite, poor fluid intake, rectal bleeding , vomiting, other Genitourinary: Denies: no symptoms, burning, discharge, frequency, flank pain, hematuria, incontinence, pain, urgency, other Neurologic/Psychiatric: Denies: no symptoms, anxiety, depressed, emotional problems, headache, numbness, paresthesia, pre-existing deficit, seizure, tingling, tremors, weakness, other Endocrine: Denies: no symptoms, excessive sweating, flushing, intolerance to cold, intolerance to heat, increased hunger, increased thirst, increased urine, unexplained weight gain, unexplained weight loss, other Allergies: Coded Allergies: MORPHINE (Unverified Allergy, Unknown, 06/15/19) Subjective 06/16 remains intubated on a vent, on lveophed, with ng, draining, covid rule out , 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 06/17 labs reviewed, no bleeding or night sweats, no major meds noted 06/18 remains on levo gtt, with tube feeds, plt 51k.no overt bleeding 06/20 icu, no acute events, cbc pending, bipap, vanc/cefe 06/21 with loose stool, levo is on hold, meds noted, no bleeding, in icu Objective Objective Current Medications Medications (Trade) Dose Ordered Sig/Emil Route PRN Reason Start Time Stop Time Status Last Admin Dose Admin Acetaminophen (Tylenol) 650 mg Q4H PRN ORAL Mild Pain/Temp > 100.5 06/15/19 14:30 07/15/19 14:29 Albuterol/ Ipratropium (Albuterol/ Ipratropium) 3 ml Q4H PRN HHN Shortness of Breath 06/20/19 11:30 06/25/19 11:29 06/20/19 12:06 Apixaban (Eliquis) 5 mg BID ORAL 06/17/19 18:00 09/15/19 17:59 06/20/19 18:30 Cefepime HCl 1 gm/ Dextrose 55 ml @ 110 mls/hr Q12H IVPB 06/16/19 18:00 06/23/19 17:59 06/22/19 06:32 Chlorhexidine Gluconate (Susie-Hex 2%) 1 applic DAILY@2000 TOPIC 06/16/19 20:00 09/14/19 19:59 06/21/19 19:59 Dextrose (Dextrose 50%) 50 ml Q30M PRN IV Hypoglycemia 06/15/19 14:45 09/13/19 14:44 Dopamine HCl/ Dextrose 250 ml @ 0 mls/hr Q24H IV 06/15/19 20:45 09/13/19 20:44 06/15/19 21:43 Furosemide (Lasix) 20 mg EVERY 12 HOURS IV 06/21/19 12:15 07/21/19 12:14 06/21/19 20:57 Metoclopramide HCl (Reglan) 5 mg Q8H PRN IVP Nausea & Vomiting 06/19/19 09:30 07/19/19 09:29 Norepinephrine Bitartrate 8 mg/ Dextrose 558 ml @ 0 mls/hr Q24H IV 06/16/19 09:00 07/16/19 08:59 06/21/19 08:50 Pantoprazole (Protonix) 40 mg DAILY IVP 06/16/19 09:00 07/16/19 08:59 06/21/19 08:51 Vancomycin HCl (Vanco rx to dose) 1 ea DAILY PRN MISC Per rx protocol 06/17/19 11:15 07/17/19 11:14 Vancomycin/Sodium Chloride 275 ml @ 137.5 mls/ hr Q24H IVPB 06/19/19 20:00 06/24/19 19:59 06/21/19 19:59 Last 24 Hour Vital Signs Date Time Temp Pulse Resp B/P (MAP) Pulse Ox O2 Delivery O2 Flow Rate FiO2 06/22/19 06:00 63 20 94/43 (60) 98 06/22/19 05:30 66 22 91/46 (61) 95 06/22/19 05:21 68 24 99 40 06/22/19 05:00 76 24 99/55 (70) 95 06/22/19 04:30 61 21 115/60 (78) 95 06/22/19 04:00 98.4 63 21 118/57 (77) 95 06/22/19 04:00 40 06/22/19 04:00 63 06/22/19 04:00 Bi-pap 06/22/19 04:00 118/57 06/22/19 03:30 66 20 110/55 (73) 96 06/22/19 03:00 113/58 06/22/19 03:00 67 22 113/58 (76) 96 06/22/19 02:58 67 26 100 40 06/22/19 02:30 63 21 108/55 (72) 95 06/22/19 02:00 65 22 116/56 (76) 97 06/22/19 02:00 116/56 06/22/19 01:30 64 19 113/59 (77) 97 06/22/19 01:00 61 17 117/57 (77) 96 06/22/19 01:00 117/57 06/22/19 00:54 61 22 98 40 06/22/19 00:30 62 17 117/56 (76) 95 06/22/19 00:00 98.7 62 21 115/54 (74) 96 06/22/19 00:00 40 06/22/19 00:00 63 06/22/19 00:00 115/54 06/22/19 00:00 Bi-pap 06/21/19 23:30 63 22 111/69 (83) 96 06/21/19 23:25 63 23 97 40 06/21/19 23:00 113/59 06/21/19 23:00 64 20 113/59 (77) 97 06/21/19 22:30 61 20 112/55 (74) 97 06/21/19 22:00 63 18 112/57 (75) 98 06/21/19 22:00 112/57 06/21/19 21:30 61 18 107/60 (76) 97 06/21/19 21:01 66 23 99 40 06/21/19 21:00 63 21 103/66 (78) 99 06/21/19 21:00 103/66 06/21/19 20:45 107/56 06/21/19 20:30 64 18 107/56 (73) 97 06/21/19 20:00 68 06/21/19 20:00 Bi-pap 06/21/19 20:00 105/51 06/21/19 20:00 50 06/21/19 20:00 68 22 105/51 (69) 97 06/21/19 19:30 98.4 67 18 104/57 (73) 100 06/21/19 19:13 71 21 100 50 06/21/19 19:00 67 18 114/60 (78) 100 06/21/19 19:00 114/60 06/21/19 18:30 60 15 101/53 (69) 100 06/21/19 18:15 61 15 107/54 (71) 100 06/21/19 18:00 100/52 06/21/19 18:00 63 15 100/52 (68) 100 06/21/19 17:45 63 15 103/51 (68) 100 06/21/19 17:30 65 20 100/52 (68) 100 06/21/19 17:15 66 19 116/60 (78) 99 06/21/19 17:00 66 18 129/64 (85) 99 06/21/19 17:00 129/64 06/21/19 16:30 64 17 119/58 (78) 97 06/21/19 16:00 50 06/21/19 16:00 Bi-pap 06/21/19 16:00 97.8 66 19 112/59 (76) 100 06/21/19 16:00 112/59 06/21/19 15:30 64 17 110/55 (73) 100 06/21/19 15:17 62 06/21/19 15:00 66 18 112/59 (76) 100 06/21/19 15:00 112/59 06/21/19 14:30 66 18 119/55 (76) 100 06/21/19 14:00 112/61 06/21/19 14:00 66 18 112/61 (78) 100 06/21/19 13:45 63 17 111/58 (75) 100 06/21/19 13:30 63 18 128/62 (84) 100 06/21/19 13:15 63 18 117/63 (81) 100 06/21/19 13:10 73 27 100 50 06/21/19 13:00 64 17 117/64 (81) 100 06/21/19 13:00 117/64 06/21/19 12:45 63 18 122/59 (80) 100 06/21/19 12:30 88/51 06/21/19 12:30 63 17 88/51 (63) 100 06/21/19 12:00 98.3 64 18 96/50 (65) 100 06/21/19 12:00 Bi-pap 06/21/19 12:00 96/50 06/21/19 12:00 50 06/21/19 11:30 68 21 104/53 (70) 96 06/21/19 11:28 66 06/21/19 11:04 65 16 100 50 06/21/19 11:00 64 18 106/51 (69) 100 06/21/19 11:00 106/51 06/21/19 10:30 61 16 77/48 (58) 100 06/21/19 10:00 109/49 06/21/19 10:00 62 16 109/49 (69) 100 06/21/19 09:30 61 17 90/48 (62) 100 06/21/19 09:00 62 17 105/52 (69) 100 06/21/19 09:00 105/52 06/21/19 09:00 58 21 100 50 06/21/19 08:50 89/42 06/21/19 08:30 62 17 110/58 (75) 100 06/21/19 08:00 50 06/21/19 08:00 Bi-pap 06/21/19 08:00 90/49 06/21/19 08:00 98.2 62 17 89/42 (58) 100 06/21/19 07:39 66 06/21/19 07:30 63 18 90/49 (63) 100 06/21/19 07:05 62 22 100 50 06/21/19 07:00 106/54 06/21/19 07:00 63 20 107/52 (70) 100 06/21/19 06:30 62 19 104/53 (70) 100 06/21/19 06:00 107/60 06/21/19 06:00 62 19 107/60 (76) 100 06/21/19 05:45 64 21 100 50 06/21/19 05:30 68 20 105/55 (72) 100 06/21/19 05:00 106/56 06/21/19 05:00 62 18 106/56 (73) 100 06/21/19 04:30 67 20 103/84 (90) 100 06/21/19 04:06 50 06/21/19 04:05 67 06/21/19 04:00 Bi-pap 06/21/19 04:00 103/72 06/21/19 04:00 65 22 104/58 (73) 100 06/21/19 03:39 71 20 100 Bi-Pap 50 06/21/19 03:30 98.4 67 22 103/72 (82) 100 06/21/19 03:24 68 22 100 50 06/21/19 03:00 64 22 108/58 (75) 100 06/21/19 03:00 108/58 06/21/19 02:30 65 21 95/62 (73) 100 06/21/19 02:00 67 23 105/57 (73) 100 06/21/19 02:00 105/57 06/21/19 01:30 67 22 102/57 (72) 100 06/21/19 01:00 66 23 105/56 (72) 100 06/21/19 01:00 105/56 06/21/19 00:30 67 22 104/55 (71) 100 06/21/19 00:00 98.7 67 21 99/55 (70) 100 06/21/19 00:00 99/55 06/21/19 00:00 Bi-pap 06/21/19 00:00 50 06/21/19 00:00 67 06/20/19 23:30 69 20 103/56 (72) 100 06/20/19 23:00 103/57 06/20/19 23:00 67 22 103/57 (72) 100 06/20/19 22:51 65 19 100 50 06/20/19 22:30 66 20 100/53 (69) 100 06/20/19 22:00 66 21 100/55 (70) 100 06/20/19 22:00 100/55 06/20/19 21:30 67 21 107/61 (76) 100 06/20/19 21:03 67 17 100 50 06/20/19 21:00 65 19 105/58 (74) 100 06/20/19 21:00 105/58 06/20/19 20:45 105/58 06/20/19 20:30 67 21 105/56 (72) 100 06/20/19 20:03 Bi-pap 06/20/19 20:02 50 06/20/19 20:01 66 06/20/19 20:00 68 22 104/55 (71) 100 06/20/19 20:00 105/56 06/20/19 19:30 98.5 66 19 108/57 (74) 100 06/20/19 19:07 74 25 100 50 06/20/19 19:00 106/52 06/20/19 19:00 66 21 106/52 (70) 100 06/20/19 18:00 76 97/54 (68) 06/20/19 17:13 65 21 100 50 06/20/19 17:00 67 21 108/56 (73) 100 06/20/19 16:30 72 23 98/50 (66) 100 06/20/19 16:00 Bi-pap 06/20/19 16:00 98.9 69 23 105/51 (69) 100 06/20/19 16:00 69 06/20/19 15:30 69 24 106/51 (69) 100 06/20/19 15:00 69 24 104/60 (75) 100 06/20/19 14:50 71 26 100 50 06/20/19 14:30 69 25 103/51 (68) 100 06/20/19 14:00 69 25 96/48 (64) 100 06/20/19 13:30 70 25 87/44 (58) 100 06/20/19 13:00 50 06/20/19 13:00 78 29 92 Bi-Pap 50 06/20/19 13:00 75 27 86/46 (59) 98 06/20/19 13:00 74 28 95 50 06/20/19 12:30 82 28 85/42 (56) 96 06/20/19 12:06 82 22 100 Cool Aerosol 10.0 40 90 24 85 06/20/19 12:00 78 06/20/19 12:00 98.8 86 28 107/53 (71) 100 06/20/19 12:00 107/53 06/20/19 12:00 Simple Mask 8.0 06/20/19 12:00 8.0 40 06/20/19 11:34 Venturi Mask 10.0 40 06/20/19 11:30 78 28 89/45 (60) 95 06/20/19 11:25 8.0 40 06/20/19 11:20 100 06/20/19 11:02 79 32 40 40 06/20/19 11:00 74 29 97 06/20/19 11:00 83/45 06/20/19 10:30 75 28 98/47 (64) 98 06/20/19 10:00 74 27 92/50 (64) 98 06/20/19 10:00 92/50 06/20/19 09:30 73 29 108/55 (72) 100 06/20/19 09:28 73 27 40 40 06/20/19 09:00 110 24 108/53 (71) 100 06/20/19 09:00 98/52 06/20/19 08:30 98/49 (65) 06/20/19 08:00 98.9 110 24 102/53 (69) 100 06/20/19 08:00 Mechanical Ventilator 06/20/19 08:00 40 06/20/19 08:00 102/53 06/20/19 08:00 72 06/20/19 07:55 68 24 40 40 06/20/19 07:55 40 06/20/19 07:30 101/55 (70) 06/20/19 07:12 69 15 40 06/20/19 07:00 93/44 06/20/19 07:00 78 16 93/44 (60) 100 Intake and Output 06/21/19 06/22/19 19:00 07:00 Intake Total 503.105 ml 691.96 ml Output Total 1300 ml 1125 ml Balance -796.895 ml -433.04 ml IV Total 193.105 ml 341.96 ml Tube Feeding 310 ml 350 ml Output Urine Total 1300 ml 1125 ml # Bowel Movements 1 1 Labs Test 06/19/19 17:45 06/20/19 04:06 06/20/19 09:36 06/20/19 12:37 Vancomycin Level Trough 7.4 ug/mL (5.0-12.0) White Blood Count 7.8 K/UL (4.8-10.8) Red Blood Count 3.03 M/UL (4.20-5.40) Hemoglobin 9.1 G/DL (12.0-16.0) Hematocrit 27.0 % (37.0-47.0) Mean Corpuscular Volume 89 FL (80-99) Mean Corpuscular Hemoglobin 30.0 PG (27.0-31.0) Mean Corpuscular Hemoglobin Concent 33.7 G/DL (32.0-36.0) Red Cell Distribution Width 13.7 % (11.6-14.8) Platelet Count 66 K/UL (150-450) Mean Platelet Volume 9.1 FL (6.5-10.1) Neutrophils (%) (Auto) % (45.0-75.0) Lymphocytes (%) (Auto) % (20.0-45.0) Monocytes (%) (Auto) % (1.0-10.0) Eosinophils (%) (Auto) % (0.0-3.0) Basophils (%) (Auto) % (0.0-2.0) Differential Total Cells Counted 100 Neutrophils % (Manual) 70 % (45-75) Lymphocytes % (Manual) 15 % (20-45) Monocytes % (Manual) 13 % (1-10) Eosinophils % (Manual) 2 % (0-3) Basophils % (Manual) 0 % (0-2) Band Neutrophils 0 % (0-8) Platelet Estimate Adequate Platelet Morphology Normal Hypochromasia 2+ Anisocytosis 1+ Sodium Level 135 MMOL/L (136-145) Potassium Level 3.6 MMOL/L (3.5-5.1) Chloride Level 105 MMOL/L (98-107) Carbon Dioxide Level 27 MMOL/L (21-32) Anion Gap 3 mmol/L (5-15) Blood Urea Nitrogen 18 mg/dL (7-18) Creatinine 0.9 MG/DL (0.55-1.30) Estimat Glomerular Filtration Rate > 60 mL/min (>60) Glucose Level 166 MG/DL (74-106) Calcium Level 8.1 MG/DL (8.5-10.1) Phosphorus Level 2.2 MG/DL (2.5-4.9) Magnesium Level 1.7 MG/DL (1.8-2.4) Arterial Blood pH 7.392 (7.350-7.450) 7.326 (7.350-7.450) Arterial Blood Partial Pressure CO2 41.5 mmHg (35.0-45.0) 48.2 mmHg (35.0-45.0) Arterial Blood Partial Pressure O2 97.5 mmHg (75.0-100.0) 62.6 mmHg (75.0-100.0) Arterial Blood HCO3 24.7 mmol/L (22.0-26.0) 24.6 mmol/L (22.0-26.0) Arterial Blood Oxygen Saturation 94.7 % (95-100) 89.6 % (95-100) Arterial Blood Base Excess -0.3 (-2-2) -1.5 (-2-2) Julius Test Positive Positive Test 06/22/19 05:20 White Blood Count 7.0 K/UL (4.8-10.8) Red Blood Count 3.18 M/UL (4.20-5.40) Hemoglobin 9.6 G/DL (12.0-16.0) Hematocrit 28.9 % (37.0-47.0) Mean Corpuscular Volume 91 FL (80-99) Mean Corpuscular Hemoglobin 30.2 PG (27.0-31.0) Mean Corpuscular Hemoglobin Concent 33.3 G/DL (32.0-36.0) Red Cell Distribution Width 14.3 % (11.6-14.8) Platelet Count 128 K/UL (150-450) Mean Platelet Volume 8.3 FL (6.5-10.1) Neutrophils (%) (Auto) 72.2 % (45.0-75.0) Lymphocytes (%) (Auto) 13.8 % (20.0-45.0) Monocytes (%) (Auto) 10.9 % (1.0-10.0) Eosinophils (%) (Auto) 2.4 % (0.0-3.0) Basophils (%) (Auto) 0.9 % (0.0-2.0) Height (Feet): 5 Height (Inches): 5.00 Weight (Pounds): 198 Objective PE General: normal inspection, alert, Chronically Ill HEENT: nc, at ++ ng Respiratory: normal inspection, lungs clear, bipap++ Cardiovascular: regular rate, rhythm, no edema Gastrointestinal: normal inspection, normal bowel sounds, non tender, soft, no guarding, no hernia Genitourinary: normal inspection, no CVA tenderness Musculoskeletal: normal inspection, back normal Neurologic: alert, motor strength/tone normal, acute dialysis registered nurse III-XII nml as tested Psychiatric: normal inspection, judgement/insight normal James Sanchez MD Jun 22, 2019 06:41
[2019-06-22 07:02] LABS: ANION GAP 7 mmol/L (5-15); BLOOD UREA NITROGEN 21 mg/dL (7-18); CALCIUM 8.6 MG/DL (8.5-10.1); CARBON DIOXIDE 25 MMOL/L (21-32); CHLORIDE 106 MMOL/L (98-107); CREATININE 0.9 MG/DL (0.55-1.30); SODIUM 138 MMOL/L (136-145)
[2019-06-22] MEDS: Pantoprazole Inj IVP SCH ×2 (08:21→08:45)
[2019-06-22] MEDS: Eliquis 5mg tablet ORAL SCH ×3 (08:22→18:22)
[2019-06-22] MEDS: Norepinephrine Bitartrate 8 MG in D5W 500ml 550 ML IV SCH (08:22)
--- NOTE | 2019-06-22 10:32 | Infectious Diseases Prog Note ---
Assessment/Plan Assessment/Plan IMPRESSION: Sepsis with Septic shock improving Staph aureus pneumonia, MRSA Bilateral pneumonia,CXR improving Hypoxic respiratory failure Interstitial lung disease, Thrombocytopenia, Congestive heart failure. MRSA carrier RECOMMENDATION: COVID-19 test: Negative Continue cefepime X 1 day Continue IV Vancomycin X 2 days Subjective ROS Limited/Unobtainable: Yes Constitutional: Reports: other - doing better Respiratory: Reports: productive cough, other - off of BIPAP Cardiovascular: Reports: other - off of Levophed Allergies: Coded Allergies: MORPHINE (Unverified Allergy, Unknown, 06/15/19) Objective Vital Signs Last 24 Hour Vital Signs Date Time Temp Pulse Resp B/P (MAP) Pulse Ox O2 Delivery O2 Flow Rate FiO2 06/22/19 09:28 65 22 99 40 06/22/19 09:00 67 19 114/55 (74) 96 06/22/19 08:22 102/45 06/22/19 08:00 97.5 70 20 102/45 (64) 96 06/22/19 08:00 40 06/22/19 08:00 Bi-pap 06/22/19 07:35 63 06/22/19 07:15 62 24 98 40 06/22/19 07:00 69 20 94/43 (60) 96 06/22/19 06:00 63 20 94/43 (60) 98 06/22/19 05:30 66 22 91/46 (61) 95 06/22/19 05:21 68 24 99 40 06/22/19 05:00 76 24 99/55 (70) 95 06/22/19 04:30 61 21 115/60 (78) 95 06/22/19 04:00 98.4 63 21 118/57 (77) 95 06/22/19 04:00 40 06/22/19 04:00 63 06/22/19 04:00 Bi-pap 06/22/19 04:00 118/57 06/22/19 03:30 66 20 110/55 (73) 96 06/22/19 03:00 113/58 06/22/19 03:00 67 22 113/58 (76) 96 06/22/19 02:58 67 26 100 40 06/22/19 02:30 63 21 108/55 (72) 95 06/22/19 02:00 65 22 116/56 (76) 97 06/22/19 02:00 116/56 06/22/19 01:30 64 19 113/59 (77) 97 06/22/19 01:00 61 17 117/57 (77) 96 06/22/19 01:00 117/57 06/22/19 00:54 61 22 98 40 06/22/19 00:30 62 17 117/56 (76) 95 06/22/19 00:00 98.7 62 21 115/54 (74) 96 06/22/19 00:00 40 06/22/19 00:00 63 06/22/19 00:00 115/54 06/22/19 00:00 Bi-pap 06/21/19 23:30 63 22 111/69 (83) 96 06/21/19 23:25 63 23 97 40 06/21/19 23:00 113/59 06/21/19 23:00 64 20 113/59 (77) 97 06/21/19 22:30 61 20 112/55 (74) 97 06/21/19 22:00 63 18 112/57 (75) 98 06/21/19 22:00 112/57 06/21/19 21:30 61 18 107/60 (76) 97 06/21/19 21:01 66 23 99 40 06/21/19 21:00 63 21 103/66 (78) 99 06/21/19 21:00 103/66 06/21/19 20:45 107/56 06/21/19 20:30 64 18 107/56 (73) 97 06/21/19 20:00 68 06/21/19 20:00 Bi-pap 06/21/19 20:00 105/51 06/21/19 20:00 50 06/21/19 20:00 68 22 105/51 (69) 97 06/21/19 19:30 98.4 67 18 104/57 (73) 100 06/21/19 19:13 71 21 100 50 06/21/19 19:00 67 18 114/60 (78) 100 06/21/19 19:00 114/60 06/21/19 18:30 60 15 101/53 (69) 100 06/21/19 18:15 61 15 107/54 (71) 100 06/21/19 18:00 100/52 3/29/20 18:00 63 15 100/52 (68) 100 06/21/19 17:45 63 15 103/51 (68) 100 06/21/19 17:30 65 20 100/52 (68) 100 06/21/19 17:15 66 19 116/60 (78) 99 06/21/19 17:00 66 18 129/64 (85) 99 06/21/19 17:00 129/64 06/21/19 16:30 64 17 119/58 (78) 97 06/21/19 16:00 50 06/21/19 16:00 Bi-pap 06/21/19 16:00 97.8 66 19 112/59 (76) 100 06/21/19 16:00 112/59 06/21/19 15:30 64 17 110/55 (73) 100 06/21/19 15:17 62 06/21/19 15:00 66 18 112/59 (76) 100 06/21/19 15:00 112/59 06/21/19 14:30 66 18 119/55 (76) 100 06/21/19 14:00 112/61 06/21/19 14:00 66 18 112/61 (78) 100 06/21/19 13:45 63 17 111/58 (75) 100 06/21/19 13:30 63 18 128/62 (84) 100 06/21/19 13:15 63 18 117/63 (81) 100 06/21/19 13:10 73 27 100 50 06/21/19 13:00 64 17 117/64 (81) 100 06/21/19 13:00 117/64 06/21/19 12:45 63 18 122/59 (80) 100 06/21/19 12:30 88/51 06/21/19 12:30 63 17 88/51 (63) 100 06/21/19 12:00 98.3 64 18 96/50 (65) 100 06/21/19 12:00 Bi-pap 06/21/19 12:00 96/50 06/21/19 12:00 50 06/21/19 11:30 68 21 104/53 (70) 96 06/21/19 11:28 66 06/21/19 11:04 65 16 100 50 06/21/19 11:00 64 18 106/51 (69) 100 06/21/19 11:00 106/51 06/21/19 10:30 61 16 77/48 (58) 100 Height (Feet): 5 Height (Inches): 5.00 Weight (Pounds): 198 General Appearance: no acute distress HEENT: mucous membranes moist Respiratory/Chest: lungs clear, other - oxygen by nasal cannula Cardiovascular: normal rate Abdomen: soft, non tender, other - NG tube feeding Extremities: no edema, other - bunions more in left foot Skin: no rash Neurologic/Psychiatric: alert, responsive Laboratory Tests Test 06/22/19 05:20 White Blood Count 7.0 K/UL (4.8-10.8) Red Blood Count 3.18 M/UL (4.20-5.40) L Hemoglobin 9.6 G/DL (12.0-16.0) L Hematocrit 28.9 % (37.0-47.0) L Mean Corpuscular Volume 91 FL (80-99) Mean Corpuscular Hemoglobin 30.2 PG (27.0-31.0) Mean Corpuscular Hemoglobin Concent 33.3 G/DL (32.0-36.0) Red Cell Distribution Width 14.3 % (11.6-14.8) Platelet Count 128 K/UL (150-450) L Mean Platelet Volume 8.3 FL (6.5-10.1) Neutrophils (%) (Auto) 72.2 % (45.0-75.0) Lymphocytes (%) (Auto) 13.8 % (20.0-45.0) L Monocytes (%) (Auto) 10.9 % (1.0-10.0) H Eosinophils (%) (Auto) 2.4 % (0.0-3.0) Basophils (%) (Auto) 0.9 % (0.0-2.0) Sodium Level 138 MMOL/L (136-145) Potassium Level 4.0 MMOL/L (3.5-5.1) Chloride Level 106 MMOL/L (98-107) Carbon Dioxide Level 25 MMOL/L (21-32) Anion Gap 7 mmol/L (5-15) Blood Urea Nitrogen 21 mg/dL (7-18) H Creatinine 0.9 MG/DL (0.55-1.30) Estimat Glomerular Filtration Rate > 60 mL/min (>60) Glucose Level 165 MG/DL (74-106) H Calcium Level 8.6 MG/DL (8.5-10.1) Current Medications Medications (Trade) Dose Ordered Sig/Emil Route PRN Reason Start Time Stop Time Status Last Admin Dose Admin Acetaminophen (Tylenol) 650 mg Q4H PRN ORAL Mild Pain/Temp > 100.5 06/15/19 14:30 07/15/19 14:29 Albuterol/ Ipratropium (Albuterol/ Ipratropium) 3 ml Q4H PRN HHN Shortness of Breath 06/20/19 11:30 06/25/19 11:29 06/20/19 12:06 Apixaban (Eliquis) 5 mg BID ORAL 06/17/19 18:00 09/15/19 17:59 06/20/19 18:30 Cefepime HCl 1 gm/ Dextrose 55 ml @ 110 mls/hr Q12H IVPB 06/16/19 18:00 06/27/19 17:59 06/22/19 06:32 Chlorhexidine Gluconate (Susie-Hex 2%) 1 applic DAILY@2000 TOPIC 06/16/19 20:00 09/14/19 19:59 06/21/19 19:59 Dextrose (Dextrose 50%) 50 ml Q30M PRN IV Hypoglycemia 06/15/19 14:45 09/13/19 14:44 Dopamine HCl/ Dextrose 250 ml @ 0 mls/hr Q24H IV 06/15/19 20:45 09/13/19 20:44 06/15/19 21:43 Furosemide (Lasix) 20 mg EVERY 12 HOURS IV 06/21/19 12:15 07/21/19 12:14 06/21/19 20:57 Metoclopramide HCl (Reglan) 5 mg Q8H PRN IVP Nausea & Vomiting 06/19/19 09:30 07/19/19 09:29 Norepinephrine Bitartrate 8 mg/ Dextrose 558 ml @ 0 mls/hr Q24H IV 06/16/19 09:00 07/16/19 08:59 06/21/19 08:50 Pantoprazole (Protonix) 40 mg DAILY IVP 06/16/19 09:00 07/16/19 08:59 06/21/19 08:51 Vancomycin HCl (Vanco rx to dose) 1 ea DAILY PRN MISC Per rx protocol 06/17/19 11:15 07/17/19 11:14 Vancomycin/Sodium Chloride 275 ml @ 137.5 mls/ hr Q24H IVPB 06/19/19 20:00 06/24/19 19:59 06/21/19 19:59 Edin Blue MD Jun 22, 2019 10:32
--- NOTE | 2019-06-22 11:25 | Pulmonology Progress Note ---
Assessment/Plan Assessment/Plan IMPRESSION: 1. Bilateral pneumonia, high suspicion for COVID-19 but results negative. 2. History of CHF. 3. Shock; on 3mcg Levophed DISCUSSION: Extuabted; now on BiPAP I will continue empiric antibiotics. Her influenza A and B are negative. I will follow carefully. Will cruz Hope to dc BiPAP today Aly Pinto M.D. Subjective Interval Events: None new; on BiPAP but awake and responsive Constitutional: Reports: no symptoms HEENT: Repors: no symptoms Respiratory: Reports: no symptoms Cardiovascular: Reports: no symptoms Allergies: Coded Allergies: MORPHINE (Unverified Allergy, Unknown, 06/15/19) Objective Last 24 Hour Vital Signs Date Time Temp Pulse Resp B/P (MAP) Pulse Ox O2 Delivery O2 Flow Rate FiO2 06/22/19 09:28 65 22 99 40 06/22/19 09:00 67 19 114/55 (74) 96 06/22/19 08:22 102/45 06/22/19 08:00 97.5 70 20 102/45 (64) 96 06/22/19 08:00 40 06/22/19 08:00 Bi-pap 06/22/19 07:35 63 06/22/19 07:15 62 24 98 40 06/22/19 07:00 69 20 94/43 (60) 96 06/22/19 06:00 63 20 94/43 (60) 98 06/22/19 05:30 66 22 91/46 (61) 95 06/22/19 05:21 68 24 99 40 06/22/19 05:00 76 24 99/55 (70) 95 06/22/19 04:30 61 21 115/60 (78) 95 06/22/19 04:00 98.4 63 21 118/57 (77) 95 06/22/19 04:00 40 06/22/19 04:00 63 06/22/19 04:00 Bi-pap 06/22/19 04:00 118/57 06/22/19 03:30 66 20 110/55 (73) 96 06/22/19 03:00 113/58 06/22/19 03:00 67 22 113/58 (76) 96 06/22/19 02:58 67 26 100 40 06/22/19 02:30 63 21 108/55 (72) 95 06/22/19 02:00 65 22 116/56 (76) 97 06/22/19 02:00 116/56 06/22/19 01:30 64 19 113/59 (77) 97 06/22/19 01:00 61 17 117/57 (77) 96 06/22/19 01:00 117/57 06/22/19 00:54 61 22 98 40 06/22/19 00:30 62 17 117/56 (76) 95 06/22/19 00:00 98.7 62 21 115/54 (74) 96 06/22/19 00:00 40 06/22/19 00:00 63 06/22/19 00:00 115/54 06/22/19 00:00 Bi-pap 06/21/19 23:30 63 22 111/69 (83) 96 06/21/19 23:25 63 23 97 40 06/21/19 23:00 113/59 06/21/19 23:00 64 20 113/59 (77) 97 06/21/19 22:30 61 20 112/55 (74) 97 06/21/19 22:00 63 18 112/57 (75) 98 06/21/19 22:00 112/57 06/21/19 21:30 61 18 107/60 (76) 97 06/21/19 21:01 66 23 99 40 06/21/19 21:00 63 21 103/66 (78) 99 06/21/19 21:00 103/66 06/21/19 20:45 107/56 06/21/19 20:30 64 18 107/56 (73) 97 06/21/19 20:00 68 06/21/19 20:00 Bi-pap 06/21/19 20:00 105/51 06/21/19 20:00 50 06/21/19 20:00 68 22 105/51 (69) 97 06/21/19 19:30 98.4 67 18 104/57 (73) 100 06/21/19 19:13 71 21 100 50 06/21/19 19:00 67 18 114/60 (78) 100 06/21/19 19:00 114/60 06/21/19 18:30 60 15 101/53 (69) 100 06/21/19 18:15 61 15 107/54 (71) 100 06/21/19 18:00 100/52 06/21/19 18:00 63 15 100/52 (68) 100 06/21/19 17:45 63 15 103/51 (68) 100 06/21/19 17:30 65 20 100/52 (68) 100 06/21/19 17:15 66 19 116/60 (78) 99 06/21/19 17:00 66 18 129/64 (85) 99 06/21/19 17:00 129/64 06/21/19 16:30 64 17 119/58 (78) 97 06/21/19 16:00 50 06/21/19 16:00 Bi-pap 06/21/19 16:00 97.8 66 19 112/59 (76) 100 06/21/19 16:00 112/59 06/21/19 15:30 64 17 110/55 (73) 100 06/21/19 15:17 62 06/21/19 15:00 66 18 112/59 (76) 100 06/21/19 15:00 112/59 06/21/19 14:30 66 18 119/55 (76) 100 06/21/19 14:00 112/61 06/21/19 14:00 66 18 112/61 (78) 100 06/21/19 13:45 63 17 111/58 (75) 100 06/21/19 13:30 63 18 128/62 (84) 100 06/21/19 13:15 63 18 117/63 (81) 100 06/21/19 13:10 73 27 100 50 06/21/19 13:00 64 17 117/64 (81) 100 06/21/19 13:00 117/64 06/21/19 12:45 63 18 122/59 (80) 100 06/21/19 12:30 88/51 06/21/19 12:30 63 17 88/51 (63) 100 06/21/19 12:00 98.3 64 18 96/50 (65) 100 06/21/19 12:00 Bi-pap 06/21/19 12:00 96/50 3/29/20 12:00 50 06/21/19 11:30 68 21 104/53 (70) 96 06/21/19 11:28 66 Intake and Output 06/21/19 06/22/19 19:00 07:00 Intake Total 503.105 ml 731.96 ml Output Total 1300 ml 1150 ml Balance -796.895 ml -418.04 ml IV Total 193.105 ml 341.96 ml Tube Feeding 310 ml 390 ml Output Urine Total 1300 ml 1150 ml # Bowel Movements 1 1 General Appearance: no acute distress HEENT: normocephalic Respiratory/Chest: chest wall non-tender, lungs clear Cardiovascular: normal peripheral pulses Abdomen: normal bowel sounds Laboratory Tests 06/22/19 05:20: White Blood Count 7.0, Red Blood Count 3.18L, Hemoglobin 9.6L, Hematocrit 28.9L , Mean Corpuscular Volume 91, Mean Corpuscular Hemoglobin 30.2, Mean Corpuscular Hemoglobin Concent 33.3, Red Cell Distribution Width 14.3, Platelet Count 128L, Mean Platelet Volume 8.3, Neutrophils (%) (Auto) 72.2, Lymphocytes ( %) (Auto) 13.8L, Monocytes (%) (Auto) 10.9H, Eosinophils (%) (Auto) 2.4, Basophils (%) (Auto) 0.9, Sodium Level 138, Potassium Level 4.0, Chloride Level 106, Carbon Dioxide Level 25, Anion Gap 7, Blood Urea Nitrogen 21H, Creatinine 0.9, Estimat Glomerular Filtration Rate > 60, Glucose Level 165H, Calcium Level 8.6 06/22/19 11:08: Arterial Blood pH [Pending], Arterial Blood Partial Pressure CO2 [Pending], Arterial Blood Partial Pressure O2 [Pending], Arterial Blood HCO3 [Pending], Arterial Blood Oxygen Saturation [Pending], Arterial Blood Base Excess [Pending] , Julius Test [Pending] Current Medications Medications (Trade) Dose Ordered Sig/Emil Route PRN Reason Start Time Stop Time Status Last Admin Dose Admin Acetaminophen (Tylenol) 650 mg Q4H PRN ORAL Mild Pain/Temp > 100.5 06/15/19 14:30 07/15/19 14:29 Albuterol/ Ipratropium (Albuterol/ Ipratropium) 3 ml Q4H PRN HHN Shortness of Breath 06/20/19 11:30 06/25/19 11:29 06/20/19 12:06 Apixaban (Eliquis) 5 mg BID ORAL 06/17/19 18:00 09/15/19 17:59 06/20/19 18:30 Cefepime HCl 1 gm/ Dextrose 55 ml @ 110 mls/hr Q12H IVPB 06/16/19 18:00 06/27/19 17:59 06/22/19 06:32 Chlorhexidine Gluconate (Susie-Hex 2%) 1 applic DAILY@2000 TOPIC 06/16/19 20:00 09/14/19 19:59 06/21/19 19:59 Dextrose (Dextrose 50%) 50 ml Q30M PRN IV Hypoglycemia 06/15/19 14:45 09/13/19 14:44 Dopamine HCl/ Dextrose 250 ml @ 0 mls/hr Q24H IV 06/15/19 20:45 09/13/19 20:44 06/15/19 21:43 Furosemide (Lasix) 20 mg EVERY 12 HOURS IV 06/21/19 12:15 07/21/19 12:14 06/21/19 20:57 Metoclopramide HCl (Reglan) 5 mg Q8H PRN IVP Nausea & Vomiting 06/19/19 09:30 07/19/19 09:29 Norepinephrine Bitartrate 8 mg/ Dextrose 558 ml @ 0 mls/hr Q24H IV 06/16/19 09:00 07/16/19 08:59 06/21/19 08:50 Pantoprazole (Protonix) 40 mg DAILY IVP 06/16/19 09:00 07/16/19 08:59 06/21/19 08:51 Vancomycin HCl (Vanco rx to dose) 1 ea DAILY PRN MISC Per rx protocol 06/17/19 11:15 07/17/19 11:14 Vancomycin/Sodium Chloride 275 ml @ 137.5 mls/ hr Q24H IVPB 06/19/19 20:00 06/24/19 19:59 06/21/19 19:59 Aly Pinto MD Jun 22, 2019 11:25
--- NOTE | 2019-06-22 12:30 | General Progress Note ---
Assessment/Plan Status: unchanged, deteriorating Assessment/Plan: 1. Mild anemia. 2. Thrombocytopenia. 3. Coagulopathy, mild. 4. Elevated troponin. 5. Hypoalbuminemia. 6. Respiratory failure. 7. Diabetes per chart. low dose reglan for elevated residuals fu abd us>>> reviewed fu stool ob>>> NEG fu labs pulm care repeat labs in am Subjective ROS Limited/Unobtainable: No Allergies: Coded Allergies: MORPHINE (Unverified Allergy, Unknown, 06/15/19) Objective Last 24 Hour Vital Signs Date Time Temp Pulse Resp B/P (MAP) Pulse Ox O2 Delivery O2 Flow Rate FiO2 06/22/19 09:28 65 22 99 40 06/22/19 09:00 67 19 114/55 (74) 96 06/22/19 08:22 102/45 06/22/19 08:00 97.5 70 20 102/45 (64) 96 06/22/19 08:00 40 06/22/19 08:00 Bi-pap 06/22/19 07:35 63 06/22/19 07:15 62 24 98 40 06/22/19 07:00 69 20 94/43 (60) 96 06/22/19 06:00 63 20 94/43 (60) 98 06/22/19 05:30 66 22 91/46 (61) 95 06/22/19 05:21 68 24 99 40 06/22/19 05:00 76 24 99/55 (70) 95 06/22/19 04:30 61 21 115/60 (78) 95 06/22/19 04:00 98.4 63 21 118/57 (77) 95 06/22/19 04:00 40 06/22/19 04:00 63 06/22/19 04:00 Bi-pap 06/22/19 04:00 118/57 06/22/19 03:30 66 20 110/55 (73) 96 06/22/19 03:00 113/58 06/22/19 03:00 67 22 113/58 (76) 96 06/22/19 02:58 67 26 100 40 06/22/19 02:30 63 21 108/55 (72) 95 06/22/19 02:00 65 22 116/56 (76) 97 06/22/19 02:00 116/56 06/22/19 01:30 64 19 113/59 (77) 97 06/22/19 01:00 61 17 117/57 (77) 96 06/22/19 01:00 117/57 06/22/19 00:54 61 22 98 40 06/22/19 00:30 62 17 117/56 (76) 95 06/22/19 00:00 98.7 62 21 115/54 (74) 96 06/22/19 00:00 40 06/22/19 00:00 63 06/22/19 00:00 115/54 06/22/19 00:00 Bi-pap 06/21/19 23:30 63 22 111/69 (83) 96 06/21/19 23:25 63 23 97 40 06/21/19 23:00 113/59 06/21/19 23:00 64 20 113/59 (77) 97 06/21/19 22:30 61 20 112/55 (74) 97 06/21/19 22:00 63 18 112/57 (75) 98 06/21/19 22:00 112/57 06/21/19 21:30 61 18 107/60 (76) 97 06/21/19 21:01 66 23 99 40 06/21/19 21:00 63 21 103/66 (78) 99 06/21/19 21:00 103/66 06/21/19 20:45 107/56 06/21/19 20:30 64 18 107/56 (73) 97 06/21/19 20:00 68 06/21/19 20:00 Bi-pap 06/21/19 20:00 105/51 06/21/19 20:00 50 06/21/19 20:00 68 22 105/51 (69) 97 06/21/19 19:30 98.4 67 18 104/57 (73) 100 06/21/19 19:13 71 21 100 50 06/21/19 19:00 67 18 114/60 (78) 100 06/21/19 19:00 114/60 06/21/19 18:30 60 15 101/53 (69) 100 06/21/19 18:15 61 15 107/54 (71) 100 06/21/19 18:00 100/52 06/21/19 18:00 63 15 100/52 (68) 100 06/21/19 17:45 63 15 103/51 (68) 100 06/21/19 17:30 65 20 100/52 (68) 100 06/21/19 17:15 66 19 116/60 (78) 99 06/21/19 17:00 66 18 129/64 (85) 99 06/21/19 17:00 129/64 06/21/19 16:30 64 17 119/58 (78) 97 06/21/19 16:00 50 06/21/19 16:00 Bi-pap 06/21/19 16:00 97.8 66 19 112/59 (76) 100 06/21/19 16:00 112/59 06/21/19 15:30 64 17 110/55 (73) 100 06/21/19 15:17 62 06/21/19 15:00 66 18 112/59 (76) 100 06/21/19 15:00 112/59 06/21/19 14:30 66 18 119/55 (76) 100 06/21/19 14:00 112/61 06/21/19 14:00 66 18 112/61 (78) 100 06/21/19 13:45 63 17 111/58 (75) 100 06/21/19 13:30 63 18 128/62 (84) 100 06/21/19 13:15 63 18 117/63 (81) 100 06/21/19 13:10 73 27 100 50 06/21/19 13:00 64 17 117/64 (81) 100 06/21/19 13:00 117/64 06/21/19 12:45 63 18 122/59 (80) 100 06/21/19 12:30 88/51 06/21/19 12:30 63 17 88/51 (63) 100 Intake and Output 06/21/19 06/22/19 19:00 07:00 Intake Total 503.105 ml 731.96 ml Output Total 1300 ml 1150 ml Balance -796.895 ml -418.04 ml IV Total 193.105 ml 341.96 ml Tube Feeding 310 ml 390 ml Output Urine Total 1300 ml 1150 ml # Bowel Movements 1 1 Laboratory Tests 06/22/19 05:20: White Blood Count 7.0, Red Blood Count 3.18L, Hemoglobin 9.6L, Hematocrit 28.9L , Mean Corpuscular Volume 91, Mean Corpuscular Hemoglobin 30.2, Mean Corpuscular Hemoglobin Concent 33.3, Red Cell Distribution Width 14.3, Platelet Count 128L, Mean Platelet Volume 8.3, Neutrophils (%) (Auto) 72.2, Lymphocytes ( %) (Auto) 13.8L, Monocytes (%) (Auto) 10.9H, Eosinophils (%) (Auto) 2.4, Basophils (%) (Auto) 0.9, Sodium Level 138, Potassium Level 4.0, Chloride Level 106, Carbon Dioxide Level 25, Anion Gap 7, Blood Urea Nitrogen 21H, Creatinine 0.9, Estimat Glomerular Filtration Rate > 60, Glucose Level 165H, Calcium Level 8.6 06/22/19 11:08: Arterial Blood pH 7.378, Arterial Blood Partial Pressure CO2 45.8H, Arterial Blood Partial Pressure O2 61.0L, Arterial Blood HCO3 26.4H, Arterial Blood Oxygen Saturation 90.0L, Arterial Blood Base Excess 0.9, Julius Test Positive Height (Feet): 5 Height (Inches): 5.00 Weight (Pounds): 198 General Appearance: no apparent distress EENT: normal ENT inspection Neck: supple Cardiovascular: normal rate Respiratory/Chest: decreased breath sounds Abdomen: normal bowel sounds, non tender, soft Extremities: non-tender Aman Wheat MD Jun 22, 2019 12:30
--- NOTE | 2019-06-22 13:14 | Diagnostic Imaging Report ---
Indication: Dyspnea Comparison: 06/18/2019 A single view chest radiograph was obtained. Findings: There are patchy fairly extensive airspace opacities throughout both lung west having slightly increased since the prior occasion, keeping in mind the lung volumes are lower which artifactually accentuates disease. The heart is enlarged. Patient has been extubated. Nasogastric tube is in good position. Central venous catheter again noted. IMPRESSION: Extensive bilateral airspace opacities consistent with pneumonia. Disease may have worsened slightly.
--- NOTE | 2019-06-22 13:37 | Cardiac Electrophysiology PN ---
Assessment/Plan Assessment/Plan 1. S/P Respiratory failure due to bilateral MRSA pneumonia and CHF Echo EF 60%. Extubated . COVID 19 result negative. Off BIPAP today 2. Troponin leak. No acute ECG findings. Likely due to septic shock and demand ischemia 3. Atrial fib off anticoagulation for Severe thrombocytopenia. Off AVN violette for hypotension. If develops atrial fib with RVR will load with digoxin. In SR 4. S/P septic shock off Levophed and on abx by Dr. Blue. 5. History of psychiatric history. 6. History of cellulitis. RYANN RN Subjective Subjective In ICU off Levophed and BIPAP. In SR. Objective Last 24 Hour Vital Signs Date Time Temp Pulse Resp B/P (MAP) Pulse Ox O2 Delivery O2 Flow Rate FiO2 06/22/19 12:00 Bi-pap 06/22/19 11:00 72 23 113/49 (70) 97 06/22/19 10:00 72 22 91/67 (75) 96 06/22/19 09:28 65 22 99 40 06/22/19 09:00 67 19 114/55 (74) 96 06/22/19 08:22 102/45 06/22/19 08:00 97.5 70 20 102/45 (64) 96 06/22/19 08:00 40 06/22/19 08:00 Bi-pap 06/22/19 07:35 63 06/22/19 07:15 62 24 98 40 06/22/19 07:00 69 20 94/43 (60) 96 06/22/19 06:00 63 20 94/43 (60) 98 06/22/19 05:30 66 22 91/46 (61) 95 06/22/19 05:21 68 24 99 40 06/22/19 05:00 76 24 99/55 (70) 95 06/22/19 04:30 61 21 115/60 (78) 95 06/22/19 04:00 98.4 63 21 118/57 (77) 95 06/22/19 04:00 40 06/22/19 04:00 63 06/22/19 04:00 Bi-pap 06/22/19 04:00 118/57 06/22/19 03:30 66 20 110/55 (73) 96 06/22/19 03:00 113/58 06/22/19 03:00 67 22 113/58 (76) 96 06/22/19 02:58 67 26 100 40 06/22/19 02:30 63 21 108/55 (72) 95 06/22/19 02:00 65 22 116/56 (76) 97 06/22/19 02:00 116/56 06/22/19 01:30 64 19 113/59 (77) 97 06/22/19 01:00 61 17 117/57 (77) 96 06/22/19 01:00 117/57 06/22/19 00:54 61 22 98 40 06/22/19 00:30 62 17 117/56 (76) 95 06/22/19 00:00 98.7 62 21 115/54 (74) 96 06/22/19 00:00 40 06/22/19 00:00 63 06/22/19 00:00 115/54 06/22/19 00:00 Bi-pap 06/21/19 23:30 63 22 111/69 (83) 96 06/21/19 23:25 63 23 97 40 06/21/19 23:00 113/59 06/21/19 23:00 64 20 113/59 (77) 97 06/21/19 22:30 61 20 112/55 (74) 97 06/21/19 22:00 63 18 112/57 (75) 98 06/21/19 22:00 112/57 06/21/19 21:30 61 18 107/60 (76) 97 06/21/19 21:01 66 23 99 40 06/21/19 21:00 63 21 103/66 (78) 99 06/21/19 21:00 103/66 06/21/19 20:45 107/56 06/21/19 20:30 64 18 107/56 (73) 97 06/21/19 20:00 68 06/21/19 20:00 Bi-pap 06/21/19 20:00 105/51 06/21/19 20:00 50 06/21/19 20:00 68 22 105/51 (69) 97 06/21/19 19:30 98.4 67 18 104/57 (73) 100 06/21/19 19:13 71 21 100 50 06/21/19 19:00 67 18 114/60 (78) 100 06/21/19 19:00 114/60 3/29/20 18:30 60 15 101/53 (69) 100 06/21/19 18:15 61 15 107/54 (71) 100 06/21/19 18:00 100/52 06/21/19 18:00 63 15 100/52 (68) 100 06/21/19 17:45 63 15 103/51 (68) 100 06/21/19 17:30 65 20 100/52 (68) 100 06/21/19 17:15 66 19 116/60 (78) 99 06/21/19 17:00 66 18 129/64 (85) 99 06/21/19 17:00 129/64 06/21/19 16:30 64 17 119/58 (78) 97 06/21/19 16:00 50 06/21/19 16:00 Bi-pap 06/21/19 16:00 97.8 66 19 112/59 (76) 100 06/21/19 16:00 112/59 06/21/19 15:30 64 17 110/55 (73) 100 06/21/19 15:17 62 06/21/19 15:00 66 18 112/59 (76) 100 06/21/19 15:00 112/59 06/21/19 14:30 66 18 119/55 (76) 100 06/21/19 14:00 112/61 06/21/19 14:00 66 18 112/61 (78) 100 06/21/19 13:45 63 17 111/58 (75) 100 Intake and Output 06/21/19 06/22/19 19:00 07:00 Intake Total 503.105 ml 731.96 ml Output Total 1300 ml 1150 ml Balance -796.895 ml -418.04 ml IV Total 193.105 ml 341.96 ml Tube Feeding 310 ml 390 ml Output Urine Total 1300 ml 1150 ml # Bowel Movements 1 1 Laboratory Tests Test 06/22/19 05:20 06/22/19 11:08 White Blood Count 7.0 K/UL (4.8-10.8) Red Blood Count 3.18 M/UL (4.20-5.40) L Hemoglobin 9.6 G/DL (12.0-16.0) L Hematocrit 28.9 % (37.0-47.0) L Mean Corpuscular Volume 91 FL (80-99) Mean Corpuscular Hemoglobin 30.2 PG (27.0-31.0) Mean Corpuscular Hemoglobin Concent 33.3 G/DL (32.0-36.0) Red Cell Distribution Width 14.3 % (11.6-14.8) Platelet Count 128 K/UL (150-450) L Mean Platelet Volume 8.3 FL (6.5-10.1) Neutrophils (%) (Auto) 72.2 % (45.0-75.0) Lymphocytes (%) (Auto) 13.8 % (20.0-45.0) L Monocytes (%) (Auto) 10.9 % (1.0-10.0) H Eosinophils (%) (Auto) 2.4 % (0.0-3.0) Basophils (%) (Auto) 0.9 % (0.0-2.0) Sodium Level 138 MMOL/L (136-145) Potassium Level 4.0 MMOL/L (3.5-5.1) Chloride Level 106 MMOL/L (98-107) Carbon Dioxide Level 25 MMOL/L (21-32) Anion Gap 7 mmol/L (5-15) Blood Urea Nitrogen 21 mg/dL (7-18) H Creatinine 0.9 MG/DL (0.55-1.30) Estimat Glomerular Filtration Rate > 60 mL/min (>60) Glucose Level 165 MG/DL (74-106) H Calcium Level 8.6 MG/DL (8.5-10.1) Arterial Blood pH 7.378 (7.350-7.450) Arterial Blood Partial Pressure CO2 45.8 mmHg (35.0-45.0) H Arterial Blood Partial Pressure O2 61.0 mmHg (75.0-100.0) L Arterial Blood HCO3 26.4 mmol/L (22.0-26.0) H Arterial Blood Oxygen Saturation 90.0 % (95-100) L Arterial Blood Base Excess 0.9 (-2-2) Julius Test Positive Objective HEAD AND NECK: No JVD. NG tube in. On BIPAP LUNGS: Bilateral rhonchi. CARDIOVASCULAR: Regular S1 and S2 with no gallop. ABDOMEN: Soft. EXTREMITIES: No pitting edema. Ruben Grissom MD Jun 22, 2019 13:37
[2019-06-22] MEDS ORDERED: Albuterol/Ipratropium 3ml neb HHN PRN (15:44)
[2019-06-22] MEDS ORDERED: Metoclopramide 10mg/2ml Inj IVP PRN (15:45)
--- NOTE | 2019-06-22 20:20 | General Progress Note ---
Assessment/Plan Problem List: (1) Hypoglycemia ICD Codes: E16.2 - Hypoglycemia, unspecified SNOMED: 766206102 (2) Leukopenia ICD Codes: D72.819 - Decreased white blood cell count, unspecified SNOMED: 61599404, 645647883 (3) Pneumonia ICD Codes: J18.9 - Pneumonia, unspecified organism SNOMED: 731784064, 795960087 Status: unchanged, deteriorating Assessment/Plan: s/p intubation malnutrition sugar is normal pn s/p pressor septic shock t very poor prognosis Subjective ROS Limited/Unobtainable: Yes Allergies: Coded Allergies: MORPHINE (Unverified Allergy, Unknown, 06/15/19) Objective Last 24 Hour Vital Signs Date Time Temp Pulse Resp B/P (MAP) Pulse Ox O2 Delivery O2 Flow Rate FiO2 06/22/19 16:00 70 06/22/19 16:00 97.5 73 20 102/54 (70) 99 06/22/19 16:00 3.0 06/22/19 15:00 70 19 100/46 (64) 94 06/22/19 14:00 70 19 100/46 (64) 94 06/22/19 13:00 71 20 99/56 (70) 97 06/22/19 12:11 63 06/22/19 12:00 97.5 70 20 105/55 (72) 98 06/22/19 12:00 Bi-pap 06/22/19 12:00 3.0 06/22/19 11:00 72 23 113/49 (70) 97 06/22/19 10:00 72 22 91/67 (75) 96 06/22/19 09:28 65 22 99 40 06/22/19 09:00 67 19 114/55 (74) 96 06/22/19 08:22 102/45 06/22/19 08:00 97.5 70 20 102/45 (64) 96 06/22/19 08:00 40 06/22/19 08:00 Bi-pap 06/22/19 07:35 63 06/22/19 07:15 62 24 98 40 06/22/19 07:00 69 20 94/43 (60) 96 06/22/19 06:00 63 20 94/43 (60) 98 06/22/19 05:30 66 22 91/46 (61) 95 06/22/19 05:21 68 24 99 40 06/22/19 05:00 76 24 99/55 (70) 95 06/22/19 04:30 61 21 115/60 (78) 95 06/22/19 04:00 98.4 63 21 118/57 (77) 95 06/22/19 04:00 40 06/22/19 04:00 63 06/22/19 04:00 Bi-pap 06/22/19 04:00 118/57 06/22/19 03:30 66 20 110/55 (73) 96 06/22/19 03:00 113/58 06/22/19 03:00 67 22 113/58 (76) 96 06/22/19 02:58 67 26 100 40 06/22/19 02:30 63 21 108/55 (72) 95 06/22/19 02:00 65 22 116/56 (76) 97 06/22/19 02:00 116/56 06/22/19 01:30 64 19 113/59 (77) 97 06/22/19 01:00 61 17 117/57 (77) 96 06/22/19 01:00 117/57 06/22/19 00:54 61 22 98 40 06/22/19 00:30 62 17 117/56 (76) 95 06/22/19 00:00 98.7 62 21 115/54 (74) 96 06/22/19 00:00 40 06/22/19 00:00 63 06/22/19 00:00 115/54 06/22/19 00:00 Bi-pap 06/21/19 23:30 63 22 111/69 (83) 96 06/21/19 23:25 63 23 97 40 06/21/19 23:00 113/59 06/21/19 23:00 64 20 113/59 (77) 97 06/21/19 22:30 61 20 112/55 (74) 97 06/21/19 22:00 63 18 112/57 (75) 98 06/21/19 22:00 112/57 06/21/19 21:30 61 18 107/60 (76) 97 06/21/19 21:01 66 23 99 40 06/21/19 21:00 63 21 103/66 (78) 99 06/21/19 21:00 103/66 06/21/19 20:45 107/56 06/21/19 20:30 64 18 107/56 (73) 97 Intake and Output 06/21/19 06/22/19 19:00 07:00 Intake Total 503.105 ml 731.96 ml Output Total 1300 ml 1150 ml Balance -796.895 ml -418.04 ml IV Total 193.105 ml 341.96 ml Tube Feeding 310 ml 390 ml Output Urine Total 1300 ml 1150 ml # Bowel Movements 1 1 Laboratory Tests 06/22/19 05:20: White Blood Count 7.0, Red Blood Count 3.18L, Hemoglobin 9.6L, Hematocrit 28.9L , Mean Corpuscular Volume 91, Mean Corpuscular Hemoglobin 30.2, Mean Corpuscular Hemoglobin Concent 33.3, Red Cell Distribution Width 14.3, Platelet Count 128L, Mean Platelet Volume 8.3, Neutrophils (%) (Auto) 72.2, Lymphocytes ( %) (Auto) 13.8L, Monocytes (%) (Auto) 10.9H, Eosinophils (%) (Auto) 2.4, Basophils (%) (Auto) 0.9, Sodium Level 138, Potassium Level 4.0, Chloride Level 106, Carbon Dioxide Level 25, Anion Gap 7, Blood Urea Nitrogen 21H, Creatinine 0.9, Estimat Glomerular Filtration Rate > 60, Glucose Level 165H, Calcium Level 8.6 06/22/19 11:08: Arterial Blood pH 7.378, Arterial Blood Partial Pressure CO2 45.8H, Arterial Blood Partial Pressure O2 61.0L, Arterial Blood HCO3 26.4H, Arterial Blood Oxygen Saturation 90.0L, Arterial Blood Base Excess 0.9, Julius Test Positive 06/22/19 19:25: Vancomycin Level Trough 16.8H Height (Feet): 5 Height (Inches): 5.00 Weight (Pounds): 198 General Appearance: lethargic Jayjay Chandler MD Jun 22, 2019 20:20
[2019-06-22] MEDS ORDERED: DOPamine 400mg/250ml 250 ML IV SCH (20:45)
[2019-06-22] MEDS: Dyna-Hex 2% Top Sol 2oz TOPIC SCH (21:38)
[2019-06-22] MEDS: Vancomycin 1.5gm/NS Premix 275 ML IVPB SCH (21:50)
[2019-06-23] VITALS: BP 120/59
[2019-06-23 04:00] VITALS: BP 118/61
[2019-06-23] MEDS: Cefepime HCl 1 GM in D5W 55 ML IVPB SCH (06:02)
--- NOTE | 2019-06-23 06:08 | Hematology/Onc Progress Note ---
Assessment/Plan Assessment/Plan Assessment and Recs: # Pancytopenia with a decreased wbc and plt, likely related to pna v other cause , meds ntoed --> hepatitis and hiv negative --> smear ordered at this time, no blasts noted, wbc are stable --> us of the abdomen negative for hsm and cirrhosis --> plt 62-->57k-->50k-->51k-->128k --> transfuse on prn basis --> neupogen if anc drops to below 1500 --> hgb trend 8-->9.6 # Hypercoagulable disorder with afib --> ok for apixaban --> per cards # Pneumonia on admission --> now intubated --> on abx, cefepime / vanc --> per id and pulm # Hypoglycemia --> d5w given earlier --> now improved # Shortness of breath, likely due to bilateral pneumonia --> echo per cards --> may need diuresis # Respiratory failure with Bilateral lung infiltrate and leukopenia. The patient was already started on Plaquenil 600, azithromycin. --> dr. Pinto on board --> NOW INTUBATED-->bipap --> off on nc now --> covid ruled outed --> on abx vanc/cefe # History of psychiatric history. # History of cellulitis. # Dvt ppx apixaban Thank you very, appreciate consultation and dw Rn Subjective Constitutional: Denies: no symptoms, chills, fever, malaise, weakness, other HEENT: Denies: no symptoms, eye pain, blurred vision, tearing, double vision, ear pain, ear discharge, nose pain, nose congestion, throat pain, throat swelling, mouth pain, mouth swelling, other Respiratory: Denies: no symptoms, cough, shortness of breath, SOB with excertion, SOB at rest, sputum, wheezing, other Gastrointestinal/Abdominal: Denies: no symptoms, abdomen distended, abdominal pain, black stools, tarry stools, blood in stool, constipated, diarrhea, difficulty swallowing, nausea, poor appetite, poor fluid intake, rectal bleeding , vomiting, other Genitourinary: Denies: no symptoms, burning, discharge, frequency, flank pain, hematuria, incontinence, pain, urgency, other Neurologic/Psychiatric: Denies: no symptoms, anxiety, depressed, emotional problems, headache, numbness, paresthesia, pre-existing deficit, seizure, tingling, tremors, weakness, other Endocrine: Denies: no symptoms, excessive sweating, flushing, intolerance to cold, intolerance to heat, increased hunger, increased thirst, increased urine, unexplained weight gain, unexplained weight loss, other Allergies: Coded Allergies: MORPHINE (Unverified Allergy, Unknown, 06/15/19) Subjective 06/16 remains intubated on a vent, on lveophed, with ng, draining, covid rule out , dw rn relief charge 06/17 labs reviewed, no bleeding or night sweats, no major meds noted 06/18 remains on levo gtt, with tube feeds, plt 51k.no overt bleeding 06/20 icu, no acute events, cbc pending, bipap, vanc/cefe 06/21 with loose stool, levo is on hold, meds noted, no bleeding, in icu 06/22 no events, with ng, with farris, no bleeding, labs noted, hgb stable Objective Objective Current Medications Medications (Trade) Dose Ordered Sig/Emil Route PRN Reason Start Time Stop Time Status Last Admin Dose Admin Acetaminophen (Tylenol) 650 mg Q4H PRN ORAL Mild Pain/Temp > 100.5 06/22/19 16:00 07/15/19 15:59 Albuterol/ Ipratropium (Albuterol/ Ipratropium) 3 ml Q4H PRN HHN Shortness of Breath 06/22/19 15:44 06/25/19 15:43 Apixaban (Eliquis) 5 mg BID ORAL 06/22/19 18:00 09/15/19 17:59 06/22/19 18:22 Cefepime HCl 1 gm/ Dextrose 55 ml @ 110 mls/hr Q12H IVPB 06/22/19 18:00 06/27/19 17:59 06/23/19 06:02 Chlorhexidine Gluconate (Susie-Hex 2%) 1 applic DAILY@2000 TOPIC 06/22/19 20:00 09/14/19 19:59 06/22/19 21:38 Dextrose (Dextrose 50%) 50 ml Q30M PRN IV Hypoglycemia 06/22/19 15:45 6/21/20 14:44 Furosemide (Lasix) 20 mg EVERY 12 HOURS IV 06/22/19 21:00 07/21/19 12:14 06/22/19 21:38 Metoclopramide HCl (Reglan) 5 mg Q8H PRN IVP Nausea & Vomiting 06/22/19 15:45 07/19/19 15:44 Pantoprazole (Protonix) 40 mg DAILY IVP 06/23/19 09:00 07/16/19 08:59 Vancomycin HCl (Vanco rx to dose) 1 ea DAILY PRN MISC Per rx protocol 06/23/19 09:00 07/17/19 11:14 Vancomycin/Sodium Chloride 275 ml @ 137.5 mls/ hr Q24H IVPB 06/22/19 20:00 06/24/19 19:59 06/22/19 21:50 Last 24 Hour Vital Signs Date Time Temp Pulse Resp B/P (MAP) Pulse Ox O2 Delivery O2 Flow Rate FiO2 06/23/19 04:00 73 06/23/19 04:00 97.5 81 20 118/61 (80) 97 06/23/19 04:00 3.0 06/23/19 00:00 3.0 06/23/19 00:00 70 06/23/19 00:00 98.1 74 20 120/59 (79) 94 06/22/19 20:00 97.9 72 20 111/57 (75) 94 06/22/19 20:00 3.0 06/22/19 20:00 69 06/22/19 19:57 94 Nasal Cannula 3.0 32 06/22/19 16:00 70 06/22/19 16:00 97.5 73 20 102/54 (70) 99 06/22/19 16:00 3.0 06/22/19 15:00 70 19 100/46 (64) 94 06/22/19 14:00 70 19 100/46 (64) 94 06/22/19 13:00 71 20 99/56 (70) 97 06/22/19 12:11 63 06/22/19 12:00 97.5 70 20 105/55 (72) 98 06/22/19 12:00 Bi-pap 06/22/19 12:00 3.0 06/22/19 11:00 72 23 113/49 (70) 97 06/22/19 10:00 72 22 91/67 (75) 96 06/22/19 09:28 65 22 99 40 06/22/19 09:00 67 19 114/55 (74) 96 06/22/19 08:22 102/45 06/22/19 08:00 97.5 70 20 102/45 (64) 96 06/22/19 08:00 40 06/22/19 08:00 Bi-pap 06/22/19 07:35 63 06/22/19 07:15 62 24 98 40 06/22/19 07:00 69 20 94/43 (60) 96 06/22/19 06:00 63 20 94/43 (60) 98 06/22/19 05:30 66 22 91/46 (61) 95 06/22/19 05:21 68 24 99 40 06/22/19 05:00 76 24 99/55 (70) 95 06/22/19 04:30 61 21 115/60 (78) 95 06/22/19 04:00 98.4 63 21 118/57 (77) 95 06/22/19 04:00 40 06/22/19 04:00 63 06/22/19 04:00 Bi-pap 06/22/19 04:00 118/57 06/22/19 03:30 66 20 110/55 (73) 96 06/22/19 03:00 113/58 06/22/19 03:00 67 22 113/58 (76) 96 06/22/19 02:58 67 26 100 40 06/22/19 02:30 63 21 108/55 (72) 95 06/22/19 02:00 65 22 116/56 (76) 97 06/22/19 02:00 116/56 06/22/19 01:30 64 19 113/59 (77) 97 06/22/19 01:00 61 17 117/57 (77) 96 06/22/19 01:00 117/57 06/22/19 00:54 61 22 98 40 06/22/19 00:30 62 17 117/56 (76) 95 06/22/19 00:00 98.7 62 21 115/54 (74) 96 06/22/19 00:00 40 06/22/19 00:00 63 06/22/19 00:00 115/54 06/22/19 00:00 Bi-pap 06/21/19 23:30 63 22 111/69 (83) 96 06/21/19 23:25 63 23 97 40 06/21/19 23:00 113/59 06/21/19 23:00 64 20 113/59 (77) 97 06/21/19 22:30 61 20 112/55 (74) 97 06/21/19 22:00 63 18 112/57 (75) 98 06/21/19 22:00 112/57 06/21/19 21:30 61 18 107/60 (76) 97 06/21/19 21:01 66 23 99 40 06/21/19 21:00 63 21 103/66 (78) 99 06/21/19 21:00 103/66 06/21/19 20:45 107/56 06/21/19 20:30 64 18 107/56 (73) 97 06/21/19 20:00 68 06/21/19 20:00 Bi-pap 06/21/19 20:00 105/51 06/21/19 20:00 50 06/21/19 20:00 68 22 105/51 (69) 97 06/21/19 19:30 98.4 67 18 104/57 (73) 100 06/21/19 19:13 71 21 100 50 06/21/19 19:00 67 18 114/60 (78) 100 06/21/19 19:00 114/60 06/21/19 18:30 60 15 101/53 (69) 100 06/21/19 18:15 61 15 107/54 (71) 100 06/21/19 18:00 100/52 06/21/19 18:00 63 15 100/52 (68) 100 06/21/19 17:45 63 15 103/51 (68) 100 06/21/19 17:30 65 20 100/52 (68) 100 06/21/19 17:15 66 19 116/60 (78) 99 06/21/19 17:00 66 18 129/64 (85) 99 06/21/19 17:00 129/64 06/21/19 16:30 64 17 119/58 (78) 97 06/21/19 16:00 50 06/21/19 16:00 Bi-pap 06/21/19 16:00 97.8 66 19 112/59 (76) 100 06/21/19 16:00 112/59 06/21/19 15:30 64 17 110/55 (73) 100 06/21/19 15:17 62 06/21/19 15:00 66 18 112/59 (76) 100 06/21/19 15:00 112/59 06/21/19 14:30 66 18 119/55 (76) 100 06/21/19 14:00 112/61 06/21/19 14:00 66 18 112/61 (78) 100 06/21/19 13:45 63 17 111/58 (75) 100 06/21/19 13:30 63 18 128/62 (84) 100 06/21/19 13:15 63 18 117/63 (81) 100 06/21/19 13:10 73 27 100 50 06/21/19 13:00 64 17 117/64 (81) 100 06/21/19 13:00 117/64 06/21/19 12:45 63 18 122/59 (80) 100 06/21/19 12:30 88/51 06/21/19 12:30 63 17 88/51 (63) 100 06/21/19 12:00 98.3 64 18 96/50 (65) 100 06/21/19 12:00 Bi-pap 06/21/19 12:00 96/50 06/21/19 12:00 50 06/21/19 11:30 68 21 104/53 (70) 96 06/21/19 11:28 66 06/21/19 11:04 65 16 100 50 06/21/19 11:00 64 18 106/51 (69) 100 06/21/19 11:00 106/51 06/21/19 10:30 61 16 77/48 (58) 100 06/21/19 10:00 109/49 06/21/19 10:00 62 16 109/49 (69) 100 06/21/19 09:30 61 17 90/48 (62) 100 06/21/19 09:00 62 17 105/52 (69) 100 06/21/19 09:00 105/52 06/21/19 09:00 58 21 100 50 06/21/19 08:50 89/42 06/21/19 08:30 62 17 110/58 (75) 100 06/21/19 08:00 50 06/21/19 08:00 Bi-pap 06/21/19 08:00 90/49 06/21/19 08:00 98.2 62 17 89/42 (58) 100 06/21/19 07:39 66 06/21/19 07:30 63 18 90/49 (63) 100 06/21/19 07:05 62 22 100 50 06/21/19 07:00 106/54 06/21/19 07:00 63 20 107/52 (70) 100 06/21/19 06:30 62 19 104/53 (70) 100 Intake and Output 06/22/19 06/23/19 19:00 07:00 Intake Total 320 ml Output Total 285 ml Balance 35 ml Tube Feeding 320 ml Output Urine Total 285 ml Labs Test 06/20/19 09:36 06/20/19 12:37 06/22/19 05:20 06/22/19 11:08 Arterial Blood pH 7.392 (7.350-7.450) 7.326 (7.350-7.450) 7.378 (7.350-7.450) Arterial Blood Partial Pressure CO2 41.5 mmHg (35.0-45.0) 48.2 mmHg (35.0-45.0) 45.8 mmHg (35.0-45.0) Arterial Blood Partial Pressure O2 97.5 mmHg (75.0-100.0) 62.6 mmHg (75.0-100.0) 61.0 mmHg (75.0-100.0) Arterial Blood HCO3 24.7 mmol/L (22.0-26.0) 24.6 mmol/L (22.0-26.0) 26.4 mmol/L (22.0-26.0) Arterial Blood Oxygen Saturation 94.7 % (95-100) 89.6 % (95-100) 90.0 % (95-100) Arterial Blood Base Excess -0.3 (-2-2) -1.5 (-2-2) 0.9 (-2-2) Julius Test Positive Positive Positive White Blood Count 7.0 K/UL (4.8-10.8) Red Blood Count 3.18 M/UL (4.20-5.40) Hemoglobin 9.6 G/DL (12.0-16.0) Hematocrit 28.9 % (37.0-47.0) Mean Corpuscular Volume 91 FL (80-99) Mean Corpuscular Hemoglobin 30.2 PG (27.0-31.0) Mean Corpuscular Hemoglobin Concent 33.3 G/DL (32.0-36.0) Red Cell Distribution Width 14.3 % (11.6-14.8) Platelet Count 128 K/UL (150-450) Mean Platelet Volume 8.3 FL (6.5-10.1) Neutrophils (%) (Auto) 72.2 % (45.0-75.0) Lymphocytes (%) (Auto) 13.8 % (20.0-45.0) Monocytes (%) (Auto) 10.9 % (1.0-10.0) Eosinophils (%) (Auto) 2.4 % (0.0-3.0) Basophils (%) (Auto) 0.9 % (0.0-2.0) Sodium Level 138 MMOL/L (136-145) Potassium Level 4.0 MMOL/L (3.5-5.1) Chloride Level 106 MMOL/L (98-107) Carbon Dioxide Level 25 MMOL/L (21-32) Anion Gap 7 mmol/L (5-15) Blood Urea Nitrogen 21 mg/dL (7-18) Creatinine 0.9 MG/DL (0.55-1.30) Estimat Glomerular Filtration Rate > 60 mL/min (>60) Glucose Level 165 MG/DL (74-106) Calcium Level 8.6 MG/DL (8.5-10.1) Test 06/22/19 19:25 Vancomycin Level Trough 16.8 ug/mL (5.0-12.0) Height (Feet): 5 Height (Inches): 5.00 Weight (Pounds): 198 Objective PE General: normal inspection, alert, Chronically Ill HEENT: nc, at ++ ng Respiratory: normal inspection, lungs clear, bipap++ Cardiovascular: regular rate, rhythm, no edema Gastrointestinal: normal inspection, normal bowel sounds, non tender, soft, no guarding, no hernia Genitourinary: normal inspection, no CVA tenderness Musculoskeletal: normal inspection, back normal Neurologic: alert, motor strength/tone normal, pattern data operator III-XII nml as tested Psychiatric: normal inspection, judgement/insight normal Gu: ++ James Go MD Jun 23, 2019 06:08
[2019-06-23 07:14] LABS: ANION GAP 8 mmol/L (5-15); BLOOD UREA NITROGEN 23 mg/dL (7-18); CALCIUM 8.6 MG/DL (8.5-10.1); CARBON DIOXIDE 25 MMOL/L (21-32); CHLORIDE 110 MMOL/L (98-107); CREATININE 0.9 MG/DL (0.55-1.30); POTASSIUM 4.2 MMOL/L (3.5-5.1); SODIUM 143 MMOL/L (136-145)
[2019-06-23 07:19] LABS: BASOPHILS % (AUTO) 0.9 % (0.0-2.0); EOSINOPHILS % (AUTO) 1.9 % (0.0-3.0); HEMATOCRIT 29.6 % (37.0-47.0); HEMOGLOBIN 9.8 G/DL (12.0-16.0); LYMPHOCYTES % (AUTO) 12.6 % (20.0-45.0); MEAN CORPUSCULAR VOLUME 91 FL (80-99); MONOCYTES % (AUTO) 10.9 % (1.0-10.0); NEUTROPHILS % (AUTO) 73.7 % (45.0-75.0); PLATELET COUNT 147 K/UL (150-450); RED BLOOD COUNT 3.25 M/UL (4.20-5.40); RED CELL DISTRIBUTION WIDTH 14.2 % (11.6-14.8); WHITE BLOOD COUNT 7.2 K/UL (4.8-10.8)
[2019-06-23 08:00] VITALS: BP 109/60
[2019-06-23] MEDS: Pantoprazole Inj IVP SCH ×2 (09:00→09:06)
[2019-06-23] MEDS ORDERED: Norepinephrine Bitartrate 8 MG in D5W 500ml 550 ML IV SCH (09:00)
[2019-06-23] MEDS: Eliquis 5mg tablet ORAL SCH ×3 (09:00→17:51)
--- NOTE | 2019-06-23 10:13 | Pulmonology Progress Note ---
Assessment/Plan Assessment/Plan IMPRESSION: 1. Bilateral pneumonia, COVID-19 negative. 2. History of CHF. 3. Shock; resolved. DISCUSSION: On nasal O2 I will continue empiric antibiotics. Her influenza A and B are negative. I will follow carefully. Will continue diurese Aly Pinto M.D. Subjective Interval Events: Doing much better Constitutional: Reports: no symptoms HEENT: Repors: no symptoms Respiratory: Reports: no symptoms Cardiovascular: Reports: no symptoms Allergies: Coded Allergies: MORPHINE (Unverified Allergy, Unknown, 06/15/19) Objective Last 24 Hour Vital Signs Date Time Temp Pulse Resp B/P (MAP) Pulse Ox O2 Delivery O2 Flow Rate FiO2 06/23/19 07:58 98 Nasal Cannula 3.0 32 06/23/19 04:00 73 06/23/19 04:00 97.5 81 20 118/61 (80) 97 06/23/19 04:00 3.0 06/23/19 00:00 3.0 06/23/19 00:00 70 06/23/19 00:00 98.1 74 20 120/59 (79) 94 06/22/19 20:00 97.9 72 20 111/57 (75) 94 06/22/19 20:00 3.0 06/22/19 20:00 69 06/22/19 19:57 94 Nasal Cannula 3.0 32 06/22/19 16:00 70 06/22/19 16:00 97.5 73 20 102/54 (70) 99 06/22/19 16:00 3.0 06/22/19 15:00 70 19 100/46 (64) 94 06/22/19 14:00 70 19 100/46 (64) 94 06/22/19 13:00 71 20 99/56 (70) 97 06/22/19 12:11 63 06/22/19 12:00 97.5 70 20 105/55 (72) 98 06/22/19 12:00 Bi-pap 06/22/19 12:00 3.0 06/22/19 11:00 72 23 113/49 (70) 97 Intake and Output 3/30/20 3/31/20 19:00 07:00 Intake Total 320 ml Output Total 285 ml 550 ml Balance 35 ml -550 ml Tube Feeding 320 ml Output Urine Total 285 ml 550 ml # Bowel Movements 1 General Appearance: no acute distress HEENT: normocephalic Respiratory/Chest: chest wall non-tender, decreased breath sounds Cardiovascular: normal peripheral pulses Abdomen: normal bowel sounds Extremities: no cyanosis Laboratory Tests 06/22/19 11:08: Arterial Blood pH 7.378, Arterial Blood Partial Pressure CO2 45.8H, Arterial Blood Partial Pressure O2 61.0L, Arterial Blood HCO3 26.4H, Arterial Blood Oxygen Saturation 90.0L, Arterial Blood Base Excess 0.9, Julius Test Positive 06/22/19 19:25: Vancomycin Level Trough 16.8H 06/23/19 06:25: White Blood Count 7.2, Red Blood Count 3.25L, Hemoglobin 9.8L, Hematocrit 29.6L , Mean Corpuscular Volume 91, Mean Corpuscular Hemoglobin 30.2, Mean Corpuscular Hemoglobin Concent 33.2, Red Cell Distribution Width 14.2, Platelet Count 147L, Mean Platelet Volume 8.3, Neutrophils (%) (Auto) 73.7, Lymphocytes ( %) (Auto) 12.6L, Monocytes (%) (Auto) 10.9H, Eosinophils (%) (Auto) 1.9, Basophils (%) (Auto) 0.9, Sodium Level 143, Potassium Level 4.2, Chloride Level 110H, Carbon Dioxide Level 25, Anion Gap 8, Blood Urea Nitrogen 23H, Creatinine 0.9, Estimat Glomerular Filtration Rate > 60, Glucose Level 150H, Calcium Level 8.6 Current Medications Medications (Trade) Dose Ordered Sig/Emil Route PRN Reason Start Time Stop Time Status Last Admin Dose Admin Acetaminophen (Tylenol) 650 mg Q4H PRN ORAL Mild Pain/Temp > 100.5 06/22/19 16:00 07/15/19 15:59 Albuterol/ Ipratropium (Albuterol/ Ipratropium) 3 ml Q4H PRN HHN Shortness of Breath 06/22/19 15:44 06/25/19 15:43 Apixaban (Eliquis) 5 mg BID ORAL 06/22/19 18:00 09/15/19 17:59 06/23/19 09:06 Cefepime HCl 1 gm/ Dextrose 55 ml @ 110 mls/hr Q12H IVPB 06/22/19 18:00 06/27/19 17:59 06/23/19 06:02 Chlorhexidine Gluconate (Susie-Hex 2%) 1 applic DAILY@2000 TOPIC 06/22/19 20:00 09/14/19 19:59 06/22/19 21:38 Dextrose (Dextrose 50%) 50 ml Q30M PRN IV Hypoglycemia 06/22/19 15:45 09/13/19 14:44 Furosemide (Lasix) 20 mg EVERY 12 HOURS IV 06/22/19 21:00 07/21/19 12:14 06/23/19 09:06 Metoclopramide HCl (Reglan) 5 mg Q8H PRN IVP Nausea & Vomiting 06/22/19 15:45 07/19/19 15:44 Pantoprazole (Protonix) 40 mg DAILY IVP 06/23/19 09:00 07/16/19 08:59 06/23/19 09:06 Vancomycin HCl (Vanco rx to dose) 1 ea DAILY PRN MISC Per rx protocol 06/23/19 09:00 07/17/19 11:14 Vancomycin/Sodium Chloride 275 ml @ 137.5 mls/ hr Q24H IVPB 06/22/19 20:00 06/24/19 19:59 06/22/19 21:50 Aly Pinto MD Jun 23, 2019 10:13
--- NOTE | 2019-06-23 10:37 | General Progress Note ---
Assessment/Plan Status: unchanged, deteriorating Assessment/Plan: 1. Mild anemia. 2. Thrombocytopenia. 3. Coagulopathy, mild. 4. Elevated troponin. 5. Hypoalbuminemia. 6. Respiratory failure. 7. Diabetes per chart. low dose reglan for elevated residuals fu abd us>>> reviewed fu stool ob>>> NEG fu labs pulm care repeat labs in am Subjective ROS Limited/Unobtainable: No Allergies: Coded Allergies: MORPHINE (Unverified Allergy, Unknown, 06/15/19) Objective Last 24 Hour Vital Signs Date Time Temp Pulse Resp B/P (MAP) Pulse Ox O2 Delivery O2 Flow Rate FiO2 06/23/19 08:00 97.7 75 20 109/60 (76) 92 06/23/19 07:58 98 Nasal Cannula 3.0 32 06/23/19 04:00 73 06/23/19 04:00 97.5 81 20 118/61 (80) 97 06/23/19 04:00 3.0 06/23/19 00:00 3.0 06/23/19 00:00 70 06/23/19 00:00 98.1 74 20 120/59 (79) 94 06/22/19 20:00 97.9 72 20 111/57 (75) 94 06/22/19 20:00 3.0 06/22/19 20:00 69 06/22/19 19:57 94 Nasal Cannula 3.0 32 06/22/19 16:00 70 06/22/19 16:00 97.5 73 20 102/54 (70) 99 06/22/19 16:00 3.0 06/22/19 15:00 70 19 100/46 (64) 94 06/22/19 14:00 70 19 100/46 (64) 94 06/22/19 13:00 71 20 99/56 (70) 97 06/22/19 12:11 63 06/22/19 12:00 97.5 70 20 105/55 (72) 98 06/22/19 12:00 Bi-pap 06/22/19 12:00 3.0 06/22/19 11:00 72 23 113/49 (70) 97 Intake and Output 06/22/19 06/23/19 19:00 07:00 Intake Total 320 ml Output Total 285 ml 550 ml Balance 35 ml -550 ml Tube Feeding 320 ml Output Urine Total 285 ml 550 ml # Bowel Movements 1 Laboratory Tests 06/22/19 11:08: Arterial Blood pH 7.378, Arterial Blood Partial Pressure CO2 45.8H, Arterial Blood Partial Pressure O2 61.0L, Arterial Blood HCO3 26.4H, Arterial Blood Oxygen Saturation 90.0L, Arterial Blood Base Excess 0.9, Julius Test Positive 06/22/19 19:25: Vancomycin Level Trough 16.8H 06/23/19 06:25: White Blood Count 7.2, Red Blood Count 3.25L, Hemoglobin 9.8L, Hematocrit 29.6L , Mean Corpuscular Volume 91, Mean Corpuscular Hemoglobin 30.2, Mean Corpuscular Hemoglobin Concent 33.2, Red Cell Distribution Width 14.2, Platelet Count 147L, Mean Platelet Volume 8.3, Neutrophils (%) (Auto) 73.7, Lymphocytes ( %) (Auto) 12.6L, Monocytes (%) (Auto) 10.9H, Eosinophils (%) (Auto) 1.9, Basophils (%) (Auto) 0.9, Sodium Level 143, Potassium Level 4.2, Chloride Level 110H, Carbon Dioxide Level 25, Anion Gap 8, Blood Urea Nitrogen 23H, Creatinine 0.9, Estimat Glomerular Filtration Rate > 60, Glucose Level 150H, Calcium Level 8.6 Height (Feet): 5 Height (Inches): 5.00 Weight (Pounds): 199 General Appearance: no apparent distress EENT: PERRL/EOMI Neck: supple Cardiovascular: normal rate Respiratory/Chest: decreased breath sounds Abdomen: normal bowel sounds, non tender, soft Extremities: non-tender Aman Wheat MD Jun 23, 2019 10:37
[2019-06-23 11:16] VITALS: BP 106/62
--- NOTE | 2019-06-23 12:04 | Diagnostic Imaging Report ---
Indication: Abnormal chest sounds Technique: One view of the chest Comparison: 06/22/2019 Findings: Extensive diffuse bilateral interstitial and airspace infiltrates allowing for slight differences in degree of exposure technique are unchanged. Stable satisfactory positions of nasogastric tube, right jugular central venous catheter. The heart is upper limits normal in size. Impression: Extensive bilateral infiltrates, essentially unchanged over one day
--- NOTE | 2019-06-23 14:31 | Infectious Diseases Prog Note ---
Assessment/Plan Assessment/Plan IMPRESSION: Sepsis with Septic shock improving Staph aureus pneumonia, MRSA Bilateral pneumonia,CXR improving Hypoxic respiratory failure Interstitial lung disease, Thrombocytopenia, Congestive heart failure. MRSA carrier RECOMMENDATION: COVID-19 test: Negative Discontinue cefepime Continue IV Vancomycin X 2 days Subjective ROS Limited/Unobtainable: Yes Constitutional: Reports: other - transferred from ICU to telemetry Allergies: Coded Allergies: MORPHINE (Unverified Allergy, Unknown, 06/15/19) Objective Vital Signs Last 24 Hour Vital Signs Date Time Temp Pulse Resp B/P (MAP) Pulse Ox O2 Delivery O2 Flow Rate FiO2 06/23/19 12:00 3.0 06/23/19 12:00 79 06/23/19 11:16 97.7 75 22 106/62 (77) 91 06/23/19 09:00 Nasal Cannula 3.0 06/23/19 08:00 97.7 75 20 109/60 (76) 92 06/23/19 08:00 72 06/23/19 08:00 3.0 06/23/19 07:58 98 Nasal Cannula 3.0 32 06/23/19 04:00 73 06/23/19 04:00 97.5 81 20 118/61 (80) 97 06/23/19 04:00 3.0 06/23/19 00:00 3.0 06/23/19 00:00 70 06/23/19 00:00 98.1 74 20 120/59 (79) 94 06/22/19 20:00 97.9 72 20 111/57 (75) 94 06/22/19 20:00 3.0 06/22/19 20:00 69 06/22/19 19:57 94 Nasal Cannula 3.0 32 06/22/19 16:00 70 06/22/19 16:00 97.5 73 20 102/54 (70) 99 06/22/19 16:00 3.0 06/22/19 15:00 70 19 100/46 (64) 94 Height (Feet): 5 Height (Inches): 5.00 Weight (Pounds): 199 General Appearance: no acute distress HEENT: mucous membranes moist Respiratory/Chest: lungs clear Cardiovascular: normal rate Abdomen: soft, non tender, other - NG tube feeding Extremities: other - legs edema Neurologic/Psychiatric: other - sleeping Laboratory Tests Test 06/22/19:25 06/23/19 06:25 Vancomycin Level Trough 16.8 ug/mL (5.0-12.0) H White Blood Count 7.2 K/UL (4.8-10.8) Red Blood Count 3.25 M/UL (4.20-5.40) L Hemoglobin 9.8 G/DL (12.0-16.0) L Hematocrit 29.6 % (37.0-47.0) L Mean Corpuscular Volume 91 FL (80-99) Mean Corpuscular Hemoglobin 30.2 PG (27.0-31.0) Mean Corpuscular Hemoglobin Concent 33.2 G/DL (32.0-36.0) Red Cell Distribution Width 14.2 % (11.6-14.8) Platelet Count 147 K/UL (150-450) L Mean Platelet Volume 8.3 FL (6.5-10.1) Neutrophils (%) (Auto) 73.7 % (45.0-75.0) Lymphocytes (%) (Auto) 12.6 % (20.0-45.0) L Monocytes (%) (Auto) 10.9 % (1.0-10.0) H Eosinophils (%) (Auto) 1.9 % (0.0-3.0) Basophils (%) (Auto) 0.9 % (0.0-2.0) Sodium Level 143 MMOL/L (136-145) Potassium Level 4.2 MMOL/L (3.5-5.1) Chloride Level 110 MMOL/L (98-107) H Carbon Dioxide Level 25 MMOL/L (21-32) Anion Gap 8 mmol/L (5-15) Blood Urea Nitrogen 23 mg/dL (7-18) H Creatinine 0.9 MG/DL (0.55-1.30) Estimat Glomerular Filtration Rate > 60 mL/min (>60) Glucose Level 150 MG/DL (74-106) H Calcium Level 8.6 MG/DL (8.5-10.1) Current Medications Medications (Trade) Dose Ordered Sig/Emil Route PRN Reason Start Time Stop Time Status Last Admin Dose Admin Acetaminophen (Tylenol) 650 mg Q4H PRN ORAL Mild Pain/Temp > 100.5 06/22/19 16:00 07/15/19 15:59 Albuterol/ Ipratropium (Albuterol/ Ipratropium) 3 ml Q4H PRN HHN Shortness of Breath 06/22/19 15:44 06/25/19 15:43 Apixaban (Eliquis) 5 mg BID ORAL 06/22/19 18:00 09/15/19 17:59 06/23/19 09:06 Cefepime HCl 1 gm/ Dextrose 55 ml @ 110 mls/hr Q12H IVPB 06/22/19 18:00 06/27/19 17:59 06/23/19 06:02 Chlorhexidine Gluconate (Susie-Hex 2%) 1 applic DAILY@2000 TOPIC 06/22/19 20:00 09/14/19 19:59 06/22/19 21:38 Dextrose (Dextrose 50%) 50 ml Q30M PRN IV Hypoglycemia 06/22/19 15:45 09/13/19 14:44 Furosemide (Lasix) 20 mg EVERY 12 HOURS IV 06/22/19 21:00 07/21/19 12:14 06/23/19 09:06 Metoclopramide HCl (Reglan) 5 mg Q8H PRN IVP Nausea & Vomiting 06/22/19 15:45 07/19/19 15:44 Pantoprazole (Protonix) 40 mg DAILY IVP 06/23/19 09:00 07/16/19 08:59 06/23/19 09:06 Vancomycin HCl (Vanco rx to dose) 1 ea DAILY PRN MISC Per rx protocol 06/23/19 09:00 07/17/19 11:14 Vancomycin/Sodium Chloride 275 ml @ 137.5 mls/ hr Q24H IVPB 06/22/19 20:00 06/24/19 19:59 06/22/19 21:50 Edin Blue MD Jun 23, 2019 14:31
[2019-06-23 16:00] VITALS: BP 108/61
--- NOTE | 2019-06-23 16:58 | Cardiac Electrophysiology PN ---
Assessment/Plan Assessment/Plan 1. S/P Respiratory failure due to bilateral MRSA pneumonia and CHF Echo EF 60%. COVID 19 result negative. Off BIPAP 2. Troponin leak. No acute ECG findings. Likely due to septic shock and demand ischemia 3. Atrial fib on Eliquis 5 bid. Off AVN violet[place] for hypotension. 4. S/P septic shock off Levophed and on abx by Dr. Blue. DC lasix 5. History of psychiatric history. 6. History of cellulitis. RYANN RN Subjective Subjective Transferred out of IC. In SR.No events Objective Last 24 Hour Vital Signs Date Time Temp Pulse Resp B/P (MAP) Pulse Ox O2 Delivery O2 Flow Rate FiO2 06/23/19 16:00 3.0 06/23/19 16:00 97.9 74 22 108/61 (77) 100 06/23/19 12:00 3.0 06/23/19 12:00 79 06/23/19 11:16 97.7 75 22 106/62 (77) 91 06/23/19 09:00 Nasal Cannula 3.0 06/23/19 08:00 97.7 75 20 109/60 (76) 92 06/23/19 08:00 72 06/23/19 08:00 3.0 06/23/19 07:58 98 Nasal Cannula 3.0 32 06/23/19 04:00 73 06/23/19 04:00 97.5 81 20 118/61 (80) 97 06/23/19 04:00 3.0 06/23/19 00:00 3.0 06/23/19 00:00 70 06/23/19 00:00 98.1 74 20 120/59 (79) 94 06/22/19 20:00 97.9 72 20 111/57 (75) 94 06/22/19 20:00 3.0 06/22/19 20:00 69 06/22/19 19:57 94 Nasal Cannula 3.0 32 Intake and Output 06/22/19 06/23/19 19:00 07:00 Intake Total 320 ml Output Total 285 ml 550 ml Balance 35 ml -550 ml Tube Feeding 320 ml Output Urine Total 285 ml 550 ml # Bowel Movements 1 Laboratory Tests Test 06/22/19 19:25 06/23/19 06:25 Vancomycin Level Trough 16.8 ug/mL (5.0-12.0) H White Blood Count 7.2 K/UL (4.8-10.8) Red Blood Count 3.25 M/UL (4.20-5.40) L Hemoglobin 9.8 G/DL (12.0-16.0) L Hematocrit 29.6 % (37.0-47.0) L Mean Corpuscular Volume 91 FL (80-99) Mean Corpuscular Hemoglobin 30.2 PG (27.0-31.0) Mean Corpuscular Hemoglobin Concent 33.2 G/DL (32.0-36.0) Red Cell Distribution Width 14.2 % (11.6-14.8) Platelet Count 147 K/UL (150-450) L Mean Platelet Volume 8.3 FL (6.5-10.1) Neutrophils (%) (Auto) 73.7 % (45.0-75.0) Lymphocytes (%) (Auto) 12.6 % (20.0-45.0) L Monocytes (%) (Auto) 10.9 % (1.0-10.0) H Eosinophils (%) (Auto) 1.9 % (0.0-3.0) Basophils (%) (Auto) 0.9 % (0.0-2.0) Sodium Level 143 MMOL/L (136-145) Potassium Level 4.2 MMOL/L (3.5-5.1) Chloride Level 110 MMOL/L (98-107) H Carbon Dioxide Level 25 MMOL/L (21-32) Anion Gap 8 mmol/L (5-15) Blood Urea Nitrogen 23 mg/dL (7-18) H Creatinine 0.9 MG/DL (0.55-1.30) Estimat Glomerular Filtration Rate > 60 mL/min (>60) Glucose Level 150 MG/DL (74-106) H Calcium Level 8.6 MG/DL (8.5-10.1) Objective HEAD AND NECK: No JVD. LUNGS: Bilateral rhonchi. CARDIOVASCULAR: Regular S1 and S2 with no gallop. ABDOMEN: Soft. EXTREMITIES: No pitting edema. Ruben Grissom MD Jun 23, 2019 16:58
[2019-06-23 20:00] VITALS: BP 107/58
--- NOTE | 2019-06-23 20:23 | General Progress Note ---
Assessment/Plan Problem List: (1) Hypoglycemia ICD Codes: E16.2 - Hypoglycemia, unspecified SNOMED: 975221195 (2) Leukopenia ICD Codes: D72.819 - Decreased white blood cell count, unspecified SNOMED: 47608641, 711435590 (3) Pneumonia ICD Codes: J18.9 - Pneumonia, unspecified organism SNOMED: 697897431, [id number] Status: progressing, unchanged, deteriorating Assessment/Plan: labs improving dc planning afebrile sepsis pna improving very poor prognosis Subjective ROS Limited/Unobtainable: Yes Allergies: Coded Allergies: MORPHINE (Unverified Allergy, Unknown, 06/15/19) Objective Last 24 Hour Vital Signs Date Time Temp Pulse Resp B/P (MAP) Pulse Ox O2 Delivery O2 Flow Rate FiO2 06/23/19 16:00 76 06/23/19 16:00 3.0 06/23/19 16:00 97.9 74 22 108/61 (77) 100 06/23/19 12:00 3.0 06/23/19 12:00 79 06/23/19 11:16 97.7 75 22 106/62 (77) 91 06/23/19 09:00 Nasal Cannula 3.0 06/23/19 08:00 97.7 75 20 109/60 (76) 92 06/23/19 08:00 72 06/23/19 08:00 3.0 06/23/19 07:58 98 Nasal Cannula 3.0 32 06/23/19 04:00 73 06/23/19 04:00 97.5 81 20 118/61 (80) 97 06/23/19 04:00 3.0 06/23/19 00:00 3.0 06/23/19 00:00 70 06/23/19 00:00 98.1 74 20 120/59 (79) 94 Intake and Output 06/22/19 06/23/19 19:00 07:00 Intake Total 320 ml 45 ml Output Total 285 ml 550 ml Balance 35 ml -505 ml Tube Feeding 320 ml 45 ml Output Urine Total 285 ml 550 ml # Bowel Movements 1 Laboratory Tests 06/23/19 06:25: White Blood Count 7.2, Red Blood Count 3.25L, Hemoglobin 9.8L, Hematocrit 29.6L , Mean Corpuscular Volume 91, Mean Corpuscular Hemoglobin 30.2, Mean Corpuscular Hemoglobin Concent 33.2, Red Cell Distribution Width 14.2, Platelet Count 147L, Mean Platelet Volume 8.3, Neutrophils (%) (Auto) 73.7, Lymphocytes ( %) (Auto) 12.6L, Monocytes (%) (Auto) 10.9H, Eosinophils (%) (Auto) 1.9, Basophils (%) (Auto) 0.9, Sodium Level 143, Potassium Level 4.2, Chloride Level 110H, Carbon Dioxide Level 25, Anion Gap 8, Blood Urea Nitrogen 23H, Creatinine 0.9, Estimat Glomerular Filtration Rate > 60, Glucose Level 150H, Calcium Level 8.6 Height (Feet): 5 Height (Inches): 5.00 Weight (Pounds): 199 Cardiovascular: normal rate Respiratory/Chest: lungs clear Abdomen: soft Jayjay Chandler MD Jun 23, 2019 20:23
[2019-06-23] MEDS: Dyna-Hex 2% Top Sol 2oz TOPIC SCH (21:07)
[2019-06-23] MEDS: Vancomycin 1.5gm/NS Premix 275 ML IVPB SCH (22:26)
[2019-06-24] VITALS: BP 112/67
[2019-06-24 04:00] VITALS: BP 118/65
[2019-06-24 04:58] LABS: APPEARANCE,URINE CLOUDY; BILIRUBIN, URINE NEGATIVE (NEGATIVE); GLUCOSE, URINE (UA) NEGATIVE (NEGATIVE); KETONES,URINE 1+ (NEGATIVE); LEUKOCYTE ESTERASE ,URINE 3+ (NEGATIVE); NITRITE,URINE POSITIVE (NEGATIVE); PH,URINE 5 (4.5-8.0); PROTEIN,URINE 3+ (NEGATIVE); UROBILINOGEN,URINE 1 MG/DL (0.0-1.0)
[2019-06-24 05:15] LABS: COLOR,URINE AMBER
[2019-06-24 06:50] LABS: EOSINOPHILS % (AUTO) 1.6 % (0.0-3.0); HEMOGLOBIN 9.2 G/DL (12.0-16.0); LYMPHOCYTES % (AUTO) 19.5 % (20.0-45.0); MEAN CORPUSCULAR VOLUME 92 FL (80-99); MONOCYTES % (AUTO) 10.8 % (1.0-10.0); PLATELET COUNT 178 K/UL (150-450); RED BLOOD COUNT 3.06 M/UL (4.20-5.40); RED CELL DISTRIBUTION WIDTH 14.4 % (11.6-14.8); WHITE BLOOD COUNT 6.1 K/UL (4.8-10.8)
--- NOTE | 2019-06-24 07:01 | General Progress Note ---
Assessment/Plan Status: progressing, unchanged, deteriorating Assessment/Plan: 1. Mild anemia. 2. Thrombocytopenia. 3. Coagulopathy, mild. 4. Elevated troponin. 5. Hypoalbuminemia. 6. Respiratory failure. 7. Diabetes per chart. low dose reglan for elevated residuals fu abd us>>> reviewed fu stool ob>>> NEG fu labs>>> stable H&H hold GI procedures for now fu cardiology recs pulm care repeat labs in am Subjective ROS Limited/Unobtainable: No Allergies: Coded Allergies: MORPHINE (Unverified Allergy, Unknown, 06/15/19) Objective Last 24 Hour Vital Signs Date Time Temp Pulse Resp B/P (MAP) Pulse Ox O2 Delivery O2 Flow Rate FiO2 06/24/19 04:00 80 06/24/19 04:00 97.7 79 24 118/65 (82) 96 06/24/19 04:00 3.0 06/24/19 03:30 3.0 32 06/24/19 00:56 82 20 96 30 06/24/19 00:00 76 06/24/19 00:00 98.2 76 23 112/67 (82) 99 06/24/19 00:00 30 06/23/19 23:30 80 18 97 30 06/23/19 21:00 88 26 95 30 06/23/19 21:00 Nasal Cannula 3.0 06/23/19 21:00 30 06/23/19 20:30 94 Bi-Pap 06/23/19 20:00 98.1 76 23 107/58 (74) 96 06/23/19 20:00 79 06/23/19 16:00 76 06/23/19 16:00 3.0 06/23/19 16:00 97.9 74 22 108/61 (77) 100 06/23/19 12:00 3.0 06/23/19 12:00 79 06/23/19 11:16 97.7 75 22 106/62 (77) 91 06/23/19 09:00 Nasal Cannula 3.0 06/23/19 08:00 97.7 75 20 109/60 (76) 92 06/23/19 08:00 72 06/23/19 08:00 3.0 06/23/19 07:58 98 Nasal Cannula 3.0 32 Intake and Output 06/23/19 06/24/19 19:00 07:00 Intake Total 695 ml Output Total 100 ml 200 ml Balance 595 ml -200 ml Intake Free Water 200 ml Tube Feeding 495 ml Output Urine Total 100 ml 200 ml # Bowel Movements 1 Laboratory Tests 06/24/19 04:35: Urine Color Sydnie, Urine Appearance Cloudy, Urine pH 5, Urine Specific [place] 1.020, Urine Protein 3+H, Urine Glucose (UA) Negative, Urine Ketones 1+H, Urine Blood 5+H, Urine Nitrite PositiveH, Urine Bilirubin Negative, Urine Ictotest Positive, Urine Urobilinogen 1H, Urine Leukocyte Esterase 3+H, Urine RBC TntcH, Urine WBC 15-20H, Urine Squamous Epithelial Cells Few, Urine Bacteria ManyH, Urine Coarse Granular Casts 2-4H, Urine Random Sodium 38 06/24/19 05:54: White Blood Count 6.1, Red Blood Count 3.06L, Hemoglobin 9.2L, Hematocrit 28.0L , Mean Corpuscular Volume 92, Mean Corpuscular Hemoglobin 30.2, Mean Corpuscular Hemoglobin Concent 33.0, Red Cell Distribution Width 14.4, Platelet Count 178, Mean Platelet Volume 7.1, Neutrophils (%) (Auto) 67.0, Lymphocytes (% ) (Auto) 19.5L, Monocytes (%) (Auto) 10.8H, Eosinophils (%) (Auto) 1.6, Basophils (%) (Auto) 1.0, Sodium Level [Pending], Potassium Level [Pending], Chloride Level [Pending], Carbon Dioxide Level [Pending], Blood Urea Nitrogen [ Pending], Creatinine [Pending], Estimat Glomerular Filtration Rate [Pending], Glucose Level [Pending], Uric Acid [Pending], Calcium Level [Pending], Phosphorus Level [Pending], Magnesium Level [Pending], Iron Level [Pending], Unsaturated Iron Binding [Pending], Ferritin [Pending], Total Bilirubin [Pending ], Gamma Glutamyl Transpeptidase [Pending], Aspartate Amino Transf (AST/SGOT) [ Pending], Alanine Aminotransferase (ALT/SGPT) [Pending], Alkaline Phosphatase [ Pending], C-Reactive Protein, Quantitative [Pending], Pro-B-Type Natriuretic Peptide [Pending], Total Protein [Pending], Albumin [Pending], Globulin [Pending ], Vitamin B12 Level [Pending], Folate [Pending], Thyroid Stimulating Hormone ( TSH) [Pending] Height (Feet): 5 Height (Inches): 5.00 Weight (Pounds): 202 General Appearance: no apparent distress EENT: normal ENT inspection Neck: supple Cardiovascular: normal rate Respiratory/Chest: decreased breath sounds Abdomen: normal bowel sounds, non tender, soft Extremities: non-tender Aman Wheat MD Jun 24, 2019 07:01
--- NOTE | 2019-06-24 07:06 | Hematology/Onc Progress Note ---
Assessment/Plan Assessment/Plan Assessment and Recs: # Pancytopenia with a decreased wbc and plt, likely related to pna v other cause , meds ntoed --> hepatitis and hiv negative --> smear ordered at this time, no blasts noted, wbc are stable --> us of the abdomen negative for hsm and cirrhosis --> plt 62-->57k-->50k-->51k-->128k --> transfuse on prn basis --> neupogen if anc drops to below 1500 --> hgb trend 8-->9.6 # Hypercoagulable disorder with afib --> ok for apixaban --> per cards # Pneumonia on admission --> now intubated --> on abx, cefepime / vanc --> per id and pulm # Hypoglycemia --> d5w given earlier --> now improved # Shortness of breath, likely due to bilateral pneumonia --> echo per cards --> may need diuresis # Respiratory failure with Bilateral lung infiltrate and leukopenia. The patient was already started on Plaquenil 600, azithromycin. --> dr. Pinto on board --> NOW INTUBATED-->bipap --> off on nc now --> covid ruled outed --> on abx vanc/cefe # History of psychiatric history. # History of cellulitis. # Dvt ppx apixaban Thank you very, appreciate consultation and dw Rn Subjective Constitutional: Denies: no symptoms, chills, fever, malaise, weakness, other HEENT: Denies: no symptoms, eye pain, blurred vision, tearing, double vision, ear pain, ear discharge, nose pain, nose congestion, throat pain, throat swelling, mouth pain, mouth swelling, other Cardiovascular: Denies: no symptoms, chest pain, edema, irregular heart rate, lightheadedness, palpitations, syncope, other Gastrointestinal/Abdominal: Denies: no symptoms, abdomen distended, abdominal pain, black stools, tarry stools, blood in stool, constipated, diarrhea, difficulty swallowing, nausea, poor appetite, poor fluid intake, rectal bleeding , vomiting, other Genitourinary: Denies: no symptoms, burning, discharge, frequency, flank pain, hematuria, incontinence, pain, urgency, other Neurologic/Psychiatric: Denies: no symptoms, anxiety, depressed, emotional problems, headache, numbness, paresthesia, pre-existing deficit, seizure, tingling, tremors, weakness, other Endocrine: Denies: no symptoms, excessive sweating, flushing, intolerance to cold, intolerance to heat, increased hunger, increased thirst, increased urine, unexplained weight gain, unexplained weight loss, other Allergies: Coded Allergies: MORPHINE (Unverified Allergy, Unknown, 06/15/19) Subjective 06/16 remains intubated on a vent, on lveophed, with ng, draining, covid rule out , 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 06/17 labs reviewed, no bleeding or night sweats, no major meds noted 06/18 remains on levo gtt, with tube feeds, plt 51k.no overt bleeding 06/20 icu, no acute events, cbc pending, bipap, vanc/cefe 06/21 with loose stool, levo is on hold, meds noted, no bleeding, in icu 06/22 no events, with ng, with farris, no bleeding, labs noted, hgb stable 06/23 hgb remains 9.2, with farris, now off bipap and with nc 3l Objective Objective Current Medications Medications (Trade) Dose Ordered Sig/Emil Route PRN Reason Start Time Stop Time Status Last Admin Dose Admin Acetaminophen (Tylenol) 650 mg Q4H PRN ORAL Mild Pain/Temp > 100.5 06/22/19 16:00 07/15/19 15:59 Albuterol/ Ipratropium (Albuterol/ Ipratropium) 3 ml Q4H PRN HHN Shortness of Breath 06/22/19 15:44 06/25/19 15:43 Apixaban (Eliquis) 5 mg BID ORAL 06/22/19 18:00 09/15/19 17:59 06/22/19 18:22 Chlorhexidine Gluconate (Susie-Hex 2%) 1 applic DAILY@1999 TOPIC 06/22/19 20:00 09/14/19 19:59 06/23/19 21:07 Dextrose (Dextrose 50%) 50 ml Q30M PRN IV Hypoglycemia 06/22/19 15:45 09/13/19 14:44 Metoclopramide HCl (Reglan) 5 mg Q8H PRN IVP Nausea & Vomiting 06/22/19 15:45 07/19/19 15:44 Pantoprazole (Protonix) 40 mg DAILY IVP 06/23/19 09:00 07/16/19 08:59 Vancomycin HCl (Vanco rx to dose) 1 ea DAILY PRN MISC Per rx protocol 06/23/19 09:00 07/17/19 11:14 Vancomycin/Sodium Chloride 275 ml @ 137.5 mls/ hr Q24H IVPB 06/22/19 20:00 06/24/19 19:59 06/23/19 22:26 Last 24 Hour Vital Signs Date Time Temp Pulse Resp B/P (MAP) Pulse Ox O2 Delivery O2 Flow Rate FiO2 06/24/19 04:00 80 06/24/19 04:00 97.7 79 24 118/65 (82) 96 06/24/19 04:00 3.0 06/24/19 03:30 3.0 32 06/24/19 00:56 82 20 96 30 06/24/19 00:00 76 06/24/19 00:00 98.2 76 23 112/67 (82) 99 06/24/19 00:00 30 06/23/19 23:30 80 18 97 30 06/23/19 21:00 88 26 95 30 06/23/19 21:00 Nasal Cannula 3.0 06/23/19 21:00 30 06/23/19 20:30 94 Bi-Pap 06/23/19 20:00 98.1 76 23 107/58 (74) 96 06/23/19 20:00 79 06/23/19 16:00 76 06/23/19 16:00 3.0 06/23/19 16:00 97.9 74 22 108/61 (77) 100 06/23/19 12:00 3.0 06/23/19 12:00 79 06/23/19 11:16 97.7 75 22 106/62 (77) 91 06/23/19 09:00 Nasal Cannula 3.0 06/23/19 08:00 97.7 75 20 109/60 (76) 92 06/23/19 08:00 72 06/23/19 08:00 3.0 06/23/19 07:58 98 Nasal Cannula 3.0 32 06/23/19 04:00 73 06/23/19 04:00 97.5 81 20 118/61 (80) 97 06/23/19 04:00 3.0 06/23/19 00:00 3.0 06/23/19 00:00 70 06/23/19 00:00 98.1 74 20 120/59 (79) 94 06/22/19 20:00 97.9 72 20 111/57 (75) 94 06/22/19 20:00 3.0 06/22/19 20:00 69 06/22/19 19:57 94 Nasal Cannula 3.0 32 06/22/19 16:00 70 06/22/19 16:00 97.5 73 20 102/54 (70) 99 06/22/19 16:00 3.0 06/22/19 15:00 70 19 100/46 (64) 94 06/22/19 14:00 70 19 100/46 (64) 94 06/22/19 13:00 71 20 99/56 (70) 97 06/22/19 12:11 63 06/22/19 12:00 97.5 70 20 105/55 (72) 98 06/22/19 12:00 Bi-pap 06/22/19 12:00 3.0 06/22/19 11:00 72 23 113/49 (70) 97 06/22/19 10:00 72 22 91/67 (75) 96 06/22/19 09:28 65 22 99 40 06/22/19 09:00 67 19 114/55 (74) 96 06/22/19 08:22 102/45 06/22/19 08:00 97.5 70 20 102/45 (64) 96 06/22/19 08:00 40 06/22/19 08:00 Bi-pap 06/22/19 07:35 63 06/22/19 07:15 62 24 98 40 Intake and Output 06/23/19 06/24/19 19:00 07:00 Intake Total 695 ml Output Total 100 ml 200 ml Balance 595 ml -200 ml Intake Free Water 200 ml Tube Feeding 495 ml Output Urine Total 100 ml 200 ml # Bowel Movements 1 Labs Test 06/22/19 05:20 06/22/19 11:08 06/22/19 19:25 06/23/19 06:25 White Blood Count 7.0 K/UL (4.8-10.8) 7.2 K/UL (4.8-10.8) Red Blood Count 3.18 M/UL (4.20-5.40) 3.25 M/UL (4.20-5.40) Hemoglobin 9.6 G/DL (12.0-16.0) 9.8 G/DL (12.0-16.0) Hematocrit 28.9 % (37.0-47.0) 29.6 % (37.0-47.0) Mean Corpuscular Volume 91 FL (80-99) 91 FL (80-99) Mean Corpuscular Hemoglobin 30.2 PG (27.0-31.0) 30.2 PG (27.0-31.0) Mean Corpuscular Hemoglobin Concent 33.3 G/DL (32.0-36.0) 33.2 G/DL (32.0-36.0) Red Cell Distribution Width 14.3 % (11.6-14.8) 14.2 % (11.6-14.8) Platelet Count 128 K/UL (150-450) 147 K/UL (150-450) Mean Platelet Volume 8.3 FL (6.5-10.1) 8.3 FL (6.5-10.1) Neutrophils (%) (Auto) 72.2 % (45.0-75.0) 73.7 % (45.0-75.0) Lymphocytes (%) (Auto) 13.8 % (20.0-45.0) 12.6 % (20.0-45.0) Monocytes (%) (Auto) 10.9 % (1.0-10.0) 10.9 % (1.0-10.0) Eosinophils (%) (Auto) 2.4 % (0.0-3.0) 1.9 % (0.0-3.0) Basophils (%) (Auto) 0.9 % (0.0-2.0) 0.9 % (0.0-2.0) Sodium Level 138 MMOL/L (136-145) 143 MMOL/L (136-145) Potassium Level 4.0 MMOL/L (3.5-5.1) 4.2 MMOL/L (3.5-5.1) Chloride Level 106 MMOL/L (98-107) 110 MMOL/L (98-107) Carbon Dioxide Level 25 MMOL/L (21-32) 25 MMOL/L (21-32) Anion Gap 7 mmol/L (5-15) 8 mmol/L (5-15) Blood Urea Nitrogen 21 mg/dL (7-18) 23 mg/dL (7-18) Creatinine 0.9 MG/DL (0.55-1.30) 0.9 MG/DL (0.55-1.30) Estimat Glomerular Filtration Rate > 60 mL/min (>60) > 60 mL/min (>60) Glucose Level 165 MG/DL (74-106) 150 MG/DL (74-106) Calcium Level 8.6 MG/DL (8.5-10.1) 8.6 MG/DL (8.5-10.1) Arterial Blood pH 7.378 (7.350-7.450) Arterial Blood Partial Pressure CO2 45.8 mmHg (35.0-45.0) Arterial Blood Partial Pressure O2 61.0 mmHg (75.0-100.0) Arterial Blood HCO3 26.4 mmol/L (22.0-26.0) Arterial Blood Oxygen Saturation 90.0 % (95-100) Arterial Blood Base Excess 0.9 (-2-2) Julius Test Positive Vancomycin Level Trough 16.8 ug/mL (5.0-12.0) Test 06/24/19 04:35 06/24/19 05:54 Urine Color Sydnie Urine Appearance Cloudy Urine pH 5 (4.5-8.0) Urine Specific [place] 1.020 (1.005-1.035) Urine Protein 3+ (NEGATIVE) Urine Glucose (UA) Negative (NEGATIVE) Urine Ketones 1+ (NEGATIVE) Urine Blood 5+ (NEGATIVE) Urine Nitrite Positive (NEGATIVE) Urine Bilirubin Negative (NEGATIVE) Urine Ictotest Positive (NEGATIVE) Urine Urobilinogen 1 MG/DL (0.0-1.0) Urine Leukocyte Esterase 3+ (NEGATIVE) Urine RBC Tntc /HPF (0 - 2) Urine WBC 15-20 /HPF (0 - 2) Urine Squamous Epithelial Cells Few /LPF (NONE/OCC) Urine Bacteria Many /HPF (NONE) Urine Coarse Granular Casts 2-4 /LPF (NONE) Urine Random Sodium 38 mmol/L (20-110) White Blood Count 6.1 K/UL (4.8-10.8) Red Blood Count 3.06 M/UL (4.20-5.40) Hemoglobin 9.2 G/DL (12.0-16.0) Hematocrit 28.0 % (37.0-47.0) Mean Corpuscular Volume 92 FL (80-99) Mean Corpuscular Hemoglobin 30.2 PG (27.0-31.0) Mean Corpuscular Hemoglobin Concent 33.0 G/DL (32.0-36.0) Red Cell Distribution Width 14.4 % (11.6-14.8) Platelet Count 178 K/UL (150-450) Mean Platelet Volume 7.1 FL (6.5-10.1) Neutrophils (%) (Auto) 67.0 % (45.0-75.0) Lymphocytes (%) (Auto) 19.5 % (20.0-45.0) Monocytes (%) (Auto) 10.8 % (1.0-10.0) Eosinophils (%) (Auto) 1.6 % (0.0-3.0) Basophils (%) (Auto) 1.0 % (0.0-2.0) Height (Feet): 5 Height (Inches): 5.00 Weight (Pounds): 202 Objective PE General: normal inspection, alert, Chronically Ill HEENT: nc, at ++ ng Respiratory: normal inspection, lungs clear, 3L Cardiovascular: regular rate, rhythm, no edema Gastrointestinal: normal inspection, normal bowel sounds, non tender, soft, no guarding, no hernia Genitourinary: normal inspection, no CVA tenderness Musculoskeletal: normal inspection, back normal Neurologic: alert, motor strength/tone normal, community development manager III-XII nml as tested Psychiatric: normal inspection, judgement/insight normal Gu: ++ James Go MD Jun 24, 2019 07:06
[2019-06-24 07:42] LABS: % IRON SATURATION 13 % (15-50); IRON 20 ug/dL (50-175); TOTAL IRON BINDING CAPACITY 159 ug/dL (250-450)
[2019-06-24 07:44] LABS: ALANINE AMINOTRANSFERASE 22 U/L (12-78); ALBUMIN 1.8 G/DL (3.4-5.0); ALBUMIN/GLOBULIN RATIO 0.4 (1.0-2.7); ALKALINE PHOSPHATASE 76 U/L (46-116); ANION GAP 9 mmol/L (5-15); ASPARTATE AMINO TRANSFERASE 24 U/L (15-37); BILIRUBIN,TOTAL 0.6 MG/DL (0.2-1.0); BLOOD UREA NITROGEN 26 mg/dL (7-18); CALCIUM 8.6 MG/DL (8.5-10.1); CARBON DIOXIDE 25 MMOL/L (21-32); CHLORIDE 110 MMOL/L (98-107); CREATININE 0.8 MG/DL (0.55-1.30); FERRITIN 144 NG/ML (8-388); GAMMA GLUTAMYL TRANSPEPTIDASE 13 U/L (5-85); PHOSPHORUS 2.5 MG/DL (2.5-4.9); POTASSIUM 4.4 MMOL/L (3.5-5.1); SODIUM 144 MMOL/L (136-145)
[2019-06-24 08:00] VITALS: BP 112/65
--- NOTE | 2019-06-24 08:33 | Pulmonology Progress Note ---
Assessment/Plan Assessment/Plan IMPRESSION: 1. Bilateral pneumonia, COVID-19 negative. 2. History of CHF. 3. Shock; resolved. DISCUSSION: On nasal O2 Continue abx I will follow carefully. Will continue careful diurese Change to PO Lasix Aly Pinto M.D. Subjective Interval Events: Saturating well on 3L/min O2 Constitutional: Reports: no symptoms HEENT: Repors: no symptoms Respiratory: Reports: no symptoms Cardiovascular: Reports: no symptoms Gastrointestinal/Abdominal: Reports: no symptoms Allergies: Coded Allergies: MORPHINE (Unverified Allergy, Unknown, 06/15/19) Objective Last 24 Hour Vital Signs Date Time Temp Pulse Resp B/P (MAP) Pulse Ox O2 Delivery O2 Flow Rate FiO2 06/24/19 04:00 80 06/24/19 04:00 97.7 79 24 118/65 (82) 96 06/24/19 04:00 3.0 06/24/19 03:30 3.0 32 06/24/19 00:56 82 20 96 30 06/24/19 00:00 76 06/24/19 00:00 98.2 76 23 112/67 (82) 99 06/24/19 00:00 30 06/23/19 23:30 80 18 97 30 06/23/19 21:00 88 26 95 30 06/23/19 21:00 Nasal Cannula 3.0 06/23/19 21:00 30 06/23/19 20:30 94 Bi-Pap 06/23/19 20:00 98.1 76 23 107/58 (74) 96 06/23/19 20:00 79 06/23/19 16:00 76 06/23/19 16:00 3.0 06/23/19 16:00 97.9 74 22 108/61 (77) 100 06/23/19 12:00 3.0 06/23/19 12:00 79 06/23/19 11:16 97.7 75 22 106/62 (77) 91 06/23/19 09:00 Nasal Cannula 3.0 Intake and Output 06/23/19 06/24/19 19:00 07:00 Intake Total 695 ml Output Total 100 ml 200 ml Balance 595 ml -200 ml Intake Free Water 200 ml Tube Feeding 495 ml Output Urine Total 100 ml 200 ml # Bowel Movements 1 General Appearance: no acute distress HEENT: normocephalic Respiratory/Chest: chest wall non-tender Cardiovascular: normal peripheral pulses Abdomen: normal bowel sounds Laboratory Tests 06/24/19 04:35: Urine Color Sydnie, Urine Appearance Cloudy, Urine pH 5, Urine Specific [place] 1.020, Urine Protein 3+H, Urine Glucose (UA) Negative, Urine Ketones 1+H, Urine Blood 5+H, Urine Nitrite PositiveH, Urine Bilirubin Negative, Urine Ictotest Positive, Urine Urobilinogen 1H, Urine Leukocyte Esterase 3+H, Urine RBC TntcH, Urine WBC 15-20H, Urine Squamous Epithelial Cells Few, Urine Bacteria ManyH, Urine Coarse Granular Casts 2-4H, Urine Random Sodium 38 06/24/19 05:54: White Blood Count 6.1, Red Blood Count 3.06L, Hemoglobin 9.2L, Hematocrit 28.0L , Mean Corpuscular Volume 92, Mean Corpuscular Hemoglobin 30.2, Mean Corpuscular Hemoglobin Concent 33.0, Red Cell Distribution Width 14.4, Platelet Count 178, Mean Platelet Volume 7.1, Neutrophils (%) (Auto) 67.0, Lymphocytes (% ) (Auto) 19.5L, Monocytes (%) (Auto) 10.8H, Eosinophils (%) (Auto) 1.6, Basophils (%) (Auto) 1.0, Sodium Level 144, Potassium Level 4.4, Chloride Level 110H, Carbon Dioxide Level 25, Anion Gap 9, Blood Urea Nitrogen 26H, Creatinine 0.8, Estimat Glomerular Filtration Rate > 60, Glucose Level 109H, Uric Acid 5.8 , Calcium Level 8.6, Phosphorus Level 2.5, Magnesium Level 2.2, Iron Level 20L, Total Iron Binding Capacity 159L, Percent Iron Saturation 13L, Unsaturated Iron Binding 139, Ferritin 144, Total Bilirubin 0.6, Gamma Glutamyl Transpeptidase 13 , Aspartate Amino Transf (AST/SGOT) 24, Alanine Aminotransferase (ALT/SGPT) 22, Alkaline Phosphatase 76, C-Reactive Protein, Quantitative 3.1H, Pro-B-Type Natriuretic Peptide 1866H, Total Protein 6.6, Albumin 1.8L, Globulin 4.8, Albumin/Globulin Ratio 0.4L, Vitamin B12 Level 717, Folate 13.1, Thyroid Stimulating Hormone (TSH) 1.701 Current Medications Medications (Trade) Dose Ordered Sig/Emil Route PRN Reason Start Time Stop Time Status Last Admin Dose Admin Acetaminophen (Tylenol) 650 mg Q4H PRN ORAL Mild Pain/Temp > 100.5 06/22/19 16:00 07/15/19 15:59 Albuterol/ Ipratropium (Albuterol/ Ipratropium) 3 ml Q4H PRN HHN Shortness of Breath 06/22/19 15:44 06/25/19 15:43 Apixaban (Eliquis) 5 mg BID ORAL 06/22/19 18:00 09/15/19 17:59 06/22/19 18:22 Chlorhexidine Gluconate (Susie-Hex 2%) 1 applic DAILY@2000 TOPIC 06/22/19 20:00 09/14/19 19:59 06/23/19 21:07 Dextrose (Dextrose 50%) 50 ml Q30M PRN IV Hypoglycemia 06/22/19 15:45 09/13/19 14:44 Metoclopramide HCl (Reglan) 5 mg Q8H PRN IVP Nausea & Vomiting 06/22/19 15:45 07/19/19 15:44 Pantoprazole (Protonix) 40 mg DAILY IVP 06/23/19 09:00 07/16/19 08:59 Vancomycin HCl (Vanco rx to dose) 1 ea DAILY PRN MISC Per rx protocol 06/23/19 09:00 07/17/19 11:14 Vancomycin/Sodium Chloride 275 ml @ 137.5 mls/ hr Q24H IVPB 06/22/19 20:00 06/24/19 19:59 06/23/19 22:26 Aly Pinto MD Jun 24, 2019 08:33
[2019-06-24] MEDS: Pantoprazole Inj IVP SCH (09:09)
[2019-06-24] MEDS: Eliquis 5mg tablet ORAL SCH ×2 (09:10→18:00)
--- NOTE | 2019-06-24 10:32 | Consultation ---
Consult Note Consult Note I was asked to evaluate the patient at the request of Dr. Chandler for low urine output Patient was interviewed and is poor historian Records reviewed Patient examined Patient has a Berkowitz catheter All current medication reviewed Assessment/Plan Oliguria most likely secondary to low blood pressure Patient has a Berkowitz catheter and urine analysis suggestive of UTI 3+ proteinuria, hypoalbuminemia with serum albumin of 1.8 Anemia History of bilateral pneumonia, COVID-19 negative. History of CHF. Shock; resolved. Yet blood pressure at times remains low Suggestions: Fluid challenge as needed Antibiotics, per ID Check 2D echocardiogram Isidro Haney MD Jun 24, 2019 10:32
--- NOTE | 2019-06-24 11:50 | Cardiac Electrophysiology PN ---
Assessment/Plan Assessment/Plan 1. S/P Respiratory failure due to bilateral MRSA pneumonia and CHF EF 60%. COVID 19 result negative. Off BIPAP 2. Troponin leak. No acute ECG findings. Likely due to septic shock and demand ischemia No CP. 3. Atrial fib on Eliquis 5 bid. Off AVN violette for hypotension. 4. S/P septic shock off Levophed and on abx by Dr. Blue. 5. History of psychiatric history. 6. History of cellulitis. 7. Dysphagia and dementia, Swallow eval pending DW RN Subjective Subjective In SR.No events. NG feeding going on. Video swallow pending Objective Last 24 Hour Vital Signs Date Time Temp Pulse Resp B/P (MAP) Pulse Ox O2 Delivery O2 Flow Rate FiO2 06/24/19 09:00 Nasal Cannula 3.0 06/24/19 09:00 3.0 06/24/19 08:00 97.2 81 20 112/65 (81) 95 06/24/19 08:00 81 06/24/19 04:00 80 06/24/19 04:00 97.7 79 24 118/65 (82) 96 06/24/19 04:00 3.0 06/24/19 03:30 3.0 32 06/24/19 00:56 82 20 96 30 06/24/19 00:00 76 06/24/19 00:00 98.2 76 23 112/67 (82) 99 06/24/19 00:00 30 06/23/19 23:30 80 18 97 30 06/23/19 21:00 88 26 95 30 06/23/19 21:00 Nasal Cannula 3.0 06/23/19 21:00 30 06/23/19 20:30 94 Bi-Pap 06/23/19 20:00 98.1 76 23 107/58 (74) 96 06/23/19 20:00 79 06/23/19 16:00 76 06/23/19 16:00 3.0 06/23/19 16:00 97.9 74 22 108/61 (77) 100 06/23/19 12:00 3.0 06/23/19 12:00 79 Intake and Output 06/23/19 06/24/19 19:00 07:00 Intake Total 695 ml Output Total 100 ml 200 ml Balance 595 ml -200 ml Intake Free Water 200 ml Tube Feeding 495 ml Output Urine Total 100 ml 200 ml # Bowel Movements 1 Laboratory Tests Test 06/24/19 04:35 06/24/19 05:54 Urine Color Sydnie Urine Appearance Cloudy Urine pH 5 (4.5-8.0) Urine Specific [place] 1.020 (1.005-1.035) Urine Protein 3+ (NEGATIVE) H Urine Glucose (UA) Negative (NEGATIVE) Urine Ketones 1+ (NEGATIVE) H Urine Blood 5+ (NEGATIVE) H Urine Nitrite Positive (NEGATIVE) H Urine Bilirubin Negative (NEGATIVE) Urine Ictotest Positive (NEGATIVE) Urine Urobilinogen 1 MG/DL (0.0-1.0) H Urine Leukocyte Esterase 3+ (NEGATIVE) H Urine RBC Tntc /HPF (0 - 2) H Urine WBC 15-20 /HPF (0 - 2) H Urine Squamous Epithelial Cells Few /LPF (NONE/OCC) Urine Bacteria Many /HPF (NONE) H Urine Coarse Granular Casts 2-4 /LPF (NONE) H Urine Random Sodium 38 mmol/L (20-110) White Blood Count 6.1 K/UL (4.8-10.8) Red Blood Count 3.06 M/UL (4.20-5.40) L Hemoglobin 9.2 G/DL (12.0-16.0) L Hematocrit 28.0 % (37.0-47.0) L Mean Corpuscular Volume 92 FL (80-99) Mean Corpuscular Hemoglobin 30.2 PG (27.0-31.0) Mean Corpuscular Hemoglobin Concent 33.0 G/DL (32.0-36.0) Red Cell Distribution Width 14.4 % (11.6-14.8) Platelet Count 178 K/UL (150-450) Mean Platelet Volume 7.1 FL (6.5-10.1) Neutrophils (%) (Auto) 67.0 % (45.0-75.0) Lymphocytes (%) (Auto) 19.5 % (20.0-45.0) L Monocytes (%) (Auto) 10.8 % (1.0-10.0) H Eosinophils (%) (Auto) 1.6 % (0.0-3.0) Basophils (%) (Auto) 1.0 % (0.0-2.0) Sodium Level 144 MMOL/L (136-145) Potassium Level 4.4 MMOL/L (3.5-5.1) Chloride Level 110 MMOL/L (98-107) H Carbon Dioxide Level 25 MMOL/L (21-32) Anion Gap 9 mmol/L (5-15) Blood Urea Nitrogen 26 mg/dL (7-18) H Creatinine 0.8 MG/DL (0.55-1.30) Estimat Glomerular Filtration Rate > 60 mL/min (>60) Glucose Level 109 MG/DL (74-106) H Uric Acid 5.8 MG/DL (2.6-7.2) Calcium Level 8.6 MG/DL (8.5-10.1) Phosphorus Level 2.5 MG/DL (2.5-4.9) Magnesium Level 2.2 MG/DL (1.8-2.4) Iron Level 20 ug/dL (50-175) L Total Iron Binding Capacity 159 ug/dL (250-450) L Percent Iron Saturation 13 % (15-50) L Unsaturated Iron Binding 139 ug/dL (112-346) Ferritin 144 NG/ML (8-388) Total Bilirubin 0.6 MG/DL (0.2-1.0) Gamma Glutamyl Transpeptidase 13 U/L (5-85) Aspartate Amino Transf (AST/SGOT) 24 U/L (15-37) Alanine Aminotransferase (ALT/SGPT) 22 U/L (12-78) Alkaline Phosphatase 76 U/L (46-116) C-Reactive Protein, Quantitative 3.1 mg/dL (0.00-0.90) H Pro-B-Type Natriuretic Peptide 1866 pg/mL (0-125) H Total Protein 6.6 G/DL (6.4-8.2) Albumin 1.8 G/DL (3.4-5.0) L Globulin 4.8 g/dL Albumin/Globulin Ratio 0.4 (1.0-2.7) L Vitamin B12 Level 717 PG/ML (193-986) Folate 13.1 NG/ML (8.6-58.9) Thyroid Stimulating Hormone (TSH) 1.701 uiU/mL (0.358-3.740) Objective HEAD AND NECK: No JVD. LUNGS: Bilateral rhonchi. CARDIOVASCULAR: Regular S1 and S2 with no gallop. ABDOMEN: Soft. EXTREMITIES: No pitting edema. Ruben Grissom MD Jun 24, 2019 11:50
[2019-06-24 12:00] VITALS: BP 114/61
--- NOTE | 2019-06-24 12:14 | Infectious Diseases Prog Note ---
Assessment/Plan Assessment/Plan IMPRESSION: Sepsis with Septic shock resolved Staph aureus pneumonia, MRSA treated Bilateral pneumonia,CXR improving Hypoxic respiratory failure Interstitial lung disease, Thrombocytopenia, Congestive heart failure. MRSA carrier RECOMMENDATION: COVID-19 test: Negative Agree with discharge to SNF Remove central line before discharge Discontinue IV Vancomycin Case was D/W primary MD & RN Subjective ROS Limited/Unobtainable: Yes Respiratory: Reports: shortness of breath, productive cough, other - both are better Allergies: Coded Allergies: MORPHINE (Unverified Allergy, Unknown, 06/15/19) Objective Vital Signs Last 24 Hour Vital Signs Date Time Temp Pulse Resp B/P (MAP) Pulse Ox O2 Delivery O2 Flow Rate FiO2 06/24/19 09:00 Nasal Cannula 3.0 06/24/19 09:00 3.0 06/24/19 08:00 97.2 81 20 112/65 (81) 95 06/24/19 08:00 81 06/24/19 04:00 80 06/24/19 04:00 97.7 79 24 118/65 (82) 96 06/24/19 04:00 3.0 06/24/19 03:30 3.0 32 06/24/19 00:56 82 20 96 30 06/24/19 00:00 76 06/24/19 00:00 98.2 76 23 112/67 (82) 99 06/24/19 00:00 30 06/23/19 23:30 80 18 97 30 06/23/19 21:00 88 26 95 30 06/23/19 21:00 Nasal Cannula 3.0 06/23/19 21:00 30 06/23/19 20:30 94 Bi-Pap 06/23/19 20:00 98.1 76 23 107/58 (74) 96 06/23/19 20:00 79 06/23/19 16:00 76 06/23/19 16:00 3.0 06/23/19 16:00 97.9 74 22 108/61 (77) 100 Height (Feet): 5 Height (Inches): 5.00 Weight (Pounds): 202 General Appearance: no acute distress HEENT: mucous membranes moist Respiratory/Chest: lungs clear Cardiovascular: normal rate, other - RIJ central line Abdomen: soft, non tender, other - tube feeding Extremities: no edema Neurologic/Psychiatric: alert, responsive Laboratory Tests Test 06/24/19 04:35 06/24/19 05:54 Urine Color Sydnie Urine Appearance Cloudy Urine pH 5 (4.5-8.0) Urine Specific [place] 1.020 (1.005-1.035) Urine Protein 3+ (NEGATIVE) H Urine Glucose (UA) Negative (NEGATIVE) Urine Ketones 1+ (NEGATIVE) H Urine Blood 5+ (NEGATIVE) H Urine Nitrite Positive (NEGATIVE) H Urine Bilirubin Negative (NEGATIVE) Urine Ictotest Positive (NEGATIVE) Urine Urobilinogen 1 MG/DL (0.0-1.0) H Urine Leukocyte Esterase 3+ (NEGATIVE) H Urine RBC Tntc /HPF (0 - 2) H Urine WBC 15-20 /HPF (0 - 2) H Urine Squamous Epithelial Cells Few /LPF (NONE/OCC) Urine Bacteria Many /HPF (NONE) H Urine Coarse Granular Casts 2-4 /LPF (NONE) H Urine Random Sodium 38 mmol/L (20-110) White Blood Count 6.1 K/UL (4.8-10.8) Red Blood Count 3.06 M/UL (4.20-5.40) L Hemoglobin 9.2 G/DL (12.0-16.0) L Hematocrit 28.0 % (37.0-47.0) L Mean Corpuscular Volume 92 FL (80-99) Mean Corpuscular Hemoglobin 30.2 PG (27.0-31.0) Mean Corpuscular Hemoglobin Concent 33.0 G/DL (32.0-36.0) Red Cell Distribution Width 14.4 % (11.6-14.8) Platelet Count 178 K/UL (150-450) Mean Platelet Volume 7.1 FL (6.5-10.1) Neutrophils (%) (Auto) 67.0 % (45.0-75.0) Lymphocytes (%) (Auto) 19.5 % (20.0-45.0) L Monocytes (%) (Auto) 10.8 % (1.0-10.0) H Eosinophils (%) (Auto) 1.6 % (0.0-3.0) Basophils (%) (Auto) 1.0 % (0.0-2.0) Sodium Level 144 MMOL/L (136-145) Potassium Level 4.4 MMOL/L (3.5-5.1) Chloride Level 110 MMOL/L (98-107) H Carbon Dioxide Level 25 MMOL/L (21-32) Anion Gap 9 mmol/L (5-15) Blood Urea Nitrogen 26 mg/dL (7-18) H Creatinine 0.8 MG/DL (0.55-1.30) Estimat Glomerular Filtration Rate > 60 mL/min (>60) Glucose Level 109 MG/DL (74-106) H Uric Acid 5.8 MG/DL (2.6-7.2) Calcium Level 8.6 MG/DL (8.5-10.1) Phosphorus Level 2.5 MG/DL (2.5-4.9) Magnesium Level 2.2 MG/DL (1.8-2.4) Iron Level 20 ug/dL (50-175) L Total Iron Binding Capacity 159 ug/dL (250-450) L Percent Iron Saturation 13 % (15-50) L Unsaturated Iron Binding 139 ug/dL (112-346) Ferritin 144 NG/ML (8-388) Total Bilirubin 0.6 MG/DL (0.2-1.0) Gamma Glutamyl Transpeptidase 13 U/L (5-85) Aspartate Amino Transf (AST/SGOT) 24 U/L (15-37) Alanine Aminotransferase (ALT/SGPT) 22 U/L (12-78) Alkaline Phosphatase 76 U/L (46-116) C-Reactive Protein, Quantitative 3.1 mg/dL (0.00-0.90) H Pro-B-Type Natriuretic Peptide 1866 pg/mL (0-125) H Total Protein 6.6 G/DL (6.4-8.2) Albumin 1.8 G/DL (3.4-5.0) L Globulin 4.8 g/dL Albumin/Globulin Ratio 0.4 (1.0-2.7) L Vitamin B12 Level 717 PG/ML (193-986) Folate 13.1 NG/ML (8.6-58.9) Thyroid Stimulating Hormone (TSH) 1.701 uiU/mL (0.358-3.740) Current Medications Medications (Trade) Dose Ordered Sig/Emil Route PRN Reason Start Time Stop Time Status Last Admin Dose Admin Acetaminophen (Tylenol) 650 mg Q4H PRN ORAL Mild Pain/Temp > 100.5 06/22/19 16:00 07/15/19 15:59 Albuterol/ Ipratropium (Albuterol/ Ipratropium) 3 ml Q4H PRN HHN Shortness of Breath 06/22/19 15:44 06/25/19 15:43 Apixaban (Eliquis) 5 mg BID ORAL 06/22/19 18:00 09/15/19 17:59 06/24/19 09:10 Chlorhexidine Gluconate (Susie-Hex 2%) 1 applic DAILY@2000 TOPIC 06/22/19 20:00 09/14/19 19:59 06/23/19 21:07 Dextrose (Dextrose 50%) 50 ml Q30M PRN IV Hypoglycemia 06/22/19 15:45 09/13/19 14:44 Furosemide (Lasix) 20 mg DAILY ORAL 06/24/19 09:00 07/24/19 08:59 06/24/19 09:10 Metoclopramide HCl (Reglan) 5 mg Q8H PRN IVP Nausea & Vomiting 06/22/19 15:45 07/19/19 15:44 Pantoprazole (Protonix) 40 mg DAILY IVP 06/23/19 09:00 07/16/19 08:59 06/24/19 09:09 Vancomycin HCl (Vanco rx to dose) 1 ea DAILY PRN MISC Per rx protocol 06/23/19 09:00 06/24/19 23:59 Vancomycin/Sodium Chloride 275 ml @ 137.5 mls/ hr Q24H IVPB 06/22/19 20:00 06/24/19 19:59 06/23/19 22:26 Edin Blue MD Jun 24, 2019 12:14
[2019-06-24] MEDS ORDERED: Varibar Nectar 240ml MC PRN (13:45)
[2019-06-24] MEDS ORDERED: Varibar Honey 250ml MC PRN (13:45)
[2019-06-24] MEDS ORDERED: Varibar Pudding 230ml MC PRN (13:45)
[2019-06-24 16:00] VITALS: BP 154/59
[2019-06-24] MEDS ORDERED: Albuterol/Ipratropium 3ml neb HHN PRN (17:58)
[2019-06-24] MEDS ORDERED: Metoclopramide 10mg/2ml Inj IVP PRN (17:59)
[2019-06-24 20:00] VITALS: BP 135/60
[2019-06-24] MEDS ORDERED: Vancomycin 1.5gm/NS Premix 275 ML IVPB SCH (20:00)
[2019-06-24] MEDS: Dyna-Hex 2% Top Sol 2oz TOPIC SCH (20:35)
--- NOTE | 2019-06-24 22:04 | General Progress Note ---
Assessment/Plan Problem List: (1) Hypoglycemia ICD Codes: E16.2 - Hypoglycemia, unspecified SNOMED: 319212314 (2) Leukopenia ICD Codes: D72.819 - Decreased white blood cell count, unspecified SNOMED: 89979077, 725313065 (3) Pneumonia ICD Codes: J18.9 - Pneumonia, unspecified organism SNOMED: 614296996, 747399713 Status: progressing, unchanged, deteriorating Assessment/Plan: her snf is not accepting her so will try to send her to another contracted snf afebrile passed the swallow study sepsis pna improving Subjective ROS Limited/Unobtainable: Yes Allergies: Coded Allergies: MORPHINE (Unverified Allergy, Unknown, 06/15/19) Objective Last 24 Hour Vital Signs Date Time Temp Pulse Resp B/P (MAP) Pulse Ox O2 Delivery O2 Flow Rate FiO2 06/24/19 21:32 Nasal Cannula 3.0 06/24/19 20:02 96 Nasal Cannula 3.0 32 06/24/19 20:00 3.0 06/24/19 20:00 97.1 72 20 135/60 (85) 96 06/24/19 16:00 97.1 69 20 154/59 (90) 97 06/24/19 16:00 3.0 06/24/19 16:00 66 06/24/19 12:00 76 06/24/19 12:00 97.3 78 20 114/61 (78) 94 06/24/19 12:00 3.0 06/24/19 09:00 Nasal Cannula 3.0 06/24/19 09:00 3.0 06/24/19 08:45 98 Nasal Cannula 3.0 32 06/24/19 08:00 97.2 81 20 112/65 (81) 95 06/24/19 08:00 81 06/24/19 04:00 80 06/24/19 04:00 97.7 79 24 118/65 (82) 96 06/24/19 04:00 3.0 06/24/19 03:30 3.0 32 06/24/19 00:56 82 20 96 30 06/24/19 00:00 76 06/24/19 00:00 98.2 76 23 112/67 (82) 99 06/24/19 00:00 30 06/23/19 23:30 80 18 97 30 Intake and Output 06/23/19 06/24/19 19:00 07:00 Intake Total 695 ml 55 ml Output Total 100 ml 200 ml Balance 595 ml -145 ml Free Water 200 ml Tube Feeding 495 ml 55 ml Output Urine Total 100 ml 200 ml # Bowel Movements 1 Laboratory Tests 06/24/19 04:35: Urine Color Sydnie, Urine Appearance Cloudy, Urine pH 5, Urine Specific [place] 1.020, Urine Protein 3+H, Urine Glucose (UA) Negative, Urine Ketones 1+H, Urine Blood 5+H, Urine Nitrite PositiveH, Urine Bilirubin Negative, Urine Ictotest Positive, Urine Urobilinogen 1H, Urine Leukocyte Esterase 3+H, Urine RBC TntcH, Urine WBC 15-20H, Urine Squamous Epithelial Cells Few, Urine Bacteria ManyH, Urine Coarse Granular Casts 2-4H, Urine Random Sodium 38 06/24/19 05:54: White Blood Count 6.1, Red Blood Count 3.06L, Hemoglobin 9.2L, Hematocrit 28.0L , Mean Corpuscular Volume 92, Mean Corpuscular Hemoglobin 30.2, Mean Corpuscular Hemoglobin Concent 33.0, Red Cell Distribution Width 14.4, Platelet Count 178, Mean Platelet Volume 7.1, Neutrophils (%) (Auto) 67.0, Lymphocytes (% ) (Auto) 19.5L, Monocytes (%) (Auto) 10.8H, Eosinophils (%) (Auto) 1.6, Basophils (%) (Auto) 1.0, Sodium Level 144, Potassium Level 4.4, Chloride Level 110H, Carbon Dioxide Level 25, Anion Gap 9, Blood Urea Nitrogen 26H, Creatinine 0.8, Estimat Glomerular Filtration Rate > 60, Glucose Level 109H, Uric Acid 5.8 , Calcium Level 8.6, Phosphorus Level 2.5, Magnesium Level 2.2, Iron Level 20L, Total Iron Binding Capacity 159L, Percent Iron Saturation 13L, Unsaturated Iron Binding 139, Ferritin 144, Total Bilirubin 0.6, Gamma Glutamyl Transpeptidase 13 , Aspartate Amino Transf (AST/SGOT) 24, Alanine Aminotransferase (ALT/SGPT) 22, Alkaline Phosphatase 76, C-Reactive Protein, Quantitative 3.1H, Pro-B-Type Natriuretic Peptide 1866H, Total Protein 6.6, Albumin 1.8L, Globulin 4.8, Albumin/Globulin Ratio 0.4L, Vitamin B12 Level 717, Folate 13.1, Thyroid Stimulating Hormone (TSH) 1.701 Height (Feet): 5 Height (Inches): 5.00 Weight (Pounds): 202 Jayjay Chandler MD Jun 24, 2019 22:04
[2019-06-25 00:28] VITALS: BP 126/66
[2019-06-25 04:00] VITALS: BP 127/63
[2019-06-25 07:08] LABS: BASOPHILS % (AUTO) 1.3 % (0.0-2.0); EOSINOPHILS % (AUTO) 2.9 % (0.0-3.0); HEMATOCRIT 27.8 % (37.0-47.0); MEAN CORPUSCULAR VOLUME 92 FL (80-99); MONOCYTES % (AUTO) 7.6 % (1.0-10.0); NEUTROPHILS % (AUTO) 68.2 % (45.0-75.0); PLATELET COUNT 206 K/UL (150-450); RED BLOOD COUNT 3.04 M/UL (4.20-5.40); RED CELL DISTRIBUTION WIDTH 14.1 % (11.6-14.8); WHITE BLOOD COUNT 5.5 K/UL (4.8-10.8)
--- NOTE | 2019-06-25 07:16 | Hematology/Onc Progress Note ---
Assessment/Plan Assessment/Plan Assessment and Recs: # Pancytopenia with a decreased wbc and plt, likely related to pna v other cause , meds ntoed --> hepatitis and hiv negative --> smear ordered at this time, no blasts noted, wbc are stable --> us of the abdomen negative for hsm and cirrhosis --> plt 62-->57k-->50k-->51k-->128k --> transfuse on prn basis --> neupogen if anc drops to below 1500 --> hgb trend 8-->9.6-->9 # Hypercoagulable disorder with afib --> ok for apixaban --> per cards # Pneumonia on admission --> now intubated --> on abx, cefepime / vanc --> per id and pulm # Hypoglycemia --> d5w given earlier --> now improved # Shortness of breath, likely due to bilateral pneumonia --> echo per cards --> may need diuresis # Respiratory failure with Bilateral lung infiltrate and leukopenia. The patient was already started on Plaquenil 600, azithromycin. --> dr. Pinto on board --> NOW INTUBATED-->bipap --> off on nc now --> covid ruled outed --> on abx vanc/cefe # History of psychiatric history. # History of cellulitis. # Dvt ppx apixaban Thank you very, appreciate consultation and abhishek Rn Subjective HEENT: Denies: no symptoms, eye pain, blurred vision, tearing, double vision, ear pain, ear discharge, nose pain, nose congestion, throat pain, throat swelling, mouth pain, mouth swelling, other Cardiovascular: Denies: no symptoms, chest pain, edema, irregular heart rate, lightheadedness, palpitations, syncope, other Respiratory: Denies: no symptoms, cough, shortness of breath, SOB with excertion, SOB at rest, sputum, wheezing, other Gastrointestinal/Abdominal: Denies: no symptoms, abdomen distended, abdominal pain, black stools, tarry stools, blood in stool, constipated, diarrhea, difficulty swallowing, nausea, poor appetite, poor fluid intake, rectal bleeding , vomiting, other Genitourinary: Denies: no symptoms, burning, discharge, frequency, flank pain, hematuria, incontinence, pain, urgency, other Neurologic/Psychiatric: Denies: no symptoms, anxiety, depressed, emotional problems, headache, numbness, paresthesia, pre-existing deficit, seizure, tingling, tremors, weakness, other Endocrine: Denies: no symptoms, excessive sweating, flushing, intolerance to cold, intolerance to heat, increased hunger, increased thirst, increased urine, unexplained weight gain, unexplained weight loss, other Hematologic/Lymphatic: Denies: no symptoms, anemia, easy bleeding, easy bruising, adenopathy, other Allergies: Coded Allergies: MORPHINE (Unverified Allergy, Unknown, 06/15/19) Subjective 06/16 remains intubated on a vent, on lveophed, with ng, draining, covid rule out , 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 06/17 labs reviewed, no bleeding or night sweats, no major meds noted 06/18 remains on levo gtt, with tube feeds, plt 51k.no overt bleeding 06/20 icu, no acute events, cbc pending, bipap, vanc/cefe 06/21 with loose stool, levo is on hold, meds noted, no bleeding, in icu 06/22 no events, with ng, with farris, no bleeding, labs noted, hgb stable 06/23 hgb remains 9.2, with farris, now off bipap and with nc 3l 06/24 is on abx broad spectrum, no bleeding or chills, labs are noted Objective Objective Current Medications Medications (Trade) Dose Ordered Sig/Emli Route PRN Reason Start Time Stop Time Status Last Admin Dose Admin Acetaminophen (Tylenol) 650 mg Q4H PRN ORAL Mild Pain/Temp > 100.5 06/24/19 17:58 07/24/19 17:57 Albuterol/ Ipratropium (Albuterol/ Ipratropium) 3 ml Q4H PRN HHN Shortness of Breath 06/24/19 17:58 06/29/19 17:57 Apixaban (Eliquis) 5 mg BID ORAL 06/24/19 18:00 09/15/19 17:59 Chlorhexidine Gluconate (Susie-Hex 2%) 1 applic DAILY@2000 TOPIC 06/24/19 20:00 09/14/19 19:59 06/24/19 20:35 Dextrose (Dextrose 50%) 50 ml Q30M PRN IV Hypoglycemia 06/24/19 18:15 09/13/19 14:44 Furosemide (Lasix) 20 mg DAILY ORAL 06/25/19 09:00 07/24/19 08:59 Metoclopramide HCl (Reglan) 5 mg Q8H PRN IVP Nausea & Vomiting 06/24/19 17:59 07/24/19 17:58 Pantoprazole (Protonix) 40 mg DAILY IVP 06/25/19 09:00 07/16/19 08:59 Vancomycin HCl (Vanco rx to dose) 1 ea DAILY PRN MISC Per rx protocol 06/25/19 09:00 07/25/19 08:59 Vancomycin/Sodium Chloride 275 ml @ 137.5 mls/ hr Q24H IVPB 06/24/19 20:00 06/29/19 19:59 06/24/19 20:36 Last 24 Hour Vital Signs Date Time Temp Pulse Resp B/P (MAP) Pulse Ox O2 Delivery O2 Flow Rate FiO2 06/25/19 04:12 3.0 06/25/19 04:00 97.4 73 24 127/63 (84) 96 06/25/19 00:28 97.8 76 20 126/66 (86) 93 06/25/19 00:00 3.0 06/24/19 21:32 Nasal Cannula 3.0 06/24/19 20:02 96 Nasal Cannula 3.0 32 06/24/19 20:00 3.0 06/24/19 20:00 97.1 72 20 135/60 (85) 96 06/24/19 16:00 97.1 69 20 154/59 (90) 97 06/24/19 16:00 3.0 06/24/19 16:00 66 06/24/19 12:00 76 06/24/19 12:00 97.3 78 20 114/61 (78) 94 06/24/19 12:00 3.0 06/24/19 09:00 Nasal Cannula 3.0 06/24/19 09:00 3.0 06/24/19 08:45 98 Nasal Cannula 3.0 32 06/24/19 08:00 97.2 81 20 112/65 (81) 95 06/24/19 08:00 81 06/24/19 04:00 80 06/24/19 04:00 97.7 79 24 118/65 (82) 96 06/24/19 04:00 3.0 06/24/19 03:30 3.0 32 06/24/19 00:56 82 20 96 30 06/24/19 00:00 76 06/24/19 00:00 98.2 76 23 112/67 (82) 99 06/24/19 00:00 30 06/23/19 23:30 80 18 97 30 06/23/19 21:00 88 26 95 30 06/23/19 21:00 Nasal Cannula 3.0 06/23/19 21:00 30 06/23/19 20:30 94 Bi-Pap 06/23/19 20:00 98.1 76 23 107/58 (74) 96 06/23/19 20:00 79 06/23/19 16:00 76 06/23/19 16:00 3.0 06/23/19 16:00 97.9 74 22 108/61 (77) 100 06/23/19 12:00 3.0 06/23/19 12:00 79 06/23/19 11:16 97.7 75 22 106/62 (77) 91 06/23/19 09:00 Nasal Cannula 3.0 06/23/19 08:00 97.7 75 20 109/60 (76) 92 06/23/19 08:00 72 06/23/19 08:00 3.0 06/23/19 07:58 98 Nasal Cannula 3.0 32 Intake and Output 06/24/19 06/25/19 19:00 07:00 Intake Total 650 ml 275.0 ml Balance 650 ml 275.0 ml Intake Oral 240 ml Free Water 50 ml IV Total 250 ml 275.0 ml Tube Feeding 110 ml # Bowel Movements 1 Labs Test 06/22/19 11:08 06/22/19 19:25 06/23/19 06:25 06/24/19 04:35 Arterial Blood pH 7.378 (7.350-7.450) Arterial Blood Partial Pressure CO2 45.8 mmHg (35.0-45.0) Arterial Blood Partial Pressure O2 61.0 mmHg (75.0-100.0) Arterial Blood HCO3 26.4 mmol/L (22.0-26.0) Arterial Blood Oxygen Saturation 90.0 % (95-100) Arterial Blood Base Excess 0.9 (-2-2) Julius Test Positive Vancomycin Level Trough 16.8 ug/mL (5.0-12.0) White Blood Count 7.2 K/UL (4.8-10.8) Red Blood Count 3.25 M/UL (4.20-5.40) Hemoglobin 9.8 G/DL (12.0-16.0) Hematocrit 29.6 % (37.0-47.0) Mean Corpuscular Volume 91 FL (80-99) Mean Corpuscular Hemoglobin 30.2 PG (27.0-31.0) Mean Corpuscular Hemoglobin Concent 33.2 G/DL (32.0-36.0) Red Cell Distribution Width 14.2 % (11.6-14.8) Platelet Count 147 K/UL (150-450) Mean Platelet Volume 8.3 FL (6.5-10.1) Neutrophils (%) (Auto) 73.7 % (45.0-75.0) Lymphocytes (%) (Auto) 12.6 % (20.0-45.0) Monocytes (%) (Auto) 10.9 % (1.0-10.0) Eosinophils (%) (Auto) 1.9 % (0.0-3.0) Basophils (%) (Auto) 0.9 % (0.0-2.0) Sodium Level 143 MMOL/L (136-145) Potassium Level 4.2 MMOL/L (3.5-5.1) Chloride Level 110 MMOL/L (98-107) Carbon Dioxide Level 25 MMOL/L (21-32) Anion Gap 8 mmol/L (5-15) Blood Urea Nitrogen 23 mg/dL (7-18) Creatinine 0.9 MG/DL (0.55-1.30) Estimat Glomerular Filtration Rate > 60 mL/min (>60) Glucose Level 150 MG/DL (74-106) Calcium Level 8.6 MG/DL (8.5-10.1) Urine Color Sydnie Urine Appearance Cloudy Urine pH 5 (4.5-8.0) Urine Specific [place] 1.020 (1.005-1.035) Urine Protein 3+ (NEGATIVE) Urine Glucose (UA) Negative (NEGATIVE) Urine Ketones 1+ (NEGATIVE) Urine Blood 5+ (NEGATIVE) Urine Nitrite Positive (NEGATIVE) Urine Bilirubin Negative (NEGATIVE) Urine Ictotest Positive (NEGATIVE) Urine Urobilinogen 1 MG/DL (0.0-1.0) Urine Leukocyte Esterase 3+ (NEGATIVE) Urine RBC Tntc /HPF (0 - 2) Urine WBC 15-20 /HPF (0 - 2) Urine Squamous Epithelial Cells Few /LPF (NONE/OCC) Urine Bacteria Many /HPF (NONE) Urine Coarse Granular Casts 2-4 /LPF (NONE) Urine Random Sodium 38 mmol/L (20-110) Test 06/24/19 05:54 06/25/19 05:43 White Blood Count 6.1 K/UL (4.8-10.8) 5.5 K/UL (4.8-10.8) Red Blood Count 3.06 M/UL (4.20-5.40) 3.04 M/UL (4.20-5.40) Hemoglobin 9.2 G/DL (12.0-16.0) 9.0 G/DL (12.0-16.0) Hematocrit 28.0 % (37.0-47.0) 27.8 % (37.0-47.0) Mean Corpuscular Volume 92 FL (80-99) 92 FL (80-99) Mean Corpuscular Hemoglobin 30.2 PG (27.0-31.0) 29.7 PG (27.0-31.0) Mean Corpuscular Hemoglobin Concent 33.0 G/DL (32.0-36.0) 32.4 G/DL (32.0-36.0) Red Cell Distribution Width 14.4 % (11.6-14.8) 14.1 % (11.6-14.8) Platelet Count 178 K/UL (150-450) 206 K/UL (150-450) Mean Platelet Volume 7.1 FL (6.5-10.1) 6.9 FL (6.5-10.1) Neutrophils (%) (Auto) 67.0 % (45.0-75.0) 68.2 % (45.0-75.0) Lymphocytes (%) (Auto) 19.5 % (20.0-45.0) 20.0 % (20.0-45.0) Monocytes (%) (Auto) 10.8 % (1.0-10.0) 7.6 % (1.0-10.0) Eosinophils (%) (Auto) 1.6 % (0.0-3.0) 2.9 % (0.0-3.0) Basophils (%) (Auto) 1.0 % (0.0-2.0) 1.3 % (0.0-2.0) Sodium Level 144 MMOL/L (136-145) Potassium Level 4.4 MMOL/L (3.5-5.1) Chloride Level 110 MMOL/L (98-107) Carbon Dioxide Level 25 MMOL/L (21-32) Anion Gap 9 mmol/L (5-15) Blood Urea Nitrogen 26 mg/dL (7-18) Creatinine 0.8 MG/DL (0.55-1.30) Estimat Glomerular Filtration Rate > 60 mL/min (>60) Glucose Level 109 MG/DL (74-106) Uric Acid 5.8 MG/DL (2.6-7.2) Calcium Level 8.6 MG/DL (8.5-10.1) Phosphorus Level 2.5 MG/DL (2.5-4.9) Magnesium Level 2.2 MG/DL (1.8-2.4) Iron Level 20 ug/dL (50-175) Total Iron Binding Capacity 159 ug/dL (250-450) Percent Iron Saturation 13 % (15-50) Unsaturated Iron Binding 139 ug/dL (112-346) Ferritin 144 NG/ML (8-388) Total Bilirubin 0.6 MG/DL (0.2-1.0) Gamma Glutamyl Transpeptidase 13 U/L (5-85) Aspartate Amino Transf (AST/SGOT) 24 U/L (15-37) Alanine Aminotransferase (ALT/SGPT) 22 U/L (12-78) Alkaline Phosphatase 76 U/L (46-116) C-Reactive Protein, Quantitative 3.1 mg/dL (0.00-0.90) Pro-B-Type Natriuretic Peptide 1866 pg/mL (0-125) Total Protein 6.6 G/DL (6.4-8.2) Albumin 1.8 G/DL (3.4-5.0) Globulin 4.8 g/dL Albumin/Globulin Ratio 0.4 (1.0-2.7) Vitamin B12 Level 717 PG/ML (193-986) Folate 13.1 NG/ML (8.6-58.9) Thyroid Stimulating Hormone (TSH) 1.701 uiU/mL (0.358-3.740) Height (Feet): 5 Height (Inches): 5.00 Weight (Pounds): 202 Objective PE General: normal inspection, alert, Chronically Ill HEENT: nc, at ++ ng Respiratory: normal inspection, lungs clear, 3L Cardiovascular: regular rate, rhythm, no edema Gastrointestinal: normal inspection, normal bowel sounds, non tender, soft, no guarding, no hernia Genitourinary: normal inspection, no CVA tenderness Musculoskeletal: normal inspection, back normal Neurologic: alert, motor strength/tone normal, 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
[2019-06-25 08:00] VITALS: BP 141/72
[2019-06-25] MEDS: Eliquis 5mg tablet ORAL SCH ×3 (08:32→17:29)
[2019-06-25] MEDS: Pantoprazole Inj IVP SCH (08:40)
--- NOTE | 2019-06-25 11:38 | General Progress Note ---
Assessment/Plan Status: progressing, unchanged, deteriorating Assessment/Plan: 1. Mild anemia. 2. Thrombocytopenia. 3. Coagulopathy, mild. 4. Elevated troponin. 5. Hypoalbuminemia. 6. Respiratory failure. 7. Diabetes per chart. fu abd us>>> reviewed fu stool ob>>> NEG fu labs>>> stable H&H hold GI procedures for now fu cardiology recs pulm care s/p swallow eval: PLAN: UPGRADED TO REGULAR TEXTURE DIET AND THIN LIQUIDS WITH SUPERVISION AND CUES TO USE ASPIRATION PRECAUTIONS AND SWALLOWING STRATEGIES. 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 CONTINUE WITH PLAN OF CARE NOTED IN UPCOMING MBSS (VIDEO) REPORT. repeat labs in am Subjective Allergies: Coded Allergies: MORPHINE (Unverified Allergy, Unknown, 06/15/19) Objective Last 24 Hour Vital Signs Date Time Temp Pulse Resp B/P (MAP) Pulse Ox O2 Delivery O2 Flow Rate FiO2 06/25/19 09:00 Nasal Cannula 3.0 06/25/19 08:00 97.6 68 18 141/72 (95) 97 06/25/19 07:00 97 Nasal Cannula 3.0 32 06/25/19 04:12 3.0 06/25/19 04:00 97.4 73 24 127/63 (84) 96 06/25/19 00:28 97.8 76 20 126/66 (86) 93 06/25/19 00:00 3.0 06/24/19 21:32 Nasal Cannula 3.0 06/24/19 20:02 96 Nasal Cannula 3.0 32 06/24/19 20:00 3.0 06/24/19 20:00 97.1 72 20 135/60 (85) 96 06/24/19 16:00 97.1 69 20 154/59 (90) 97 06/24/19 16:00 3.0 06/24/19 16:00 66 06/24/19 12:00 76 06/24/19 12:00 97.3 78 20 114/61 (78) 94 06/24/19 12:00 3.0 Intake and Output 06/24/19 06/25/19 19:00 07:00 Intake Total 650 ml 275.0 ml Balance 650 ml 275.0 ml Intake Oral 240 ml Free Water 50 ml IV Total 250 ml 275.0 ml Tube Feeding 110 ml # Bowel Movements 1 Laboratory Tests 06/25/19 05:43: White Blood Count 5.5, Red Blood Count 3.04L, Hemoglobin 9.0L, Hematocrit 27.8L , Mean Corpuscular Volume 92, Mean Corpuscular Hemoglobin 29.7, Mean Corpuscular Hemoglobin Concent 32.4, Red Cell Distribution Width 14.1, Platelet Count 206, Mean Platelet Volume 6.9, Neutrophils (%) (Auto) 68.2, Lymphocytes (% ) (Auto) 20.0, Monocytes (%) (Auto) 7.6, Eosinophils (%) (Auto) 2.9, Basophils ( %) (Auto) 1.3 Height (Feet): 5 Height (Inches): 5.00 Weight (Pounds): 193 General Appearance: no apparent distress EENT: normal ENT inspection Neck: supple Cardiovascular: normal rate Respiratory/Chest: decreased breath sounds Abdomen: normal bowel sounds, non tender, soft Extremities: non-tender Aman Wheat MD Jun 25, 2019 11:38
--- NOTE | 2019-06-25 11:55 | Pulmonology Progress Note ---
Assessment/Plan Assessment/Plan IMPRESSION: 1. Bilateral pneumonia, COVID-19 negative. 2. History of CHF. 3. Shock; resolved. DISCUSSION: On nasal O2 Continue abx I will follow carefully. Will continue careful diurese Change to PO Lasix Aly Pinto M.D. Subjective Interval Events: None new Constitutional: Reports: no symptoms HEENT: Repors: no symptoms Respiratory: Reports: no symptoms Cardiovascular: Reports: no symptoms Gastrointestinal/Abdominal: Reports: no symptoms Allergies: Coded Allergies: MORPHINE (Unverified Allergy, Unknown, 06/15/19) Objective Last 24 Hour Vital Signs Date Time Temp Pulse Resp B/P (MAP) Pulse Ox O2 Delivery O2 Flow Rate FiO2 06/25/19 09:00 Nasal Cannula 3.0 06/25/19 08:00 97.6 68 18 141/72 (95) 97 06/25/19 07:00 97 Nasal Cannula 3.0 32 06/25/19 04:12 3.0 06/25/19 04:00 97.4 73 24 127/63 (84) 96 06/25/19 00:28 97.8 76 20 126/66 (86) 93 06/25/19 00:00 3.0 06/24/19 21:32 Nasal Cannula 3.0 06/24/19 20:02 96 Nasal Cannula 3.0 32 06/24/19 20:00 3.0 06/24/19 20:00 97.1 72 20 135/60 (85) 96 06/24/19 16:00 97.1 69 20 154/59 (90) 97 06/24/19 16:00 3.0 06/24/19 16:00 66 06/24/19 12:00 76 06/24/19 12:00 97.3 78 20 114/61 (78) 94 06/24/19 12:00 3.0 Intake and Output 06/24/19 06/25/19 19:00 07:00 Intake Total 650 ml 275.0 ml Balance 650 ml 275.0 ml Intake Oral 240 ml Free Water 50 ml IV Total 250 ml 275.0 ml Tube Feeding 110 ml # Bowel Movements 1 General Appearance: no acute distress HEENT: normocephalic Respiratory/Chest: chest wall non-tender, lungs clear Cardiovascular: normal peripheral pulses Abdomen: normal bowel sounds Microbiology Date/Time Source Procedure Growth Status 06/24/19 04:35 Urine,Clean Catch Urine Culture - Preliminary NO GROWTH AFTER 24 HOURS Resulted Laboratory Tests 06/25/19 05:43: White Blood Count 5.5, Red Blood Count 3.04L, Hemoglobin 9.0L, Hematocrit 27.8L , Mean Corpuscular Volume 92, Mean Corpuscular Hemoglobin 29.7, Mean Corpuscular Hemoglobin Concent 32.4, Red Cell Distribution Width 14.1, Platelet Count 206, Mean Platelet Volume 6.9, Neutrophils (%) (Auto) 68.2, Lymphocytes (% ) (Auto) 20.0, Monocytes (%) (Auto) 7.6, Eosinophils (%) (Auto) 2.9, Basophils ( %) (Auto) 1.3 Current Medications Medications (Trade) Dose Ordered Sig/Emil Route PRN Reason Start Time Stop Time Status Last Admin Dose Admin Acetaminophen (Tylenol) 650 mg Q4H PRN ORAL Mild Pain/Temp > 100.5 06/24/19 17:58 07/24/19 17:57 Albuterol/ Ipratropium (Albuterol/ Ipratropium) 3 ml Q4H PRN HHN Shortness of Breath 06/24/19 17:58 06/29/19 17:57 Apixaban (Eliquis) 5 mg BID ORAL 06/24/19 18:00 09/15/19 17:59 Chlorhexidine Gluconate (Susie-Hex 2%) 1 applic DAILY@1999 TOPIC 06/24/19 20:00 09/14/19 19:59 06/24/19 20:35 Dextrose (Dextrose 50%) 50 ml Q30M PRN IV Hypoglycemia 06/24/19 18:15 09/13/19 14:44 Furosemide (Lasix) 20 mg DAILY ORAL 06/25/19 09:00 07/24/19 08:59 Metoclopramide HCl (Reglan) 5 mg Q8H PRN IVP Nausea & Vomiting 06/24/19 17:59 07/24/19 17:58 Pantoprazole (Protonix) 40 mg DAILY IVP 06/25/19 09:00 07/16/19 08:59 Vancomycin HCl (Vanco rx to dose) 1 ea DAILY PRN MISC Per rx protocol 06/25/19 09:00 07/25/19 08:59 Vancomycin/Sodium Chloride 275 ml @ 137.5 mls/ hr Q24H IVPB 06/24/19 20:00 06/29/19 19:59 06/24/19 20:36 Aly Pinto MD Jun 25, 2019 11:55
[2019-06-25 12:00] VITALS: BP 133/75
--- NOTE | 2019-06-25 12:01 | Cardiac Electrophysiology PN ---
Assessment/Plan Assessment/Plan 1. S/P Respiratory failure due to bilateral MRSA pneumonia and CHF EF 60%. COVID 19 result negative. Off BIPAP 2. Troponin leak. No acute ECG findings. Due to septic shock and demand ischemia. No CP. 3. Atrial fib on Eliquis 5 bid. Off AVN violette for hypotension. 4. S/P septic shock off Levophed and on abx by Dr. Blue. 5. History of psychiatric history. 6. History of cellulitis. 7. Dysphagia and dementia, Had Swallow eval on Puree diet DW RN Subjective Subjective In SR.No events.Transferred to nonmonitored bed. Objective Last 24 Hour Vital Signs Date Time Temp Pulse Resp B/P (MAP) Pulse Ox O2 Delivery O2 Flow Rate FiO2 06/25/19 09:00 Nasal Cannula 3.0 06/25/19 08:00 97.6 68 18 141/72 (95) 97 06/25/19 07:00 97 Nasal Cannula 3.0 32 06/25/19 04:12 3.0 06/25/19 04:00 97.4 73 24 127/63 (84) 96 06/25/19 00:28 97.8 76 20 126/66 (86) 93 06/25/19 00:00 3.0 06/24/19 21:32 Nasal Cannula 3.0 06/24/19 20:02 96 Nasal Cannula 3.0 32 06/24/19 20:00 3.0 06/24/19 20:00 97.1 72 20 135/60 (85) 96 06/24/19 16:00 97.1 69 20 154/59 (90) 97 06/24/19 16:00 3.0 06/24/19 16:00 66 06/24/19 12:00 76 06/24/19 12:00 97.3 78 20 114/61 (78) 94 06/24/19 12:00 3.0 Intake and Output 06/24/19 06/25/19 19:00 07:00 Intake Total 650 ml 275.0 ml Balance 650 ml 275.0 ml Intake Oral 240 ml Free Water 50 ml IV Total 250 ml 275.0 ml Tube Feeding 110 ml # Bowel Movements 1 Laboratory Tests Test 06/25/19 05:43 White Blood Count 5.5 K/UL (4.8-10.8) Red Blood Count 3.04 M/UL (4.20-5.40) L Hemoglobin 9.0 G/DL (12.0-16.0) L Hematocrit 27.8 % (37.0-47.0) L Mean Corpuscular Volume 92 FL (80-99) Mean Corpuscular Hemoglobin 29.7 PG (27.0-31.0) Mean Corpuscular Hemoglobin Concent 32.4 G/DL (32.0-36.0) Red Cell Distribution Width 14.1 % (11.6-14.8) Platelet Count 206 K/UL (150-450) Mean Platelet Volume 6.9 FL (6.5-10.1) Neutrophils (%) (Auto) 68.2 % (45.0-75.0) Lymphocytes (%) (Auto) 20.0 % (20.0-45.0) Monocytes (%) (Auto) 7.6 % (1.0-10.0) Eosinophils (%) (Auto) 2.9 % (0.0-3.0) Basophils (%) (Auto) 1.3 % (0.0-2.0) Microbiology Date/Time Source Procedure Growth Status 06/24/19 04:35 Urine,Clean Catch Urine Culture - Preliminary NO GROWTH AFTER 24 HOURS Resulted Objective HEAD AND NECK: No JVD. LUNGS: Bilateral rhonchi. CARDIOVASCULAR: Regular S1 and S2 with no gallop. ABDOMEN: Soft. EXTREMITIES: No pitting edema. Ruben Grissom MD Jun 25, 2019 12:01
--- NOTE | 2019-06-25 13:01 | Infectious Diseases Prog Note ---
Assessment/Plan Assessment/Plan IMPRESSION: Sepsis with Septic shock resolved Staph aureus pneumonia, MRSA treated Bilateral pneumonia,CXR improving Hypoxic respiratory failure Interstitial lung disease, Thrombocytopenia, Congestive heart failure. MRSA carrier RECOMMENDATION: COVID-19 test: Negative Agree with discharge to SNF Discontinue IV Vancomycin Subjective ROS Limited/Unobtainable: Yes Constitutional: Denies: fever Respiratory: Reports: no symptoms Allergies: Coded Allergies: MORPHINE (Unverified Allergy, Unknown, 06/15/19) Objective Vital Signs Last 24 Hour Vital Signs Date Time Temp Pulse Resp B/P (MAP) Pulse Ox O2 Delivery O2 Flow Rate FiO2 06/25/19 12:00 97.9 72 18 133/75 (94) 98 06/25/19 09:00 Nasal Cannula 3.0 06/25/19 08:00 97.6 68 18 141/72 (95) 97 06/25/19 07:00 97 Nasal Cannula 3.0 32 06/25/19 04:12 3.0 06/25/19 04:00 97.4 73 24 127/63 (84) 96 06/25/19 00:28 97.8 76 20 126/66 (86) 93 06/25/19 00:00 3.0 06/24/19 21:32 Nasal Cannula 3.0 06/24/19 20:02 96 Nasal Cannula 3.0 32 06/24/19 20:00 3.0 06/24/19 20:00 97.1 72 20 135/60 (85) 96 06/24/19 16:00 97.1 69 20 154/59 (90) 97 06/24/19 16:00 3.0 06/24/19 16:00 66 Height (Feet): 5 Height (Inches): 5.00 Weight (Pounds): 193 General Appearance: no acute distress HEENT: mucous membranes moist Respiratory/Chest: lungs clear Cardiovascular: normal rate Abdomen: soft, non tender Extremities: other - legs edema Microbiology Date/Time Source Procedure Growth Status 06/24/19 04:35 Urine,Clean Catch Urine Culture - Preliminary NO GROWTH AFTER 24 HOURS Resulted Laboratory Tests Test 06/25/19 05:43 White Blood Count 5.5 K/UL (4.8-10.8) Red Blood Count 3.04 M/UL (4.20-5.40) L Hemoglobin 9.0 G/DL (12.0-16.0) L Hematocrit 27.8 % (37.0-47.0) L Mean Corpuscular Volume 92 FL (80-99) Mean Corpuscular Hemoglobin 29.7 PG (27.0-31.0) Mean Corpuscular Hemoglobin Concent 32.4 G/DL (32.0-36.0) Red Cell Distribution Width 14.1 % (11.6-14.8) Platelet Count 206 K/UL (150-450) Mean Platelet Volume 6.9 FL (6.5-10.1) Neutrophils (%) (Auto) 68.2 % (45.0-75.0) Lymphocytes (%) (Auto) 20.0 % (20.0-45.0) Monocytes (%) (Auto) 7.6 % (1.0-10.0) Eosinophils (%) (Auto) 2.9 % (0.0-3.0) Basophils (%) (Auto) 1.3 % (0.0-2.0) Current Medications Medications (Trade) Dose Ordered Sig/Emil Route PRN Reason Start Time Stop Time Status Last Admin Dose Admin Acetaminophen (Tylenol) 650 mg Q4H PRN ORAL Mild Pain/Temp > 100.5 06/24/19 17:58 07/24/19 17:57 Albuterol/ Ipratropium (Albuterol/ Ipratropium) 3 ml Q4H PRN HHN Shortness of Breath 06/24/19 17:58 06/29/19 17:57 Apixaban (Eliquis) 5 mg BID ORAL 06/24/19 18:00 09/15/19 17:59 Chlorhexidine Gluconate (Susie-Hex 2%) 1 applic DAILY@1999 TOPIC 06/24/19 20:00 09/14/19 19:59 06/24/19 20:35 Dextrose (Dextrose 50%) 50 ml Q30M PRN IV Hypoglycemia 06/24/19 18:15 09/13/19 14:44 Furosemide (Lasix) 20 mg DAILY ORAL 06/25/19 09:00 07/24/19 08:59 Metoclopramide HCl (Reglan) 5 mg Q8H PRN IVP Nausea & Vomiting 06/24/19 17:59 07/24/19 17:58 Pantoprazole (Protonix) 40 mg DAILY IVP 06/25/19 09:00 07/16/19 08:59 Vancomycin HCl (Vanco rx to dose) 1 ea DAILY PRN MISC Per rx protocol 06/25/19 09:00 07/25/19 08:59 Vancomycin/Sodium Chloride 275 ml @ 137.5 mls/ hr Q24H IVPB 06/24/19 20:00 06/29/19 19:59 06/24/19 20:36 Edin Blue MD Jun 25, 2019 13:01
--- NOTE | 2019-06-25 13:06 | Nephrology Progress Note ---
Assessment/Plan Problem List: (1) Oliguria (2) Hypotension (3) UTI (urinary tract infection) (4) Hypoalbuminemia Assessment: 3+ proteinuria Assessment Oliguria most likely secondary to low blood pressure is now resolved Patient has a Berkowitz catheter and urine analysis suggestive of UTI 3+ proteinuria, hypoalbuminemia with serum albumin of 1.8 Anemia History of bilateral pneumonia, COVID-19 negative. History of CHF. Shock; resolved. Yet blood pressure at times remains low Plan Suggestions: Fluid challenge as needed Antibiotics, per ID Check 2D echocardiogram ejection fraction is 60% Continue monitor urine output and renal parameters Subjective ROS Limited/Unobtainable: No Constitutional: Reports: malaise Objective Objective Last 24 Hour Vital Signs Date Time Temp Pulse Resp B/P (MAP) Pulse Ox O2 Delivery O2 Flow Rate FiO2 06/25/19 12:00 97.9 72 18 133/75 (94) 98 06/25/19 09:00 Nasal Cannula 3.0 06/25/19 08:00 97.6 68 18 141/72 (95) 97 06/25/19 07:00 97 Nasal Cannula 3.0 32 06/25/19 04:12 3.0 06/25/19 04:00 97.4 73 24 127/63 (84) 96 06/25/19 00:28 97.8 76 20 126/66 (86) 93 06/25/19 00:00 3.0 06/24/19 21:32 Nasal Cannula 3.0 06/24/19 20:02 96 Nasal Cannula 3.0 32 06/24/19 20:00 3.0 06/24/19 20:00 97.1 72 20 135/60 (85) 96 06/24/19 16:00 97.1 69 20 154/59 (90) 97 06/24/19 16:00 3.0 06/24/19 16:00 66 Intake and Output 06/24/19 06/25/19 19:00 07:00 Intake Total 650 ml 275.0 ml Balance 650 ml 275.0 ml Intake Oral 240 ml Free Water 50 ml IV Total 250 ml 275.0 ml Tube Feeding 110 ml # Bowel Movements 1 Laboratory Tests 06/25/19 05:43: White Blood Count 5.5, Red Blood Count 3.04L, Hemoglobin 9.0L, Hematocrit 27.8L , Mean Corpuscular Volume 92, Mean Corpuscular Hemoglobin 29.7, Mean Corpuscular Hemoglobin Concent 32.4, Red Cell Distribution Width 14.1, Platelet Count 206, Mean Platelet Volume 6.9, Neutrophils (%) (Auto) 68.2, Lymphocytes (% ) (Auto) 20.0, Monocytes (%) (Auto) 7.6, Eosinophils (%) (Auto) 2.9, Basophils ( %) (Auto) 1.3 Height (Feet): 5 Height (Inches): 5.00 Weight (Pounds): 193 General Appearance: no apparent distress, other - More responsive Cardiovascular: normal rate Respiratory/Chest: decreased breath sounds Abdomen: soft Isidro Haney MD Jun 25, 2019 13:06
[2019-06-25] MEDS ORDERED: Tubing IV Secondary IV ONE (14:41)
[2019-06-25] MEDS ORDERED: Sterile Water Irrig 1000ml IRRIG ONE (14:41)
[2019-06-25] MEDS ORDERED: NS 275ml ONE ×2 (14:41→14:46)
[2019-06-25] MEDS ORDERED: NS 500ML ONE (14:46)
[2019-06-25 16:00] VITALS: BP 131/68
[2019-06-25 20:00] VITALS: BP 117/69
[2019-06-25] MEDS: Dyna-Hex 2% Top Sol 2oz TOPIC SCH (21:43)
--- NOTE | 2019-06-25 22:23 | General Progress Note ---
Assessment/Plan Problem List: (1) Hypoglycemia ICD Codes: E16.2 - Hypoglycemia, unspecified SNOMED: 522410645 (2) Leukopenia ICD Codes: D72.819 - Decreased white blood cell count, unspecified SNOMED: 75390877, 780028615 (3) Pneumonia ICD Codes: J18.9 - Pneumonia, unspecified organism SNOMED: 700562729, 750424128 Status: progressing, unchanged, deteriorating Assessment/Plan: awaiting placement afebrile neg covid 19 passed the swallow study sepsis pna improving Subjective ROS Limited/Unobtainable: Yes Allergies: Coded Allergies: MORPHINE (Unverified Allergy, Unknown, 06/15/19) Objective Last 24 Hour Vital Signs Date Time Temp Pulse Resp B/P (MAP) Pulse Ox O2 Delivery O2 Flow Rate FiO2 06/25/19 19:00 99 Nasal Cannula 3.0 32 06/25/19 16:00 98.1 73 20 131/68 (89) 99 06/25/19 13:06 72 29 98 Nasal Cannula 3.0 32 06/25/19 12:00 97.9 72 18 133/75 (94) 98 06/25/19 09:00 Nasal Cannula 3.0 06/25/19 08:00 97.6 68 18 141/72 (95) 97 06/25/19 07:00 97 Nasal Cannula 3.0 32 06/25/19 04:12 3.0 06/25/19 04:00 97.4 73 24 127/63 (84) 96 06/25/19 00:28 97.8 76 20 126/66 (86) 93 06/25/19 00:00 3.0 Intake and Output 06/24/19 06/25/19 19:00 07:00 Intake Total 650 ml 275.0 ml Balance 650 ml 275.0 ml Intake Oral 240 ml Free Water 50 ml IV Total 250 ml 275.0 ml Tube Feeding 110 ml # Bowel Movements 1 Laboratory Tests 06/25/19 05:43: White Blood Count 5.5, Red Blood Count 3.04L, Hemoglobin 9.0L, Hematocrit 27.8L , Mean Corpuscular Volume 92, Mean Corpuscular Hemoglobin 29.7, Mean Corpuscular Hemoglobin Concent 32.4, Red Cell Distribution Width 14.1, Platelet Count 206, Mean Platelet Volume 6.9, Neutrophils (%) (Auto) 68.2, Lymphocytes (% ) (Auto) 20.0, Monocytes (%) (Auto) 7.6, Eosinophils (%) (Auto) 2.9, Basophils ( %) (Auto) 1.3 Height (Feet): 5 Height (Inches): 5.00 Weight (Pounds): 193 Respiratory/Chest: lungs clear Abdomen: soft Jayjay Chandler MD Jun 25, 2019 22:23
[2019-06-26] VITALS: BP 136/69
[2019-06-26 04:00] VITALS: BP 117/72
[2019-06-26 08:00] VITALS: BP 117/64
[2019-06-26 08:40] LABS: HEMATOCRIT 31.5 % (37.0-47.0); HEMOGLOBIN 10.4 G/DL (12.0-16.0); MEAN CORPUSCULAR VOLUME 92 FL (80-99); PLATELET COUNT 279 K/UL (150-450); RED BLOOD COUNT 3.44 M/UL (4.20-5.40); RED CELL DISTRIBUTION WIDTH 13.9 % (11.6-14.8); WHITE BLOOD COUNT 8.4 K/UL (4.8-10.8)
[2019-06-26 09:29] LABS: ALANINE AMINOTRANSFERASE 21 U/L (12-78); ALBUMIN 2.2 G/DL (3.4-5.0); ALBUMIN/GLOBULIN RATIO 0.4 (1.0-2.7); ALKALINE PHOSPHATASE 87 U/L (46-116); ANION GAP 7 mmol/L (5-15); ASPARTATE AMINO TRANSFERASE 20 U/L (15-37); BILIRUBIN,TOTAL 0.6 MG/DL (0.2-1.0); BLOOD UREA NITROGEN 28 mg/dL (7-18); CALCIUM 9.1 MG/DL (8.5-10.1); CARBON DIOXIDE 26 MMOL/L (21-32); CHLORIDE 111 MMOL/L (98-107); CREATININE 0.9 MG/DL (0.55-1.30); PHOSPHORUS 2.4 MG/DL (2.5-4.9); POTASSIUM 4.6 MMOL/L (3.5-5.1); SODIUM 144 MMOL/L (136-145)
[2019-06-26] MEDS: Pantoprazole Inj IVP SCH (09:35)
[2019-06-26] MEDS: Eliquis 5mg tablet ORAL SCH (09:35)
--- NOTE | 2019-06-26 10:34 | Hematology/Onc Progress Note ---
Assessment/Plan Assessment/Plan Assessment and Recs: # Pancytopenia with a decreased wbc and plt, likely related to pna v other cause , meds ntoed --> hepatitis and hiv negative --> smear ordered at this time, no blasts noted, wbc are stable --> us of the abdomen negative for hsm and cirrhosis --> plt 62-->57k-->50k-->51k-->128k-->279 --> transfuse on prn basis --> neupogen if anc drops to below 1500 --> hgb trend 8-->9.6-->9 # Hypercoagulable disorder with afib --> ok for apixaban --> per cards # Pneumonia on admission --> improved --> on abx, cefepime / vanc --> per id and pulm # Hypoglycemia --> d5w given earlier --> now improved # Shortness of breath, likely due to bilateral pneumonia --> echo per cards --> may need diuresis # Respiratory failure with Bilateral lung infiltrate and leukopenia. The patient was already started on Plaquenil 600, azithromycin. --> dr. Pinto on board --> NOW INTUBATED-->bipap --> off on nc now --> covid ruled outed --> on abx vanc/cefe # History of psychiatric history. # History of cellulitis. 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 06/17 labs reviewed, no bleeding or night sweats, no major meds noted 06/18 remains on levo gtt, with tube feeds, plt 51k.no overt bleeding 06/20 icu, no acute events, cbc pending, bipap, vanc/cefe 06/21 with loose stool, levo is on hold, meds noted, no bleeding, in icu 06/22 no events, with ng, with farris, no bleeding, labs noted, hgb stable 06/23 hgb remains 9.2, with farris, now off bipap and with nc 3l 06/24 is on abx broad spectrum, no bleeding or chills, labs are noted 06/25 awake, no acute events, nc, dc planning Objective Objective Current Medications Medications (Trade) Dose Ordered Sig/Emil Route PRN Reason Start Time Stop Time Status Last Admin Dose Admin Acetaminophen (Tylenol) 650 mg Q4H PRN ORAL Mild Pain/Temp > 100.5 06/24/19 17:58 07/24/19 17:57 Albuterol/ Ipratropium (Albuterol/ Ipratropium) 3 ml Q4H PRN HHN Shortness of Breath 06/24/19 17:58 06/29/19 17:57 Apixaban (Eliquis) 5 mg BID ORAL 06/24/19 18:00 09/15/19 17:59 06/26/19 09:35 Chlorhexidine Gluconate (Susie-Hex 2%) 1 applic DAILY@2000 TOPIC 06/24/19 20:00 09/14/19 19:59 06/25/19 21:43 Dextrose (Dextrose 50%) 50 ml Q30M PRN IV Hypoglycemia 06/24/19 18:15 09/13/19 14:44 Furosemide (Lasix) 20 mg DAILY ORAL 06/25/19 09:00 07/24/19 08:59 06/26/19 09:35 Metoclopramide HCl (Reglan) 5 mg Q8H PRN IVP Nausea & Vomiting 06/24/19 17:59 07/24/19 17:58 Pantoprazole (Protonix) 40 mg DAILY IVP 06/25/19 09:00 07/16/19 08:59 06/26/19 09:35 Last 24 Hour Vital Signs Date Time Temp Pulse Resp B/P (MAP) Pulse Ox O2 Delivery O2 Flow Rate FiO2 06/26/19 08:00 96.8 74 18 117/64 (81) 92 06/26/19 04:00 97.9 82 18 117/72 (87) 95 06/26/19 00:00 98.2 70 22 136/69 (91) 95 06/25/19 21:00 Nasal Cannula 3.0 06/25/19 20:00 97.4 73 16 117/69 (85) 97 06/25/19 19:00 99 Nasal Cannula 3.0 32 06/25/19 16:00 98.1 73 20 131/68 (89) 99 06/25/19 13:06 72 29 98 Nasal Cannula 3.0 32 06/25/19 12:00 97.9 72 18 133/75 (94) 98 06/25/19 09:00 Nasal Cannula 3.0 06/25/19 08:00 97.6 68 18 141/72 (95) 97 06/25/19 07:00 97 Nasal Cannula 3.0 32 06/25/19 04:12 3.0 06/25/19 04:00 97.4 73 24 127/63 (84) 96 06/25/19 00:28 97.8 76 20 126/66 (86) 93 06/25/19 00:00 3.0 06/24/19 21:32 Nasal Cannula 3.0 06/24/19 20:02 96 Nasal Cannula 3.0 32 06/24/19 20:00 3.0 06/24/19 20:00 97.1 72 20 135/60 (85) 96 06/24/19 16:00 97.1 69 20 154/59 (90) 97 06/24/19 16:00 3.0 06/24/19 16:00 66 06/24/19 12:00 76 06/24/19 12:00 97.3 78 20 114/61 (78) 94 06/24/19 12:00 3.0 Intake and Output 06/25/19 06/26/19 19:00 07:00 Intake Total 600 ml Output Total 350 ml Balance 250 ml Intake Oral 600 ml Output Urine Total 350 ml Labs Test 06/24/19 04:35 06/24/19 05:54 06/25/19 05:43 06/26/19 08:05 Urine Color Sydnie Urine Appearance Cloudy Urine pH 5 (4.5-8.0) Urine Specific Hubbard 1.020 (1.005-1.035) Urine Protein 3+ (NEGATIVE) Urine Glucose (UA) Negative (NEGATIVE) Urine Ketones 1+ (NEGATIVE) Urine Blood 5+ (NEGATIVE) Urine Nitrite Positive (NEGATIVE) Urine Bilirubin Negative (NEGATIVE) Urine Ictotest Positive (NEGATIVE) Urine Urobilinogen 1 MG/DL (0.0-1.0) Urine Leukocyte Esterase 3+ (NEGATIVE) Urine RBC Tntc /HPF (0 - 2) Urine WBC 15-20 /HPF (0 - 2) Urine Squamous Epithelial Cells Few /LPF (NONE/OCC) Urine Bacteria Many /HPF (NONE) Urine Coarse Granular Casts 2-4 /LPF (NONE) Urine Random Sodium 38 mmol/L (20-110) White Blood Count 6.1 K/UL (4.8-10.8) 5.5 K/UL (4.8-10.8) 8.4 K/UL (4.8-10.8) Red Blood Count 3.06 M/UL (4.20-5.40) 3.04 M/UL (4.20-5.40) 3.44 M/UL (4.20-5.40) Hemoglobin 9.2 G/DL (12.0-16.0) 9.0 G/DL (12.0-16.0) 10.4 G/DL (12.0-16.0) Hematocrit 28.0 % (37.0-47.0) 27.8 % (37.0-47.0) 31.5 % (37.0-47.0) Mean Corpuscular Volume 92 FL (80-99) 92 FL (80-99) 92 FL (80-99) Mean Corpuscular Hemoglobin 30.2 PG (27.0-31.0) 29.7 PG (27.0-31.0) 30.1 PG (27.0-31.0) Mean Corpuscular Hemoglobin Concent 33.0 G/DL (32.0-36.0) 32.4 G/DL (32.0-36.0) 32.8 G/DL (32.0-36.0) Red Cell Distribution Width 14.4 % (11.6-14.8) 14.1 % (11.6-14.8) 13.9 % (11.6-14.8) Platelet Count 178 K/UL (150-450) 206 K/UL (150-450) 279 K/UL (150-450) Mean Platelet Volume 7.1 FL (6.5-10.1) 6.9 FL (6.5-10.1) 7.4 FL (6.5-10.1) Neutrophils (%) (Auto) 67.0 % (45.0-75.0) 68.2 % (45.0-75.0) % (45.0-75.0) Lymphocytes (%) (Auto) 19.5 % (20.0-45.0) 20.0 % (20.0-45.0) % (20.0-45.0) Monocytes (%) (Auto) 10.8 % (1.0-10.0) 7.6 % (1.0-10.0) % (1.0-10.0) Eosinophils (%) (Auto) 1.6 % (0.0-3.0) 2.9 % (0.0-3.0) % (0.0-3.0) Basophils (%) (Auto) 1.0 % (0.0-2.0) 1.3 % (0.0-2.0) % (0.0-2.0) Sodium Level 144 MMOL/L (136-145) 144 MMOL/L (136-145) Potassium Level 4.4 MMOL/L (3.5-5.1) 4.6 MMOL/L (3.5-5.1) Chloride Level 110 MMOL/L (98-107) 111 MMOL/L (98-107) Carbon Dioxide Level 25 MMOL/L (21-32) 26 MMOL/L (21-32) Anion Gap 9 mmol/L (5-15) 7 mmol/L (5-15) Blood Urea Nitrogen 26 mg/dL (7-18) 28 mg/dL (7-18) Creatinine 0.8 MG/DL (0.55-1.30) 0.9 MG/DL (0.55-1.30) Estimat Glomerular Filtration Rate > 60 mL/min (>60) > 60 mL/min (>60) Glucose Level 109 MG/DL (74-106) 144 MG/DL (74-106) Uric Acid 5.8 MG/DL (2.6-7.2) Calcium Level 8.6 MG/DL (8.5-10.1) 9.1 MG/DL (8.5-10.1) Phosphorus Level 2.5 MG/DL (2.5-4.9) 2.4 MG/DL (2.5-4.9) Magnesium Level 2.2 MG/DL (1.8-2.4) 2.2 MG/DL (1.8-2.4) Iron Level 20 ug/dL (50-175) Total Iron Binding Capacity 159 ug/dL (250-450) Percent Iron Saturation 13 % (15-50) Unsaturated Iron Binding 139 ug/dL (112-346) Ferritin 144 NG/ML (8-388) Total Bilirubin 0.6 MG/DL (0.2-1.0) 0.6 MG/DL (0.2-1.0) Gamma Glutamyl Transpeptidase 13 U/L (5-85) Aspartate Amino Transf (AST/SGOT) 24 U/L (15-37) 20 U/L (15-37) Alanine Aminotransferase (ALT/SGPT) 22 U/L (12-78) 21 U/L (12-78) Alkaline Phosphatase 76 U/L (46-116) 87 U/L (46-116) C-Reactive Protein, Quantitative 3.1 mg/dL (0.00-0.90) 1.8 mg/dL (0.00-0.90) Pro-B-Type Natriuretic Peptide 1866 pg/mL (0-125) 2028 pg/mL (0-125) Total Protein 6.6 G/DL (6.4-8.2) 7.6 G/DL (6.4-8.2) Albumin 1.8 G/DL (3.4-5.0) 2.2 G/DL (3.4-5.0) Globulin 4.8 g/dL 5.4 g/dL Albumin/Globulin Ratio 0.4 (1.0-2.7) 0.4 (1.0-2.7) Vitamin B12 Level 717 PG/ML (193-986) Folate 13.1 NG/ML (8.6-58.9) Thyroid Stimulating Hormone (TSH) 1.701 uiU/mL (0.358-3.740) Differential Total Cells Counted 100 Neutrophils % (Manual) 83 % (45-75) Lymphocytes % (Manual) 12 % (20-45) Monocytes % (Manual) 4 % (1-10) Eosinophils % (Manual) 1 % (0-3) Basophils % (Manual) 0 % (0-2) Band Neutrophils 0 % (0-8) Platelet Estimate Adequate Platelet Morphology Normal Height (Feet): 5 Height (Inches): 5.00 Weight (Pounds): 193 Objective PE General: normal inspection, alert, Chronically Ill HEENT: nc, at ++ ng Respiratory: normal inspection, lungs clear, 3L Cardiovascular: regular rate, rhythm, no edema Gastrointestinal: normal inspection, normal bowel sounds, non tender, soft, no guarding, no hernia Genitourinary: normal inspection, no CVA tenderness Musculoskeletal: normal inspection, back normal Neurologic: alert, motor strength/tone normal, 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
--- NOTE | 2019-06-26 10:36 | Pulmonology Progress Note ---
Assessment/Plan Assessment/Plan IMPRESSION: 1. Bilateral pneumonia, COVID-19 negative. 2. History of CHF. 3. Shock; resolved. DISCUSSION: On nasal O2 Continue abx I will follow carefully. Will continue careful diurese Change to PO Lasix Aly Pinto M.D. Subjective Interval Events: None new Constitutional: Reports: no symptoms HEENT: Repors: no symptoms Respiratory: Reports: no symptoms Cardiovascular: Reports: no symptoms Allergies: Coded Allergies: MORPHINE (Unverified Allergy, Unknown, 06/15/19) Objective Last 24 Hour Vital Signs Date Time Temp Pulse Resp B/P (MAP) Pulse Ox O2 Delivery O2 Flow Rate FiO2 06/26/19 08:00 96.8 74 18 117/64 (81) 92 06/26/19 04:00 97.9 82 18 117/72 (87) 95 06/26/19 00:00 98.2 70 22 136/69 (91) 95 06/25/19 21:00 Nasal Cannula 3.0 06/25/19 20:00 97.4 73 16 117/69 (85) 97 06/25/19 19:00 99 Nasal Cannula 3.0 32 06/25/19 16:00 98.1 73 20 131/68 (89) 99 06/25/19 13:06 72 29 98 Nasal Cannula 3.0 32 06/25/19 12:00 97.9 72 18 133/75 (94) 98 Intake and Output 06/25/19 06/26/19 19:00 07:00 Intake Total 600 ml Output Total 350 ml Balance 250 ml Intake Oral 600 ml Output Urine Total 350 ml General Appearance: no acute distress HEENT: normocephalic Respiratory/Chest: chest wall non-tender, lungs clear Cardiovascular: normal peripheral pulses Abdomen: normal bowel sounds Microbiology Date/Time Source Procedure Growth Status 06/24/19 04:35 Urine,Clean Catch Urine Culture - Preliminary Yeast Species Resulted Laboratory Tests 06/26/19 08:05: White Blood Count 8.4#, Red Blood Count 3.44L, Hemoglobin 10.4L, Hematocrit 31.5L, Mean Corpuscular Volume 92, Mean Corpuscular Hemoglobin 30.1, Mean Corpuscular Hemoglobin Concent 32.8, Red Cell Distribution Width 13.9, Platelet Count 279, Mean Platelet Volume 7.4, Neutrophils (%) (Auto) , Lymphocytes (%) ( Auto) , Monocytes (%) (Auto) , Eosinophils (%) (Auto) , Basophils (%) (Auto) , Differential Total Cells Counted 100, Neutrophils % (Manual) 83H, Lymphocytes % (Manual) 12L, Monocytes % (Manual) 4, Eosinophils % (Manual) 1, Basophils % ( Manual) 0, Band Neutrophils 0, Platelet Estimate Adequate, Platelet Morphology Normal, Sodium Level 144, Potassium Level 4.6, Chloride Level 111H, Carbon Dioxide Level 26, Anion Gap 7, Blood Urea Nitrogen 28H, Creatinine 0.9, Estimat Glomerular Filtration Rate > 60, Glucose Level 144H, Calcium Level 9.1, Phosphorus Level 2.4L, Magnesium Level 2.2, Total Bilirubin 0.6, Aspartate Amino Transf (AST/SGOT) 20, Alanine Aminotransferase (ALT/SGPT) 21, Alkaline Phosphatase 87, C-Reactive Protein, Quantitative 1.8H, Pro-B-Type Natriuretic Peptide 2028H, Total Protein 7.6, Albumin 2.2L, Globulin 5.4, Albumin/Globulin Ratio 0.4L Current Medications Medications (Trade) Dose Ordered Sig/Emil Route PRN Reason Start Time Stop Time Status Last Admin Dose Admin Acetaminophen (Tylenol) 650 mg Q4H PRN ORAL Mild Pain/Temp > 100.5 06/24/19 17:58 07/24/19 17:57 Albuterol/ Ipratropium (Albuterol/ Ipratropium) 3 ml Q4H PRN HHN Shortness of Breath 06/24/19 17:58 06/29/19 17:57 Apixaban (Eliquis) 5 mg BID ORAL 06/24/19 18:00 09/15/19 17:59 06/26/19 09:35 Chlorhexidine Gluconate (Susie-Hex 2%) 1 applic DAILY@1999 TOPIC 06/24/19 20:00 09/14/19 19:59 06/25/19 21:43 Dextrose (Dextrose 50%) 50 ml Q30M PRN IV Hypoglycemia 06/24/19 18:15 09/13/19 14:44 Furosemide (Lasix) 20 mg DAILY ORAL 06/25/19 09:00 07/24/19 08:59 06/26/19 09:35 Metoclopramide HCl (Reglan) 5 mg Q8H PRN IVP Nausea & Vomiting 06/24/19 17:59 07/24/19 17:58 Pantoprazole (Protonix) 40 mg DAILY IVP 06/25/19 09:00 07/16/19 08:59 06/26/19 09:35 Aly Pinto MD Jun 26, 2019 10:36
--- NOTE | 2019-06-26 10:55 | General Progress Note ---
Assessment/Plan Status: progressing, unchanged, deteriorating Assessment/Plan: 1. Mild anemia. 2. Thrombocytopenia. 3. Coagulopathy, mild. 4. Elevated troponin. 5. Hypoalbuminemia. 6. Respiratory failure. 7. Diabetes per chart. fu abd us>>> reviewed fu stool ob>>> NEG fu labs>>> stable H&H hold GI procedures for now fu cardiology recs pulm care s/p swallow eval: PLAN: UPGRADED TO REGULAR TEXTURE DIET AND THIN LIQUIDS WITH SUPERVISION AND CUES TO USE ASPIRATION PRECAUTIONS AND SWALLOWING STRATEGIES. SEND UP HIGH LIFT DRIVER AND MENU FOR FOODS OF PREFERENCE. CONTINUE WITH PLAN OF CARE NOTED IN UPCOMING MBSS (VIDEO) REPORT. repeat labs in am Subjective Allergies: Coded Allergies: MORPHINE (Unverified Allergy, Unknown, 06/15/19) Objective Last 24 Hour Vital Signs Date Time Temp Pulse Resp B/P (MAP) Pulse Ox O2 Delivery O2 Flow Rate FiO2 06/26/19 09:00 Nasal Cannula 3.0 06/26/19 08:00 96.8 74 18 117/64 (81) 92 06/26/19 04:00 97.9 82 18 117/72 (87) 95 06/26/19 00:00 98.2 70 22 136/69 (91) 95 06/25/19 21:00 Nasal Cannula 3.0 06/25/19 20:00 97.4 73 16 117/69 (85) 97 06/25/19 19:00 99 Nasal Cannula 3.0 32 06/25/19 16:00 98.1 73 20 131/68 (89) 99 06/25/19 13:06 72 29 98 Nasal Cannula 3.0 32 06/25/19 12:00 97.9 72 18 133/75 (94) 98 Intake and Output 06/25/19 06/26/19 19:00 07:00 Intake Total 600 ml Output Total 350 ml Balance 250 ml Intake Oral 600 ml Output Urine Total 350 ml Laboratory Tests 06/26/19 08:05: White Blood Count 8.4#, Red Blood Count 3.44L, Hemoglobin 10.4L, Hematocrit 31.5L, Mean Corpuscular Volume 92, Mean Corpuscular Hemoglobin 30.1, Mean Corpuscular Hemoglobin Concent 32.8, Red Cell Distribution Width 13.9, Platelet Count 279, Mean Platelet Volume 7.4, Neutrophils (%) (Auto) , Lymphocytes (%) ( Auto) , Monocytes (%) (Auto) , Eosinophils (%) (Auto) , Basophils (%) (Auto) , Differential Total Cells Counted 100, Neutrophils % (Manual) 83H, Lymphocytes % (Manual) 12L, Monocytes % (Manual) 4, Eosinophils % (Manual) 1, Basophils % ( Manual) 0, Band Neutrophils 0, Platelet Estimate Adequate, Platelet Morphology Normal, Sodium Level 144, Potassium Level 4.6, Chloride Level 111H, Carbon Dioxide Level 26, Anion Gap 7, Blood Urea Nitrogen 28H, Creatinine 0.9, Estimat Glomerular Filtration Rate > 60, Glucose Level 144H, Calcium Level 9.1, Phosphorus Level 2.4L, Magnesium Level 2.2, Total Bilirubin 0.6, Aspartate Amino Transf (AST/SGOT) 20, Alanine Aminotransferase (ALT/SGPT) 21, Alkaline Phosphatase 87, C-Reactive Protein, Quantitative 1.8H, Pro-B-Type Natriuretic Peptide 2028H, Total Protein 7.6, Albumin 2.2L, Globulin 5.4, Albumin/Globulin Ratio 0.4L Height (Feet): 5 Height (Inches): 5.00 Weight (Pounds): 193 General Appearance: no apparent distress EENT: normal ENT inspection Neck: supple Cardiovascular: normal rate Respiratory/Chest: decreased breath sounds Abdomen: normal bowel sounds, non tender, soft Extremities: non-tender Aman Wheat MD Jun 26, 2019 10:55
[2019-06-26 12:00] VITALS: BP 125/61
--- NOTE | 2019-06-26 12:05 | Cardiac Electrophysiology PN ---
Assessment/Plan Assessment/Plan 1. S/P Respiratory failure due to bilateral MRSA pneumonia and CHF EF 60%. COVID 19 result negative. Off BIPAP 2. Troponin leak. No acute ECG findings. Due to septic shock and demand ischemia. No CP. 3. Atrial fib on Eliquis 5 bid. Off AVN violette for hypotension. 4. S/P septic shock off Levophed and on abx by Dr. Blue. 5. History of psychiatric history. 6. History of cellulitis. 7. Dysphagia and dementia, passed Swallow eval on Puree diet DW RN DC today Subjective Subjective No events. DC planning today back to [facility] Objective Last 24 Hour Vital Signs Date Time Temp Pulse Resp B/P (MAP) Pulse Ox O2 Delivery O2 Flow Rate FiO2 06/26/19 09:00 Nasal Cannula 3.0 06/26/19 08:00 96.8 74 18 117/64 (81) 92 06/26/19 04:00 97.9 82 18 117/72 (87) 95 06/26/19 00:00 98.2 70 22 136/69 (91) 95 06/25/19 21:00 Nasal Cannula 3.0 06/25/19 20:00 97.4 73 16 117/69 (85) 97 06/25/19 19:00 99 Nasal Cannula 3.0 32 06/25/19 16:00 98.1 73 20 131/68 (89) 99 06/25/19 13:06 72 29 98 Nasal Cannula 3.0 32 Intake and Output 06/25/19 06/26/19 19:00 07:00 Intake Total 600 ml Output Total 350 ml Balance 250 ml Intake Oral 600 ml Output Urine Total 350 ml Laboratory Tests Test 06/26/19 08:05 White Blood Count 8.4 K/UL (4.8-10.8) # Red Blood Count 3.44 M/UL (4.20-5.40) L Hemoglobin 10.4 G/DL (12.0-16.0) L Hematocrit 31.5 % (37.0-47.0) L Mean Corpuscular Volume 92 FL (80-99) Mean Corpuscular Hemoglobin 30.1 PG (27.0-31.0) Mean Corpuscular Hemoglobin Concent 32.8 G/DL (32.0-36.0) Red Cell Distribution Width 13.9 % (11.6-14.8) Platelet Count 279 K/UL (150-450) Mean Platelet Volume 7.4 FL (6.5-10.1) Neutrophils (%) (Auto) % (45.0-75.0) Lymphocytes (%) (Auto) % (20.0-45.0) Monocytes (%) (Auto) % (1.0-10.0) Eosinophils (%) (Auto) % (0.0-3.0) Basophils (%) (Auto) % (0.0-2.0) Differential Total Cells Counted 100 Neutrophils % (Manual) 83 % (45-75) H Lymphocytes % (Manual) 12 % (20-45) L Monocytes % (Manual) 4 % (1-10) Eosinophils % (Manual) 1 % (0-3) Basophils % (Manual) 0 % (0-2) Band Neutrophils 0 % (0-8) Platelet Estimate Adequate Platelet Morphology Normal Sodium Level 144 MMOL/L (136-145) Potassium Level 4.6 MMOL/L (3.5-5.1) Chloride Level 111 MMOL/L (98-107) H Carbon Dioxide Level 26 MMOL/L (21-32) Anion Gap 7 mmol/L (5-15) Blood Urea Nitrogen 28 mg/dL (7-18) H Creatinine 0.9 MG/DL (0.55-1.30) Estimat Glomerular Filtration Rate > 60 mL/min (>60) Glucose Level 144 MG/DL (74-106) H Calcium Level 9.1 MG/DL (8.5-10.1) Phosphorus Level 2.4 MG/DL (2.5-4.9) L Magnesium Level 2.2 MG/DL (1.8-2.4) Total Bilirubin 0.6 MG/DL (0.2-1.0) Aspartate Amino Transf (AST/SGOT) 20 U/L (15-37) Alanine Aminotransferase (ALT/SGPT) 21 U/L (12-78) Alkaline Phosphatase 87 U/L (46-116) C-Reactive Protein, Quantitative 1.8 mg/dL (0.00-0.90) H Pro-B-Type Natriuretic Peptide 2028 pg/mL (0-125) H Total Protein 7.6 G/DL (6.4-8.2) Albumin 2.2 G/DL (3.4-5.0) L Globulin 5.4 g/dL Albumin/Globulin Ratio 0.4 (1.0-2.7) L Microbiology Date/Time Source Procedure Growth Status 06/24/19 04:35 Urine,Clean Catch Urine Culture - Preliminary Yeast Species Resulted Objective HEAD AND NECK: No JVD. LUNGS: Bilateral rhonchi. CARDIOVASCULAR: Regular S1 and S2 with no gallop. ABDOMEN: Soft. EXTREMITIES: No pitting edema. Ruben Grissom MD Jun 26, 2019 12:05
--- NOTE | 2019-06-26 12:34 | Infectious Diseases Prog Note ---
Assessment/Plan Assessment/Plan IMPRESSION: Sepsis with Septic shock resolved Staph aureus pneumonia, MRSA treated Bilateral pneumonia,CXR improving Hypoxic respiratory failure Interstitial lung disease, Thrombocytopenia, Congestive heart failure. MRSA carrier RECOMMENDATION: COVID-19 test: Negative Agree with discharge to SNF Subjective ROS Limited/Unobtainable: Yes Constitutional: Reports: no symptoms Respiratory: Reports: no symptoms Gastrointestinal/Abdominal: Reports: no symptoms Genitourinary: Reports: no symptoms Allergies: Coded Allergies: MORPHINE (Unverified Allergy, Unknown, 06/15/19) Objective Vital Signs Last 24 Hour Vital Signs Date Time Temp Pulse Resp B/P (MAP) Pulse Ox O2 Delivery O2 Flow Rate FiO2 06/26/19 12:00 98.5 79 20 125/61 (82) 92 06/26/19 09:00 Nasal Cannula 3.0 06/26/19 08:00 96.8 74 18 117/64 (81) 92 06/26/19 04:00 97.9 82 18 117/72 (87) 95 06/26/19 00:00 98.2 70 22 136/69 (91) 95 06/25/19 21:00 Nasal Cannula 3.0 06/25/19 20:00 97.4 73 16 117/69 (85) 97 06/25/19 19:00 99 Nasal Cannula 3.0 32 06/25/19 16:00 98.1 73 20 131/68 (89) 99 06/25/19 13:06 72 29 98 Nasal Cannula 3.0 32 Height (Feet): 5 Height (Inches): 5.00 Weight (Pounds): 193 General Appearance: no acute distress HEENT: mucous membranes moist Respiratory/Chest: lungs clear Cardiovascular: normal rate Abdomen: soft, non tender Neurologic/Psychiatric: alert, responsive Microbiology Date/Time Source Procedure Growth Status 06/24/19 04:35 Urine,Clean Catch Urine Culture - Preliminary Yeast Species Resulted Laboratory Tests Test 06/26/19 08:05 White Blood Count 8.4 K/UL (4.8-10.8) # Red Blood Count 3.44 M/UL (4.20-5.40) L Hemoglobin 10.4 G/DL (12.0-16.0) L Hematocrit 31.5 % (37.0-47.0) L Mean Corpuscular Volume 92 FL (80-99) Mean Corpuscular Hemoglobin 30.1 PG (27.0-31.0) Mean Corpuscular Hemoglobin Concent 32.8 G/DL (32.0-36.0) Red Cell Distribution Width 13.9 % (11.6-14.8) Platelet Count 279 K/UL (150-450) Mean Platelet Volume 7.4 FL (6.5-10.1) Neutrophils (%) (Auto) % (45.0-75.0) Lymphocytes (%) (Auto) % (20.0-45.0) Monocytes (%) (Auto) % (1.0-10.0) Eosinophils (%) (Auto) % (0.0-3.0) Basophils (%) (Auto) % (0.0-2.0) Differential Total Cells Counted 100 Neutrophils % (Manual) 83 % (45-75) H Lymphocytes % (Manual) 12 % (20-45) L Monocytes % (Manual) 4 % (1-10) Eosinophils % (Manual) 1 % (0-3) Basophils % (Manual) 0 % (0-2) Band Neutrophils 0 % (0-8) Platelet Estimate Adequate Platelet Morphology Normal Sodium Level 144 MMOL/L (136-145) Potassium Level 4.6 MMOL/L (3.5-5.1) Chloride Level 111 MMOL/L (98-107) H Carbon Dioxide Level 26 MMOL/L (21-32) Anion Gap 7 mmol/L (5-15) Blood Urea Nitrogen 28 mg/dL (7-18) H Creatinine 0.9 MG/DL (0.55-1.30) Estimat Glomerular Filtration Rate > 60 mL/min (>60) Glucose Level 144 MG/DL (74-106) H Calcium Level 9.1 MG/DL (8.5-10.1) Phosphorus Level 2.4 MG/DL (2.5-4.9) L Magnesium Level 2.2 MG/DL (1.8-2.4) Total Bilirubin 0.6 MG/DL (0.2-1.0) Aspartate Amino Transf (AST/SGOT) 20 U/L (15-37) Alanine Aminotransferase (ALT/SGPT) 21 U/L (12-78) Alkaline Phosphatase 87 U/L (46-116) C-Reactive Protein, Quantitative 1.8 mg/dL (0.00-0.90) H Pro-B-Type Natriuretic Peptide 2028 pg/mL (0-125) H Total Protein 7.6 G/DL (6.4-8.2) Albumin 2.2 G/DL (3.4-5.0) L Globulin 5.4 g/dL Albumin/Globulin Ratio 0.4 (1.0-2.7) L Current Medications Medications (Trade) Dose Ordered Sig/Emil Route PRN Reason Start Time Stop Time Status Last Admin Dose Admin Acetaminophen (Tylenol) 650 mg Q4H PRN ORAL Mild Pain/Temp > 100.5 06/24/19 17:58 07/24/19 17:57 Albuterol/ Ipratropium (Albuterol/ Ipratropium) 3 ml Q4H PRN HHN Shortness of Breath 06/24/19 17:58 06/29/19 17:57 Apixaban (Eliquis) 5 mg BID ORAL 06/24/19 18:00 09/15/19 17:59 06/26/19 09:35 Chlorhexidine Gluconate (Susie-Hex 2%) 1 applic DAILY@1999 TOPIC 06/24/19 20:00 09/14/19 19:59 06/25/19 21:43 Dextrose (Dextrose 50%) 50 ml Q30M PRN IV Hypoglycemia 06/24/19 18:15 09/13/19 14:44 Furosemide (Lasix) 20 mg DAILY ORAL 06/25/19 09:00 07/24/19 08:59 06/26/19 09:35 Metoclopramide HCl (Reglan) 5 mg Q8H PRN IVP Nausea & Vomiting 06/24/19 17:59 07/24/19 17:58 Pantoprazole (Protonix) 40 mg DAILY IVP 06/25/19 09:00 07/16/19 08:59 06/26/19 09:35 Edin Blue MD Jun 26, 2019 12:34
--- NOTE | 2019-06-28 18:58 | Discharge Summary ---
Discharge Summary Discharge Summary _ DATE OF ADMISSION: 06/15/2019 DATE OF DISCHARGE: 06/26/2019 DISCHARGED BY: Jayjay Gomez CONSULTANTS: Dr. James Haney BRIEF HOSPITAL COURSE: Patient is a 73-year-old female, who presented to ED after decreased O2 saturation at nursing facility. Patient has history of interstitial lung disease as well as CHF. She was noted to have increased work of breathing. Patient was brought in by EMS. There was no recent fever noted. She has a medical history significant for dementia, CHF, atrial fibrillation, hypertension , COPD, diabetes and anxiety. Upon evaluation at ED, blood work showed WBC of 3.7. Hemoglobin and hematocrit were stable. Platelet count 62. Troponin was negative. proBNP 788. Chest x- ray showed bilateral infiltrates. She was given IV hydration. She was given IV fluids. Patient was given nebulizer treatment and was admitted for pneumonia. Patient was admitted to monitored floor. Heart rate was noted to go down as low was 30. Photo Intern was consulted. Cardiac enzymes were monitored. She was given Lasix IV. Patient had evidence of hypothermia, tachypnea and decreased white cell count. Influenza a and B were negative. She was ruled out for covid 19. She was started on Zithromax and hydroxychloroquine. Patient went into respiratory failure. ER physician was called. Patient required emergency intubation and central line placement. A right internal jugular triple-lumen catheter was placed. She was started on IV pressors. Cefepime and vancomycin were added to her antibiotic regimen. Patient was taken off Lasix due to hypotension. Echocardiogram showed EF of 60% . She had elevated troponin due to troponin leak. There were no acute EKG findings. Unable to give anticoagulation due to thrombocytopenia. Unable to give AV rick violette due to hypotension. She had pancytopenia with decreased WBC and platelet count likely related to pneumonia. Hepatitis and HIV were negative. She had an episode of hypoglycemia that improved post dextrose administration. Peripheral smear did not show any blasts. Covid testing was negative. She was taken off droplet isolation. Zithromax and hydroxychloroquine discontinued. GI was consulted due to concern of possible GI bleed due to blood-tinged oral discharge. She was also given Reglan for elevated residuals. Sputum culture showed growth of MRSA. She was continued on vancomycin. On June 20, 2019, she was eventually extubated. She was placed on BiPAP. She was continued on O2 support. She was eventually taken off BiPAP on June 21. She was tolerating well on nasal cannula. Patient had decreased urine output. Urine analysis was suggestive of yeast UTI. She was given fluid challenge. She passed swallow evaluation. She was eventually started on pured diet. Stool OB was negative. Sepsis resolved. She completed antibiotic treatment. Central line discontinued. She was eventually transferred to a SNF. FINAL DIAGNOSES: Sepsis with septic shock, resolved Staph aureus pneumonia, MRSA treated Bilateral pneumonia, covid 19-negative Hypoxic respiratory failure requiring intubation, status post extubation Troponin leak due to septic shock and demand ischemia with no acute EKG findings Interstitial lung disease Atrial fibrillation on Eliquis Dysphagia Dementia Pancytopenia Congestive heart failure MRSA carrier Oliguria most likely secondary to low blood pressure, resolved Anemia Hypercoagulable disorder Hypoalbuminemia Episode of hypoglycemia, resolved Stage II sacral ulcer DISPOSITION: DC to SNF DISCHARGE MEDICATIONS: Refer to Discharge Medication List. I have been assigned to complete a discharge summary on this account, I was not involved with the patient's management.--JOSE Springer Jacqueline Robles NP Jun 28, 2019 18:58
== END 2019-06-26 15:57 | DRG 870 ==
LOC: EDBD 08:09 → EMR 08:35 → EDBEDREQ 09:32 → ICU 09:43 → EDBEDREQ 10:04 → EDBEDREQSVC 10:04 → EDBEDREQ 12:52 → ICU 23:52 → 2E 06-22 15:07 → 4E 06-24 17:49
PROC: 5A1955Z Respiratory Ventilation, Greater than 96 Consecutive Hours (ICD-10-PCS; principal; 2019-06-16)
PROC: 05HM33Z Insertion of Infusion Device into Right Internal Jugular Vein, Percutaneous Approach (ICD-10-PCS; principal; 2019-06-16)
PROC: 0BH17EZ Insertion of Endotracheal Airway into Trachea, Via Natural or Artificial Opening (ICD-10-PCS; principal; 2019-06-16)
DX: A41.9 Sepsis, unspecified organism (principal); R65.21 Severe sepsis with septic shock; J15.211 Pneumonia due to Methicillin susceptible Staphylococcus aureus; J96.91 Respiratory failure, unspecified with hypoxia; D61.818 Other pancytopenia; D68.9 Coagulation defect, unspecified; J84.9 Interstitial pulmonary disease, unspecified; E11.649 Type 2 diabetes mellitus with hypoglycemia without coma; I11.0 Hypertensive heart disease with heart failure; I50.9 Heart failure, unspecified; R68.0 Hypothermia, not associated with low environmental temperature; I48.91 Unspecified atrial fibrillation; D69.6 Thrombocytopenia, unspecified; F03.90 Unspecified dementia, unspecified severity, without behavioral disturbance, psychotic disturbance, mood disturbance, and anxiety; R00.1 Bradycardia, unspecified; D64.9 Anemia, unspecified; R13.10 Dysphagia, unspecified; Z03.818 Encounter for observation for suspected exposure to other biological agents ruled out
CPT/HCPCS: 36415; 36600; 71045; 74018; 74230; 76700; 80048; 80053; 80162; 80202; 81001; 81003; 82150; 82248; 82270; 82550; 82553; 82607; 82728; 82746; 82803; 82962; 82977; 83540; 83550; 83605; 83690; 83735; 83880; 84100; 84300; 84439; 84443; 84484; 84550; 85007; 85025; 85610; 86140; 86703; 86705; 86709; 86710; 86803; 87040; 87070; 87081; 87086; 87181; 87205; 87340; 92610; 93005; 93306; 93970; 94002; 94003; 94640; 94660; 94664; 96361; 96365; 96368; 99285; J3430; J7030; J7620; J8499